=== PATIENT | female | born 1950 | race Caucasian/White ===

== ENCOUNTER → 2020-05-14 14:00 | Outpatient (BNV) | payer MEDICARE, OTHER, SELFPAY | PROVIDERS: PCP Internal Medicine; Visit Provider Internal Medicine | DX: M81.8 Other osteoporosis without current pathological fracture (principal); Z85.3 Personal history of malignant neoplasm of breast | CPT/HCPCS: 99213; 99214; G2211 ==

== ENCOUNTER → 2020-07-22 11:00 | Outpatient (BNVA) | payer MEDICARE, SELFPAY | PROVIDERS: PCP Internal Medicine; Visit Provider Surgery | DX: C50.919 Malignant neoplasm of unspecified site of unspecified female breast (principal) | CPT/HCPCS: 99212 ==

== ENCOUNTER 2020-08-11 08:00 | Outpatient (REF) | payer MEDICARE, SELFPAY ==
--- NOTE | ~2020-08-11 | MM_ITS ---
EXAMINATION: MM SCREENING DIGITAL BREAST TOMOSYNTHESIS, LEFT CLINICAL INFORMATION: Right mastectomy for breast cancer 2018. Due for yearly. COMPARISON: Mammography: 01/09/2019, 11/22/2017, 12/16/2016 TECHNIQUE: Digital breast tomosynthesis is performed in both the craniocaudal and mediolateral oblique views along with computer-aided detection (CAD). Synthesized 2D images are generated from the tomosynthesis. FINDINGS: There are scattered areas of fibroglandular density (ACR BI-RADS breast composition Category b). There are no significant masses, abnormal calcifications, or other abnormalities. Parenchymal pattern is similar to prior studies. No developing density. The axilla and skin contours are unremarkable. MM/MM tomosynthesis screening LT IMPRESSION: No mammographic evidence of malignancy. ASSESSMENT: BI-RADS 1: Negative RECOMMENDATION: Routine annual mammography screening. This patient's information was entered into a reminder system with a target due date for their next mammogram.
== END 2020-08-11 08:01 | disposition home or self-care (01) ==
LOC: HO.MAMMO 08:00
PROVIDERS: Visit Provider Internal Medicine
DX: Z12.31 Encounter for screening mammogram for malignant neoplasm of breast (principal)
CPT/HCPCS: 77063; 77067

== ENCOUNTER 2020-12-24 12:53 | Outpatient (REF) | payer MEDICARE, SELFPAY ==
--- NOTE | ~2020-12-24 | US_ITS ---
EXAMINATION: US DIAGNOSTIC ULTRASOUND BREAST, RIGHT CLINICAL INFORMATION: History of right breast mastectomy with pain in region of implant which comes and goes.. COMPARISON: None postsurgical TECHNIQUE: Ultrasound of the breast is performed with real-time nieto scale imaging and color Doppler. FINDINGS: No abnormal cystic or solid mass was identified. Patient is status post mastectomy. Breast implant appears unremarkable. There appears to be a muscle flap in place. Results are discussed with the patient at time of visit. US/US breast RT limited IMPRESSION: No suspicious ultrasound abnormality appreciated at site of patient's pain. ASSESSMENT: BI-RADS 1: Negative RECOMMENDATION: Clinical follow-up for right breast findings postmastectomy. Routine left breast annual screening. This patient's information was entered into a reminder system with a target due date for their next mammogram.
== END 2020-12-24 12:54 | disposition home or self-care (01) ==
LOC: HO.MAMMO 12:53
PROVIDERS: Visit Provider Internal Medicine
DX: C50.919 Malignant neoplasm of unspecified site of unspecified female breast (principal); N64.4 Mastodynia; Z98.82 Breast implant status
CPT/HCPCS: 76642

== ENCOUNTER → 2021-02-24 12:46 | Outpatient (BNVA) | payer MEDICARE, SELFPAY | PROVIDERS: Visit Provider Surgery | DX: C50.911 Malignant neoplasm of unspecified site of right female breast (principal); E78.00 Pure hypercholesterolemia, unspecified; I10 Essential (primary) hypertension; Z87.891 Personal history of nicotine dependence; Z17.0 Estrogen receptor positive status [ER+]; Z90.11 Acquired absence of right breast and nipple; Z92.21 Personal history of antineoplastic chemotherapy; Z92.3 Personal history of irradiation; Z79.811 Long term (current) use of aromatase inhibitors | CPT/HCPCS: 99212 ==

== ENCOUNTER → 2021-10-13 14:28 | Outpatient (BNVA) | payer MEDICARE, SELFPAY | PROVIDERS: PCP Internal Medicine; Referring Provider Internal Medicine; Visit Provider Surgery | DX: C50.919 Malignant neoplasm of unspecified site of unspecified female breast (principal) | CPT/HCPCS: 99212 ==

== ENCOUNTER 2021-10-27 11:42 | Outpatient (REF) | payer MEDICARE, SELFPAY ==
--- NOTE | ~2021-10-27 | MM_ITS ---
EXAMINATION: MM SCREENING DIGITAL BREAST TOMOSYNTHESIS, LEFT CLINICAL INFORMATION: Screening. Asymptomatic. Status post right mastectomy. COMPARISON: Mammography: August 16, 2020 and studies dating back to May 03, 2012 TECHNIQUE: Digital breast tomosynthesis is performed in both the craniocaudal and mediolateral oblique views along with computer-aided detection (CAD). Synthesized 2D images are generated from the tomosynthesis. FINDINGS: There are scattered areas of fibroglandular density (ACR BI-RADS breast composition Category b). There are no significant masses, abnormal calcifications, or other abnormalities. MM/MM tomosynthesis screening LT IMPRESSION: There are no significant changes from prior study. ASSESSMENT: BI-RADS 1: Negative RECOMMENDATION: Routine annual mammography screening. This patient's information was entered into a reminder system with a target due date for their next mammogram.
== END 2021-10-27 11:43 | disposition home or self-care (01) ==
LOC: HO.MAMMO 11:42
PROVIDERS: Visit Provider Surgery
DX: Z12.31 Encounter for screening mammogram for malignant neoplasm of breast (principal)
CPT/HCPCS: 77063; 77067

== ENCOUNTER 2021-12-22 13:16 | Outpatient (REF) | payer MEDICARE, SELFPAY ==
--- NOTE | ~2021-12-22 | MM_ITS ---
EXAMINATION: BONE DENSITOMETRY CLINICAL INDICATION: On AI therapy. COMPARISON: Previous BD dated 09/23/2017 and baseline BD dated 05/12/2006. TECHNIQUE: Using a [employer] [facility] [employer] DXA System (software version: 13.1) manufactured by [employer], dual-energy x-ray absorptiometry was performed of the lumbar spine and left hip. The images are of good technical quality. Summary results are attached. FINDINGS: AP SPINE L1-L4: There are multilevel degenerative changes in the lumbar spine which may cause over a summation of the lumbar bone mineral density. Current: BMD 1.392 g/cm2, Z-score 2.3, T-score 1.8, normal, 2.3% decrease from previous, 13.4% increase from baseline (<5% change is not significant). Prior: BMD 1.425 g/cm2. Baseline: BMD 1.227 g/cm2. LEFT FEMUR, NECK: Current: BMD 0.673 g/cm2, Z-score -1.7, T-score -2.6, osteoporosis. Prior: BMD 0.923 g/cm2. Baseline: BMD 1.073 g/cm2. LEFT FEMUR, TOTAL: Current: BMD 0.758 g/cm2, Z-score -1.3, T-score -2.0, osteopenia, 25.5% decrease from previous, 31.9% decrease from baseline (<5% change is not significant). Prior: BMD 1.017 g/cm2. Baseline: BMD 1.113 g/cm2. IDENTIFIED RISK FACTORS: Height loss, menopause. HISTORY OF FRACTURE: None listed. MEDICATIONS: Vitamin D. MM/XR DEXA axial skeleton IMPRESSION: 1. DIAGNOSIS: Osteoporosis based on the lowest T-score value of -2.6 in the femoral neck applying World Health Organization criteria. 2. 10-YEAR FRACTURE RISK PREDICTION, FRAX: According to the guidelines, FRAX calculation should only be performed on patients in the osteopenia bone density category. Therefore, FRAX was not performed on this patient. 3. Treatment Recommendations: NOF guidelines recommend consideration for treatment in postmenopausal women and men age 50 and older presenting with the following: -A hip or vertebral (clinical or morphometric) fracture. -T-score less than or equal to -2.5 at the femoral neck or spine after appropriate evaluation to exclude secondary causes. -Low bone mass at the hip or spine and a 10-year fracture probability by FRAX of greater than or equal to 3% for hip fracture or greater than or equal to 20% for major osteoporotic fracture based on the [place] adapted WHO algorithm. 4. Other Recommendations: All treatment decisions require clinical judgment and consideration of individual patient factors, including patient preferences, comorbidities, previous drug use, risk factors not captured in the FRAX model (e.g. frailty, falls, vitamin D deficiency, increased bone turnover, interval significant decline in bone density) and possible under or overestimation of fracture risk by FRAX. Additional medical evaluation for secondary cause of low bone mineral density may be appropriate. FUTURE SCAN RECOMMENDATION: People with diagnosed cases of osteoporosis or at high risk for fracture should have regular bone mineral density tests. For patients eligible for Medicare, routine testing is allowed once every 2 years. The testing frequency can be increased to one year for patients who have rapidly progressing disease, those who are receiving or discontinuing medical therapy to restore bone mass, or have additional risk factors.
--- NOTE | 2021-12-23 08:28 | PM.EVENT ---
Spoke to patient about her bone density. She has developed osteoporosis T-score -2.6. We discussed Prolia as well as alendronate for bone strengthening. She would preferred Prolia 60 mg subQ every 6 months.
== END 2021-12-22 13:17 | disposition home or self-care (01) ==
LOC: HO.MAMMO 13:16
PROVIDERS: PCP Internal Medicine; Visit Provider Internal Medicine
DX: Z13.820 Encounter for screening for osteoporosis (principal); C50.919 Malignant neoplasm of unspecified site of unspecified female breast; Z79.3 Long term (current) use of hormonal contraceptives; Z78.0 Asymptomatic menopausal state
CPT/HCPCS: 77080

== ENCOUNTER 2022-01-14 10:31 | Outpatient (AMB) | payer MEDICARE, SELFPAY ==
--- NOTE | 2022-01-13 14:38 | A.OFFVIS_ITS ---
Intake Intake Visit Reasons: Right renal mass Intake Note: Patient is present for right renal mass Accompanied by: Self / Same As Patient Allergies Sulfa (Sulfonamide Antibiotics) [SULFA(SULFONAMIDE ANTIBIOTICS)] Allergy (Mariaelena avitia, Verified 01/13/22 14:39) ? RXN - HAD CHILD PFSH Medical History Breast cancer Cholecystectomy planned FH: mastectomy High cholesterol HTN (hypertension) Invasive ductal carcinoma of breast Renal mass Surgical History H/O hand surgery (2012) H/O wrist surgery History of breast biopsy (12/24/16) History of colonoscopy (03/06/14) History of right breast implant (01/30/18) History of right mastectomy (02/02/17) Family History Father Stroke Hypertension Mother COPD (chronic obstructive pulmonary disease) Hypertension Brother Stomach cancer Brother Liver transplant recipient Social History Household Members: Family Housing: House Are you a primary wound care technician to a significant other at home: No Do you presently have visiting nurse or other home services: No Alcohol intake: current Alcohol intake frequency: holidays/special occasions only Patient Tobacco Use Status: Former Tobacco user Quit Date: 1975 Use of substances other than those prescribed or required for medical reasons: No Have you been hit, kicked, punched, or otherwise hurt by someone within the past year? If so, by whom?: No Do you feel safe in your current relationship?: No Current Relationship Do you have thoughts of harming others: None Do you have a plan to hurt others: No Plan Do you have the means to hurt others: No Recently lost weight without trying: No service: No Current occupational status: retired Coding
--- NOTE | 2022-01-14 10:31 | A.OFFVIS_ITS ---
Intake Vital Signs 01/14/22 10:35 Height 5 ft 3 in BP 140/70 H Blood Pressure Location Rt brachial Position Sitting Comment pt was notified that BP was slighty high Intake Visit Reasons: Right renal mass Intake Note: New patient is present for right renal mass Refrigeration Service Inspector Required: No Accompanied by: Self / Same As Patient Allergies Sulfa (Sulfonamide Antibiotics) [SULFA(SULFONAMIDE ANTIBIOTICS)] Allergy (Unknown, Verified 07/12/23 13:04) ? RXN - HAD CHILD HPI HPI Comments History of Present Illness Details Amalia is a pleasant female. She is a patient of Dr. Llanos. She seen for the following urologic conditions - atrophic kidney Accompanied by brother in law Discussed recent lab work from PCP Indicates dehydration at time of investigations Recommendation to drink water prior to follow-up lab work High fasting sugar Encourage nutrition modification and activity Atrophic right kidney/nephrolithiasis Stable imaging Twelve month follow-up [facility] Medical History FH: cholecystectomy Renal cancer Invasive ductal carcinoma of breast Renal mass FH: mastectomy Breast cancer HTN (hypertension) High cholesterol Surgical History History of cholecystectomy History of right breast implant (01/30/18) History of right mastectomy (02/02/17) History of breast biopsy (12/24/16) History of colonoscopy (03/06/14) H/O wrist surgery H/O hand surgery (2012) Family History Father Stroke Hypertension Mother COPD (chronic obstructive pulmonary disease) Hypertension Brother Stomach cancer Brother Liver transplant recipient Social History Household Members: Family Housing: House Are you a primary healthcare management consultant to a significant other at home: No Do you presently have visiting nurse or other home services: No Alcohol intake: current Alcohol intake frequency: holidays/special occasions only Patient Tobacco Use Status: Former Tobacco user Quit Date: 1975 service: No Current occupational status: retired Review of Systems Const Denies chills and Denies fever(s) Card Reports no additional complaints and Denies syncope Resp Denies cough GI Denies abdominal pain and Denies heartburn Reports as per HPI and Denies change in libido Neuro Denies syncope Psych Denies change in libido Endo Denies change in libido Physical Exam Vital Signs: Last Vital Signs BP 140/70 H 01/14/22 10:35 Const General: cooperative, healthy appearing, comfortable and no acute distress Orientation/consciousness: patient oriented x3 HEENT Face and sinus: Yes normal facial exam Mouth: moist mucous membranes Neck Neck: Yes normal visual inspection, Yes full ROM and Yes trachea midline Chest Chest palpation & inspection: normal inspection of the chest Resp Effort & Inspection: normal respiratory effort, able to speak in complete sentences and no respiratory distress GI Inspection: Yes normal to inspection Back/Spine/Pelvis Cervical Spine: normal cervical lordosis Thoracic/Lumbar Spine: thoracic and lumbar spine normal to inspection Skin General skin exam: no rashes or lesions noted Neuro General: patient oriented x3, gait normal, tone normal and moves all extremities Extrem General: Yes normal to inspection and Yes capillary refill normal Results AMB Urinalysis, Automated UA Leukoctes 70 Deon/uL Last Edit by ANGELA Cevallos on 01/14/22 10:58 UA Nitrite Negative Last Edit by Carmelina Jackson [facility] on 01/14/22 10:58 UA Urobilinogen 0.2 mg/dL Last Edit by Carmelina Jackson Carl on 01/14/22 10:5 8 UA Protein 15 mg/dL Last Edit by Carmelina Jackson [facility] on 01/14/22 10:58 UA pH 5.5 Last Edit by Carmelina Jackson [facility] on 01/14/22 10:58 UA Blood 0 Juarez/uL Last Edit by Carmelina Jackson [facility] on 01/14/22 10:58 UA Specific [place] 1.025 Last Edit by Carmelina Jackson [facility] on 01/14/22 10: 58 UA Ketone Negative Last Edit by ANGELA Cevallos on 01/14/22 10:58 UA Bilirubin 0 mg/dL Last Edit by Carmelina Jackson [facility] on 01/14/22 10:58 UA Glucose 0 mg/dL Last Edit by Carmelina Jackson [facility] on 01/14/22 10:58 Results Reviewed Results Reviewed: Laboratory Last Values Urine pH (Auto) 5.5 01/14/22 10:35 Specific [place] (Auto) 1.025 01/14/22 10:35 Urine Protein (Auto) 15 mg/dL 01/14/22 10:35 Glucose (UA)(Auto) 0 mg/dL 01/14/22 10:35 Urine Ketones (Auto) Negative 01/14/22 10:35 Urine Blood (Auto) 0 Juarez/uL 01/14/22 10:35 Urine Nitrite (Auto) Negative 01/14/22 10:35 Urine Bilirubin (Auto) 0 mg/dL 01/14/22 10:35 Urine Urobilinogen (Auto) 0.2 mg/dL 01/14/22 10:35 Leukocyte Esterase (Auto) 70 Deon/uL 01/14/22 10:35 Assessment & Plan Assessment & Plan (1) Renal cancer: Code(s): C64.9 - Malignant neoplasm of unspecified kidney, except renal pelvis Plan 12 m f/u Orders: Orders AMB Urinalysis Automated 01/14/22 Z13.9 - Encounter for screening, unspecified US renal BI 1 Year N20.0 - Calculus of kidney, C64.9 - Malignant neoplasm of unspecified kidney, except renal pelvis Patient Instructions: Imaging studies, laboratory and physical exam results were discussed and reviewed in detail. No major barriers to patient understanding were identified. An opportunity to ask questions regarding the treatment plan was provided. All questions were answered. The patient expressed understanding and agreement with the above treatment plan. The patient is aware they should contact our office by phone for worsening of their current condition or the appearance of new urologic symptoms. Compliance is encouraged with any medications and followup testing that is ordered. It is a privilege to participate in the urologic care of your patient. If you have any questions or concerns regarding treatment for the above conditions, or other urologic issues, please do not hesitate to contact me. The office telephone contact is [phone]. This note is constructed using voice recognition software. While every effort has been made to ensure accuracy physician locums urgent care errors may have been included. Yours sincerely, Dr Sy Mckee MD, [facility] - Urology Providers of Expert, Compassionate Care for the Genitourinary System Coding Level of Care Code New Pt Level 3 (44268) Diagnoses Renal cancer C64.9
[2022-01-14 10:35] VITALS: BP 140/70
== END 2022-01-14 11:05 | disposition home or self-care (01) ==
LOC: HO.HUSH 10:31
PROVIDERS: PCP Internal Medicine; Visit Provider Urology
DX: C64.9 Malignant neoplasm of unspecified kidney, except renal pelvis (principal)
CPT/HCPCS: 99499

== ENCOUNTER 2022-04-06 09:12 | Day surgery (SDC) | payer MEDICARE, SELFPAY ==
--- NOTE | 2022-04-05 14:20 | HO.ANESPROP2 ---
Documented by User: Rashmi Latham NP 04/05/22 14:21 HPI - Anesthesia Eval Consult details Narrative: 72yo F for Colonoscopy s/p Right mastectomy PMFSH Active Problems Active Problems: All Active Problems (Updated 01/14/22 @ 11:03 by Sy Mckee MD) Renal cancer (Acute) Invasive ductal carcinoma of breast (Acute) Breast CA (Chronic) Past Medical History Medical History Breast cancer FH: cholecystectomy FH: mastectomy High cholesterol HTN (hypertension) Invasive ductal carcinoma of breast Renal mass Family History Family History Father Stroke Hypertension Mother COPD (chronic obstructive pulmonary disease) Hypertension Brother Stomach cancer Brother Liver transplant recipient Surgical History Surgical History H/O hand surgery (2012) H/O wrist surgery History of breast biopsy (12/24/16) History of cholecystectomy History of colonoscopy (03/06/14) History of right breast implant (01/30/18) History of right mastectomy (02/02/17) Social History Social History Household Members: Family Housing: House Are you a primary care mgr to a significant other at home: No Do you presently have visiting nurse or other home services: No Alcohol intake: current Alcohol intake frequency: holidays/special occasions only Patient Tobacco Use Status: Former Tobacco user Quit Date: 1975 Use of substances other than those prescribed or required for medical reasons: No Are you DNR?: No Advance Directives: No Advance Directives Information Provided: Yes service: No Current occupational status: retired Meds Allergies Allergy/AdvReac Type Severity Reaction Status Date / Time Sulfa (Sulfonamide Allergy Unknown ? RXN - Verified 01/14/22 10:31 Antibiotics) HAD [SULFA(SULFONAMIDE CHILD ANTIBIOTICS)] Home Medications Medication Instructions Recorded Confirmed Last Taken Type anastrozole 1 mg tablet 1 tab PO DAILY 05/14/20 11/16/21 Unknown History atorvastatin 20 mg tablet 1 tab PO DAILY 05/14/20 11/16/21 Unknown History duloxetine 60 mg capsule,delayed 1 cap PO DAILY 05/14/20 11/16/21 Unknown History release naproxen 500 mg tablet 1 tab PO BID 05/14/20 11/16/21 03/30/22 History pantoprazole 40 mg tablet,delayed 1 tab PO DAILY 05/14/20 11/16/21 Unknown History release trazodone 50 mg tablet 1 tab PO BEDTIME 05/14/20 11/16/21 Unknown History valsartan 320 mg tablet 1 tab PO DAILY 05/14/20 11/16/21 Unknown History furosemide 20 mg tablet 20 mg PO DAILY 07/22/20 11/16/21 Unknown History amlodipine 5 mg tablet 5 mg PO DAILY 02/24/21 11/16/21 Unknown History buspirone 10 mg tablet 10 mg PO BID 05/18/21 11/16/21 Unknown History Exam Exam Date and Time: April 05, 2022 1420 Pertinent Lab Results Pertinent Lab Results: Laboratory Tests 11/16/21 12/28/21 13:19 08:03 WBC 7.4 Hgb 13.3 Hct 39.5 Plt Count 227 Sodium 140 Potassium 4.5 Chloride 105 Carbon Dioxide 27 BUN 20 H Creatinine 1.10 Assessment and Plan Assessment Anesthesia Assessment: Chart Reviewed Documented by User: Scotty Padron MD 04/06/22 12:42 [facility] Past Medical History Medical History Breast cancer FH: cholecystectomy FH: mastectomy High cholesterol HTN (hypertension) Invasive ductal carcinoma of breast Renal mass Family History Family History Father Stroke Hypertension Mother COPD (chronic obstructive pulmonary disease) Hypertension Brother Stomach cancer Brother Liver transplant recipient Family history of problems with anesthesia: No Surgical History Surgical History H/O hand surgery (2012) H/O wrist surgery History of breast biopsy (12/24/16) History of cholecystectomy History of colonoscopy (03/06/14) History of right breast implant (01/30/18) History of right mastectomy (02/02/17) History of Problems with Anesthesia: No Social History Social History Household Members: Family Housing: House Are you a primary care mgr to a significant other at home: No Do you presently have visiting nurse or other home services: No Alcohol intake: current Alcohol intake frequency: holidays/special occasions only Patient Tobacco Use Status: Former Tobacco user Quit Date: 1975 Use of substances other than those prescribed or required for medical reasons: No Are you DNR?: No Advance Directives: No Advance Directives Information Provided: Yes service: No Current occupational status: retired Meds Allergies Allergy/AdvReac Type Severity Reaction Status Date / Time Sulfa (Sulfonamide Allergy Unknown ? RXN - Verified 01/14/22 10:31 Antibiotics) HAD [SULFA(SULFONAMIDE CHILD ANTIBIOTICS)] Home Medications Medication Instructions Recorded Confirmed Last Taken Type anastrozole 1 mg tablet 1 tab PO DAILY 05/14/20 11/16/21 Unknown History atorvastatin 20 mg tablet 1 tab PO DAILY 05/14/20 11/16/21 Unknown History duloxetine 60 mg capsule,delayed 1 cap PO DAILY 05/14/20 11/16/21 Unknown History release naproxen 500 mg tablet 1 tab PO BID 05/14/20 11/16/21 03/30/22 History pantoprazole 40 mg tablet,delayed 1 tab PO DAILY 05/14/20 11/16/21 Unknown History release trazodone 50 mg tablet 1 tab PO BEDTIME 05/14/20 11/16/21 Unknown History valsartan 320 mg tablet 1 tab PO DAILY 05/14/20 11/16/21 Unknown History furosemide 20 mg tablet 20 mg PO DAILY 07/22/20 11/16/21 Unknown History amlodipine 5 mg tablet 5 mg PO DAILY 02/24/21 11/16/21 Unknown History buspirone 10 mg tablet 10 mg PO BID 05/18/21 11/16/21 Unknown History Exam Airway Mallampati Class: II TM Dist: >3cm Neck ROM: Full Partial: Upper Loose/Missing/Broken Teeth: Yes Heart: rrr+[id number] Lungs: cta b/l Assessment and Plan Assessment Anesthesia Assessment: Anesthesia Plan Discussed Final Anesthetic Review Family History of Problems with Anesthesia: No History of Problems with Anesthesia: No NPO: Yes ASA Class: III Final Preanesthetic Review: No Changes in Pt Med Stat, Meds/Allgs Chart Reviewed, Consent Obtained/Reviewed and Anes Risks/Benef Reviewed Patient Risk: Intermediate Procedure Risk: Intermediate Assessment/Block/Sedation in SS: Assess/Block/Sedation-SS Anesthetic Plan Anesthetic Plan: MAC: and Agree w/ Assess. and Plan Disposition: Standard PACU
[2022-04-06 09:25] VITALS: BMI 42.0
[2022-04-06 09:30] VITALS: PULSE 69; RESP 18; TEMP 36.2; O2SAT 97
[2022-04-06] MEDS: Lactated Ringers 1,000 ML 100 ML IVCONT (10:45)
[2022-04-06] MEDS: Sodium Phosphate,Mono-Dibasic 133 ML ENEMA PR (10:45)
--- NOTE | 2022-04-06 11:56 | MHC.SHP ---
Pre-Procedural Eval Section A Date of Service: 04/06/22 The patient is an INPATIENT: No Changes since office visit: No Cold of Flu in the past 2 weeks, No New Medical Problems, No Changes in Medication and No Patient answered all questions The History & Physical has been completed within 30 days and I have reviewed it.: Yes Section B Chief Complaint: screening Allergies: Allergies Allergy/AdvReac Type Severity Reaction Status Date / Time Sulfa (Sulfonamide Allergy Unknown ? RXN - Verified 01/14/22 10:31 Antibiotics) HAD [SULFA(SULFONAMIDE CHILD ANTIBIOTICS)] Plan I have reviewed the history and physical and performed a pertinent physical examination on my patient. No changes have occurred unless specified.
[2022-04-06 12:38] VITALS: BP 103/37; PULSE 72; RESP 18; TEMP 36.9; O2SAT 97
--- NOTE | 2022-04-06 12:47 | PM.OP ---
Brief Operative Note Date of Service: 04/06/22 Pre-op diagnosis: change in bowels Post-op diagnosis: same Surgeon: Jose J Simpson Anesthesia: MAC Was an Precipitator Supervisor used for this Procedure?: No Estimated blood loss (mL): 2 Pathology: other Condition: stable Disposition: PACU
[2022-04-06 12:53] VITALS: BP 126/58; PULSE 63; RESP 18; TEMP 36.9; O2SAT 98
--- NOTE | 2022-04-06 13:05 | OP_ITS ---
SURGEON: Jose J Simpson MD INDICATIONS: Change in bowel habits. PREOPERATIVE DIAGNOSIS: POSTOPERATIVE DIAGNOSIS: PROCEDURE PERFORMED: Colonoscopy to the hepatic flexure with biopsy. ESTIMATED BLOOD LOSS: COMPLICATIONS: ANESTHESIA: Monitored anesthesia care. ASSISTANTS: SPECIMENS: DESCRIPTION OF PROCEDURE: History and physical performed. The risks and benefits of the procedure were explained to the patient. Informed consent was obtained. The patient was placed in the left lateral decubitus position. A digital rectal exam was performed and was found to be normal. The Olympus pediatric video colonoscope was introduced into the rectum and advanced to the hepatic flexure, where further advancement was not possible due to looping in the sigmoid. This was despite application of the abdominal wall pressure and repositioning the patient. Examination was performed. The scope was removed. She tolerated the procedure well and was taken to the recovery area stable condition. The procedure was performed on 04/06/2022. FINDINGS: There was a large amount of liquid stool, which limited the sensitivity examination for detection of small polyps. This was washed and suctioned as best possible. The visualized colonic mucosa was normal without evidence of colitis or mass lesions. There was mild sigmoid diverticulosis. Random sigmoid biopsies were obtained because of the patient's change in bowel habits. Retroflexed examination showed small internal hemorrhoids. IMPRESSION: Diverticulosis, limited examination. RECOMMENDATION: 1. Follow up as needed. 2. Consider repeat colonoscopy in 6 to 12 months with a 2 day prep. MD ROGELIO Bella/IVAN / [id number]
== END 2022-04-06 14:13 | disposition home or self-care (01) ==
PROVIDERS: PCP Internal Medicine; Visit Provider Internal Medicine Gastroenterology
PROC: 0DJD8ZZ Inspection of Lower Intestinal Tract, Via Natural or Artificial Opening Endoscopic (ICD-10-PCS; CPT 45378; principal; 2022-04-06 10:30)
DX: R19.4 Change in bowel habit (principal); K56.2 Volvulus; K57.30 Diverticulosis of large intestine without perforation or abscess without bleeding; K64.8 Other hemorrhoids; K59.00 Constipation, unspecified; I10 Essential (primary) hypertension; M81.0 Age-related osteoporosis without current pathological fracture; E78.00 Pure hypercholesterolemia, unspecified; F41.8 Other specified anxiety disorders; C50.911 Malignant neoplasm of unspecified site of right female breast; Z79.811 Long term (current) use of aromatase inhibitors; Z90.11 Acquired absence of right breast and nipple; Z85.528 Personal history of other malignant neoplasm of kidney; Z90.5 Acquired absence of kidney; Z79.899 Other long term (current) drug therapy; Z79.1 Long term (current) use of non-steroidal anti-inflammatories (NSAID); Z87.891 Personal history of nicotine dependence; Z88.2 Allergy status to sulfonamides
CPT/HCPCS: 45380; 88305

== ENCOUNTER → 2022-04-20 13:57 | Outpatient (BNVA) | payer MEDICARE, SELFPAY | PROVIDERS: PCP Internal Medicine; Visit Provider Surgery | DX: C50.919 Malignant neoplasm of unspecified site of unspecified female breast (principal) | CPT/HCPCS: 99212 ==

== ENCOUNTER → 2022-08-04 09:55 | Outpatient (REF) | payer MEDICARE, SELFPAY ==
--- NOTE | ~2022-08-04 | NM_ITS ---
EXAMINATION: NM BONE SCAN OF THE WHOLE BODY CLINICAL INFORMATION: Bone pain. Also malignant neoplasm of unspecified site of unspecified female breast. Patient states right breast surgery 2017, renal mass removed 2018. COMPARISON: The previous bone scan dated 10/20/2018 is available. Radiographs of the right wrist dated 12/28/2019 and of the right ankle dated 02/07/2019 are the only recent radiographs available for comparison. The diagnostic CT scan of chest dated 11/30/2018, is available for comparison. TECHNIQUE: Multiple gamma scintillation camera images of the whole body were performed 3.25 hours following the intravenous administration of 36 mCi Tc-99m MDP. FINDINGS: In the head, no significant abnormalities are present. In the thoracic cage and upper extremities, there is mildly increased activity in the right acromioclavicular joint and minimally increased activity in the left acromioclavicular joint and sternoclavicular joints bilaterally. Some residual radiopharmaceutical at the injection site in the left antecubital fossa is noted. In the spine, a very minimal thoracolumbar scoliosis with lower lumbar convexity to the left is noted. There is mild heterogeneity in the mid and lower thoracic spine in the mid lumbar spine, but small foci of increased activity in these regions are very mild in intensity. The most prominent along the lateral margins of L3 and the right anterior aspect of L5. In the pelvis, no significant abnormalities are present. The urinary bladder is displaced to the right and a right-sided bladder diverticulum is present. In the lower extremities, there is a mild diffuse increase in activity in both knees. There is a small focus of minimally increased activity present medially in the left ankle or proximal left foot. No other definite bony abnormalities are noted. The urinary bladder and faint visualization of both kidneys are noted. NM/NM bone scan whole body IMPRESSION: A few mild nonspecific abnormalities are noted as described above and these are all likely arthritic or traumatic in etiology. None of these abnormalities is strongly suspicious for metastatic disease.
== END ==
LOC: HO.NUCMED 09:55
PROVIDERS: PCP Internal Medicine; Visit Provider Internal Medicine
DX: C50.919 Malignant neoplasm of unspecified site of unspecified female breast (principal); R13.10 Dysphagia, unspecified; K21.9 Gastro-esophageal reflux disease without esophagitis
CPT/HCPCS: 78306; A9503

== ENCOUNTER 2022-12-31 13:00 | Outpatient (REF) | payer MEDICARE, SELFPAY ==
--- NOTE | ~2022-12-31 | US_ITS ---
EXAMINATION: US RETROPERITONEAL LIMITED (RENAL ONLY) CLINICAL INFORMATION: Calculus of kidney. COMPARISON: MRI abdomen without and with contrast dated 11/30/2018. TECHNIQUE: Real-time imaging of the kidneys. Limited visualization due to bowel gas. FINDINGS: RIGHT KIDNEY: 5.0 x 2.1 x 2.5 cm (SAG x AP x TRV). Atrophic right kidney. No hydronephrosis. No renal calculi. Limited visualization. Diffuse right renal cortical thinning. LEFT KIDNEY: 9.4 x 4.7 x 4.5 cm (SAG x AP x TRV). No hydronephrosis. No renal calculi. Renal cortical thickness is normal. Limited visualization. US/US renal BI IMPRESSION: 1. Atrophic right kidney. Diffuse right renal cortical thinning. 2. No hydronephrosis. No renal calculi.
== END 2022-12-31 13:01 | disposition home or self-care (01) ==
LOC: HO.US 13:00
PROVIDERS: PCP Internal Medicine; Visit Provider Urology
DX: N20.0 Calculus of kidney (principal); C64.9 Malignant neoplasm of unspecified kidney, except renal pelvis
CPT/HCPCS: 76775

== ENCOUNTER 2023-01-18 13:18 | Outpatient (AMB) | payer MEDICARE, SELFPAY ==
--- NOTE | 2023-01-18 13:38 | MHC.OFFVIS ---
Intake Intake Visit Reasons: 1Y US(set) Intake Note: Patient is present for Follow Up Ultrasound Urology Med: None Antibiotic Allergy: Sulfa Blood Thinner: none Pharmacy: [facility] Allergies Sulfa (Sulfonamide Antibiotics) [SULFA(SULFONAMIDE ANTIBIOTICS)] Allergy (Unknown, Verified 01/18/23 13:42) ? RXN - HAD CHILD HPI HPI Comments History of Present Illness Details Amalia is a pleasant female. She is a patient of Dr. Llanos. She seen for the following urologic conditions - atrophic kidney Accompanied by brother in law Discussed recent lab work from PCP Indicates dehydration at time of investigations Recommendation to drink water prior to follow-up lab work High fasting sugar Encourage nutrition modification and activity Atrophic right kidney/nephrolithiasis Stable imaging Imaging - 01/12 renal ultrasound atrophic right kidney, question small stone left Twelve month follow-up [facility] Medical History (Updated 01/18/23 @ 14:07 by Sy Mceke MD) Breast cancer FH: cholecystectomy FH: mastectomy High cholesterol HTN (hypertension) Invasive ductal carcinoma of breast Renal cancer Renal mass Surgical History H/O hand surgery (2012) H/O wrist surgery History of breast biopsy (12/24/16) History of cholecystectomy History of colonoscopy (03/06/14) History of right breast implant (01/30/18) History of right mastectomy (02/02/17) Family History Father Stroke Hypertension Mother COPD (chronic obstructive pulmonary disease) Hypertension Brother Stomach cancer Brother Liver transplant recipient Social History Household Members: Family Housing: House Are you a primary youth career specialist to a significant other at home: No Do you presently have visiting nurse or other home services: No Alcohol intake: current Alcohol intake frequency: holidays/special occasions only Patient Tobacco Use Status: Former Tobacco user Quit Date: 1975 service: No Current occupational status: retired Review of Systems Const Denies chills and Denies fever(s) Card Reports no additional complaints and Denies syncope Resp Denies cough GI Denies abdominal pain and Denies heartburn Reports as per HPI and Denies change in libido Neuro Denies syncope Psych Denies change in libido Endo Denies change in libido Physical Exam Const General: cooperative, healthy appearing, comfortable and no acute distress Orientation/consciousness: patient oriented x3 HEENT Face and sinus: Yes normal facial exam Mouth: moist mucous membranes Neck Neck: Yes normal visual inspection, Yes full ROM and Yes trachea midline Chest Chest palpation & inspection: normal inspection of the chest Resp Effort & Inspection: normal respiratory effort, able to speak in complete sentences and no respiratory distress GI Inspection: Yes normal to inspection Back/Spine/Pelvis Cervical Spine: normal cervical lordosis Thoracic/Lumbar Spine: thoracic and lumbar spine normal to inspection Skin General skin exam: no rashes or lesions noted Neuro General: patient oriented x3, gait normal, tone normal and moves all extremities Extrem General: Yes normal to inspection and Yes capillary refill normal Assessment & Plan Assessment & Plan (1) Atrophic kidney: Code(s): N26.1 - Atrophy of kidney (terminal) Plan Twelve month follow-up Patient Instructions: Imaging studies, laboratory and physical exam results were discussed and reviewed in detail. No major barriers to patient understanding were identified. An opportunity to ask questions regarding the treatment plan was provided. All questions were answered. The patient expressed understanding and agreement with the above treatment plan. The patient is aware they should contact our office by phone for worsening of their current condition or the appearance of new urologic symptoms. Compliance is encouraged with any medications and followup testing that is ordered. It is a privilege to participate in the urologic care of your patient. If you have any questions or concerns regarding treatment for the above conditions, or other urologic issues, please do not hesitate to contact me. The office telephone contact is [phone]. This note is constructed using voice recognition software. While every effort has been made to ensure accuracy precision structural metal fitter errors may have been included. Yours sincerely, Dr Sy Mckee MD, [facility] - Urology Providers of Expert, Compassionate Care for the Genitourinary System Coding Level of Care Code Est Pt Level 4 (14294) Diagnoses Atrophic kidney N26.1
== END 2023-01-18 14:20 | disposition home or self-care (01) ==
PROVIDERS: PCP Internal Medicine; Visit Provider Urology
DX: N26.1 Atrophy of kidney (terminal) (principal)
CPT/HCPCS: 99213

== ENCOUNTER → 2023-01-18 13:18 | Outpatient (BNVA) | payer MEDICARE, SELFPAY | PROVIDERS: Visit Provider Urology ==

== ENCOUNTER 2023-02-25 06:33 | Day surgery (SDC) | payer MEDICARE, SELFPAY ==
[2023-02-25 06:42] VITALS: BP 137/69; PULSE 81; RESP 18; TEMP 36.3; O2SAT 98; BMI 37.2
--- NOTE | 2023-02-25 07:21 | HO.ANESPROP2 ---
[facility] Active Problems Active Problems: All Active Problems (Updated 02/01/23 @ 11:55 by [email or web address] [place]) Atrophic kidney (Acute) Breast CA (Chronic) Invasive ductal carcinoma of breast (Acute) Past Medical History Medical History FH: cholecystectomy Renal cancer Invasive ductal carcinoma of breast Renal mass FH: mastectomy Breast cancer HTN (hypertension) High cholesterol Family History Family History Father Stroke Hypertension Mother COPD (chronic obstructive pulmonary disease) Hypertension Brother Stomach cancer Brother Liver transplant recipient Family history of problems with anesthesia: No Surgical History Surgical History History of cholecystectomy History of right breast implant (01/30/18) History of right mastectomy (02/02/17) History of breast biopsy (12/24/16) History of colonoscopy (03/06/14) H/O wrist surgery H/O hand surgery (2012) History of Problems with Anesthesia: No Social History Social History Household Members: Family Housing: House Are you a primary director of healthcare systems to a significant other at home: No Do you presently have visiting nurse or other home services: No Alcohol intake: current Alcohol intake frequency: holidays/special occasions only Patient Tobacco Use Status: Former Tobacco user Quit Date: 1975 Advance Directives: No Advance Directives Information Provided: Yes service: No Current occupational status: retired Meds Allergies Allergy/AdvReac Type Severity Reaction Status Date / Time Sulfa (Sulfonamide Allergy Unknown ? RXN - Verified 01/18/23 13:42 Antibiotics) HAD [SULFA(SULFONAMIDE CHILD ANTIBIOTICS)] Home Medications Medication Instructions Recorded Confirmed Last Taken Type atorvastatin 20 mg tablet 1 tab PO DAILY 05/14/20 02/24/23 Unknown History duloxetine 60 mg capsule,delayed 1 cap PO DAILY 05/14/20 02/24/23 Unknown History release naproxen 500 mg tablet 1 tab PO BID 05/14/20 02/24/23 03/30/22 History pantoprazole 40 mg tablet,delayed 1 tab PO DAILY 05/14/20 02/24/23 Unknown History release trazodone 50 mg tablet 1 tab PO BEDTIME 05/14/20 02/24/23 Unknown History valsartan 320 mg tablet 1 tab PO DAILY 05/14/20 02/24/23 Unknown History furosemide 20 mg tablet 20 mg PO DAILY 07/22/20 02/24/23 Unknown History amlodipine 5 mg tablet 5 mg PO DAILY 02/24/21 02/24/23 Unknown History buspirone 10 mg tablet 10 mg PO BID 05/18/21 02/24/23 Unknown History denosumab 60 mg/mL subcutaneous 60 mg subcut [id number] 01/18/23 Unknown History syringe (Prolia) cholecalciferol (vitamin D3) 125 125 mcg PO DAILY 02/24/23 02/24/23 Unknown History mcg (5,000 unit) tablet (Vitamin D3) clorazepate dipotassium 1 tab PO DAILY 02/24/23 02/24/23 Unknown History Exam Exam Date and Time: February 25, 2023 0721 Height,Weight and Vital Signs: Height 5 ft 3 in Weight 95.254 kg Last Vital Signs Temp 97.3 F 02/25/23 06:42 Pulse 81 02/25/23 06:42 Resp 18 02/25/23 06:42 BP 137/69 02/25/23 06:42 Pulse Ox 98 02/25/23 06:42 O2 Del Method Room Air 02/25/23 06:42 Airway Mallampati Class: II TM Dist: >3cm Neck ROM: Full Loose/Missing/Broken Teeth: No Heart: RRR Lungs: CTA Assessment and Plan Assessment Anesthesia Assessment: Anesthesia Plan Discussed and Chart Reviewed Final Anesthetic Review Family History of Problems with Anesthesia: No History of Problems with Anesthesia: No NPO: Yes ASA Class: II Final Preanesthetic Review: Meds/Allgs Chart Reviewed, Consent Obtained/Reviewed and Anes Risks/Benef Reviewed Patient Risk: Low Procedure Risk: Low Anesthetic Plan Anesthetic Plan: MAC: Disposition: Standard PACU
--- NOTE | 2023-02-25 07:27 | MHC.SHP ---
Pre-Procedural Eval Section A Date of Service: 02/25/23 Section B Chief Complaint: Other specified symptoms and signs involving the d Details of Present Illness: see H&P no changes Relevant Family History (Specify if Yes): No Relevant Social History: None Present Medications: see Short Stay Collaborative assessment Medical History: No relevant PMH Allergies: Allergies Allergy/AdvReac Type Severity Reaction Status Date / Time Sulfa (Sulfonamide Allergy Unknown ? RXN - Verified 01/18/23 13:42 Antibiotics) HAD [SULFA(SULFONAMIDE CHILD ANTIBIOTICS)] Review of Systems Sugical H&P ROS: Negative: Constitution, Cardiovascular, Respiratory, Neurological, Psychiatric, Hem-Onc, Allergic/Immunologic, Gastrointestinal, Genitourinary, Musculoskeletal, Integumentary, Endocrine and Eyes/Ears/Nose/Throat Exam Surgical H&P Exam: Normal: HEENT, Normal: Heart, Normal: Lungs, Normal: Extremities, Normal: Abdomen, Normal: Skin and Normal: Neurological Plan Diagnosis/Plan: Unchanged I have reviewed the history and physical and performed a pertinent physical examination on my patient. No changes have occurred unless specified. Time Spent With Patient Time: Total time managing care of this patient today ____ minutes.
[2023-02-25 08:15] VITALS: BP 117/59; PULSE 64; RESP 18; TEMP 36.1; O2SAT 96
--- NOTE | 2023-02-25 08:25 | PM.OP ---
Brief Operative Note Date of Service: 02/25/23 Pre-op diagnosis: screening Post-op diagnosis: same Surgeon: Jose J Simpson MD Anesthesia: MAC Was an Paperhanger Pipe used for this Procedure?: No Estimated blood loss (mL): 2 Pathology: other Condition: stable Disposition: PACU
[2023-02-25 08:30] VITALS: BP 124/73; PULSE 60; RESP 16; TEMP 36.1; O2SAT 100
--- NOTE | 2023-02-25 08:50 | OP_ITS ---
DATE OF SERVICE: 02/25/2023 SURGEON: Jose J Simpson MD INDICATIONS: Colon cancer screening and incomplete prep on her last colonoscopy within the last 3 years. PREOPERATIVE DIAGNOSIS: POSTOPERATIVE DIAGNOSIS: PROCEDURE PERFORMED: Colonoscopy to the terminal ileum with biopsy. ESTIMATED BLOOD LOSS: COMPLICATIONS: ANESTHESIA: Monitored anesthesia care. ASSISTANTS: SPECIMENS: DESCRIPTION OF PROCEDURE: A history and physical were performed. The risks and benefits of the procedure were explained to the patient. Informed consent was obtained. The patient was placed in the left lateral decubitus position. A digital rectal exam was performed and was found to be normal. The Olympus pediatric video colonoscope was introduced into the rectum and advanced to the cecum. The cecum was identified by transillumination, palpation, identification of ileocecal valve. Examination was performed, and the scope was removed. She tolerated the procedure well and was taken to recovery in stable condition. FINDINGS: The terminal ileum was examined and appeared normal. The visualized colonic mucosa was within normal limits without evidence of masses or ulcers. There was a single polyp in the cecum, measuring less than 5 mm, which was removed with biopsy forceps. No other polyps were identified. The quality of prep was good. There was a redundant sigmoid and abdominal wall pressure was used to assist in advancement of the scope. There was mild sigmoid diverticulosis. Retroflexed examination showed some small internal hemorrhoids. IMPRESSION: Colon polyp. RECOMMENDATION: Follow up the biopsy results. MD ROGELIO Bella/IVAN / [phone]
== END 2023-02-25 09:20 | disposition home or self-care (01) ==
PROVIDERS: PCP Internal Medicine; Visit Provider Internal Medicine Gastroenterology
PROC: 0DJD8ZZ Inspection of Lower Intestinal Tract, Via Natural or Artificial Opening Endoscopic (ICD-10-PCS; CPT 45378; principal; 2023-02-25 07:30)
DX: R19.4 Change in bowel habit (principal); D12.0 Benign neoplasm of cecum; K57.30 Diverticulosis of large intestine without perforation or abscess without bleeding; K64.8 Other hemorrhoids; K21.9 Gastro-esophageal reflux disease without esophagitis; I10 Essential (primary) hypertension; E78.00 Pure hypercholesterolemia, unspecified; M81.0 Age-related osteoporosis without current pathological fracture; Z79.899 Other long term (current) drug therapy; Z88.2 Allergy status to sulfonamides; Z85.3 Personal history of malignant neoplasm of breast; Z92.21 Personal history of antineoplastic chemotherapy; Z92.3 Personal history of irradiation; Z90.11 Acquired absence of right breast and nipple; Z85.528 Personal history of other malignant neoplasm of kidney; Z90.5 Acquired absence of kidney; Z87.891 Personal history of nicotine dependence
CPT/HCPCS: 45380; 88305

== ENCOUNTER 2023-05-03 14:02 | Outpatient (REF) | payer MEDICARE, SELFPAY ==
--- NOTE | ~2023-05-03 | MM_ITS ---
EXAMINATION: MM SCREENING DIGITAL BREAST TOMOSYNTHESIS, LEFT CLINICAL INFORMATION: Screening. Asymptomatic. The patient is status post right mastectomy. COMPARISON: Mammography: This study is compared with prior exams dating back to 2018. TECHNIQUE: Digital breast tomosynthesis is performed in both the craniocaudal and mediolateral oblique views along with computer-aided detection (CAD). Synthesized 2D images are generated from the tomosynthesis. FINDINGS: There are scattered areas of fibroglandular density (ACR BI-RADS breast composition Category b). There are grouped calcifications in the superficial third of the lower inner quadrant of the left breast. This may be in the skin. Additional mammographic imaging magnification is advised. In the right breast, there are no significant masses, abnormal calcifications, or other abnormalities. MM/MM tomosynthesis screening LT IMPRESSION: Calcifications of the left breast warrants additional mammographic imaging magnification. No mammographic signs of malignancy right breast. ASSESSMENT: BI-RADS BI-RADS 0 - Incomplete: Needs additional Imaging. RECOMMENDATION: Additional views of the left breast. Radiology department staff will contact the patient for additional imaging. Additional Imaging required This examination should not preclude the clinical evaluation of a suspicious palpable abnormality. This patient's information was entered into a reminder system with a target due date for their next mammogram.
== END 2023-05-03 14:03 | disposition home or self-care (01) ==
LOC: HO.MAMMO 14:02
PROVIDERS: PCP Internal Medicine; Visit Provider Internal Medicine
DX: Z12.31 Encounter for screening mammogram for malignant neoplasm of breast (principal)
CPT/HCPCS: 77063; 77067

== ENCOUNTER → 2023-05-03 15:30 | Outpatient (BNV) | payer MEDICARE, SELFPAY | PROVIDERS: PCP Internal Medicine; Visit Provider Radiology Diagnostic Radiology | DX: Z12.31 Encounter for screening mammogram for malignant neoplasm of breast (principal) | CPT/HCPCS: 77063; 77067 ==

== ENCOUNTER 2023-05-18 07:15 | Outpatient (REF) | payer MEDICARE, SELFPAY | END 2023-05-18 07:16 | disposition home or self-care (01) | LOC: HO.HOSX 07:15 | PROVIDERS: Visit Provider Orthopaedic Surgery | DX: M25.512 Pain in left shoulder (principal); Z79.899 Other long term (current) drug therapy | CPT/HCPCS: 73030; 99212 ==

== ENCOUNTER 2023-05-18 14:23 | Outpatient (AMB) | payer MEDICARE, SELFPAY ==
--- NOTE | 2023-05-18 14:37 | A.OFFVIS_ITS ---
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 Previous patient of Dr. Armendariz. Patient reports she had a fall/dislocated her shoulder on 05/14/23. She states that she had injections in both shoulders about a week ago. The patient states that she has had chronic bilateral shoulder pain weakness the last year. Her left shoulder pain and weakness was exacerbated by her recent fall when she tripped over her pit bull dog. Since that time she has had difficulty lifting her left hand above shoulder height. She has tried Tylenol and anti-inflammatory medicines which gave her minimal relief. Allergies Sulfa (Sulfonamide Antibiotics) [SULFA(SULFONAMIDE ANTIBIOTICS)] Allergy (Unknown, Verified 05/18/23 14:43) ? RXN - HAD CHILD Medication List - Last Reconciled 05/18/23 by Luis Felipe Armendariz MD acetaminophen-codeine 300-30 mg 1 tab PO Q12H PRN amlodipine 5 mg PO DAILY atorvastatin 1 tab PO DAILY buspirone 10 mg PO BID cholecalciferol (vitamin D3) (Vitamin D3) 125 mcg PO DAILY [clorazepate dipotassium 1 tab PO DAILY] denosumab (Prolia) 60 mg subcut [id number] duloxetine 1 cap PO DAILY furosemide 20 mg PO DAILY naproxen 1 tab PO BID pantoprazole 1 tab PO DAILY trazodone 1 tab PO BEDTIME valsartan 1 tab PO DAILY PFSH Medical History FH: cholecystectomy Renal cancer Invasive ductal carcinoma of breast Renal mass FH: mastectomy Breast cancer HTN (hypertension) High cholesterol Surgical History History of cholecystectomy History of right breast implant (01/30/18) History of right mastectomy (02/02/17) History of breast biopsy (12/24/16) History of colonoscopy (03/06/14) H/O wrist surgery H/O hand surgery (2012) Family History Father Stroke Hypertension Mother COPD (chronic obstructive pulmonary disease) Hypertension Brother Stomach cancer Brother Liver transplant recipient Social History Household Members: Family Housing: House Are you a primary patient care coordinator to a significant other at home: No Do you presently have visiting nurse or other home services: No Alcohol intake: current Alcohol intake frequency: holidays/special occasions only Patient Tobacco Use Status: Former Tobacco user Quit Date: 1975 service: No Current occupational status: retired Physical Exam Vital Signs: BMI result Body Mass Index 37.2 Const Other: Well-nourished well-developed very friendly female awake alert and oriented x3 in no acute distress Extrem Other: Bilateral upper extremity examination shows good capillary refill, no skin lesions noted, normal sensation light touch Left shoulder examination shows decreased range of motion when compared to her right shoulder, 4/5 strength with supraspinatus testing, positive impingement signs, tenderness over her acromioclavicular joint Results Reviewed Results Reviewed: X-rays of the patient's left shoulder show severe acromioclavicular joint narrowing, a type 3 acromion, no acute bony abnormalities Assessment & Plan Assessment & Plan (1) Left shoulder pain: Code(s): M25.512 - Pain in left shoulder Plan Ms. Stark presents with progressively worsening left shoulder pain and weakness most likely due to a full-thickness rotator cuff tear. Thus, I will send the patient for an MRI of her left shoulder to further evaluate the status of her rotator cuff tendons. If she does have a full-thickness tear I will recommend surgical repair to optimize her future functional level. I will see her back once the MRI is completed to discuss the findings and treatment options. She will continue with her range of motion exercises in the meantime to prevent stiffness. Feel free to call me at any time should questions regarding her orthopedic management arise. I spent 22 minutes in reviewing the patient's records and imaging studies, seeing the patient and documenting in the medical record. Orders: Orders XR shoulder LT min 2V Today M25.512 - Pain in left shoulder MR shoulder LT wo con Today M25.312 - Other instability, left shoulder Medications: New acetaminophen-codeine 300-30 mg 1 tab PO Q12H PRN 40 tabs 0RF pain Coding Level of Care Code Est Pt Level 2 (74874) Diagnoses Left shoulder pain M25.512
[2023-05-18 14:43] VITALS: BMI 37.2
== END 2023-05-18 14:56 | disposition home or self-care (01) ==
PROVIDERS: PCP Internal Medicine; Visit Provider Orthopaedic Surgery
DX: M25.512 Pain in left shoulder (principal)
CPT/HCPCS: 99213

== ENCOUNTER 2023-06-06 11:24 | Outpatient (REF) | payer MEDICARE, OTHER, SELFPAY ==
--- NOTE | ~2023-06-06 | MM_ITS ---
EXAMINATION: MM DIAGNOSTIC DIGITAL MAMMOGRAPHY, LEFT CLINICAL INFORMATION: Evaluate calcifications seen lower inner quadrant left breast superficial one third. Patient has history of right mastectomy, and reduction mammoplasty left breast. COMPARISON: Mammography: Screening mammography 05/03/2023, 10/27/2021, 08/11/2020, and dating back to 2017. TECHNIQUE: Digital mammography is performed in the following views: 2-D spot magnification left CC and ML views. FINDINGS: There are scattered areas of fibroglandular density (ACR BI-RADS breast composition Category b). Focal calcification in the inner slightly lower quadrant left breast, anterior one third, has the appearance of a developing dystrophic calcification, as opposed to a group of calcifications. This is probably benign, and may relate to fibroadenomatoid change or fat necrosis. Six-month follow-up recommended to ensure stability and expected evolution. MM/MM added views LT IMPRESSION: No evidence of malignancy in the left breast. Probably benign calcifications, for which six-month follow-up recommended to ensure stability and expected evolution. ASSESSMENT: BI-RADS BI-RADS 3 - Probably benign finding(s) - 6 month follow-up suggested RECOMMENDATION: 6 Month F/U This patient's information was entered into a reminder system with a target due date for their next mammogram.
== END 2023-06-06 11:25 | disposition home or self-care (01) ==
LOC: HO.MAMMO 11:24
PROVIDERS: PCP Internal Medicine; Visit Provider Internal Medicine
DX: R92.8 Other abnormal and inconclusive findings on diagnostic imaging of breast (principal)
CPT/HCPCS: 77065

== ENCOUNTER → 2023-06-06 11:30 | Outpatient (BNV) | payer MEDICARE, OTHER, SELFPAY | PROVIDERS: PCP Internal Medicine; Visit Provider Radiology Diagnostic Radiology | DX: R92.1 Mammographic calcification found on diagnostic imaging of breast (principal) | CPT/HCPCS: 77065 ==

== ENCOUNTER 2023-06-14 13:17 | Outpatient (AMB) | payer MEDICARE, OTHER, SELFPAY ==
--- NOTE | 2023-06-14 13:20 | MHC.OFFVIS ---
Intake Vital Signs 06/14/23 13:27 Height 5 ft 3 in Weight 2004 lb BMI 355.0 BP 124/70 Blood Pressure Location Lt brachial Position Sitting Pulse 110 H Intake Visit Reasons: Yearly breast exam Intake Note: Patient is seen in office for yearly breast examination. Patient c/o: per pt asked if she has a breast implant after mastectomy, How can she be sure there is no cancer growing under? mm:06/06/23 Revenue Coordinator Required: No Golf Player Assistant: Golf Player Assistant Present Accompanied by: Self / Same As Patient Allergies Sulfa (Sulfonamide Antibiotics) [SULFA(SULFONAMIDE ANTIBIOTICS)] Allergy (Unknown, Verified 06/14/23 13:24) ? RXN - HAD CHILD HPI HPI Comments History of Present Illness Details 73-year-old female patient returning for breast examination following right breast cancer surgery. She is a former patient of Dr. 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 An ultrasound-guided lymph node biopsy which was positive for metastatic disease was not recovered in the sentinel node biopsy. She was started on adjuvant chemotherapy with Taxotere and Cytoxan on 04/06/2017. She tolerated this well and completed 4 cycles. She then completed a course of radiation therapy at [facility]. The radiation treatment was complicated by development of a skin burn, but she was able to complete the treatment. She was subsequently started on letrozole which was discontinued due to significant muscle and joint aches. She subsequently took anastrozole with the same symptoms. She was taken off the anastrozole with the anticipation of starting tamoxifen but after further discussion regarding the side effects with Dr. Mcgowan she decided to restart the anastrozole. Her most recent mammogram dated 06/06/2023 revealed a possible evolving dystrophic calcification in the left breast with no other mammographic evidence of malignancy (BI-RADS 3). Six-month follow-up imaging of the left breast was recommended and is been scheduled for 12/05/2023. [facility] Medical History FH: cholecystectomy Renal cancer Invasive ductal carcinoma of breast Renal mass FH: mastectomy Breast cancer HTN (hypertension) High cholesterol Surgical History History of cholecystectomy History of right breast implant (01/30/18) History of right mastectomy (02/02/17) History of breast biopsy (12/24/16) History of colonoscopy (03/06/14) H/O wrist surgery H/O hand surgery (2012) Family History Father Stroke Hypertension Mother COPD (chronic obstructive pulmonary disease) Hypertension Brother Stomach cancer Brother Liver transplant recipient Social History Household Members: Family Housing: House Are you a primary resident care spec to a significant other at home: No Do you presently have visiting nurse or other home services: No Alcohol intake: current Alcohol intake frequency: holidays/special occasions only Patient Tobacco Use Status: Former Tobacco user Quit Date: 1975 service: No Current occupational status: retired Review of Systems Const All systems reviewed & are unremarkable except as noted in HPI and below Musc Details: Left shoulder pain Physical Exam Const General: cooperative, healthy appearing, comfortable and no acute distress Eyes Sclerae: sclerae normal EOM: EOMs intact bilaterally Neck Neck: Yes full ROM and Yes no lymphadenopathy Chest Other: Right breast with with reconstruction, reconstructed nipple. Tissue was soft with no palpable mass, skin change, discharge, or enlarged lymph nodes. Left breast, status post mammoplasty, no new skin changes, no nipple discharge, no palpable mass, no enlarged lymph nodes. Resp Effort & Inspection: normal respiratory effort, no stridor and not tachypneic Auscultation: no wheezes Cardio Jugular venous distension: no JVD Rate: regular rate Rhythm: regular rhythm Skin General skin exam: no rashes or lesions noted Extrem General: Yes no clubbing, cyanosis or edema Assessment & Plan Assessment & Plan (1) Invasive ductal carcinoma of breast: Code(s): C50.919 - Malignant neoplasm of unspecified site of unspecified female breast Qualifiers: Laterality: right Qualified Code(s): C50.911 - Malignant neoplasm of unspecified site of right female breast Plan: 73-year-old female patient with previous history of right breast carcinoma with both ductal and lobular features as well as DCIS status post simple mastectomy, sentinel node biopsy, with immediate reconstruction and left breast mammoplasty. Patient's last mammogram was 06/06/2023 revealed a possible dystrophic calcification with no mammographic evidence of malignancy (BI-RADS 3). Six-month follow-up mammography is been scheduled for the left breast on 12/05/2023. An ultrasound of the right axilla will be performed to evaluate for any new lymphadenopathy. She will continue her oncology follow-up with Dr. Mcgowan and follow up in our office in approximately 1 year. She should call sooner for any concerns. Orders: Orders US breast RT limited Today C50.919 - Malignant neoplasm of unspecified site of unspecified female breast Coding Level of Care Code Est Pt Level 3 (89992) Diagnoses Infiltrating ductal carcinoma of right breast C50.911 Laterality: right
[2023-06-14 13:27] VITALS: BP 124/70; PULSE 110; BMI 355.0
== END 2023-06-14 13:40 | disposition home or self-care (01) ==
PROVIDERS: PCP Internal Medicine; Visit Provider Surgery
DX: C50.911 Malignant neoplasm of unspecified site of right female breast (principal)
CPT/HCPCS: 99213

== ENCOUNTER → 2023-06-14 13:17 | Outpatient (BNVA) | payer MEDICARE, OTHER, SELFPAY | PROVIDERS: PCP Internal Medicine; Visit Provider Surgery | DX: C50.911 Malignant neoplasm of unspecified site of right female breast (principal); Z17.0 Estrogen receptor positive status [ER+]; Z90.11 Acquired absence of right breast and nipple | CPT/HCPCS: 99212 ==

== ENCOUNTER 2023-06-22 13:32 | Outpatient (REF) | payer MEDICARE, OTHER, SELFPAY ==
--- NOTE | ~2023-06-22 | MR_ITS ---
EXAMINATION: MR SHOULDER WITHOUT CONTRAST, LEFT CLINICAL INFORMATION: Left shoulder pain and decreased range of motion following a fall on 05/15/2023. Instability. COMPARISON: Left shoulder radiograph dated 05/18/2023. TECHNIQUE: MRI of the shoulder without contrast was performed on a high-field scanner. FINDINGS: ROTATOR CUFF: Full-thickness partial tearing through the anterior aspect of the supraspinatus tendon with extension into the articular portion of the posterior tendon fibers as well as into the articular surface of the anterior infraspinatus tendon. Overall tearing measures up to 3.3 x 3.8 cm (AP by ML). The full-thickness component to the tear measures approximately 2.0 x 3.5 cm (AP by ML). Moderate subscapularis tendinosis with articular surface partial tearing measuring up to 3.1 cm in ML dimension. Mild supraspinatus and subscapularis muscle atrophy. BICEPS: Attenuation of the proximal long head biceps tendon with medial subluxation as it drapes over the lesser tuberosity, consistent with longitudinal partial tearing. No full-thickness transverse tendon tear or tendon retraction. CORACOACROMIAL ARCH: The undersurface of the acromion is curved with prominent subacromial spurring. Severe acromioclavicular osteoarthritis with a moderate joint effusion. LABRUM/CAPSULE: No displaced labral tear. Intact inferior joint capsule. GLENOHUMERAL JOINT/MARROW: Superior subluxation of the humeral head related to the rotator cuff tendon tear. Diffuse articular cartilage signal heterogeneity with small marginal osteophytes. Small glenohumeral joint effusion. MR/MR shoulder LT wo con IMPRESSION: 1. Full-thickness partial tearing through the anterior aspect of the supraspinatus tendon with extension into the articular portion of the posterior tendon fibers as well as the articular surface of the anterior infraspinatus tendon. Overall tearing measures 3.3 x 3.8 cm (AP x ML). Mild supraspinatus and subscapularis muscle atrophy. 2. Moderate subscapularis tendinosis with articular surface partial tearing measuring 3.1 cm in ML dimension. 3. Longitudinal partial tearing of the proximal long head biceps tendon with medial subluxation as it drapes over the lesser tuberosity. 4. Severe acromioclavicular osteoarthritis with prominent subacromial spurring. 5. Superior subluxation of the humeral head related to the rotator cuff tendon tear. Mild glenohumeral osteoarthritis and small joint effusion.
== END 2023-06-22 13:33 | disposition home or self-care (01) ==
LOC: HO.MRI 13:32
PROVIDERS: PCP Internal Medicine; Visit Provider Orthopaedic Surgery
DX: M25.312 Other instability, left shoulder (principal)
CPT/HCPCS: 73221

== ENCOUNTER 2023-06-27 13:00 | Outpatient (REF) | payer MEDICARE, OTHER, SELFPAY ==
--- NOTE | ~2023-06-27 | US_ITS ---
EXAMINATION: US DIAGNOSTIC ULTRASOUND BREAST, RIGHT CLINICAL INFORMATION: Status post right mastectomy with reconstruction/implant. Patient complaining of right breast pain on and off 6:00 spanning to 9:00. Also evaluate axilla for lymphadenopathy. COMPARISON: 12/24/2020 right breast ultrasound. Recent left mammography 06/06/2023. TECHNIQUE: Ultrasound of the breast is performed with real-time nieto scale imaging and color Doppler. FINDINGS: There is no evidence of mass, abnormal lymphadenopathy, cystic abnormality, or abnormal shadowing within the reconstructed right breast. The right implant demonstrates an unusual reverb artifact which could possibly represent an intracapsular rupture of the saline implant. This is not definitive. US/US breast RT limited mamm only IMPRESSION: No suspicious findings for malignancy reconstructed right breast on ultrasound. Recommend clinical management for patient's complaint of right breast pain. No lymphadenopathy right axilla. Possible intracapsular implant rupture, for which MRI is far more sensitive and specific. ASSESSMENT: BI-RADS 2 - Benign Findings RECOMMENDATION: 1 year F/U This patient's information was entered into a reminder system with a target due date for their next mammogram.
== END 2023-06-27 13:01 | disposition home or self-care (01) ==
LOC: HO.MAMMO 13:00
PROVIDERS: PCP Internal Medicine; Visit Provider Internal Medicine
DX: C50.919 Malignant neoplasm of unspecified site of unspecified female breast (principal); N64.4 Mastodynia; Z90.11 Acquired absence of right breast and nipple
CPT/HCPCS: 76642

== ENCOUNTER → 2023-06-27 13:00 | Outpatient (BNV) | payer MEDICARE, OTHER, SELFPAY | PROVIDERS: PCP Internal Medicine; Visit Provider Radiology Diagnostic Radiology | DX: N64.4 Mastodynia (principal) | CPT/HCPCS: 76642 ==

== ENCOUNTER 2023-07-07 13:32 | Outpatient (AMB) | payer MEDICARE, OTHER, SELFPAY ==
[2023-07-07 13:37] VITALS: BMI 37.2
--- NOTE | 2023-07-07 13:37 | MHC.OFFVIS ---
Intake Vital Signs 07/07/23 13:37 Height 5 ft 3 in Weight 210 lb BMI 37.2 Intake Visit Reasons: OV - Left Shoulder MRI Review Intake Note: Amalia is a 73 year old female presents today with complaints of progressively worsening left shoulder pain and weakness. Previous patient of Dr. Armendariz. Patient reports she had a fall/dislocated her shoulder on 05/14/23. She states that she had injections in both shoulders about a week ago. The patient states that she has had chronic bilateral shoulder pain weakness the last year. Her left shoulder pain and weakness was exacerbated by her recent fall when she tripped over her pit bull dog. Since that time she has had difficulty lifting her left hand above shoulder height. She has tried Tylenol and anti-inflammatory medicines which gave her minimal relief. Allergies Sulfa (Sulfonamide Antibiotics) [SULFA(SULFONAMIDE ANTIBIOTICS)] Allergy (Unknown, Verified 07/07/23 13:38) ? RXN - HAD CHILD Medication List - Last Reconciled 07/07/23 by Luis Felipe Armendariz MD amlodipine 5 mg PO DAILY atorvastatin 1 tab PO DAILY buspirone 10 mg PO BID [clorazepate dipotassium 1 tab PO DAILY] denosumab (Prolia) 60 mg subcut [id number] duloxetine 1 cap PO DAILY furosemide 20 mg PO DAILY pantoprazole 1 tab PO DAILY trazodone 1 tab PO BEDTIME valsartan 1 tab PO DAILY PFSH Medical History FH: cholecystectomy Renal cancer Invasive ductal carcinoma of breast Renal mass FH: mastectomy Breast cancer HTN (hypertension) High cholesterol Surgical History History of cholecystectomy History of right breast implant (01/30/18) History of right mastectomy (02/02/17) History of breast biopsy (12/24/16) History of colonoscopy (03/06/14) H/O wrist surgery H/O hand surgery (2012) Family History Father Stroke Hypertension Mother COPD (chronic obstructive pulmonary disease) Hypertension Brother Stomach cancer Brother Liver transplant recipient Social History Household Members: Family Housing: House Are you a primary customer care agent to a significant other at home: No Do you presently have visiting nurse or other home services: No Alcohol intake: current Alcohol intake frequency: holidays/special occasions only Patient Tobacco Use Status: Former Tobacco user Quit Date: 1975 service: No Current occupational status: retired Physical Exam Vital Signs: BMI result Body Mass Index 37.2 Const Other: Well-nourished well-developed very friendly female awake alert and oriented x3 in no acute distress Lungs - clear to auscultation bilaterally with symmetric expansion Cardiovascular exam - regular rate and rhythm Abdominal exam - soft nontender nondistended Extrem Other: Bilateral upper extremity examination shows good capillary refill, no skin lesions noted, normal sensation light touch Left shoulder examination shows decreased range of motion when right shoulder, 4/5 strength with supraspinatus testing, positive impingement signs, tenderness over her acromioclavicular joint, no instability Results Reviewed Results Reviewed: MRI of the patient's left shoulder show severe acromioclavicular joint narrowing, a type 2 acromion, a full-thickness rotator cuff tear Assessment & Plan Assessment & Plan (1) Impingement syndrome of left shoulder: Code(s): M75.42 - Impingement syndrome of left shoulder Plan Ms. Stark presents with progressively worsening left shoulder pain and weakness due to impingement syndrome, acromioclavicular joint arthritis and a full-thickness rotator cuff tear. I had a lengthy discussion with the patient regarding the treatment options. At this point she has failed continued non operative treatments. The risks and benefits of left shoulder surgery were discussed at length with the patient. The patient wishes to proceed with surgery. Surgery will involve left shoulder diagnostic arthroscopy with distal clavicle excision, acromioplasty and rotator cuff repair. The patient will be scheduled for a next available date. She will be given a prescription for pain medicine at the time of her surgery. She will follow-up as instructed. Feel free to call me at any time should questions regarding her orthopedic management arise. I spent 22 minutes in reviewing the patient's records and imaging studies, seeing the patient and documenting in the medical record. Coding Level of Care Code Est Pt Level 2 (59393) Diagnoses Impingement syndrome of left shoulder M75.42
== END 2023-07-07 13:54 | disposition home or self-care (01) ==
PROVIDERS: PCP Internal Medicine; Visit Provider Orthopaedic Surgery
DX: M75.42 Impingement syndrome of left shoulder (principal)
CPT/HCPCS: 99213

== ENCOUNTER → 2023-07-07 13:32 | Outpatient (BNVA) | payer MEDICARE, OTHER, SELFPAY | PROVIDERS: PCP Internal Medicine; Visit Provider Orthopaedic Surgery | DX: M75.42 Impingement syndrome of left shoulder (principal) | CPT/HCPCS: 99212 ==

== ENCOUNTER 2023-07-12 12:52 | Outpatient (AMB) | payer MEDICARE, OTHER, SELFPAY ==
[2023-07-12 13:02] VITALS: BP 124/55; PULSE 91; BMI 35.6
--- NOTE | 2023-07-12 13:02 | A.OFFVIS_ITS ---
Intake Vital Signs 07/12/23 13:02 Height 5 ft 3 in Weight 201 lb 4 oz BMI 35.6 BP 124/55 L Blood Pressure Location Lt brachial Position Sitting Pulse 91 Pulse Source Pulse Oximeter Intake Visit Reasons: Discuss br US results Intake Note: Pt presents to the office today to discuss br US results. Pt states she is feeling well at this time. Allergies Sulfa (Sulfonamide Antibiotics) [SULFA(SULFONAMIDE ANTIBIOTICS)] Allergy (Unknown, Verified 07/12/23 13:04) ? RXN - HAD CHILD Medication List - Last Reconciled 07/12/23 by Enoc Zheng MD amlodipine 5 mg PO DAILY atorvastatin 1 tab PO DAILY buspirone 10 mg PO BID denosumab (Prolia) 60 mg subcut [id number] duloxetine 1 cap PO DAILY furosemide 20 mg PO DAILY pantoprazole 1 tab PO DAILY trazodone 1 tab PO BEDTIME valsartan 1 tab PO DAILY HPI HPI Comments History of Present Illness Details 73-year-old female patient returning for breast examination following right breast cancer surgery. She is a former patient of Dr. 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 An ultrasound-guided lymph node biopsy which was positive for metastatic disease was not recovered in the sentinel node biopsy. She was started on adjuvant chemotherapy with Taxotere and Cytoxan on 04/06/2017. She tolerated this well and completed 4 cycles. She then completed a course of radiation therapy at [facility]. The radiation treatment was complicated by development of a skin burn, but she was able to complete the treatment. She was subsequently started on letrozole which was discontinued due to significant muscle and joint aches. She subsequently took anastrozole with the same symptoms. She was taken off the anastrozole with the anticipation of starting tamoxifen but after further discussion regarding the side effects with Dr. Mcgowan she decided to restart the anastrozole. Her most recent mammogram dated 06/06/2023 revealed a possible evolving dystrophic calcification in the left breast with no other mammographic evidence of malignancy (BI-RADS 3). Mammogram performed on 05/03/2023 and 06/06/2023 revealed dystrophic calcifications probably benign and six-month follow-up is recommended. An ultrasound of the right breast was performed on 06/27/2023 to evaluate the right breast implant. This revealed no suspicious findings for malignancy in the reconstructed right breast on ultrasound no lymphadenopathy in the right axilla. There was concern about intracapsular implant rupture for which MRI was felt to be a more sensitive and specific examination. [facility] Medical History FH: cholecystectomy Renal cancer Invasive ductal carcinoma of breast Renal mass FH: mastectomy Breast cancer HTN (hypertension) High cholesterol Surgical History History of cholecystectomy History of right breast implant (01/30/18) History of right mastectomy (02/02/17) History of breast biopsy (12/24/16) History of colonoscopy (03/06/14) H/O wrist surgery H/O hand surgery (2012) Family History Father Stroke Hypertension Mother COPD (chronic obstructive pulmonary disease) Hypertension Brother Stomach cancer Brother Liver transplant recipient Social History Household Members: Family Housing: House Are you a primary health care manager to a significant other at home: No Do you presently have visiting nurse or other home services: No Alcohol intake: current Alcohol intake frequency: holidays/special occasions only Patient Tobacco Use Status: Former Tobacco user Quit Date: 1975 service: No Current occupational status: retired Review of Systems Const All systems reviewed & are unremarkable except as noted in HPI and below Musc Details: Left shoulder pain Physical Exam Vital Signs: Last Vital Signs Pulse 91 07/12/23 13:02 BP 124/55 L 07/12/23 13:02 BMI result Body Mass Index 35.6 Const General: comfortable and no acute distress Chest Other: Exam deferred Resp Effort & Inspection: normal respiratory effort Skin Other: warm, dry, no rash Extrem Other: no edema Assessment & Plan Assessment & Plan (1) Invasive ductal carcinoma of breast: Code(s): C50.919 - Malignant neoplasm of unspecified site of unspecified female breast Qualifiers: Laterality: right Qualified Code(s): C50.911 - Malignant neoplasm of unspecified site of right female breast (2) Malposition of implant of right breast: Code(s): T85.42XA - Displacement of breast prosthesis and implant, initial encounter Plan 73-year-old female patient presenting with a previous history of right breast ductal and lobular carcinoma with DCIS (pT2N1a), status post right simple mastectomy with reconstruction and sentinel node biopsy on 02/02/2017. There is concern regarding her right breast implant which may have either moved or ruptured. Ultrasound of the right breast was inconclusive. Radiology recommends MRI of the breast. Patient will return following the study to review the results and discuss treatment options. Orders: Orders MR breast BI wo/w con Today T85.43XA - Leakage of breast prosthesis and implant, initial encounter Coding Level of Care Code Est Pt Level 3 (73183) Diagnoses Infiltrating ductal carcinoma of right breast C50.911 Laterality: right Malposition of implant of right breast T85.42XA
== END 2023-07-12 13:21 | disposition home or self-care (01) ==
PROVIDERS: PCP Internal Medicine; Visit Provider Surgery
DX: C50.911 Malignant neoplasm of unspecified site of right female breast (principal); T85.42XA Displacement of breast prosthesis and implant, initial encounter
CPT/HCPCS: 99213

== ENCOUNTER → 2023-07-12 12:52 | Outpatient (BNVA) | payer MEDICARE, OTHER, SELFPAY | PROVIDERS: PCP Internal Medicine; Visit Provider Surgery | DX: T85.42XA Displacement of breast prosthesis and implant, initial encounter (principal); Z17.0 Estrogen receptor positive status [ER+]; Z90.11 Acquired absence of right breast and nipple; Z85.3 Personal history of malignant neoplasm of breast | CPT/HCPCS: 99212 ==

== ENCOUNTER 2023-08-19 09:14 | Day surgery (SDC) | payer MEDICARE, OTHER, SELFPAY ==
[2023-08-10 15:26] VITALS: BMI 34.8
--- NOTE | 2023-08-17 14:43 | P.CONAN_ITS ---
Documented by User: Rashmi Latham NP 08/18/23 10:32 HPI - Anesthesia Eval Consult details Narrative: 73yo F for Left Shoulder Arthroscopy, distal clavicle excision, acromioplasty, with rotator cuff repair Medically cleared PMFSH Active Problems Active Problems: All Active Problems (Updated 08/08/23 @ 14:15 by Marlin Mcgowan MD) Malposition of implant of right breast (Acute) Impingement syndrome of left shoulder (Acute) Left shoulder pain (Acute) Atrophic kidney (Acute) Breast CA (Chronic) Invasive ductal carcinoma of breast (Acute) Past Medical History Medical History FH: cholecystectomy Renal cancer Invasive ductal carcinoma of breast Renal mass FH: mastectomy Breast cancer HTN (hypertension) High cholesterol Family History Family History Father Stroke Hypertension Mother COPD (chronic obstructive pulmonary disease) Hypertension Brother Stomach cancer Brother Liver transplant recipient Family history of problems with anesthesia: No Surgical History Surgical History Hx of partial nephrectomy History of cholecystectomy History of right breast implant (01/30/18) History of right mastectomy (02/02/17) History of breast biopsy (12/24/16) History of colonoscopy (03/06/14) H/O wrist surgery H/O hand surgery (2012) History of Problems with Anesthesia: No Social History Social History Household Members: Family Housing: House Are you a primary medicare coordinator to a significant other at home: No Do you presently have visiting nurse or other home services: No Alcohol intake: current Alcohol intake frequency: holidays/special occasions only Comment: aware of trip hazard Patient Tobacco Use Status: Former Tobacco user Quit Date: 1975 Tobacco use type: Cigarette Use of substances other than those prescribed or required for medical reasons: No Have you been hit, kicked, punched, or otherwise hurt by someone within the past year? If so, by whom?: No Are you DNR?: No Advance Directives: No (will bring dos) Advance Directives Information Provided: No Advance Directives on File: No Recently lost weight without trying: No Nutrition Risks: No Nutritional Risk Poor oral hygiene: No service: No Current occupational status: retired Meds Allergies Allergy/AdvReac Type Severity Reaction Status Date / Time Sulfa (Sulfonamide Allergy Unknown ? RXN - Verified 08/08/23 13:29 Antibiotics) HAD [SULFA(SULFONAMIDE CHILD ANTIBIOTICS)] Active Medications: Current Medications Cefazolin Sodium/Dextrose (Ancef) 2 gm in 50 mls @ 100 mls/hr IV PREOP ONE Stop: 08/19/23 07:05 Home Medications Medication Instructions Recorded Confirmed Last Taken Type atorvastatin 20 mg tablet 1 tab PO BEDTIME 05/14/20 08/10/23 Unknown History duloxetine 60 mg capsule,delayed 1 cap PO BEDTIME 05/14/20 08/10/23 Unknown History release pantoprazole 40 mg tablet,delayed 1 tab PO BEDTIME 05/14/20 08/10/23 Unknown History release trazodone 50 mg tablet 1 tab PO BEDTIME 05/14/20 08/10/23 Unknown History valsartan 320 mg tablet 1 tab PO BEDTIME 05/14/20 08/10/23 Unknown History furosemide 20 mg tablet 20 mg PO BEDTIME PRN Edema 07/22/20 08/10/23 Unknown History amlodipine 5 mg tablet 5 mg PO BEDTIME 02/24/21 08/10/23 Unknown History buspirone 10 mg tablet 10 mg PO BEDTIME PRN Anxiety 05/18/21 08/10/23 Unknown History denosumab 60 mg/mL subcutaneous 60 mg subcut [id number] 01/18/23 08/10/23 Unknown History syringe (Prolia) Exam Height,Weight and Vital Signs: Height 5 ft 3 in Weight 89.222 kg Pertinent Lab Results Pertinent Lab Results: CBC and BMP 07/2023 from outside facility WNL Narrative Narrative: EKG 07/2023 SB @ 55 Incomp RBBB Assessment and Plan Assessment Anesthesia Assessment: Chart Reviewed Final Anesthetic Review Family History of Problems with Anesthesia: No History of Problems with Anesthesia: No Documented by User: Mariah Ramirez MD 08/19/23 08:41 PMFSH Past Medical History Medical History FH: cholecystectomy Renal cancer Invasive ductal carcinoma of breast Renal mass FH: mastectomy Breast cancer HTN (hypertension) High cholesterol Family History Family History Father Stroke Hypertension Mother COPD (chronic obstructive pulmonary disease) Hypertension Brother Stomach cancer Brother Liver transplant recipient Surgical History Surgical History Hx of partial nephrectomy History of cholecystectomy History of right breast implant (01/30/18) History of right mastectomy (02/02/17) History of breast biopsy (12/24/16) History of colonoscopy (03/06/14) H/O wrist surgery H/O hand surgery (2012) Social History Social History Household Members: Family Housing: House Are you a primary medicare coordinator to a significant other at home: No Do you presently have visiting nurse or other home services: No Alcohol intake: current Alcohol intake frequency: holidays/special occasions only Comment: aware of trip hazard Patient Tobacco Use Status: Former Tobacco user Quit Date: 1975 Tobacco use type: Cigarette Use of substances other than those prescribed or required for medical reasons: No Have you been hit, kicked, punched, or otherwise hurt by someone within the past year? If so, by whom?: No Are you DNR?: No Advance Directives: No (will bring dos) Advance Directives Information Provided: No Advance Directives on File: No Recently lost weight without trying: No Nutrition Risks: No Nutritional Risk Poor oral hygiene: No service: No Current occupational status: retired Meds Allergies Allergy/AdvReac Type Severity Reaction Status Date / Time Sulfa (Sulfonamide Allergy Unknown ? RXN - Verified 08/08/23 13:29 Antibiotics) HAD [SULFA(SULFONAMIDE CHILD ANTIBIOTICS)] Home Medications Medication Instructions Recorded Confirmed Last Taken Type atorvastatin 20 mg tablet 1 tab PO BEDTIME 05/14/20 08/10/23 Unknown History duloxetine 60 mg capsule,delayed 1 cap PO BEDTIME 05/14/20 08/10/23 Unknown History release pantoprazole 40 mg tablet,delayed 1 tab PO BEDTIME 05/14/20 08/10/23 Unknown History release trazodone 50 mg tablet 1 tab PO BEDTIME 05/14/20 08/10/23 Unknown History valsartan 320 mg tablet 1 tab PO BEDTIME 05/14/20 08/10/23 Unknown History furosemide 20 mg tablet 20 mg PO BEDTIME PRN Edema 07/22/20 08/10/23 Unknown History amlodipine 5 mg tablet 5 mg PO BEDTIME 02/24/21 08/10/23 Unknown History buspirone 10 mg tablet 10 mg PO BEDTIME PRN Anxiety 05/18/21 08/10/23 Unknown History denosumab 60 mg/mL subcutaneous 60 mg subcut [id number] 01/18/23 08/10/23 Unknown History syringe (Prolia) Exam Airway Mallampati Class: II TM Dist: >3cm Neck ROM: Limited Heart: rrr Lungs: cta Assessment and Plan Assessment Anesthesia Assessment: Anesthesia Plan Discussed Final Anesthetic Review NPO: Yes ASA Class: III Final Preanesthetic Review: No Changes in Pt Med Stat, Meds/Allgs Chart Reviewed, Consent Obtained/Reviewed and Anes Risks/Benef Reviewed Patient Risk: Intermediate Procedure Risk: Intermediate Anesthetic Plan Anesthetic Plan: GA and Regional Block Disposition: Standard PACU
[2023-08-19 10:17] VITALS: BP 128/70; PULSE 67; RESP 16; TEMP 36.2; O2SAT 97
[2023-08-19] MEDS: Lactated Ringers 1,000 ML 100 ML IVCONT (10:20)
[2023-08-19 12:45] VITALS: BP 142/66; PULSE 72; RESP 12; TEMP 36.1; O2SAT 97
[2023-08-19 12:50] VITALS: BP 152/65; PULSE 73; RESP 16; O2SAT 95
--- NOTE | 2023-08-19 12:51 | P.BOP_ITS ---
Brief Operative Note Date of Service: 08/19/23 Pre-op diagnosis: Left shoulder impingement syndrome, left shoulder acromioclavicular joint arthritis, left shoulder rotator cuff tear Post-op diagnosis: other (Same as preoperative diagnoses as well as left shoulder long head biceps tendon tear) Procedure: Left shoulder diagnostic arthroscopy with left shoulder arthroscopic distal clavicle excision, left shoulder arthroscopic acromioplasty, left shoulder arthroscopic biceps tenotomy, left shoulder mini-open rotator cuff repair Implants: One suture anchor ([employer] Twin anchor with #2 Ultrabraid suture) Surgeon: Luis Felipe Armendariz MD Anesthesia: GETA and regional Was an Casino [employer]er used for this Procedure?: No Estimated blood loss (mL): 10 Pathology: none sent Condition: stable Disposition: PACU
--- NOTE | 2023-08-19 12:53 | W.PM.OPN ---
Operative Note Operative Note Date of Service: 08/19/23 Narrative: After the patient was identified as Amalia Stark and her left shoulder was initialed by myself the patient was brought to the holding area where a left shoulder interscalene regional block was performed by the anesthesiologist in routine fashion. The patient was then brought to the operating room where general anesthesia was induced by the anesthesiologist in routine fashion. The patient was given 2 g of IV Ancef preoperatively for infection prophylaxis. Examination under anesthesia of the patient's left shoulder showed full passive range of motion of the patient's left shoulder when compared to the right. The patient was then gently transferred from the stretcher onto the surgical suite table with my assistance without difficulty. Once the patient was transferred I noticed a skin tear along the mid-aspect of her forearm measuring 1cm by 2 cm. A sterile Tegaderm was placed over the tear. Following the procedure the tegaderm was left in place and her forearm was loosely wrapped with an ABD pad and Kerlix roll. The patient would be notified of the skin tear following the procedure. The patient was gently positioned in the beach chair position with all bony prominences well padded. The patient's left shoulder region and upper extremity were prepped and draped in sterile fashion. A formal time-out was completed. A #11 scalpel blade was used to make a posterior portal 2 cm inferior and 1 cm medial to the posterolateral corner of the acromion. Blunt trocar technique was used to enter the glenohumeral joint in routine fashion. An anterior portal was made just lateral to the coracoid process after proper positioning was confirmed using a spinal needle. Diagnostic arthroscopy showed minimal degenerative changes of the glenoid and humeral head articular surfaces. There was a full-thickness tear of the supraspinatus tendon. There was no evidence of injury to the biceps tendon or its insertion onto the glenoid. There was no inflammation of the anterior joint capsule. The arthroscope was then placed from the posterior portal into the subacromial space. A lateral portal was made 2 fingerbreadths lateral to the anterior lateral corner of the acromion. The ArthroCare Wand was used to ablate soft tissues along the undersurface of the acromion as well as to excise the coracoacromial ligament. There was a sharp spur along the undersurface of the acromion which was removed using the hooded bur. The arthroscope was then placed into the lateral portal and the acromioplasty was completed with the bur in the posterior portal using the posterior aspect of the acromion as a cutting block. The ArthroCare Wand was then brought in through the anterior portal and was used to ablate soft tissues along the acromioclavicular joint and distal clavicle. The posterior and superior ligamentous structures were left intact. A distal clavicle excision of 8 mm was performed using the hooded bur. Any remaining bursal tissue was removed using the arthroscopic shaver. The subacromial space was irrigated and then drained. All arthroscopic instruments were removed. Sterile gloves were changed and the shoulder was once again prepped with Betadine. A #15 scalpel blade was used to extend the lateral portal to the lateral edge of the acromion. The subacromial tissues were dissected using electrocautery down to the superficial deltoid fascia. The trocar split in the anterior raphe of the deltoid was then extended to the lateral edge of the acromion using electrocautery and curved Blanchard scissors. Any remaining bursal tissue was removed using curved Blanchard scissors. Subacromial and subdeltoid adhesions were bluntly dissected. The undersurface of the acromion was palpated and it was smooth. A #2 Ethibond tag suture was placed into the supraspinatus tendon. The tendon was easily mobilized to its insertion point on the glenoid. The wound was irrigated with copious amounts of normal saline solution. One suture anchor was placed into the greater tuberosity in routine fashion. The rotator cuff repair was then performed using horizontal mattress sutures under minimal tension with the patient's elbow at their side. Following the repair the shoulder was taken through a full range of motion. The repair was stable. The wound was irrigated with copious amounts of normal saline solution. The superficial and deep deltoid fascia were closed with #1 Vicryl [id number] interrupted suture. The wound was once again irrigated. The subcutaneous tissues were closed with 2-0 Vicryl interrupted suture. Because the patient's skin was quite thin the incision was closed with 3-0 nylon interrupted sutures instead of subcuticular Prolene. No Steri-Strips were placed in order to prevent blistering. The anterior and posterior portals were closed with 3-0 nylon interrupted suture. Dry sterile dressing was placed over all incisions. The patient's left upper extremity was placed into a sling. The patient was awoken and extubated in the operating room. The patient was transferred to the recovery room in stable condition.
[2023-08-19 12:55] VITALS: BP 152/69; PULSE 72; RESP 16; O2SAT 95
[2023-08-19] MEDS: cefTRIAXone sodium 1 GM in 0.9 % Sodium Chloride 50 ML IV (12:56)
[2023-08-19 13:00] VITALS: BP 158/76; PULSE 71; RESP 16; O2SAT 95
[2023-08-19 13:14] VITALS: BP 159/74; PULSE 70; RESP 16; TEMP 36.1; O2SAT 96
== END 2023-08-19 15:10 | disposition home or self-care (01) ==
PROVIDERS: PCP Internal Medicine; Visit Provider Orthopaedic Surgery
PROC: (CPT 29805; principal; 2023-08-19 11:50)
DX: M75.102 Unspecified rotator cuff tear or rupture of left shoulder, not specified as traumatic (principal); M75.42 Impingement syndrome of left shoulder; M19.012 Primary osteoarthritis, left shoulder; Z91.81 History of falling; I10 Essential (primary) hypertension; E78.00 Pure hypercholesterolemia, unspecified; Z79.82 Long term (current) use of aspirin; Z88.2 Allergy status to sulfonamides; Z98.890 Other specified postprocedural states; Z87.891 Personal history of nicotine dependence
CPT/HCPCS: 23412; 29824; 29826; C1713; J0131; J0171; J0665; J0690; J0696; J1100; J2250; J2405; J2704; J2795; J3010

== ENCOUNTER → 2023-08-19 09:14 | Outpatient (BNV) | payer MEDICARE, OTHER, SELFPAY | PROVIDERS: PCP Internal Medicine; Visit Provider Orthopaedic Surgery | DX: S46.012A Strain of muscle(s) and tendon(s) of the rotator cuff of left shoulder, initial encounter (principal); M75.42 Impingement syndrome of left shoulder; M19.012 Primary osteoarthritis, left shoulder | CPT/HCPCS: 23412; 29824; 29826 ==

== ENCOUNTER 2023-09-01 14:27 | Outpatient (AMB) | payer MEDICARE, OTHER, SELFPAY ==
--- NOTE | 2023-09-01 14:32 | MHC.OFFVIS ---
Intake Intake Visit Reasons: PO-Lt Shld , Possible RTC Repair 08/19/23 Intake Note: Amalia a 73 year old female who presents today for a post operative left shoulder on 08/19/23 Patient reports it was tough the first few days however the last 3 days she has had improvement. She discontinued use of sling. Allergies Sulfa (Sulfonamide Antibiotics) [SULFA(SULFONAMIDE ANTIBIOTICS)] Allergy (Unknown, Verified 08/19/23 09:42) ? RXN - HAD CHILD HPI PO-Lt Shld , Possible RTC Repair 08/19/23 HPI Details 73-year-old female who returns to the office today for post-op left shoulder , 08/19/[address] Armendariz. She states she had pain for a few days however she is doing well for the past 3 days. She has discontinued the use of sling. She is doing well overall and has no concerns today. [facility] Medical History FH: cholecystectomy Renal cancer Invasive ductal carcinoma of breast Renal mass FH: mastectomy Breast cancer HTN (hypertension) High cholesterol Surgical History Hx of partial nephrectomy History of cholecystectomy History of right breast implant (01/30/18) History of right mastectomy (02/02/17) History of breast biopsy (12/24/16) History of colonoscopy (03/06/14) H/O wrist surgery H/O hand surgery (2012) Family History Father Stroke Hypertension Mother COPD (chronic obstructive pulmonary disease) Hypertension Brother Stomach cancer Brother Liver transplant recipient Social History Household Members: Family Housing: House Are you a primary resident care manager rn to a significant other at home: No Do you presently have visiting nurse or other home services: No Alcohol intake: current Alcohol intake frequency: holidays/special occasions only Comment: aware of trip hazard Patient Tobacco Use Status: Former Tobacco user Quit Date: 1975 Tobacco use type: Cigarette service: No Current occupational status: retired Review of Systems Const All systems reviewed & are unremarkable except as noted in HPI and below Physical Exam Extrem Other: Left shoulder: Incision clean, dry and intact. No erythema or drainage. Forward flexion to 90 degrees, external rotation to 45. NVI. Results Reviewed Results Reviewed: Brief Operative Note Date of Service: 08/19/23 Pre-op diagnosis: Left shoulder impingement syndrome, left shoulder acromioclavicular joint arthritis, left shoulder rotator cuff tear Post-op diagnosis: other (Same as preoperative diagnoses as well as left shoulder long head biceps tendon tear) Procedure: Left shoulder diagnostic arthroscopy with left shoulder arthroscopic distal clavicle excision, left shoulder arthroscopic acromioplasty, left shoulder arthroscopic biceps tenotomy, left shoulder mini-open rotator cuff repair Implants: One suture anchor ([employer] Twin anchor with #2 Ultrabraid suture) Surgeon: Luis Felipe Armendariz MD Assessment & Plan Assessment & Plan (1) Impingement syndrome of left shoulder: Code(s): M75.42 - Impingement syndrome of left shoulder (2) Rotator cuff tear, left: Code(s): M75.102 - Unspecified rotator cuff tear or rupture of left shoulder, not specified as traumatic Plan Sutures removed today, steri strips applied. She was given an order for physical therapy to work on gentle ROM and periscapular stabilization, no RTC strengthening. She will see us cleared in her next appointment in [address] Armendariz, sooner if needed. Orders: Orders PT Evaluation and Treatment Today M75.102 - Unspecified rotator cuff tear or rupture of left shoulder, not specified as traumatic, M75.42 - Impingement syndrome of left shoulder Patient Instructions: Scribed for Kelsey Cardenas PA-C, by Shashank Armijo medical coding manager, on 09/01/2023 at 2:30 PM EST. I, Kelsey Cardenas PA-C, have personally reviewed and agree with the information entered by the scribe. Coding Level of Care Code Global (50122) Diagnoses Impingement syndrome of left shoulder M75.42 Rotator cuff tear, left M75.102
== END 2023-09-01 15:07 | disposition home or self-care (01) ==
PROVIDERS: PCP Internal Medicine; Visit Provider Physician Assistant
DX: M75.42 Impingement syndrome of left shoulder (principal); M75.102 Unspecified rotator cuff tear or rupture of left shoulder, not specified as traumatic
CPT/HCPCS: 99024

== ENCOUNTER → 2023-09-01 14:27 | Outpatient (BNVA) | payer MEDICARE, OTHER, SELFPAY | PROVIDERS: PCP Internal Medicine; Visit Provider Physician Assistant | DX: Z47.89 Encounter for other orthopedic aftercare (principal); M75.42 Impingement syndrome of left shoulder; M75.102 Unspecified rotator cuff tear or rupture of left shoulder, not specified as traumatic | CPT/HCPCS: 99212 ==

== ENCOUNTER 2023-09-29 12:57 | Outpatient (AMB) | payer MEDICARE, OTHER, SELFPAY ==
--- NOTE | 2023-09-29 13:08 | MHC.OFFVIS ---
Vital Signs 09/29/23 13:11 Height 5 ft 4 in Weight 194 lb BMI 33.3 Intake Visit Reasons: Left shoulder pain, Bilateral knee pain Intake Note: Amalia is a 73 year old female who presents with complaints of mild intermittent discomfort in her left shoulder after undergoing left shoulder rotator cuff repair surgery on 08/19/2023. She continues to go to physical therapy at [facility] for left shoulder passive range of motion exercises only. Today she is most concerned with progressively worsening bilateral knee pains. The patient states that her knee pains have gotten worse over the last few years in spite of continued non operative treatments. She has had cortisone injections which gave her no relief. She has also tried Tylenol and anti-inflammatory medicines which gave her minimal relief. She would like to hold off on total knee replacement surgery for as long as possible. Allergies Sulfa (Sulfonamide Antibiotics) [SULFA(SULFONAMIDE ANTIBIOTICS)] Allergy (Unknown, Verified 09/29/23 13:14) ? RXN - HAD CHILD Medication List - Last Reconciled 09/30/23 by Luis Felipe Armendariz MD amlodipine 5 mg PO BEDTIME atorvastatin 1 tab PO BEDTIME buspirone 10 mg PO BEDTIME PRN denosumab (Prolia) 60 mg subcut [id number] duloxetine 1 cap PO BEDTIME furosemide 20 mg PO BEDTIME PRN oxycodone 10 mg (2 x 5 mg) PO Q4H PRN 1 week pantoprazole 1 tab PO BEDTIME trazodone 1 tab PO BEDTIME valsartan 1 tab PO BEDTIME PFSH Medical History FH: cholecystectomy Renal cancer Invasive ductal carcinoma of breast Renal mass FH: mastectomy Breast cancer HTN (hypertension) High cholesterol Surgical History Hx of partial nephrectomy History of cholecystectomy History of right breast implant (01/30/18) History of right mastectomy (02/02/17) History of breast biopsy (12/24/16) History of colonoscopy (03/06/14) H/O wrist surgery H/O hand surgery (2012) Family History Father Stroke Hypertension Mother COPD (chronic obstructive pulmonary disease) Hypertension Brother Stomach cancer Brother Liver transplant recipient Social History Household Members: Family Housing: House Are you a primary intensive care nurse to a significant other at home: No Do you presently have visiting nurse or other home services: No Alcohol intake: current Alcohol intake frequency: holidays/special occasions only Comment: aware of trip hazard Patient Tobacco Use Status: Former Tobacco user Quit Date: 1975 Tobacco use type: Cigarette service: No Current occupational status: retired Physical Exam Vital Signs: BMI result Body Mass Index 33.3 Const Other: Well-nourished well-developed very friendly female awake alert and oriented x3 in no acute distress Extrem Other: Left shoulder examination shows that the surgical incisions are well healed, no erythema, minimal discomfort with passive range of motion, minimal discomfort with resisted internal and external rotation Bilateral knee examination shows minimal effusions, palpable crepitus with range of motion, pain with range of motion, no instability Results Reviewed Results Reviewed: X-rays of the patient's bilateral knee show joint space narrowing, subchondral sclerosis, no acute bony abnormalities Assessment & Plan Assessment & Plan (1) Left shoulder pain: Code(s): M25.512 - Pain in left shoulder Category: Medical (2) Pain in both knees: Code(s): M25.561 - Pain in right knee; M25.562 - Pain in left knee (3) Arthritis of left knee: Code(s): M17.12 - Unilateral primary osteoarthritis, left knee Category: Medical (4) Arthritis of right knee: Code(s): M17.11 - Unilateral primary osteoarthritis, right knee Category: Medical Plan Ms. Stark continues to do well after undergoing left shoulder rotator cuff repair surgery on 08/19/2023. She will continue going to formal physical therapy for now. She will continue with passive range of motion exercises only until she is 8 weeks out from her surgery. The patient also has bilateral knee pains due to degenerative joint disease. The patient wishes to hold off on total knee replacement surgery for as long as possible. I this plan. She has had cortisone injections in the past which gave her minimal relief. Thus, I will see whether not her insurance company will cover a viscosupplementation injection for both of her knees. I will see her back once the injections are available. Feel free to call me time should questions regarding her orthopedic management arise. I spent 20 minutes in reviewing the patient's records and imaging studies, seeing the patient and documenting in the medical record. Orders: Orders PT Evaluation and Treatment 09/29/23 M75.102 - Unspecified rotator cuff tear or rupture of left shoulder, not specified as traumatic Coding Level of Care Code Est Pt Level 3 (77632) Diagnoses Left shoulder pain M25.512 Pain in both knees M25.561; M25.562 Arthritis of left knee M17.12 Arthritis of right knee M17.11
[2023-09-29 13:11] VITALS: BMI 33.3
== END 2023-09-29 13:36 | disposition home or self-care (01) ==
PROVIDERS: PCP Internal Medicine; Visit Provider Orthopaedic Surgery
DX: M17.0 Bilateral primary osteoarthritis of knee (principal); M25.512 Pain in left shoulder; M25.561 Pain in right knee; M25.562 Pain in left knee
CPT/HCPCS: 99213

== ENCOUNTER → 2023-09-29 12:57 | Outpatient (BNVA) | payer MEDICARE, OTHER, SELFPAY | PROVIDERS: PCP Internal Medicine; Visit Provider Orthopaedic Surgery | DX: M25.512 Pain in left shoulder (principal); M25.561 Pain in right knee; M25.562 Pain in left knee; M17.0 Bilateral primary osteoarthritis of knee | CPT/HCPCS: 99212 ==

== ENCOUNTER 2023-11-10 13:45 | Outpatient (AMB) | payer MEDICARE, OTHER, SELFPAY ==
[2023-11-10 13:50] VITALS: BMI 34.0
--- NOTE | 2023-11-10 13:50 | MHC.OFFVIS ---
Vital Signs 11/10/23 13:50 Height 5 ft 3 in Weight 192 lb BMI 34.0 Intake Visit Reasons: Left shoulder pain, Degenerative arthritis of knee, bilateral Intake Note: Amalia is a 73 year old female who presents today for a post operative visit s/p Left Shoulder , RTC Repair 08/19/23 The patient reports mild intermittent discomfort in her left shoulder. She continues to go to formal physical therapy. She denies any fevers or chills. The patient does have progressively worsening bilateral knee pains. She has had cortisone injections in the past which gave her minimal relief. She has also done physical therapy exercises which aggravated her pain. She has tried Tylenol and anti-inflammatory medicines which gave her minimal relief. The patient's insurance company did cover a viscosupplementation injection for both of her knees. The patient wishes to look into her co-pay before proceeding with the injections. Allergies Sulfa (Sulfonamide Antibiotics) [SULFA(SULFONAMIDE ANTIBIOTICS)] Allergy (Unknown, Verified 11/10/23 13:50) ? RXN - HAD CHILD Medication List - Last Reconciled 11/11/23 by Luis Felipe Armendariz MD atorvastatin 1 tab PO BEDTIME buspirone 10 mg PO BEDTIME PRN denosumab (Prolia) 60 mg subcut [id number] duloxetine 1 cap PO BEDTIME furosemide 20 mg PO BEDTIME PRN pantoprazole 1 tab PO BEDTIME trazodone 1 tab PO BEDTIME valsartan 1 tab PO BEDTIME PFSH Medical History FH: cholecystectomy Renal cancer Invasive ductal carcinoma of breast Renal mass FH: mastectomy Breast cancer HTN (hypertension) High cholesterol Surgical History Hx of partial nephrectomy History of cholecystectomy History of right breast implant (01/30/18) History of right mastectomy (02/02/17) History of breast biopsy (12/24/16) History of colonoscopy (03/06/14) H/O wrist surgery H/O hand surgery (2012) Family History Father Stroke Hypertension Mother COPD (chronic obstructive pulmonary disease) Hypertension Brother Stomach cancer Brother Liver transplant recipient Social History Household Members: Family Housing: House Are you a primary long term care social worker to a significant other at home: No Do you presently have visiting nurse or other home services: No Alcohol intake: current Alcohol intake frequency: holidays/special occasions only Comment: aware of trip hazard Patient Tobacco Use Status: Former Tobacco user Tobacco use type: Cigarette service: No Current occupational status: retired Physical Exam Vital Signs: BMI result Body Mass Index 34.0 Const Other: Well-nourished well-developed very friendly female awake alert and oriented x3 in no acute distress Extrem Other: Bilateral lower extremity examination shows good capillary refill, no skin lesions noted, normal sensation light touch Bilateral knee examination shows minimal effusions, palpable crepitus with range of motion, pain with range of motion, no instability Left shoulder examination shows full range of motion when compared to her right shoulder, minimal discomfort with resisted forward flexion, no discomfort with resisted internal or external rotation Results Reviewed Results Reviewed: X-rays of the patient's bilateral knee show joint space narrowing, subchondral sclerosis, no acute bony abnormalities Assessment & Plan Assessment & Plan (1) Left shoulder pain: Code(s): M25.512 - Pain in left shoulder Category: Medical (2) Osteoarthritis of both knees: Code(s): M17.0 - Bilateral primary osteoarthritis of knee Plan Ms. Stark continues to do well after undergoing left shoulder rotator cuff repair surgery on 08/19/2023. She will continue going to formal physical therapy for now. She will gradually transition to a home exercise program. The do's and don'ts of lifting were discussed at length with the patient. The patient will contact her insurance company to get further information regarding what she will need to pay [id number] for her bilateral knee viscosupplementation injections. I will see her back once she gets this information. Feel free to call me at any time should questions regarding her orthopedic management arise. I spent 22 minutes in reviewing the patient's records and imaging studies, seeing the patient and documenting in the medical record. Coding Level of Care Code Est Pt Level 3 (26385) Diagnoses Left shoulder pain M25.512 Osteoarthritis of both knees M17.0
== END 2023-11-10 14:23 | disposition home or self-care (01) ==
PROVIDERS: PCP Internal Medicine; Visit Provider Orthopaedic Surgery
DX: M25.512 Pain in left shoulder (principal); M17.0 Bilateral primary osteoarthritis of knee
CPT/HCPCS: 99024

== ENCOUNTER → 2023-11-10 13:45 | Outpatient (BNVA) | payer MEDICARE, OTHER, SELFPAY | PROVIDERS: PCP Internal Medicine; Visit Provider Orthopaedic Surgery | DX: M25.512 Pain in left shoulder (principal); M17.0 Bilateral primary osteoarthritis of knee; Z98.890 Other specified postprocedural states | CPT/HCPCS: 99212 ==

== ENCOUNTER 2023-11-15 12:46 | Outpatient (AMB) | payer MEDICARE, OTHER, SELFPAY ==
--- NOTE | 2023-11-15 12:47 | A.OFFVIS_ITS ---
Vital Signs 11/15/23 12:48 Height 5 ft 3 in Weight 192 lb BMI 34.0 Intake Visit Reasons: Bilateral Durolane Injections Intake Note: Amalia is a 73 year old female who presents with complaints of progressively worsening bilateral knee pains. She describes her pains as sharp in nature. Her pains have gotten worse over the last year in spite of continued non operative treatments. She has done physical therapy exercises which aggravated her pain. She has also tried Tylenol and anti-inflammatory medicines which gave her minimal relief. She has had cortisone injections which gave her no relief. She wishes to hold off on surgery for as long as possible. Allergies Sulfa (Sulfonamide Antibiotics) [SULFA(SULFONAMIDE ANTIBIOTICS)] Allergy (Unknown, Verified 11/15/23 12:49) ? RXN - HAD CHILD Medication List - Last Reconciled 11/15/23 by Luis Felipe Armendariz MD atorvastatin 1 tab PO BEDTIME buspirone 10 mg PO BEDTIME PRN denosumab (Prolia) 60 mg subcut [id number] duloxetine 1 cap PO BEDTIME furosemide 20 mg PO BEDTIME PRN pantoprazole 1 tab PO BEDTIME trazodone 1 tab PO BEDTIME valsartan 1 tab PO BEDTIME PFSH Medical History FH: cholecystectomy Renal cancer Invasive ductal carcinoma of breast Renal mass FH: mastectomy Breast cancer HTN (hypertension) High cholesterol Surgical History Hx of partial nephrectomy History of cholecystectomy History of right breast implant (01/30/18) History of right mastectomy (02/02/17) History of breast biopsy (12/24/16) History of colonoscopy (03/06/14) H/O wrist surgery H/O hand surgery (2012) Family History Father Stroke Hypertension Mother COPD (chronic obstructive pulmonary disease) Hypertension Brother Stomach cancer Brother Liver transplant recipient Social History Household Members: Family Housing: House Are you a primary customer care team coach to a significant other at home: No Do you presently have visiting nurse or other home services: No Alcohol intake: current Alcohol intake frequency: holidays/special occasions only Comment: aware of trip hazard Patient Tobacco Use Status: Former Tobacco user Tobacco use type: Cigarette service: No Current occupational status: retired Physical Exam Vital Signs: BMI result Body Mass Index 34.0 Const Other: Well-nourished well-developed very friendly female awake alert and oriented x3 in no acute distress Extrem Other: Bilateral lower extremity examination shows good capillary refill, no skin lesions noted, normal sensation light touch Bilateral knee examination shows minimal effusions, palpable crepitus with range of motion, pain with range of motion, Results Reviewed Results Reviewed: X-rays of the patient's bilateral knee show joint space narrowing, subchondral sclerosis, no acute bony abnormalities Assessment & Plan Assessment & Plan (1) Arthritis of left knee: Code(s): M17.12 - Unilateral primary osteoarthritis, left knee Category: Medical (2) Arthritis of right knee: Code(s): M17.11 - Unilateral primary osteoarthritis, right knee Category: Medical Plan Ms. Stark presents with bilateral knee pains due to degenerative joint disease. I had a lengthy discussion with the patient regarding the treatment options. She wishes to hold off on surgery for as long as possible. I agree with this plan. She has not gotten good relief from cortisone injections in the past. Thus, the risks and benefits of bilateral knee Durolane viscosupplementation injections were discussed at length with the patient. The patient wished to proceed. She tolerated the injections well. She will continue with her home exercise program. She will follow up with me on an as-needed basis should her symptoms not plateau at an unacceptable level over the next few months. Feel free to call me at any time should questions regarding her orthopedic management arise. I spent 20 minutes in reviewing the patient's records and imaging studies, seeing the patient and documenting in the medical record. Orders: Orders AMB Joint Injection/Aspiration Today M17.12 - Unilateral primary osteoarthritis, left knee AMB Joint Injection/Aspiration Today M17.11 - Unilateral primary osteoarthritis, right knee Coding Level of Care Code Est Pt Level 3 (57195) Diagnoses Arthritis of left knee M17.12 Arthritis of right knee M17.11
[2023-11-15 12:48] VITALS: BMI 34.0
== END 2023-11-15 13:10 | disposition home or self-care (01) ==
PROVIDERS: PCP Internal Medicine; Visit Provider Orthopaedic Surgery
DX: M17.0 Bilateral primary osteoarthritis of knee (principal)
CPT/HCPCS: 20610; 99213

== ENCOUNTER → 2023-11-15 12:46 | Outpatient (BNVA) | payer MEDICARE, OTHER, SELFPAY | PROVIDERS: PCP Internal Medicine; Visit Provider Orthopaedic Surgery | DX: M17.0 Bilateral primary osteoarthritis of knee (principal) | CPT/HCPCS: 20610; 99212; J7318 ==

== ENCOUNTER → 2024-01-04 13:00 | Outpatient (BNV) | payer MEDICARE, OTHER, SELFPAY | PROVIDERS: PCP Internal Medicine; Visit Provider Radiology Diagnostic Radiology | DX: R92.1 Mammographic calcification found on diagnostic imaging of breast (principal) | CPT/HCPCS: 77065; G0279 ==

== ENCOUNTER 2024-01-04 13:11 | Outpatient (REF) | payer MEDICARE, OTHER, SELFPAY ==
--- NOTE | ~2024-01-04 | MM_ITS ---
EXAMINATION: MM DIAGNOSTIC DIGITAL BREAST TOMOSYNTHESIS, LEFT CLINICAL INFORMATION: Six-month follow-up for probably benign calcifications anterior left breast lower inner quadrant. Patient has undergone prior mammoplasty, and right mastectomy for breast CA. COMPARISON: Mammography: Diagnostic left 06/06/2023, Screening 05/03/2023, 10/27/2021, 08/11/2020, and dating back to 2017. TECHNIQUE: Digital left breast tomosynthesis is performed in both the craniocaudal and mediolateral oblique views along with computer-aided detection (CAD). Synthesized 2D images are generated from the tomosynthesis. In addition, 2-D spot magnification left CC and ML views were also obtained. FINDINGS: There are scattered areas of fibroglandular density (ACR BI-RADS breast composition Category b). Small focus of grouped calcifications in the lower inner quadrant of the anterior left breast have become slightly more coarsened in appearance and are conforming to a rounded structure, most likely an underlying small fibroadenoma or oil cyst. These are certainly dystrophic and benign. No aggressive changes. No further follow-up is recommended at this time. There are stable post mammoplasty scarring in the left breast. No suspicious masses, new suspicious calcifications, or new areas of architectural distortion. The parenchymal pattern is stable from prior exams. There is no skin or axillary abnormality. MM/MM tomosynthesis diagnostic LT IMPRESSION: No evidence of malignancy within the left breast. Grouped calcifications in the anterior lower inner quadrant left breast have a benign morphology and no further follow-up is recommended. Recommend the patient return to routine annual screening left breast. ASSESSMENT: BI-RADS BI-RADS 2 - Benign Findings RECOMMENDATION: 1 year F/U Results were provided to the patient at time of visit by the technologist. This patient's information was entered into a reminder system with a target due date for their next mammogram.
== END 2024-01-04 13:12 | disposition home or self-care (01) ==
LOC: HO.MAMMO 13:11
PROVIDERS: PCP Internal Medicine; Visit Provider Internal Medicine
DX: R92.1 Mammographic calcification found on diagnostic imaging of breast (principal)
CPT/HCPCS: 77061; 77065

== ENCOUNTER 2024-01-06 14:34 | Outpatient (REF) | payer MEDICARE, OTHER, SELFPAY ==
--- NOTE | ~2024-01-06 | US_ITS ---
EXAMINATION: US RETROPERITONEAL COMPLETE (RENAL) CLINICAL INFORMATION: Atrophy of kidney. COMPARISON: 12/31/2022 renal ultrasound, 11/30/2018 MRI abdomen. TECHNIQUE: Real-time imaging of the kidneys and bladder. Limited visualization due to bowel gas. FINDINGS: RIGHT KIDNEY: 6.1 x 2.7 x 2.6 cm (SAG x AP x TRV). Atrophic right kidney. No hydronephrosis. No renal calculi. Limited visualization. LEFT KIDNEY: 10.1 x 5.7 x 5.1 cm (SAG x AP x TRV). No hydronephrosis. No renal calculi. Renal cortical thickness is normal. Limited visualization. US/US renal BI IMPRESSION: Atrophic right kidney. No hydronephrosis. No renal calculi. Limited visualization. Electronically signed by: Clara Ferrer MD 01/24/2024 08:29 PM EDT
== END 2024-01-06 14:35 | disposition home or self-care (01) ==
LOC: HO.US 14:34
PROVIDERS: PCP Internal Medicine; Visit Provider Urology
DX: N26.1 Atrophy of kidney (terminal) (principal)
CPT/HCPCS: 76775

== ENCOUNTER 2024-01-10 10:14 | Outpatient (REF) | payer MEDICARE, OTHER, SELFPAY ==
--- NOTE | ~2024-01-10 | MM_ITS ---
EXAMINATION: BONE DENSITOMETRY CLINICAL INDICATION: Osteoporosis. COMPARISON: Previous BD dated 12/22/2021 and baseline BD dated 05/12/2006. TECHNIQUE: Using a [employer] DXA System (software version: 13.1) manufactured by [employer], dual-energy x-ray absorptiometry was performed of the lumbar spine and left hip. The images are of good technical quality. Summary results are attached. FINDINGS: LEFT FEMUR, NECK: Current: BMD 1.002 g/cm2, Z-score 1.1, T-score -0.3, normal. Prior: BMD 0.673 g/cm2. Baseline: BMD 1.073 g/cm2. LEFT FEMUR, TOTAL: Current: BMD 1.039 g/cm2, Z-score 1.4, T-score 0.2, normal, 37.1% increase from previous, 6.6% decrease from baseline (<5% change is not significant). Prior: BMD 0.758 g/cm2. Baseline: BMD 1.113 g/cm2. AP SPINE L1-L4 (excluding L3): The data of L1-L4 has been changed to exclude the L3 vertebral body, because degenerative sclerosis at this level may cause overestimation of lumbar spine density. Current: BMD 1.398 g/cm2, Z-score 2.9, T-score 1.9, normal, 4.6% increase from previous, 16.0% increase from baseline (<5% change is not significant). Prior: BMD 1.336 g/cm2. Baseline: BMD 1.205 g/cm2. IDENTIFIED RISK FACTORS: Menopause, height loss, osteoporosis. HISTORY OF FRACTURE: None listed. MEDICATIONS: None listed. MM/XR DEXA axial skeleton IMPRESSION: 1. DIAGNOSIS: Normal bone density based on the lowest T-score value of -0.3 in the femoral neck applying World Health Organization criteria. 2. 10-YEAR FRACTURE RISK PREDICTION, FRAX: According to the guidelines, FRAX calculation should only be performed on patients in the osteopenia bone density category. Therefore, FRAX was not performed on this patient. 3. Treatment Recommendations: NOF guidelines recommend consideration for treatment in postmenopausal women and men age 50 and older presenting with the following: -A hip or vertebral (clinical or morphometric) fracture. -T-score less than or equal to -2.5 at the femoral neck or spine after appropriate evaluation to exclude secondary causes. -Low bone mass at the hip or spine and a 10-year fracture probability by FRAX of greater than or equal to 3% for hip fracture or greater than or equal to 20% for major osteoporotic fracture based on the [place] adapted WHO algorithm. 4. Other Recommendations: All treatment decisions require clinical judgment and consideration of individual patient factors, including patient preferences, comorbidities, previous drug use, risk factors not captured in the FRAX model (e.g. frailty, falls, vitamin D deficiency, increased bone turnover, interval significant decline in bone density) and possible under or overestimation of fracture risk by FRAX. FUTURE SCAN RECOMMENDATION: People with diagnosed cases of osteoporosis or at high risk for fracture should have regular bone mineral density tests. For patients eligible for Medicare, routine testing is allowed once every 2 years. The testing frequency can be increased to one year for patients who have rapidly progressing disease, those who are receiving or discontinuing medical therapy to restore bone mass, or have additional risk factors. Electronically signed by: Raj Linder MD 01/18/2024 08:52 AM EDT
== END 2024-01-10 10:15 | disposition home or self-care (01) ==
LOC: HO.MAMMO 10:14
PROVIDERS: PCP Internal Medicine; Visit Provider Internal Medicine
DX: M81.0 Age-related osteoporosis without current pathological fracture (principal)
CPT/HCPCS: 77080

== ENCOUNTER 2024-01-11 14:36 | Outpatient (AMB) | payer MEDICARE, OTHER, SELFPAY ==
--- NOTE | 2024-01-11 14:40 | A.OFFVIS_ITS ---
Intake Visit Reasons: 1Y Follow Up-Ultrasound(SET) Intake Note: Patient is present for Ultrasound follow up Patient states that she has some to little discomfort in flank area does state that her urination has been kind of slow has not tried any medications for bladder Grooming Assistant Required: No Accompanied by: Self / Same As Patient Allergies Sulfa (Sulfonamide Antibiotics) [SULFA(SULFONAMIDE ANTIBIOTICS)] Allergy (Unknown, Verified 01/11/24 14:41) ? RXN - HAD CHILD HPI Comments Details: Amalia is a pleasant female. She is a patient of Dr. Llanos. She seen for the following urologic conditions - atrophic kidney - slow urination Renal ultrasound shows right atrophic kidney Has noticed weakness of stream Would like to follow-up in 12 months just to check urination Atrophic right kidney/nephrolithiasis Stable imaging Imaging - 01/12 renal ultrasound atrophic right kidney, question small stone left Twelve month follow-up [facility] Medical History FH: cholecystectomy Renal cancer Invasive ductal carcinoma of breast Renal mass FH: mastectomy Breast cancer HTN (hypertension) High cholesterol Surgical History Hx of partial nephrectomy History of cholecystectomy History of right breast implant (01/30/18) History of right mastectomy (02/02/17) History of breast biopsy (12/24/16) History of colonoscopy (03/06/14) H/O wrist surgery H/O hand surgery (2012) Family History Father Stroke Hypertension Mother COPD (chronic obstructive pulmonary disease) Hypertension Brother Stomach cancer Brother Liver transplant recipient Social History Household Members: Family Housing: House Are you a primary health care facilities inspector to a significant other at home: No Do you presently have visiting nurse or other home services: No Alcohol intake: current Alcohol intake frequency: holidays/special occasions only Comment: aware of trip hazard Patient Tobacco Use Status: Former Tobacco user Tobacco use type: Cigarette service: No Current occupational status: retired Review of Systems Const Denies chills and Denies fever(s) Card Reports no additional complaints and Denies syncope Resp Denies cough GI Denies abdominal pain and Denies heartburn Reports as per HPI and Denies change in libido Neuro Denies syncope Psych Denies change in libido Endo Denies change in libido Physical Exam Const General: cooperative, healthy appearing, comfortable and no acute distress Orientation/consciousness: patient oriented x3 HEENT Face and sinus: Yes normal facial exam Mouth: moist mucous membranes Neck Neck: Yes normal visual inspection, Yes full ROM and Yes trachea midline Chest Chest palpation & inspection: normal inspection of the chest Resp Effort & Inspection: normal respiratory effort, able to speak in complete sentences and no respiratory distress GI Inspection: Yes normal to inspection Back/Spine/Pelvis Cervical Spine: normal cervical lordosis Thoracic/Lumbar Spine: thoracic and lumbar spine normal to inspection Skin General skin exam: no rashes or lesions noted Neuro General: patient oriented x3, gait normal, tone normal and moves all extremities Extrem General: Yes normal to inspection and Yes capillary refill normal Assessment & Plan Assessment & Plan (1) Atrophic kidney: Code(s): N26.1 - Atrophy of kidney (terminal) Category: Medical (2) Weak urinary stream: Code(s): R39.12 - Poor urinary stream Category: Medical Plan Twelve month follow-up nurse-practitioner Orders: Orders US renal BI 01/06/24 N26.1 - Atrophy of kidney (terminal) Patient Instructions: Imaging studies, laboratory and physical exam results were discussed and reviewed in detail. No major barriers to patient understanding were identified. An opportunity to ask questions regarding the treatment plan was provided. All questions were answered. The patient expressed understanding and agreement with the above treatment plan. The patient is aware they should contact our office by phone for worsening of their current condition or the appearance of new urologic symptoms. Compliance is encouraged with any medications and followup testing that is ordered. It is a privilege to participate in the urologic care of your patient. If you have any questions or concerns regarding treatment for the above conditions, or other urologic issues, please do not hesitate to contact me. The office telephone contact is [phone]. This note is constructed using voice recognition software. While every effort has been made to ensure accuracy cod clerk errors may have been included. Yours sincerely, Dr Sy Mckee MD, [facility] - Urology Providers of Expert, Compassionate Care for the Genitourinary System Coding Level of Care Code Est Pt Level 4 (38338) Diagnoses Atrophic kidney N26.1 Weak urinary stream R39.12
== END 2024-01-11 15:54 | disposition home or self-care (01) ==
LOC: HO.HUSH 14:36
PROVIDERS: PCP Internal Medicine; Visit Provider Urology
DX: N26.1 Atrophy of kidney (terminal) (principal); R39.12 Poor urinary stream
CPT/HCPCS: 99214

== ENCOUNTER → 2024-01-11 14:36 | Outpatient (BNVA) | payer MEDICARE, OTHER, SELFPAY | PROVIDERS: PCP Internal Medicine; Visit Provider Urology | DX: N26.1 Atrophy of kidney (terminal) (principal); R39.12 Poor urinary stream; Z87.442 Personal history of urinary calculi | CPT/HCPCS: 99212 ==

== ENCOUNTER 2024-01-31 13:01 | Outpatient (AMB) | payer MEDICARE, OTHER, SELFPAY ==
--- NOTE | 2024-01-31 13:03 | MHC.OFFVIS ---
Vital Signs 01/31/24 13:06 Height 5 ft 3 in Weight 209 lb BMI 37.0 Intake Visit Reasons: Bilateral knee pain Intake Note: Amalia is a 74 year old female who presents with complaints of mild intermittent discomfort in both of her knees. She denies any locking or giving way. She did undergo bilateral knee Durolane viscosupplementation injections earlier this year. She states that she got fairly good relief from those injections. She does take naproxen as needed for discomfort. She denies any locking or giving way. Allergies Sulfa (Sulfonamide Antibiotics) [SULFA(SULFONAMIDE ANTIBIOTICS)] Allergy (Unknown, Verified 01/11/24 14:41) ? RXN - HAD CHILD Medication List - Last Reconciled 01/31/24 by Luis Felipe Armendariz MD atorvastatin 1 tab PO BEDTIME buspirone 10 mg PO BEDTIME PRN denosumab (Prolia) 60 mg subcut [id number] duloxetine 1 cap PO BEDTIME furosemide 20 mg PO BEDTIME PRN pantoprazole 1 tab PO BEDTIME trazodone 1 tab PO BEDTIME valsartan 1 tab PO BEDTIME PFSH Medical History FH: cholecystectomy Renal cancer Invasive ductal carcinoma of breast Renal mass FH: mastectomy Breast cancer HTN (hypertension) High cholesterol Surgical History Hx of partial nephrectomy History of cholecystectomy History of right breast implant (01/30/18) History of right mastectomy (02/02/17) History of breast biopsy (12/24/16) History of colonoscopy (03/06/14) H/O wrist surgery H/O hand surgery (2012) Family History Father Stroke Hypertension Mother COPD (chronic obstructive pulmonary disease) Hypertension Brother Stomach cancer Brother Liver transplant recipient Social History Household Members: Family Housing: House Are you a primary dog daycare provider to a significant other at home: No Do you presently have visiting nurse or other home services: No Alcohol intake: current Alcohol intake frequency: holidays/special occasions only Comment: aware of trip hazard Patient Tobacco Use Status: Former Tobacco user Tobacco use type: Cigarette service: No Current occupational status: retired Physical Exam Vital Signs: BMI result Body Mass Index 37.0 Const Other: Well-nourished well-developed very friendly female awake alert and oriented x3 in no acute distress Extrem Other: Bilateral lower extremity examination shows good capillary refill, no skin lesions noted, normal sensation light touch Bilateral knee examination shows minimal effusions, mild crepitus with range of motion, no instability Assessment & Plan Assessment & Plan (1) Pain in both knees: Code(s): M25.561 - Pain in right knee; M25.562 - Pain in left knee Plan Ms. Stark presents with bilateral knee pains due to degenerative joint disease. I had a lengthy discussion with the patient regarding the treatment options. At this point the patient's symptoms are tolerable to her. We will hold off on another injection. She will continue with her home exercise program. She will contact me prior to her follow-up appointment in 2-3 months should any questions or concerns arise. Feel free to call me at any time should questions regarding her orthopedic management arise. I spent 20 minutes in reviewing the patient's records and imaging studies, seeing the patient and documenting in the medical record. Coding Level of Care Code Est Pt Level 3 (88889) Complex EM visit Add On G2211 Diagnoses Pain in both knees M25.561; M25.562
[2024-01-31 13:06] VITALS: BMI 37.0
== END 2024-01-31 13:24 | disposition home or self-care (01) ==
PROVIDERS: PCP Internal Medicine; Visit Provider Orthopaedic Surgery
DX: M17.0 Bilateral primary osteoarthritis of knee (principal)
CPT/HCPCS: 99213; G2211

== ENCOUNTER → 2024-01-31 13:01 | Outpatient (BNVA) | payer MEDICARE, OTHER, SELFPAY | PROVIDERS: PCP Internal Medicine; Visit Provider Orthopaedic Surgery | DX: M25.561 Pain in right knee (principal); M25.562 Pain in left knee | CPT/HCPCS: 99212 ==

== ENCOUNTER 2024-04-03 15:00 | Outpatient (AMB) | payer MEDICARE, OTHER, SELFPAY ==
--- NOTE | 2024-04-03 15:17 | MHC.OFFVIS ---
Vital Signs 04/03/24 15:38 Height 5 ft 3 in Weight 209 lb BMI 37.0 Intake Visit Reasons: OV-Left shoulder follow up Intake Note: Amalia a 74 year old female who presents today for a follow up of left shoulder s/p rotator cuff repair surgery on 08/19/2023. Patient reports she is doing well. She reports mild intermittent discomfort in her left shoulder. She denies any fevers or chills. She continues with her home stretching program. She does not take any medicines for discomfort. Allergies Sulfa (Sulfonamide Antibiotics) [SULFA(SULFONAMIDE ANTIBIOTICS)] Allergy (Unknown, Verified 04/03/24 15:38) ? RXN - HAD CHILD Medication List - Last Reconciled 04/04/24 by Luis Felipe Armendariz MD atorvastatin 1 tab PO BEDTIME buspirone 10 mg PO BEDTIME PRN denosumab (Prolia) 60 mg subcut [id number] duloxetine 1 cap PO BEDTIME furosemide 20 mg PO BEDTIME PRN pantoprazole 1 tab PO BEDTIME trazodone 1 tab PO BEDTIME valsartan 1 tab PO BEDTIME PFSH Medical History FH: cholecystectomy Renal cancer Invasive ductal carcinoma of breast Renal mass FH: mastectomy Breast cancer HTN (hypertension) High cholesterol Surgical History Hx of partial nephrectomy History of cholecystectomy History of right breast implant (01/30/18) History of right mastectomy (02/02/17) History of breast biopsy (12/24/16) History of colonoscopy (03/06/14) H/O wrist surgery H/O hand surgery (2012) Family History Father Stroke Hypertension Mother COPD (chronic obstructive pulmonary disease) Hypertension Brother Stomach cancer Brother Liver transplant recipient Social History Household Members: Family Housing: House Are you a primary day care center director to a significant other at home: No Do you presently have visiting nurse or other home services: No Alcohol intake: current Alcohol intake frequency: holidays/special occasions only Comment: aware of trip hazard Patient Tobacco Use Status: Former Tobacco user Tobacco use type: Cigarette service: No Current occupational status: retired Physical Exam Vital Signs: BMI result Body Mass Index 37.0 Const Other: Well-nourished well-developed very friendly female awake alert and oriented x3 in no acute distress Extrem Other: Bilateral upper extremity examination shows good capillary refill, no skin lesions noted, normal sensation light touch Left shoulder examination shows that the surgical incisions are well healed, no erythema, full range of motion when compared to her right shoulder, 5/5 strength with supraspinatus testing, no instability Assessment & Plan Assessment & Plan (1) Left shoulder pain: Code(s): M25.512 - Pain in left shoulder Category: Medical Plan Amalia continues to do very well after undergoing left shoulder rotator cuff repair surgery on 08/19/2023. She will continue with her home stretching program to prevent stiffness. The do's and don'ts of lifting were discussed at length with the patient. She will follow up with me on an as-needed basis should any questions or concerns arise. Feel free to call me at any time should questions regarding her orthopedic management arise. I spent 20 minutes in reviewing the patient's records and imaging studies, seeing the patient and documenting in the medical record. Coding Level of Care Code Est Pt Level 3 (93932) Complex EM visit Add On G2211 Diagnoses Left shoulder pain M25.512
[2024-04-03 15:38] VITALS: BMI 37.0
== END 2024-04-03 15:51 | disposition home or self-care (01) ==
PROVIDERS: PCP Internal Medicine; Visit Provider Orthopaedic Surgery
DX: M25.512 Pain in left shoulder (principal)
CPT/HCPCS: 99213; G2211

== ENCOUNTER → 2024-04-03 15:00 | Outpatient (BNVA) | payer MEDICARE, OTHER, SELFPAY | PROVIDERS: PCP Internal Medicine; Visit Provider Orthopaedic Surgery | DX: M25.512 Pain in left shoulder (principal); Z98.890 Other specified postprocedural states | CPT/HCPCS: 99212 ==

== ENCOUNTER 2024-06-05 13:42 | Outpatient (AMB) | payer MEDICARE, OTHER, SELFPAY ==
--- NOTE | 2024-06-05 13:44 | A.OFFVIS_ITS ---
Vital Signs 06/05/24 13:50 Height 5 ft 3 in Weight 194 lb 8 oz BMI 34.5 BP 155/67 H Blood Pressure Location Lt brachial Position Sitting Pulse 84 Intake Visit Reasons: Yearly breast exam Intake Note: Patient is seen in office for yearly breast exam. Pt c/o: no changes or concerns mm:01/04/24 Reception Specialist Required: No Can Cleaner: Can Cleaner Present Accompanied by: Self / Same As Patient Allergies Sulfa (Sulfonamide Antibiotics) [SULFA(SULFONAMIDE ANTIBIOTICS)] Allergy (Unknown, Verified 06/05/24 13:50) ? RXN - HAD CHILD Medication List - Last Reconciled 06/05/24 by Enoc Zheng MD atorvastatin 1 tab PO BEDTIME buspirone 10 mg PO BEDTIME PRN denosumab (Prolia) 60 mg subcut [id number] duloxetine 1 cap PO BEDTIME furosemide 20 mg PO BEDTIME PRN pantoprazole 1 tab PO BEDTIME trazodone 1 tab PO BEDTIME valsartan 1 tab PO BEDTIME HPI Comments Details: 74-year-old female patient returning for breast examination following right breast cancer surgery. She is a former patient of Dr. 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 An ultrasound-guided lymph node biopsy which was positive for metastatic disease was not recovered in the sentinel node biopsy. She was started on adjuvant chemotherapy with Taxotere and Cytoxan on 04/06/2017. She tolerated this well and completed 4 cycles. She then completed a course of radiation therapy at [facility]. The radiation treatment was complicated by development of a skin burn, but she was able to c omplete the treatment. She was subsequently started on letrozole which was discontinued due to significant muscle and joint aches. She subsequently took anastrozole with the same symptoms. She was taken off the anastrozole with the anticipation of starting tamoxifen but after further discussion regarding the side effects with Dr. Mcgowan she decided to restart the anastrozole. Her most recent mammogram dated 01/04/2024 revealed no mammographic evidence of malignancy and stable dystrophic calcifications of the left breast (BI-RADS 2). An ultrasound of the right breast was performed on 06/27/2023 to evaluate the right breast implant revealed no suspicious findings for malignancy in the reconstructed right breast and no lymphadenopathy in the right axilla. She denies any new breast symptoms on either side. [facility] Medical History FH: cholecystectomy Renal cancer Invasive ductal carcinoma of breast Renal mass FH: mastectomy Breast cancer HTN (hypertension) High cholesterol Surgical History Hx of partial nephrectomy History of cholecystectomy History of right breast implant (01/30/18) History of right mastectomy (02/02/17) History of breast biopsy (12/24/16) History of colonoscopy (03/06/14) H/O wrist surgery H/O hand surgery (2012) Family History Father Stroke Hypertension Mother COPD (chronic obstructive pulmonary disease) Hypertension Brother Stomach cancer Brother Liver transplant recipient Social History Household Members: Family Housing: House Are you a primary pet caregiver to a significant other at home: No Do you presently have visiting nurse or other home services: No Alcohol intake: current Alcohol intake frequency: holidays/special occasions only Comment: aware of trip hazard Patient Tobacco Use Status: Former Tobacco user Tobacco use type: Cigarette service: No Current occupational status: retired Review of Systems Const All systems reviewed & are unremarkable except as noted in HPI and below Musc Details: Left shoulder pain Physical Exam Vital Signs: Last Vital Signs Pulse 84 06/05/24 13:50 BP 155/67 H 06/05/24 13:50 BMI result Body Mass Index 34.5 Const General: cooperative, healthy appearing, comfortable and no acute distress Eyes Sclerae: sclerae normal EOM: EOMs intact bilaterally Neck Neck: Yes full ROM and Yes no lymphadenopathy Chest Other: Right breast reconstruction with implant, reconstructed nipple. Tissue was soft with no palpable mass, skin change, discharge, or enlarged lymph nodes. Left breast, status post mammoplasty, no new skin changes, no nipple discharge, no palpable mass, no enlarged lymph nodes. Resp Effort & Inspection: normal respiratory effort, no stridor and not tachypneic Auscultation: no wheezes Cardio Jugular venous distension: no JVD Rate: regular rate Rhythm: regular rhythm Skin General skin exam: no rashes or lesions noted Neuro Other: Mobility Assessment: 1. 3 meter assessment time (seconds) 7 2. Gait observations: slow tentative pace Extrem General: Yes no clubbing, cyanosis or edema Assessment & Plan Assessment & Plan (1) Invasive ductal carcinoma of breast: Code(s): C50.919 - Malignant neoplasm of unspecified site of unspecified female breast Category: Medical Qualifiers: Laterality: right Qualified Code(s): C50.911 - Malignant neoplasm of unspecified site of right female breast Plan 74-year-old female patient with a previous history of right breast ductal and lobular carcinoma with DCIS (pT2 N1a), status post right simple mastectomy with immediate reconstruction and sentinel node biopsy on 08/02/2016. She also underwent left breast mastopexy. Examination today revealed no suspicious findings in either breast with an intact implant on the right side and no suspicious enlarged lymph nodes on either side. Her most recent mammogram dated 01/04/2024 revealed stable dystrophic calcifications with no mammographic evidence of malignancy (BI-RADS 2). She will be due for an annual mammogram in December 2024. I recommended follow-up examination in 1 year, sooner p.r.n.. Coding Level of Care Code Est Pt Level 3 (74069) Diagnoses Infiltrating ductal carcinoma of right breast C50.911 Laterality: right
[2024-06-05 13:50] VITALS: BP 155/67; PULSE 84; BMI 34.5
--- OUTSIDE RECORDS SUMMARY | 2024-06-05 16:00 | XMS_ITS ---
Author Organization [facility] Address [address] [place] [address] Care Team Providers Care Greenskeeper Name Role Phone Enoc Llanos MD Primary Care Provider Unavailab zelalem Simpson Jr, Jose J Gonzalez REASON FOR VISIT golytely request MEDICATIONS Medication SIG (Take, Route, Fr equency, Duration) Notes Start Date End Date Status Golytely 236 GM as directed before c olonoscopy Orally every 15 minutes for 1 day(s) 02/21/2023 Active Encounters Encounter Location Date Provider Diagnosis [facility] [address] [place] [id number] 02/21/2023 Jose J Simpson Jr PLAN OF TREATMENT Medication Medication Name Sig Start Date Stop Date Notes Golytely 236 GM as directed before c olonoscopy Orally every 15 minutes for 1 day(s) 02/21/2023
--- OUTSIDE RECORDS SUMMARY | 2024-06-05 16:00 | XMS_ITS ---
Author Organization [facility] Address [address] [place] [address] Care Team Providers Care Business Insurance Agent Name Role Phone Enoc Llanos MD Primary Care Provider Unavailab Jose J Borges Jr [phone] REASON FOR VISIT pathology Encounters Encounter Location Date Provider Diagnosis [facility] [address] [place] [address] 03/03/2023 Jose J Simpson Jr PLAN OF TREATMENT No Information
--- OUTSIDE RECORDS SUMMARY | 2024-06-05 16:00 | XMS_ITS ---
Author Organization [facility] Address [address] [place] [address] Care Team Providers Care Race Relations Adviser Name Role Phone Enoc Llanos MD Primary Care Provider Unavailab Jose J Borges Jr Unavailable REASON FOR VISIT change in bowels Encounters Encounter Location Date Provider Diagnosis [facility] [place] [facility] [address] [place], [place] [phone] 02/25/2023 Jose J Simpson Jr Change in bowel movement R19.8 and Colon polyps K63.5 ASSESSMENTS Encounter Date Diagnosis Assessment Notes Treatment Notes Treatment Clinical Notes 02/25/2023 Change in bowel movement (ICD-10 - R19.8) 02/25/2023 Colon polyps (ICD-10 - K63.5) PLAN OF TREATMENT No Information
--- OUTSIDE RECORDS SUMMARY | 2024-06-05 16:01 | XMS_ITS | Patient Health Record ---
Author Organization [facility] Address [address] [place] [address] Care Team Providers Care Spacecraft Systems Engineer Name Role Phone Enoc Llanos MD Primary Care Provider Jose J Fitzpatrick Jr Unavailable [phone] ALLERGIES Allergen (clinical drug ingredient) Drug/Non Drug Allergy documented on EMR Reaction Allergy Type Onset Date Status Substance with sulfonamide structure and antibacterial mechanism of action (substance) Sulfa Antibiotics Unknown Drug Allergy Active REASON FOR REFERRAL No Information MEDICATIONS Medication SIG (Take, Route, Frequency, Duration) Notes Start Date End Date Status Clorazepate Dipotassium 7.5 MG 1 tablet Orally Once a day Active Cymbalta 60 MG 1 capsule Orally Onc e a day for 30 day(s) Active Golytely 236 GM as directed before colonoscopy Orally every 15 minutes for 1 day(s) 02/21/2023 Active Dulcolax (colon prep) 5 MG take at 3:00 p.m and 7:00p.m. Orally two tablets twice a day for one day for 1 day 02/21/2023 Active Vitamin D3 125 MCG (5000 UT) 1 tablet Orally Once a day Active Pantoprazole Sodium 40 MG Oral for 90 Active Furosemide 20 MG 1 tablet Orally Once a day for 30 day(s) Active busPIRone HCl 10 MG TAKE 1 TABLET BY RAMON TWICE A DAY Oral for 30 Active amLODIPine Besylate 5 MG Oral for 90 Active traZODone HCl 50 MG Oral for 90 Active Naproxen 500 MG Oral for 30 Ac tive MiraLax (colon prep) 8.3 ounce ((238) grams mixed with Gatorade or Crystal Light orally begin at 5:00 p.m. the day before the procedure for 1 day 02/21/2023 Active DULoxetine HCl 60 MG TAKE 1 CAPSULE BY M OUTH EVERY DAY Oral for 90 Active Atorvastatin Calcium 20 MG Oral for 90 Active Valsartan 320 MG Oral for 90 A ctive IMMUNIZATIONS Vaccine Route Administration Date Status Comme nts Influenza Unknown 03/04/2021 Administered Influenza Unknown 03/09/2022 Administered SOCIAL HISTORY Tobacco Use: Social History Observation Description Date Details (start date - stop date) Never Smoker NA - NA Sex Assigned At : Social History Observation Description Sex Assigned At Unknown Tobacco Use/Smoking Question Answer Notes Patient is a nonsmoker Alcohol Screen Question Answer Notes Did you have a drink contain ing alcohol in the past year? Yes How often did you have a dri nk containing alcohol in the past year? 2 to 4 times a month (2 points) How many drinks did you have on a typical day when you were drinking in the past year? 1 or 2 drinks (0 point) How often did you have 6 or more drinks on one occasion in the past year? Never (0 point) Points 2 Interpretation Negative PROBLEMS Problem Type ICD Code Onset Dates Problem Status W/U Status Risk SNOMED Code Notes Problem Change in bowel function (R19.8) Active confirmed 35118593 Problem Colon cancer screening (Z12.11) Active confirmed 251854985 Problem Gastroesophageal reflux disease without esophagitis (K21.9) Active confirmed 912737175 PLAN OF TREATMENT Future Test Test Name Order Date COLONOSCOPY 03/17/2022 COLONOSCOPY 10/13/2022 Insurance Providers Payer Name Payer Address Payer Phone Subscriber Number Group Number Insured Name Patient Relationship to Insured Coverage Start Date Coverage End Date MEDICARE OF [place] [address] [place] [id number] MONI ODEN Self - patient is the insured [employer] ATTN CLAIMS [address] [place] [phone] [id number] MONI ODEN Self - patient is the insured MEDICAL (GENERAL) HISTORY Medical History History ICD Code Hypertension Right breast cancer status p ost mastectomy, axillary node dissection, and chemoradiation Osteoporosis Stage I kidney cancer Elevated cholesterol Depression/anxiety Edema Surgical History Surgery Date(Month/Year) Right mastectomy 2017 Right partial nephrectomy 2018 Bilateral Dupuytren's contractures rep r 2020
== END 2024-06-05 14:12 | disposition home or self-care (01) ==
PROVIDERS: PCP Internal Medicine; Visit Provider Surgery
DX: C50.911 Malignant neoplasm of unspecified site of right female breast (principal)
CPT/HCPCS: 99213

== ENCOUNTER → 2024-06-05 13:42 | Outpatient (BNVA) | payer MEDICARE, OTHER, SELFPAY | PROVIDERS: PCP Internal Medicine; Visit Provider Surgery | DX: Z85.3 Personal history of malignant neoplasm of breast (principal); Z90.11 Acquired absence of right breast and nipple; Z92.21 Personal history of antineoplastic chemotherapy; Z92.3 Personal history of irradiation | CPT/HCPCS: 99212 ==

== ENCOUNTER 2024-09-20 13:43 | Outpatient (AMB) | payer MEDICARE, OTHER, SELFPAY ==
--- NOTE | 2024-09-20 13:46 | MHC.OFFVIS ---
Vital Signs 09/20/24 13:47 Height 5 ft 3 in Weight 194 lb BMI 34.4 Intake Visit Reasons: Bilateral knee pains, Right shoulder pain and weakness Intake Note: Amalia a 74 year old female who presents with complaints of progressively worsening right shoulder pain and weakness. The patient did undergo left shoulder rotator cuff repair surgery on 08/19/2023. She reports minimal discomfort in her left shoulder. She describes her right shoulder pain as sharp in nature. She did injure her right shoulder approximately 1 year ago while lifting a heavy object. Since that time she has had weakness when lifting her right hand above shoulder height. She has failed the last 6 weeks of conservative treatment which has included a home exercise program, physical therapy exercises, Tylenol and anti-inflammatory medicines. She has had injections in the past which gave her minimal relief. The patient also has bilateral knee pains. She has had cortisone injections given into her knees in the past which gave her minimal relief. She has also had Durolane viscosupplementation injections which gave her good relief. She has failed the last 3 months of conservative treatment which has included a home exercise program, physical therapy exercises, Tylenol and anti-inflammatory medicines. At this point her bilateral knee pains are interfering with her activities of daily living and her ability to sleep well through the night. The patient wishes to hold off on total knee replacement surgery if at all possible. Allergies Sulfa (Sulfonamide Antibiotics) [SULFA(SULFONAMIDE ANTIBIOTICS)] Allergy (Unknown, Verified 09/20/24 13:47) ? RXN - HAD CHILD Medication List - Last Reconciled 09/21/24 by Luis Felipe Armendariz MD atorvastatin 1 tab PO BEDTIME buspirone 10 mg PO BEDTIME PRN denosumab (Prolia) 60 mg subcut [id number] duloxetine 1 cap PO BEDTIME furosemide 20 mg PO BEDTIME PRN pantoprazole 1 tab PO BEDTIME trazodone 1 tab PO BEDTIME valsartan 1 tab PO BEDTIME PFS Medical History FH: cholecystectomy Renal cancer Invasive ductal carcinoma of breast Renal mass FH: mastectomy Breast cancer HTN (hypertension) High cholesterol Surgical History Hx of partial nephrectomy History of cholecystectomy History of right breast implant (01/30/18) History of right mastectomy (02/02/17) History of breast biopsy (12/24/16) History of colonoscopy (03/06/14) H/O wrist surgery H/O hand surgery (2012) Family History Father Stroke Hypertension Mother COPD (chronic obstructive pulmonary disease) Hypertension Brother Stomach cancer Brother Liver transplant recipient Social History Household Members: Family Housing: House Are you a primary senior care assistant to a significant other at home: No Do you presently have visiting nurse or other home services: No Alcohol intake: current Alcohol intake frequency: holidays/special occasions only Comment: aware of trip hazard Patient Tobacco Use Status: Former Tobacco user Tobacco use type: Cigarette service: No Current occupational status: retired Physical Exam Vital Signs: BMI result Body Mass Index 34.4 Const Other: Well-nourished well-developed very friendly female awake alert and oriented x3 in no acute distress Extrem Other: Bilateral lower extremity examination shows good capillary refill, no skin lesions noted, normal sensation light touch Bilateral knee examination shows minimal effusions, palpable crepitus with range of motion, pain with range of motion, no instability Right shoulder examination shows decreased range of motion when compared to her left shoulder, 4/5 strength with supraspinatus testing, positive impingement signs, no instability Results Reviewed Results Reviewed: X-rays of the patient's bilateral knee show joint space narrowing, subchondral sclerosis, no acute bony abnormalities Assessment & Plan Assessment & Plan (1) Rotator cuff insufficiency of right shoulder: Code(s): M25.311 - Other instability, right shoulder Category: Medical (2) Osteoarthritis of left knee: Code(s): M17.12 - Unilateral primary osteoarthritis, left knee Category: Medical (3) Osteoarthritis of right knee: Code(s): M17.11 - Unilateral primary osteoarthritis, right knee Category: Medical Plan Ms. Stark presents with right shoulder pain and weakness due to impingement syndrome and possible rotator cuff tearing. Thus, I will send the patient for an MRI of her right shoulder for further evaluation. The patient also has bilateral knee pains due to osteoarthritis. She has not gotten good relief from cortisone injections in the past. I will see if her insurance company will cover a another viscosupplementation injection, such as Durolane, for both of her knees. I will see her back once the injections are available. Feel free to call me at any time should questions regarding her orthopedic management arise. I spent 22 minutes in reviewing the patient's records and imaging studies, seeing the patient and documenting in the medical record. Orders: Orders MR shoulder RT wo con Today M25.311 - Other instability, right shoulder Coding Level of Care Code Est Pt Level 3 (33699) Complex EM visit Add On G2211 Diagnoses Rotator cuff insufficiency of right shoulder M25.311 Osteoarthritis of left knee M17.12 Osteoarthritis of right knee M17.11
[2024-09-20 13:47] VITALS: BMI 34.4
--- OUTSIDE RECORDS SUMMARY | 2024-09-20 15:58 | XMS_ITS ---
Author Name [facility] Organization Unknown History of Medication Use Medication Directions Dispensed Refills Start Date End Date Stat us lidocaine (PF) 100 mg/5 mL (2 %) injection syringe Take 2 mL by injection route. 04/21/2023 05/05/2023 active Kenalog 40 mg/mL suspension for injection Take 1 mL by injection route. 08/12/2022 05/05/2023 active lidocaine (PF) 10 mg/mL (1 %) injection solution Take 2 mL by injection route. 08/11/2022 08/10/2023 active Naprosyn 08/10/2023 active anastrozole 05/11/2023 active bisacodyl 5 mg tablet,delayed release TAKE 2 TABLETS BY MOUTH TWICE A DAY AT 3PM AND 7PM FOR 1 DAY 05/05/2023 completed naproxen 500 mg tablet TAKE 1 TABLET WITH FOOD OR MILK ORAL TWICE A DAY 30 DAY(S) 05/05/2023 completed nitrofurantoin monohydrate/macrocry stals 100 mg capsule TAKE 1 CAPSULE BY MOUTH EVERY 12 HOURS WITH FOOD 05/05/2023 completed amoxicillin 500 mg capsule TAKE 1 CAPSULE BY MOUTH EVERY 8 HOURS FOR 7 DAYS 04/21/2023 completed Ciprodex 0.3 %-0.1 % ear drops,suspension INSTILL 4 DROPS INTO AFFECTED EAR EVERY 12 HOURS FOR 7 DAYS 04/21/2023 completed lidocaine (PF) 100 mg/5 mL (2 %) injection syringe active anastrozole 1 mg tablet TAKE 1 TABLET BY MOUTH EVERY DAY active atorvastatin 20 mg tablet TAKE 1 TABLET BY MOUTH EVERY DAY active clotrimazole 1 % topical cream APPLY TO AFFECTED AREAS TWICE A DAY FOR 6 WEEKS active duloxetine 60 mg capsule,delayed release TAKE 1 CAPSULE BY MOUTH EVERY DAY active Allergies Allergen Reaction Severity Comment Documented Date Source Statu s SULFA (SULFONAMIDE ANTIBIOTICS) [facility] Problems Problem Status Onset Date Problem Type Date of Resoluti on Source Full thickness rotator cuff tear active 2022-09-08 ProblemAct [facility] Osteoarthritis of right knee joint active 2022-11-10 ProblemAct [facility] Arthritis of knee active 2022-08-10 ProblemAct [facility] Arthritis of acromioclavicular joint active 2022-08-17 ProblemAct [facility] Arthritis of right knee active 2022-08-10 ProblemAct [facility] Osteoarthritis of left knee joint active 2022-11-10 ProblemAct [facility] Calcific tendinitis of left shoulder active 2022-08-17 ProblemAct [facility] Impingement syndrome of left shoulder region active 2022-08-17 ProblemAct [facility] Encounters Encounter Type Encounter Reason Primary Diagnosis Location Date Ambulatory [facility] 07/21/2023 Ambulatory [facility] 07/08/2023 Ambulatory [facility] 01/22/2023 Ambulatory [facility] 01/22/2023 Ambulatory [facility] 01/20/2023 Ambulatory [facility] 09/08/2022
--- OUTSIDE RECORDS SUMMARY | 2024-09-20 15:58 | XMS_ITS | Clinical Summary ---
Author Organization [facility] Address [address] [place] [id number] Care Team Providers Care Business Specialist Name Role Phone Enoc Llanos MD Primary Care Provider Unavail able Allergies Active Allergy Reactions Criticality Noted Date Comments Sulfa Antibiotics 06/30/2018 Medications Medication Sig Dispensed Refills Start Date End Date Status amLODIPine-benazepril (LOTREL) 5-40 MG per capsule Take 1 capsule by mouth daily. 2 05/03/2018 Active anastrozole (ARIMIDEX) 1 MG tablet 0 06/30/2018 Active atorvastatin (LIPITOR) tablet 20 mg Take 20 mg by mouth daily. 2 05/03/2018 Active naproxen (NAPROSYN) 500 MG tablet TAKE 1 TABLET BY MOUTH TWICE A DAY WITH FOOD 1 06/09/2018 Active pantoprazole (PROTONIX) 40 MG tablet Take 40 mg by mouth daily. 2 05/11/2018 Active DULoxetine (CYMBALTA) DR capsule 60 mg Take 60 mg by mouth daily. 3 04/18/2018 Active furosemide (LASIX) 20 MG tablet Take 20 mg by mouth 2 (two) times a day. 0 Active traZODone (DESYREL) 25 MG split tablet Take 50 mg by mouth every night at bedtime. 0 Active cholecalciferol (VITAMIN D3) 1000 units tablet Take 1,000 Units by mouth daily. 0 Active valsartan (DIOVAN) tablet 320 mg Take 320 mg by mouth daily. 0 12/17/2021 Active traMADol (ULTRAM) 50 MG tablet tramadol 50 mg tablet 0 Active oxyCODONE (ROXICODONE) 5 MG immediate release tablet oxycodone 5 mg tablet 0 Active Active Problems Problem Noted Date Diagnosed Date Primary osteoarthritis of both knees 01/26/2022 Primary osteoarthritis of both knees 06/30/2018 Family History Medical History Relation Name Comments Heart disease Father Hypertension Father Heart disease Mother Relation Name Status Comments Father Mother Social History Tobacco Use Types Packs/Day Years Used Date Smoking Tobacco: Never Assessed Sex and Gender Information Value Date Recorded Sex Assigned at Not on file Gender Identity Not on file Sexual Orientation Not on file Job Start Date Occupation Industry Not on file Not on file Not on file Last Filed Vital Signs Vital Sign Reading Time Taken Comments Blood Pressure - - Pulse - - Temperature - - Respiratory Rate - - Oxygen Saturation - - Inhaled Oxygen Concentration - - Weight 107 kg (236 lb) 01/26/2022 1:16 PM EDT Height 160 cm (5' 3 ) 01/26/2022 1:16 PM EDT Body Mass Index 41.81 01/26/2022 1:16 PM EDT Plan of Treatment Health Maintenance Due Date Last Done Comments Hepatitis C Screening 1950 COVID-19 Vaccine (#1) 1950 Depression Screening 1963 BMI Counseling 1969 Preventative Health Evaluation 1969 DTap / Tdap / Td (1 - Tdap) 1970 Colon Cancer Screening (Colonoscopy) 01/17/1996 Breast Cancer Screening (Mammogram) 2001 Shingrix-Zoster Vaccine (1 of 2) 2001 Fall Risk Assessment 01/17/2016 Osteoporosis Screening (DEXA Scan) 01/17/2016 Pneumococcal Vaccine (1 of 1 - PCV) 01/17/2016 Influenza Vaccine (#1) 2024 03/04/2021 RSV Adult > 60+ Yrs or Pregn ant (1 - 1-dose 75+ series) 2026 Hepatitis B Vaccines Aged Out No long er eligible based on patient's age to complete this topic RSV Ped < 20 months Aged Out No longe r eligible based on patient's age to complete this topic Care Teams Business Specialist Relationship Specialty Start Date End Date Enoc Llanos MD PCP - General Internal Medicine 06/13/18
--- OUTSIDE RECORDS SUMMARY | 2024-09-20 15:58 | XMS_ITS | Data Portability ---
Author Organization [place] [facility] [place] Address [address] [place] [address] Care Team Providers Care Hog Operator Name Role Phone LUCIEN RAMIREZ Referring Provider [phone] LUCIEN RAMIREZ Primary Care Provider Assessment Encounter Date Assessment Date Assessment LastModified by Organization Details LastModified Time 11/10/2022 11/10/2022 Pleasant 72-year-old female following up on her knees from an injury that was evaluated 10/27/2022. She states the resulting symptoms her bruising has completely resolved. She is due for her cortisone injections which she was amenable to for today's visit. After verbal consent was obtained. The procedures were carried out independently and bilaterally. She tolerated the procedures well. Aftercare instructions were discussed in detail. Should her symptoms not improve or worsen she should contact my office. I will see her back in 3 months time for repeat clinical exam. Patient agrees with the above-noted plan Indirect care and treatment in conjunction with Dr. Ramsay Additional treatment plan discussed with the patient in detail included the following; - Provider focused nonsteroidal anti-inflammatory regimen (discussed were the pros, cons, benefits and risks as well as any black box warnings) in patients over 60 years old they should be very cautious in taking these medications due to potential decreased kidney function and or elevated blood pressure. - Analgesic pain medication for pain suppression (discussed were the pros, cons, benefits and risks as well as any black box warnings) - The use of topical pain relieving medication were discussed - The use of ice to decrease inflammation and pain - The use of assistive ambulatory devices for ambulation and fall prevention - Formal specific guided physical therapy program I reviewed my findings at length with the patient today. ? ? ?We discussed the nature and etiology of this problem along with current treatment options. We discussed the expected course and outcomes and what to expect. We also discussed risks and benefits. ? ? ? All of their questions were answered today, and there was exhibited understanding and comprehension of all that was discussed. Time Spent: 10 minutes were spent reviewing previous imaging and charting. ? ? ?10 minutes were spent obtaining patient history. ? ? ?5 minutes were spent on physical exam. ? ? ?5? ? ?minutes were spent explaining diagnosis and assessment. Today's documentation was made using voice recognition software. This note may contain grammatical errors secondary to the software. Not available 11/10/2022 15:25:24 04/21/2023 04/21/2023 73-year-old female bilateral knee arthrosis due to osteoarthritis for which she opted for cortisone injection of both knees at today's visit. After verbal consent was obtained. The procedures were then carried out. She tolerated this well aftercare instructions discussed in detail. Follow-up visit 3 months time for repeat clinical exam should her symptoms not improve or worsen she should contact my office immediately. She agrees with this plan. Patient was seen and evaluated by Rk Harper PA-C in indirect conjuction with Documenting Provider: Yosef Ramsay MD . He/She agrees with history, physical examination, tests/diagnostic imaging, and treatment plan. Additional treatment plan discussed with the patient (only initiated if in boldface font) otherwise not applicable. Treatment may include the following; - Provider focused nonsteroidal anti-inflammatory regimen (discussed were the pros, cons, benefits and risks as well as any black box warnings) in patients over 60 years old they should be very cautious in taking these medications due to potential decreased kidney function and or elevated blood pressure. - Analgesic pain medication for pain suppression (discussed were the pros, cons, benefits and risks as well as any black box warnings) - The use of topical pain relieving medication were discussed - The use of ice to decrease inflammation and pain - The use of assistive ambulatory devices for ambulation and fall prevention - Formal specific guided physical therapy program I reviewed my findings at length with the patient today. ? ? ?We discussed the nature and etiology of this problem along with current treatment options. We discussed the expected course and outcomes and what to expect. We also discussed risks and benefits. ? ? ? All of their questions were answered today, and there was exhibited understanding and comprehension of all that was discussed. Time Spent: 10 minutes were spent reviewing previous imaging and charting. ? ? ?10 minutes were spent obtaining patient history. ? ? ?5 minutes were spent on physical exam. ? ? ?5? ? ?minutes were spent explaining diagnosis and assessment. Today's documentation was made using voice recognition software. This note may contain grammatical errors secondary to the software. Not available 04/21/2023 14:52:53 05/05/2023 05/05/2023 Dx: Right shoulder impingement syndrome and arthritis. I had a discussion with the patient guarding management. She opted for cortisone injection at today's visit. After verbal provide the patient. Procedure was carried out in the right shoulder. She tolerated the procedure well. Aftercare instructions discussed in detail. Follow-up visit 3 months time repeat clinical exam. Should her symptoms not improve or worsen she should contact my office immediately. She agrees with this plan peer Patient was seen and evaluated by Rk Harper PA-C in indirect conjuction with Documenting Provider: Artem Titus MD . He/She agrees with history, physical examination, tests/diagnostic imaging, and treatment plan. Additional treatment plan discussed with the patient (only initiated if in boldface font) otherwise not applicable. Treatment may include the following; - Provider focused nonsteroidal anti-inflammatory regimen (discussed were the pros, cons, benefits and risks as well as any black box warnings) in patients over 60 years old they should be very cautious in taking these medications due to potential decreased kidney function and or elevated blood pressure. - Analgesic pain medication for pain suppression (discussed were the pros, cons, benefits and risks as well as any black box warnings) - The use of topical pain relieving medication were discussed - The use of ice to decrease inflammation and pain - The use of assistive ambulatory devices for ambulation and fall prevention - Formal specific guided physical therapy program I reviewed my findings at length with the patient today. ? ? ?We discussed the nature and etiology of this problem along with current treatment options. We discussed the expected course and outcomes and what to expect. We also discussed risks and benefits. ? ? ? All of their questions were answered today, and there was exhibited understanding and comprehension of all that was discussed. Time Spent: 10 minutes were spent reviewing previous imaging and charting. ? ? ?10 minutes were spent obtaining patient history. ? ? ?5 minutes were spent on physical exam. ? ? ?5? ? ?minutes were spent explaining diagnosis and assessment. Today's documentation was made using voice recognition software. This note may contain grammatical errors secondary to the software. Not available 05/06/2023 07:56:18 05/11/2023 05/11/2023 Diagnosis #1 lef t shoulder impingement syndrome, calcific tendinitis chronic rotator cuff tearing. I had a discussion with the patient great management. She opted for cortisone injection of the left shoulder at today's visit. After verbal consent was given by patient. The procedure was carried out. She tolerated this well. Aftercare instructions were discussed in detail. Follow-up visit 3 months time repeat clinical exam. Should her symptoms not improve or worsen she should contact my office immediately she agrees with this plan. Patient was seen and evaluated by Rk Harper PA-C in indirect conjuction with Documenting Provider: Artem Titus MD . He/She agrees with history, physical examination, tests/diagnostic imaging, and treatment plan. Additional treatment plan discussed with the patient (only initiated if in boldface font) otherwise not applicable. Treatment may include the following; - Provider focused nonsteroidal anti-inflammatory regimen (discussed were the pros, cons, benefits and risks as well as any black box warnings) in patients over 60 years old they should be very cautious in taking these medications due to potential decreased kidney function and or elevated blood pressure. - Analgesic pain medication for pain suppression (discussed were the pros, cons, benefits and risks as well as any black box warnings) - The use of topical pain relieving medication were discussed - The use of ice to decrease inflammation and pain - The use of assistive ambulatory devices for ambulation and fall prevention - Formal specific guided physical therapy program I reviewed my findings at length with the patient today. ? ? ?We discussed the nature and etiology of this problem along with current treatment options. We discussed the expected course and outcomes and what to expect. We also discussed risks and benefits. ? ? ? All of their questions were answered today, and there was exhibited understanding and comprehension of all that was discussed. Time Spent: 10 minutes were spent reviewing previous imaging and charting. ? ? ?10 minutes were spent obtaining patient history. ? ? ?5 minutes were spent on physical exam. ? ? ?5? ? ?minutes were spent explaining diagnosis and assessment. Today's documentation was made using voice recognition software. This note may contain grammatical errors secondary to the software. Not available 05/11/2023 14:25:28 08/10/2023 08/10/2023 73-year-old female bilateral knee arthrosis due to osteoarthritis for which she opted for cortisone injection of both knees at today's visit. After verbal consent was obtained. The procedures were then carried out. She tolerated this well aftercare instructions discussed in detail. Follow-up visit 3 months time for repeat clinical exam should her symptoms not improve or worsen she should contact my office immediately. She agrees with this plan. Patient states that she has transferred care to Dr. Marcello knapp regarding her shoulders and she would like to continue with all of her orthopedic care after today's visit regarding her knees. She will fill out a patient release form for which we will forward all notes going forward. Certainly if she changes her mind and wishes to continue care with [facility] she is more than welcome to come back. She agrees with this plan. Patient was seen and evaluated by Rk Harper PA-C in indirect conjuction with Documenting Provider: Yosef Ramsay MD . He/She agrees with history, physical examination, tests/diagnostic imaging, and treatment plan. Additional treatment plan discussed with the patient (only initiated if in boldface font) otherwise not applicable. Treatment may include the following; - Provider focused nonsteroidal anti-inflammatory regimen (discussed were the pros, cons, benefits and risks as well as any black box warnings) in patients over 60 years old they should be very cautious in taking these medications due to potential decreased kidney function and or elevated blood pressure. - Analgesic pain medication for pain suppression (discussed were the pros, cons, benefits and risks as well as any black box warnings) - The use of topical pain relieving medication were discussed - The use of ice to decrease inflammation and pain - The use of assistive ambulatory devices for ambulation and fall prevention - Formal specific guided physical therapy program I reviewed my findings at length with the patient today. ? ? ?We discussed the nature and etiology of this problem along with current treatment options. We discussed the expected course and outcomes and what to expect. We also discussed risks and benefits. ? ? ? All of their questions were answered today, and there was exhibited understanding and comprehension of all that was discussed. Time Spent: 10 minutes were spent reviewing previous imaging and charting. ? ? ?10 minutes were spent obtaining patient history. ? ? ?5 minutes were spent on physical exam. ? ? ?5? ? ?minutes were spent explaining diagnosis and assessment. Today's documentation was made using voice recognition software. This note may contain grammatical errors secondary to the software. Not available 08/10/2023 14:29:38 Plan of Treatment Reminders Order Date Submit Date Provider Last Modified By Organization Details Last Modified Time Details Appointments None recorded. Lab None recorded. Referral None recorded. Procedures None recorded. Surgeries None recorded. Imaging XR, shoulder, 2 or more view 2022 023 [facility], [address], [place] [address], [place], [address], 3 20:02:05 Medication Orders Kenalog 40 mg/mL suspension for injection [address]/Pharmacy #2024, [address] [place] [address], [id number], 4 14:30:01 lidocaine (PF) 100 mg/5 mL (2 %) injection syringe [address]/Pharmacy #2024, [address] [place] [address], [id number], 4 14:30:01 Kenalog 40 mg/mL suspension for injection [address]/Pharmacy #2024, [address] [place] [address], [id number], 4 14:30:01 lidocaine (PF) 100 mg/5 mL (2 %) injection syringe [address]/Pharmacy #2024, [address] [place] [address], [id number], 4 14:30:01 Kenalog 40 mg/mL suspension for injection 2022 023 [facility]/Pharmacy #2024, [address] [place] [address], [id number], 4 14:00:45 lidocaine (PF) 10 mg/mL (1 %) injection solution 2022 023 [facility]/Pharmacy #2024, [address] [place] [address], [address], 4 14:00:47 Kenalog 40 mg/mL suspension for injection 2022 023 [facility]/Pharmacy #2024, [address] [place] [address], [address], 4 14:00:45 lidocaine (PF) 100 mg/5 mL (2 %) injection syringe 2022 023 [facility]/Pharmacy #2024, [address] [place] [address], [address], 3 20:02:05 Kenalog 40 mg/mL suspension for injection 2022 023 [facility]/Pharmacy #2024, [address] [place] [address], [id number], 4 14:00:45 lidocaine (PF) 100 mg/5 mL (2 %) injection syringe [address]/Pharmacy #2024, [address] [place] [address], [address], 3 16:25:14 Kenalog 40 mg/mL suspension for injection 2022 023 [facility]/Pharmacy #2024, [address] [place] [address], [id number], 4 14:00:45 lidocaine (PF) 100 mg/5 mL (2 %) injection syringe [address]/Pharmacy #2024, [address] [place] [address], [address], 3 16:25:14 Kenalog 40 mg/mL suspension for injection [address]/Pharmacy #2024, [address] [place], [address], 4 14:00:45 lidocaine (PF) 10 mg/mL (1 %) injection solution 2022 [address] [place], [address], 4 14:00:47 Kenalog 40 mg/mL suspension for injection 2022 023 [address] [place], [address], 4 14:00:45 lidocaine (PF) 10 mg/mL (1 %) injection solution 2022 023 [address] [place], [address], 4 14:00:47 Patient TargetsNo targets recorded. Patient Instructions Encounter Date Encounter Id Patient Instructions Last Modified By Organization Details Last Modified Time 11/10/2022 [id number] You have been provided with a cortisone injection in order to reduce the pain and inflammation that you are experiencing. The injection consists of two medications. Cortisone (an anti-inflammatory that will take 48-72 hours to take effect) and Lidocaine (a numbing agent that will last 2-3 hours). Please note that not everyone will have a lasting response following the injection. PATIENT INSTRUCTIONS Once the Lidocaine wears off, you may have an increase in your pain. I recommend icing the affected area for 20 minutes 3-4 times per day. It is recommended that you refrain from any high level activities using the joint or limb that was injected for approximately 24-48 hours. Normal day-to-day activities are generally not a problem. POSSIBLE SIDE EFFECTS Individuals with dark complexions may experience some skin discoloration locally at the site of the injection. There is the possibility of an increase in discomfort within 48 hours following the injection. This is called a ? f lare? . To help minimize the chances of this, please see the post-injection instructions above. There is a less than 1% chance of an infection. If you notice any signs of infection (redness, warmth, drainage, fever greater than 100 degrees) please call our office or contact us through the portal [facility]. Not available 11/10/2022 15:25:31 05/05/2023 [id number] You have been provided with a cortisone injection in order to reduce the pain and inflammation that you are experiencing. The injection consists of two medications. Cortisone (an anti-inflammatory that will take 48-72 hours to take effect) and Lidocaine (a numbing agent that will last 2-3 hours). Please note that not everyone will have a lasting response following the injection. PATIENT INSTRUCTIONS Once the Lidocaine wears off, you may have an increase in your pain. I recommend icing the affected area for 20 minutes 3-4 times per day. It is recommended that you refrain from any high level activities using the joint or limb that was injected for approximately 24-48 hours. Normal day-to-day activities are generally not a problem. POSSIBLE SIDE EFFECTS Individuals with dark complexions may experience some skin discoloration locally at the site of the injection. There is the possibility of an increase in discomfort within 48 hours following the injection. This is called a ? f lare? . To help minimize the chances of this, please see the post-injection instructions above. There is a less than 1% chance of an infection. If you notice any signs of infection (redness, warmth, drainage, fever greater than 100 degrees) please call our office or contact us through the portal [facility]. Not available 05/06/2023 07:56:23 Three-view x-ray of the right shoulder reveals overall well-maintained glenohumeral joint space, AC joint space narrowing and spurring, type II acromion without acute bony abnormality observed. Not available 05/06/2023 07:41:21 05/11/2023 [id number] You have been provided with a cortisone injection in order to reduce the pain and inflammation that you are experiencing. The injection consists of two medications. Cortisone (an anti-inflammatory that will take 48-72 hours to take effect) and Lidocaine (a numbing agent that will last 2-3 hours). Please note that not everyone will have a lasting response following the injection. PATIENT INSTRUCTIONS Once the Lidocaine wears off, you may have an increase in your pain. I recommend icing the affected area for 20 minutes 3-4 times per day. It is recommended that you refrain from any high level activities using the joint or limb that was injected for approximately 24-48 hours. Normal day-to-day activities are generally not a problem. POSSIBLE SIDE EFFECTS Individuals with dark complexions may experience some skin discoloration locally at the site of the injection. There is the possibility of an increase in discomfort within 48 hours following the injection. This is called a ? f lare? . To help minimize the chances of this, please see the post-injection instructions above. There is a less than 1% chance of an infection. If you notice any signs of infection (redness, warmth, drainage, fever greater than 100 degrees) please call our office or contact us through the portal [facility]. Not available 05/11/2023 14:23:39 08/10/2023 [id number] You have been provided with a cortisone injection in order to reduce the pain and inflammation that you are experiencing. The injection consists of two medications. Cortisone (an anti-inflammatory that will take 48-72 hours to take effect) and Lidocaine (a numbing agent that will last 2-3 hours). Please note that not everyone will have a lasting response following the injection. PATIENT INSTRUCTIONS Once the Lidocaine wears off, you may have an increase in your pain. I recommend icing the affected area for 20 minutes 3-4 times per day. It is recommended that you refrain from any high level activities using the joint or limb that was injected for approximately 24-48 hours. Normal day-to-day activities are generally not a problem. POSSIBLE SIDE EFFECTS Individuals with dark complexions may experience some skin discoloration locally at the site of the injection. There is the possibility of an increase in discomfort within 48 hours following the injection. This is called a ? f lare? . To help minimize the chances of this, please see the post-injection instructions above. There is a less than 1% chance of an infection. If you notice any signs of infection (redness, warmth, drainage, fever greater than 100 degrees) please call our office or contact us through the portal [facility]. Not available 08/10/2023 14:30:00 Reason for Referral None Reported. Problems Name Problem SNOMED Code Status Onset Date Resolution Date Notes Provider Name and Address Organization Details Recorded Time Osteoarthri tis of right knee joint 6515347277523 00 Active 2022 RK HARPER PA-C [address], [place], [address], [place] [facility], [facility] 3 15:25:38 Osteoarthri tis of left knee joint 6562962887490 09 Active 2022 RK HARPER PA-C [address], [place], [address], [place] [facility], [facility] 3 15:25:46 Impingement syndrome of left shoulder region 2758738062543 04 Active 2022 RK HARPER PA-C [address], [place], [address], [place] [facility], [facility] 3 11:00:20 Calcific tendinitis of left shoulder 7757176430669 08 Active 2022 RK HARPER PA-C [address], [place], [address], [place] [facility], [facility] 3 11:00:26 Arthritis of acromioclav icular joint 917090802 Active 2022 RK HARPER PA-C [address], [place], [address], [place] [facility], [facility] 3 11:00:46 Full thickness rotator cuff tear 410474654 Active 2022 RK HARPER PA-C [address], [place], [address], [place] [facility], P 3 13:14:32 Arthritis of right knee 0359258740352 102 Active 2022 RK HARPER PA-C [address], [place], [address], [place] [facility], P 3 15:19:29 Arthritis of knee 688334059 Active 2022 RK HARPER PA-C [address], [place], [address], [place] [facility], [facility] 3 15:19:33 Problem Notes None recorded. Procedures Surgical History Date Name Laterality Status Provider Name and Address Organization Details Recorded Time 08/10/19 24 Knee Joint/Bursa Asp & Inj completed RK HARPER PA-C [address], [place], [address], [place] [facility], [facility] 08/10/2023 14:27:50 05/11/20 23 Shoulder Joint/Bursa Asp & Inj completed RK HARPER PA-C [address], [place], [address], [place] [facility], P 05/11/2023 14:24:35 05/05/20 23 Shoulder Joint/Bursa Asp & Inj completed RK HARPER PA-C [address] [facility], [place], [address], [place] [facility], P 05/06/2023 07:54:41 04/21/20 23 Knee Joint/Bursa Asp & Inj completed RK HARPER PA-C [address], [place], [address], [place] [facility], P 04/21/2023 14:52:05 11/11/19 23 Knee Joint/Bursa Asp & Inj completed RK HARPER PA-C [address], [place], [address], [place] [facility], [facility] 11/10/2022 15:22:03 08/11/19 23 Knee Joint/Bursa Asp & Inj completed RK HARPER PA-C [address] [address], [place], [address], [place] - [facility] 08/10/2022 15:18:45 simple mastectomy completed Cheyenne Martin C T - [facility] 08/02/2022 10:14:23 cholecystectomy completed [place]yenne Maritn CT - [facility] 08/02/2022 10:14:47 Imaging Results None recorded. Procedure Notes None recorded. Medical Equipment None Reported. Allergies Allergen ID Allergen Name Allergen Category Reaction Reaction Severity Criticality Documentation Date Start Date Code Code System Note Provider Name and Address Organization Details Recorded Time 12 Substance with sulfonami de structure and antibacte rial mechanism of action (substanc e) medicatio n Not available Not available Not available 08/02/2022 [id number] SNOMED Cheyenne Martin null, [place] - [facility] 10:08:40 Medications Name Sig Start Date Stop Date Status Note LastModified by Organization Details LastModified Time amoxicillin 500 mg capsule TAKE 1 CAPSULE BY MOUTH EVERY 8 HOURS FOR 7 DAYS 04/21 completed Not Available Not Available Not Available anastrozole 1 mg tablet TAKE 1 TABLET BY MOUTH EVERY DAY active Not Available Not Available No t Available doxycycline hyclate 100 mg capsule TAKE 1 CAPSULE BY MOUTH TWICE A DAY 04/21 completed Not Available Not Available Not Available atorvastati n 20 mg tablet TAKE 1 TABLET BY MOUTH EVERY DAY active Not Available Not Available No t Available trazodone 50 mg tablet TAKE 1 TABLET BY MOUTH EVERYDAY AT BEDTIME active Not Available Not Available No t Available amlodipine 5 mg tablet TAKE 1 TABLET BY MOUTH EVERY DAY FOR 90 DAYS active Not Available Not Available No t Available Kenalog 40 mg/mL suspension for injection Take 1 mL by injection route. 2023 active Not Available Not Available Not Avai lable pantoprazol e 40 mg tablet,braxton yed release TAKE 1 TABLET BY MOUTH EVERY DAY FOR 90 DAYS active Not Available Not Available No t Available buspirone 10 mg tablet TAKE 1 TABLET ORAL TWICE A DAY 90 DAY(S) active Not Available Not Available No t Available valsartan 320 mg tablet TAKE 1 TABLET BY MOUTH EVERY DAY FOR 90 DAYS active Not Available Not Available No t Available bisacodyl 5 mg tablet,braxton yed release TAKE 2 TABLETS BY MOUTH TWICE A DAY AT 3PM AND 7PM FOR 1 DAY 05/05 completed Not Available Not Available Not Available clotrimazol e 1 % topical cream APPLY TO AFFECTED AREAS TWICE A DAY FOR 6 WEEKS active Not Available Not Available No t Available naproxen 500 mg tablet TAKE 1 TABLET WITH FOOD OR MILK ORAL TWICE A DAY 30 DAY(S) 05/05 completed Not Available Not Available Not Available Ciprodex 0.3 %-0.1 % ear drops,suspe nsion INSTILL 4 DROPS INTO AFFECTED EAR EVERY 12 HOURS FOR 7 DAYS 04/21 completed Not Available Not Available Not Available nitrofurant oin monohydrate /macrocryst als 100 mg capsule TAKE 1 CAPSULE BY MOUTH EVERY 12 HOURS WITH FOOD 05/05 completed Not Available Not Available Not Available duloxetine 60 mg capsule,del ayed release TAKE 1 CAPSULE BY MOUTH EVERY DAY FOR 90 DAYS active Not Available Not Available No t Available atorvastati n 05/11 completed Not Available Not Available Not Available valsartan 05/11 completed Not Available Not Available Not Available anastrozole 05/11 completed Not Available Not Available Not Available Naprosyn 08/09 completed Not Available Not Available Not Available furosemide active Not Available Not Av ailable Not Available amlodipine 05/11 completed Not Available Not Available Not Available trazodone 05/11 completed Not Available Not Available Not Available pantoprazol e 05/11 completed Not Available Not Available Not Available duloxetine 05/11 completed Not Available Not Available Not Available lidocaine (PF) 10 mg/mL (1 %) injection solution Take 2 mL by injection route. 08/09 completed Not Available Not Available Not Available GaviLyte-G 236 gram-22.74 gram-6.74 gram-5.86 gram oral solution DIRECTED 05/05 completed Not Available Not Available Not Available Purelax 17 gram/dose oral powder MIX WITH GATORADE OR CRYSTAL LIGHT BEGIN AT 5PM THE DAY BEFORE PROCEDURE 05/05 completed Not Available Not Available Not Available lidocaine (PF) 100 mg/5 mL (2 %) injection syringe Take 2 mL by injection route. 2023 active Not Available Not Available Not Avai lable Prolensa 0.07 % eye drops PLACE 1 DROP INTO SURGICAL EYE(S) ONCE DAILY START 2 DAYS PRIOR TO SURGERY 04/21 completed Not Available Not Available Not Available cholecalcif kenneth (vit D3) 1,000 unit-vitami n K2 (MK4) 100 mcg tablet Take by oral route. 04/21 completed Not Available Not Available Not Available Paxlovid 300 mg (150 mg x 2)-100 mg tablets in a dose pack TAKE 3 CAPSULES ORALLY TWICE A DAY 5 DAYS DIRECTED active Not Available Not Available No t Available Vitals None Recorded Social History None recorded. Functional Status None recorded. Mental Status None recorded. Family History Relationship Description Onset Age of this Age Resolved Age Notes LastModified by Organization Details LastModified Time Mother Heart disease [email or web address] Not available 2022 10:12:24 Father Heart disease [email or web address] Not available 2022 10:12:38 Father Hypertensive disorder [email or web address] Not available 2022 10:13:01 Medical History Condition Response Cancer Y Reflux/GERD Y Hypertension Y Gynecological HistoryNo gynecological history recorded. Obstetrics History GPAL:G 0 P 0 0 0 0 Past Encounters Encounter ID Performer Location Encounter Start Date Encounter Closed Date Diagnosis/Indication Diagnosis SNOMED-CT Code Diagnosis ICD10 Code Diagnosis Note [id number] MARTHA MAYBERRY [facility] [address] [address] 08/10/2022 14:19:35 08/10/2022 15:19:44 Arthritis of right knee [id number] 906311 M13.861 Arthritis of knee 938943 002 M13.869 [id number] MARTHA MAYBERRY [facility] [address] [address] 08/17/2022 10:28:21 08/17/2022 11:02:31 Pain of left shoulder joint [id number] 6736346 M25.512 Impingemen t syndrome of left shoulder region 1968225164 94079 M75.42 Calcific t endinitis of left shoulder 3403597616 97429 M75.32 Arthritis of acromioclavicular joint 759169074 M13.819 [id number] MARTHA MAYBERRY [facility] [address] [address] 09/08/2022 12:48:06 09/08/2022 13:10:32 Full thickness rotator cuff tear 239684652 M75.122 [id number] MARTHA MAYBERRY [facility] 299 [facility] [address] [place] [address] 10/27/2022 14:46:43 10/27/2022 15:23:21 Pain of bilateral knee joints 5848263448 09315 M25.561 [id number] MARTHA MAYBERRY [facility] 299 [facility] [address] [place] [address] 11/10/2022 14:55:29 11/10/2022 15:19:02 Osteoarthritis of right knee joint 7359051526 17357 M17.11 Osteoarthr itis of left knee joint 8138184923 79045 M17.12 [id number] MARTHA MAYBERRY [facility] [address] [place] [address] 04/21/2023 13:38:35 04/21/2023 14:14:49 Osteoarthritis of right knee joint 5085727745 30876 M17.11 Osteoarthr itis of left knee joint 6081394359 87437 M17.12 [id number] MARTHA MAYBERRY [facility] 299 [facility] [address] [place] [address] 05/05/2023 13:49:50 05/05/2023 14:31:09 Calcific tendinitis of left shoulder 1312334465 28164 M75.32 Impingemen t syndrome of left shoulder region 1515988163 19222 M75.42 Pain of ri ght shoulder joint 3818175845 8103315 M25.511 [id number] MARTHA MAYBERRY [facility] [address] [place] [address] 05/11/2023 13:39:04 05/11/2023 14:16:29 Impingement syndrome of left shoulder region 0472742453 37682 M75.42 [id number] MARTHA MAYBERRY [facility] 299 [facility] [address] [place] [address] 08/10/2023 13:55:56 08/10/2023 14:36:50 Osteoarthritis of right knee joint 3224510905 81931 M17.11 Osteoarthr itis of left knee joint 2870427316 13514 M17.12 Health Concerns Section Related Observation LastModified by Organization Detai ls LastModified Time None Recorded Concern Status LastModified by Organization Details LastModified Time None Recorded Advance Directives Directive None Recorded Payers Encounter Date Sequence Insurance Name Policy Number Policy Crane Covered Member ID Crane Member ID Guarantor Name 11/10/2022 1 [place] [employer] [place] [facility] [id number] October Mcintosh 11/10/2022 2 [place] [id number] [facility] [id number] October Mcintosh 04/21/2023 1 [place] [facility] [id number] October Mcintosh 04/21/2023 2 [place] [id number] [facility] [id number] October Mcintosh 05/05/2023 1 [place] [facility] [id number] October Mcintosh 05/05/2023 2 [place] [id number] [facility] [id number] October Mcintosh 05/11/2023 1 [place] [facility] [id number] October Mcintosh 05/11/2023 2 [place] [id number] [facility] [id number] October Mcintosh 08/10/2023 1 [place] [facility] [id number] October Mcintosh 08/10/2023 2 [employer] (MEDICARE SUPPLEMENT) [facility] [id number] October Mcintosh Notes Date Note Type Note Provider Name and Address Organization Details Recorded Time 11/10/2022 text/html Assessment & Everette n: Date of visit 10/27/2022 This is a pleasant 72-year-old female with bilateral knee osteoarthritis who gets good relief with cortisone injections.Since her last visit she did suffer a fall we will hold off on cortisone injections we will reevaluate her in 2 weeks after she has dissipating of her bruising and mild swelling.In the meantime she can take putl-[id number] pain medication for symptomatic relief as well as R.I.C.E.Patient agrees with the above-noted plan. HPI: Since patient's last visit she states her bruising is gone she has marked improvement. She is here for possible cortisone injections in both knees. Her last cortisone injections were performed on 08/10/2022. RK HARPER PA-C [address], [place], [address], [place] - [facility] 11/10/2022 15:27:16 04/21/2023 text/html Pleasant 73-year -old female history of bilateral knee arthritis. Had a cortisone injection back in October 2022 which is since worn off. She is complaining of bilateral knee pain at this time. She states she fell for which she tripped and landed on a pillow without any lasting injury. RK HARPER PA-C [address], [place], [address], [place] - [facility] 04/21/2023 14:55:21 05/05/2023 text/html Pleasant 73-year -old female history of chronic bilateral shoulder pain for which she is symptomatic on the right at today's visit. She states overhead movements make shoulder pain worse. She was told in the past she has a rotator cuff tear for which she opted not to have surgery. She is not interested in physical therapy only in cortisone injections. She has not had a cortisone injection in her right shoulder in quite some time here for evaluation and treatment. RK HARPER PA-C [address], [place], [address], [place] - [facility] 05/06/2023 07:57:01 05/11/2023 text/html 73-year-old fema le history of calcific tendinitis left shoulder and impingement syndrome with chronic rotator cuff tearing. States she is not interested in surgical intervention she has good with relief with cortisone injection it has been greater than 3 months since an injection was performed on the left shoulder. Patient was seen on the for which she had an injection of the right shoulder which she is completely asymptomatic. RK HARPER PA-C [address] [facility],[address] [address], [place], [address], [place] - [facility] 05/11/2023 14:26:16 08/10/2023 text/html Pleasant 73-year -old female history of bilateral knee arthritis. Her last cortisone injections were on 04/21/2023 which have since worn off. She is complaining of bilateral knee pain at this time. She is requesting for bilateral cortisone injections of the knees. She denies any fevers, chills, flulike symptoms. Denies any warmth overlying the knees denies any RK HARPER PA-C [address] [facility],[address] [address], [place], [address], [place] - [facility] 08/10/2023 14:30:32 OBGyn Episode No OBEpisode recorded.
== END 2024-09-20 14:14 | disposition home or self-care (01) ==
LOC: HO.HOS 13:43
PROVIDERS: PCP Internal Medicine; Visit Provider Orthopaedic Surgery
DX: M25.311 Other instability, right shoulder (principal); M17.0 Bilateral primary osteoarthritis of knee
CPT/HCPCS: 99213; G2211

== ENCOUNTER → 2024-09-20 13:43 | Outpatient (BNVA) | payer MEDICARE, OTHER, SELFPAY | PROVIDERS: PCP Internal Medicine; Visit Provider Orthopaedic Surgery | DX: M25.311 Other instability, right shoulder (principal); M17.0 Bilateral primary osteoarthritis of knee | CPT/HCPCS: 99212 ==

== ENCOUNTER → 2024-09-28 07:49 | Outpatient (BNV) | payer MEDICARE, OTHER, SELFPAY | PROVIDERS: PCP Internal Medicine; Visit Provider Radiology Diagnostic Radiology | DX: M75.111 Incomplete rotator cuff tear or rupture of right shoulder, not specified as traumatic (principal) | CPT/HCPCS: 73221 ==

== ENCOUNTER 2024-09-28 07:51 | Outpatient (REF) | payer MEDICARE, OTHER, SELFPAY ==
--- NOTE | ~2024-09-28 | MR_ITS ---
EXAMINATION: MRI RIGHT SHOULDER WITHOUT CONTRAST HISTORY: M25.311 - Other instability, right shoulder COMPARISON: There are no prior studies for comparison. TECHNIQUE: Coronal T1, T2, and fat suppressed T2, axial fat suppressed proton density, and sagittal T2 weighted MR images of the right shoulder were obtained. FINDINGS: Bone Marrow: Bone marrow signal intensity is normal. Joint effusion: There is a large joint effusion. Glenohumeral joint: The glenohumeral joint is maintained, although the humerus is high riding. AC joint: There is mild to moderate osteoarthritis of the AC joint. Supraspinatus muscle/tendon: There is a large full-thickness tear of the anterior fibers of the supraspinatus tendon. A few posterior fibers are intact. There is a large amount of fluid in the subdeltoid/subacromial bursa. There is tendon retraction to the level of the glenoid. There is moderate muscle atrophy.. Infraspinatus muscle/tendon: The infraspinatus tendon is intact. There is moderate muscle atrophy. Teres minor muscle/tendon: The teres minor tendon is intact. Normal muscle bulk. Subscapularis muscle/tendon: There is irregularity of the musculotendinous junction with foci of fluid signal intensity within the tendon, consistent with a partial tear. Normal muscle bulk. Biceps tendon: The biceps tendon is intact and normally located. Glenoid labrum: The glenoid labrum is unremarkable in appearance. Other findings: None MR/MR shoulder RT wo con IMPRESSION: 1. Large full-thickness tear of the supraspinatus tendon as described, with tendon retraction and moderate muscle atrophy. 2. Findings consistent with a partial tear of the subscapularis tendon. 3. Large joint effusion. Mild to moderate osteoarthritis of the AC joint. Electronically signed by: Francesco Schmidt MD 09/28/2024 09:30 AM EDT
--- OUTSIDE RECORDS SUMMARY | 2024-09-28 07:55 | XMS_ITS | Clinical Summary ---
Author Organization [facility] Address [address] [place] [id number] Care Team Providers Care Tobacco Drier Operator Name Role Phone Enoc Llanos MD Primary [...] age to complete this topic Care Teams Tobacco Drier Operator Relationship Specialty Start Date End Date Enoc Llanos MD PCP - General Internal Medicine 06/13/18
--- OUTSIDE RECORDS SUMMARY | 2024-09-28 07:55 | XMS_ITS | Data Portability ---
Author Organization [place] [facility] [place] Address [address] [facility] [address] [place] [address] Care Team Providers Care Stone Sandblaster Name Role Phone LUCIEN RAMIREZ Referring Provider [phone] LUCIEN RAMIREZ Primary Care Provider Assessment Encounter [...] wishes to continue care with [facility] she is more than welcome to come [...] or more view 2022 023 [facility], [address], [place] [address], [place], [address], 3 20:02:05 Medication Orders Kenalog 40 mg/mL suspension for injection [address]/Pharmacy #2024, [address] [place] [address], [address], 4 14:30:01 lidocaine (PF) 100 mg/5 mL (2 %) injection syringe [address]/Pharmacy #2024, [address] [place] [address], [address], 4 14:30:01 Kenalog 40 mg/mL suspension for injection [address]/Pharmacy #2024, [address] [place] [address], [address], 4 14:30:01 lidocaine (PF) 100 mg/5 mL (2 %) injection syringe [address]/Pharmacy #2024, [address] [place] [address], [address], 4 14:30:01 Kenalog 40 mg/mL suspension for injection 2022 023 [email or web address]/Pharmacy #2024, [address] [place] [address], [address], 4 14:00:45 lidocaine (PF) 10 mg/mL (1 %) injection solution 2022 023 [email or web address]/Pharmacy #2024, [address] [place] [address], [address], 4 14:00:47 Kenalog 40 mg/mL suspension for injection 2022 023 [email or web address]/Pharmacy #2024, [address] [place] [address], [address], 4 14:00:45 lidocaine (PF) 100 mg/5 mL (2 %) injection syringe 2022 023 [facility]/Pharmacy #2024, [address] [place] [address], [address], 3 20:02:05 Kenalog 40 mg/mL suspension for injection 2022 023 [email or web address]/Pharmacy #2024, [address] [place] [address], [address], 4 14:00:45 lidocaine (PF) 100 mg/5 mL (2 %) injection syringe [address]/Pharmacy #2024, [address] [place] [address], [address], 3 16:25:14 Kenalog 40 mg/mL suspension for injection 2022 023 [email or web address]/Pharmacy #2024, [address] [place] [address], [address], 4 14:00:45 lidocaine (PF) 100 mg/5 mL (2 %) injection syringe [address]/Pharmacy #2024, [address] [place] [address], [address], 3 16:25:14 Kenalog 40 mg/mL suspension for injection [address]/Pharmacy #2024, [address] [place], [address], 4 14:00:45 lidocaine (PF) 10 mg/mL (1 %) injection solution 2022 023 [address] [place], [address], 4 14:00:47 Kenalog 40 mg/mL suspension for injection 2022 023 [address] [place], [address], 4 14:00:45 lidocaine (PF) 10 mg/mL (1 %) injection solution 2022 023 [address] [place], [address], 4 14:00:47 Patient TargetsNo targets recorded. Patient Instructions Encounter Date Encounter Id Patient Instructions Last Modified By Organization Details Last Modified Time 11/10/2022 [id number] You have been provided with a cortisone [...] portal [facility]. Not available 11/10/2022 15:25:31 05/05/2023 [id number] You have been provided with a cortisone [...] abnormality observed. Not available 05/06/2023 07:41:21 05/11/2023 [id number] You have been provided with a cortisone [...] office or contact us through the portal [facility]. Not available 05/11/2023 14:23:39 08/10/2023 [id number] You have been provided with a cortisone [...] Time Osteoarthri tis of right knee joint 6838683223070 00 Active 2022 RK HARPER PA-C [address], [place], [address], [place] [facility] 3 15:25:38 Osteoarthri tis of left knee joint 0416382911985 09 Active 2022 RK HARPER PA-C [address], [place], [address], [place] [facility] 3 15:25:46 Impingement syndrome of left shoulder region 4638915307524 04 Active 2022 RK HARPER PA-C [address], [place], [address], [place] [facility] 3 11:00:20 Calcific tendinitis of left shoulder 9320360279414 08 Active 2022 RK HARPER PA-C [address], [place], [address], [place] [facility] 3 11:00:26 Arthritis of acromioclav icular joint 547665089 Active 2022 RK HARPER PA-C [address], [place], [address], [place] [facility] 3 11:00:46 Full thickness rotator cuff tear 233688845 Active 2022 RK HARPER PA-C [address], [place], [address], [place] [facility] 3 13:14:32 Arthritis of right knee 7643104052770 102 Active 2022 RK HARPER PA-C [address], [facility] [place], [address], [place] [facility] 3 15:19:29 Arthritis of knee 061088645 Active 2022 RK HARPER PA-C [address], [place], [address], [place] [facility] 3 15:19:33 Problem Notes None recorded. Procedures Surgical History Date Name Laterality Status Provider Name and Address Organization Details Recorded Time 08/10/19 24 Knee Joint/Bursa Asp & Inj completed RK HARPER PA-C [address], [place], [address], [place] [facility] 08/10/2023 14:27:50 05/11/20 23 Shoulder Joint/Bursa Asp & Inj completed RK HARPER PA-C [address], [place], [address], [place] [facility] 05/11/2023 14:24:35 05/05/20 23 Shoulder Joint/Bursa Asp & Inj completed RK HARPER PA-C [address] [facility], [place], [address], [place] [facility] 05/06/2023 07:54:41 04/21/20 23 Knee Joint/Bursa Asp & Inj completed RK HARPER PA-C [address], [place], [address], [place] [facility] 04/21/2023 14:52:05 11/11/19 23 Knee Joint/Bursa Asp & Inj completed RK HARPER PA-C [address], [place], [address], [place] [facility] 11/10/2022 15:22:03 08/11/19 23 Knee Joint/Bursa Asp & Inj completed RK HARPER PA-C [address], [place], [address], [place] [facility] 08/10/2022 15:18:45 simple mastectomy completed Cheyenne Martin [facility] - [facility] 08/02/2022 10:14:23 cholecystectomy completed Cheyenne Martin [place] [facility] 08/02/2022 10:14:47 Imaging Results None recorded. [...] Not available Not available Not available 08/02/2022 [id number] SNOMED Cheyenne Martin null, [place] [facility] 10:08:40 Medications Name Sig Start Date [...] ICD10 Code Diagnosis Note [id number] MARTHA MAYBERRY [facility] [address] [address] 08/10/2022 14:19:35 08/10/2022 15:19:44 Arthritis of right knee [id number] 703403 M13.861 Arthritis of knee 622346 002 M13.869 2385 MARTHA MAYBERRY [facility] [address] [address] 08/17/2022 10:28:21 08/17/2022 11:02:31 Pain of left shoulder joint 0570117192 1112505 M25.512 Impingemen t syndrome of left shoulder region 9700769127 71287 M75.42 Calcific t endinitis of left shoulder 2938746200 68430 M75.32 Arthritis of acromioclavicular joint 532874385 M13.819 6125 MARTHA MAYBERRY [facility] [address] [address] 09/08/2022 12:48:06 09/08/2022 13:10:32 Full thickness rotator cuff tear 195728249 M75.122 [id number] MARTHA MAYBERRY [facility] 299 [facility] [address] [place] [address] 10/27/2022 14:46:43 10/27/2022 15:23:21 Pain of bilateral knee joints 6999696518 07586 M25.561 [id number] MARTHA MAYBERRY [facility] 299 [facility] [address] [place] [address] 11/10/2022 14:55:29 11/10/2022 15:19:02 Osteoarthritis of right knee joint 4916835768 94519 M17.11 Osteoarthr itis of left knee joint 4774409849 46321 M17.12 [id number] MARTHA MAYBERRY [facility] [address] [place] [address] 04/21/2023 13:38:35 04/21/2023 14:14:49 Osteoarthritis of right knee joint 2774935252 05798 M17.11 Osteoarthr itis of left knee joint 3195741889 99746 M17.12 [id number] MARTHA MAYBERRY [facility] 299 [facility] [address] [place] [address] 05/05/2023 13:49:50 05/05/2023 14:31:09 Calcific tendinitis of left shoulder 0558798532 54588 M75.32 Impingemen t syndrome of left shoulder region 8590199671 12223 M75.42 Pain of ri ght shoulder joint 6857918654 8122775 M25.511 [id number] MARTHA MAYBERRY [facility] [address] [place] [address] 05/11/2023 13:39:04 05/11/2023 14:16:29 Impingement syndrome of left shoulder region 7631080234 00573 M75.42 [id number] MARTHA MAYBERRY [facility] 299 [facility] [address] [place] [address] 08/10/2023 13:55:56 08/10/2023 14:36:50 Osteoarthritis of right knee joint 6274431330 90781 M17.11 Osteoarthr itis of left knee joint 0564616938 86777 M17.12 Health Concerns Section Related Observation LastModified by Organization Detai ls LastModified Time None Recorded Concern Status LastModified by Organization Details LastModified Time None Recorded Advance Directives Directive None Recorded Payers Encounter Date Sequence Insurance Name Policy Number Policy Crane Covered Member ID Crane Member ID Guarantor Name 11/10/2022 1 [place] [employer] October [facility] [id number] October [place] 11/10/2022 2 [place] [id number] October [facility] [id number] October [place] 04/21/2023 1 [place] October [facility]ly [facility] [id number] October [place] 04/21/2023 2 [place] [id number] October [facility]ly [facility] [id number] October [place] 05/05/2023 1 [place] [employer] [place] October [facility] [id number] 6 October [place] 05/05/2023 2 [place] [id number] October [facility]ly [facility] [id number] October [place] 05/11/2023 1 [place] October [facility] [id number] 6 October [place] 05/11/2023 2 [place] [id number] October [facility] [id number] 70 October [place] 08/10/2023 1 [place] October [facility] [id number] 6 October [place] 08/10/2023 2 [employer] (MEDICARE SUPPLEMENT) October [facility]ly [facility] [id number] October [place] Notes Date Note Type Note Provider Name [...] mild swelling.In the meantime she can take [id number] pain medication for symptomatic relief as well as R.I.C.E.Patient agrees with the above-noted plan. HPI: Since patient's last visit she states her bruising is gone she has marked improvement. She is here for possible cortisone injections in both knees. Her last cortisone injections were performed on 08/10/2022. RK HARPER PA-C [address], [place], [address], [place] [facility] 11/10/2022 15:27:16 04/21/2023 text/html Pleasant 73-year -old female history of bilateral knee arthritis. Had a cortisone injection back in October 2022 which is since worn off. She is complaining of bilateral knee pain at this time. She states she fell for which she tripped and landed on a pillow without any lasting injury. RK HARPER PA-C [address], [place], [address], [place] [facility] 04/21/2023 14:55:21 05/05/2023 text/html Pleasant 73-year [...] RK HARPER PA-C [address], [place], [address], [place] [facility] 05/06/2023 07:57:01 05/11/2023 text/html 73-year-old fema [...] is completely asymptomatic. RK HARPER PA-C [address] [facility],[place] [address], [place], [address], [place] [facility] 05/11/2023 14:26:16 08/10/2023 text/html Pleasant 73-year [...] knees denies any RK HARPER PA-C [address] [facility],[place] [address], [place], [address], [place] [facility] 08/10/2023 14:30:32 OBGyn Episode No OBEpisode recorded.
--- OUTSIDE RECORDS SUMMARY | 2024-09-28 07:55 | XMS_ITS | Patient Health Record ---
Author Organization [facility] Address [address] [place] [address] Care Team Providers Care Air Valve Repairer Name Role Phone Enoc Llanos MD Primary Care Provider Jose J Fitzpatrick Jr Unavailable Allergies Allergen (clinical drug ingredient) Drug/Non Drug Allergy documented on EMR Reaction Allergy Type Onset Date Status Substance with sulfonamide structure and antibacterial mechanism of action (substance) Sulfa Antibiotics Unknown Drug Allergy Active Reason For Referral No Information Medications Medication SIG (Take, Route, Frequency, Duration) Notes [...] 320 MG Oral for 90 A ctive Immunizations Vaccine Route Administration Date Status Comme nts Influenza Unknown 03/04/2021 Administered Influenza Unknown 03/09/2022 Administered Social History Tobacco Use: Social History Observation Description Date Details (start date - stop date) Never Smoker NA - NA Tobacco Use/Smoking Question Answer Notes Patient is [...] Never (0 point) Points 2 Interpretation Negative Problems Problem Type SNOMED Code ICD Code Onset Dates Problem Status W/U Status Risk Notes Problem 263359178 Colon cancer screening (Z12.11) Active confirmed Problem 539435016 Gastroesophageal reflux disease without esophagitis (K21.9) Active confirmed Problem 61472354 Change in bowel function (R19.8) Active confirmed Plan Of Treatment Future Test Test Name Order Date COLONOSCOPY 03/17/2022 COLONOSCOPY 10/13/2022 Insurance Providers Payer Name Payer Address Payer Phone Subscriber Number Group Number Insured Name Patient Relationship to Insured Coverage Start Date Coverage End Date MED[place]ARE OF [place] [address] [place] [address] [id number] MONI ODEN Self - patient is the insured MEDEX ATTN CLAIMS [address] [place] [address] [id number] MONI ODEN Self - patient is the insured Medical (General) History Medical History History ICD Code Hypertension Right breast cancer status p ost mastectomy, axillary node dissection, and chemoradiation Osteoporosis Stage I kidney cancer Elevated cholesterol Depression/anxiety Edema Surgical History Surgery Date(Month/Year) Right mastectomy 2017 Right partial nephrectomy 2018 Bilateral Dupuytren's contractures repai r 2020
== END 2024-09-28 07:52 | disposition home or self-care (01) ==
LOC: HO.MRI 07:51
PROVIDERS: PCP Internal Medicine; Visit Provider Orthopaedic Surgery
DX: M25.311 Other instability, right shoulder (principal)
CPT/HCPCS: 73221

== ENCOUNTER 2024-10-18 14:40 | Outpatient (AMB) | payer MEDICARE, OTHER, SELFPAY ==
--- NOTE | 2024-10-18 14:43 | A.OFFVIS_ITS ---
Vital Signs 10/18/24 14:47 Height 5 ft 3 in Weight 194 lb BMI 34.4 Intake Visit Reasons: Inj-Bilateral Knee Durolane, Right shoulder pain Intake Note: Amalia is a 74 year old female who presents today for bilateral knee Durolane injections. She describes her knee pains as sharp in nature. Her pains have gotten worse over the last 6 months in spite of continued non operative treatments. She has failed the last 3 months of conservative treatment which has included home exercises, physical therapy exercises, Tylenol and anti- inflammatory medicines. She has had cortisone injections in the past which gave her minimal relief. She wishes to hold off on surgery if at all possible. The patient also has intermittent right shoulder pain. She states that her shoulder pain is tolerable to her at this time. Allergies Sulfa (Sulfonamide Antibiotics) [SULFA(SULFONAMIDE ANTIBIOTICS)] Allergy (Unknown, Verified 10/18/24 14:48) ? RXN - HAD CHILD Medication List - Last Reconciled 10/20/24 by Luis Felipe Armendariz MD atorvastatin 1 tab PO BEDTIME buspirone 10 mg PO BEDTIME PRN denosumab (Prolia) 60 mg subcut [id number] duloxetine 1 cap PO BEDTIME furosemide 20 mg PO BEDTIME PRN pantoprazole 1 tab PO BEDTIME trazodone 1 tab PO BEDTIME valsartan 1 tab PO BEDTIME PFSH Medical History FH: cholecystectomy Renal cancer Invasive ductal carcinoma of breast Renal mass FH: mastectomy Breast cancer HTN (hypertension) High cholesterol Surgical History Hx of partial nephrectomy History of cholecystectomy History of right breast implant (01/30/18) History of right mastectomy (02/02/17) History of breast biopsy (12/24/16) History of colonoscopy (03/06/14) H/O wrist surgery H/O hand surgery (2012) Family History Father Stroke Hypertension Mother COPD (chronic obstructive pulmonary disease) Hypertension Brother Stomach cancer Brother Liver transplant recipient Social History Household Members: Family Housing: House Are you a primary direct care professional to a significant other at home: No Do you presently have visiting nurse or other home services: No Alcohol intake: current Alcohol intake frequency: holidays/special occasions only Comment: aware of trip hazard Patient Tobacco Use Status: Former Tobacco user Tobacco use type: Cigarette service: No Current occupational status: retired Physical Exam Vital Signs: BMI result Body Mass Index 34.4 Const Other: Well-nourished well-developed very friendly female awake alert and oriented x3 in no acute distress Extrem Other: Bilateral knee examination shows minimal effusions, palpable crepitus with range of motion, pain with range of motion, no instability Right shoulder examination shows almost full range motion when compared to her left shoulder, 3/5 strength with supraspinatus testing, no instability Office Procedures AMB Joint Injection/Aspiration Joint Injection/Aspiration Primary Site: left knee Prep: site was prepped using aseptic technique Injected: 60 mg of (Durolane viscosupplementation) and 1% plain lidocaine Procedure: The patient tolerated the procedure well Coding 40115 - Large joint Procedure code (CPT) selection complete AMB Joint Injection/Aspiration Joint Injection/Aspiration Primary Site: right knee Prep: site was prepped using aseptic technique Injected: 60 mg of (Durolane viscosupplementation) and 1% plain lidocaine Procedure: The patient tolerated the procedure well Coding 96800 - Large joint Procedure code (CPT) selection complete Results Reviewed Results Reviewed: X-rays of the patient's bilateral knee show joint space narrowing, subchondral sclerosis, no acute bony abnormalities MRI of the patient's right shoulder shows a large, chronic rotator cuff tear, no acute bony abnormalities Assessment & Plan Assessment & Plan (1) Osteoarthritis of left knee: Code(s): M17.12 - Unilateral primary osteoarthritis, left knee Category: Medical (2) Osteoarthritis of right knee: Code(s): M17.11 - Unilateral primary osteoarthritis, right knee Category: Medical (3) Right shoulder pain: Code(s): M25.511 - Pain in right shoulder Plan Ms. Stark presents with right shoulder pain due to a large, chronic rotator cuff tear. I had a lengthy discussion with the patient regarding the treatment options. The patient wishes to hold off on reverse total shoulder replacement surgery if at all possible. I agree with this plan. She also has bilateral knee pains due to osteoarthritis. The risks and benefits of bilateral knee Durolane viscosupplementation injections were discussed at length with the patient. The patient wished to proceed. She tolerated the injections well. She will continue with her home exercise program. She will contact me prior to her follow-up appointment in 3 months should any questions or concerns arise. Feel free to call me at any time should questions regarding her orthopedic management arise. I spent 20 minutes in reviewing the patient's records and imaging studies, seeing the patient and documenting in the medical record. Orders: Orders AMB Joint Injection/Aspiration 10/18/24 M17.12 - Unilateral primary osteoarthritis, left knee AMB Joint Injection/Aspiration 10/18/24 M17.11 - Unilateral primary osteoarthritis, right knee Coding Level of Care Code Est Pt Level 3 (66607) Complex EM visit Add On G2211 Diagnoses Osteoarthritis of left knee M17.12 Osteoarthritis of right knee M17.11 Right shoulder pain M25.511 CPT Codes Coding - 12754 Large joint: 76779 - Large joint ([id number]) Coding - 97483 Large joint: 08603 - Large joint ([id number])
--- OUTSIDE RECORDS SUMMARY | 2024-10-18 14:46 | XMS_ITS | Clinical Summary ---
Author Organization [facility] Address [address] [place] [address] Care Team Providers Care Stain Remover Name Role Phone Enoc Llanos MD Primary [...] age to complete this topic Care Teams Stain Remover Relationship Specialty Start Date End Date Enoc Llanos MD PCP - General Internal Medicine 06/13/18
[2024-10-18 14:47] VITALS: BMI 34.4
== END 2024-10-18 15:21 | disposition home or self-care (01) ==
LOC: HO.HOS 14:41
PROVIDERS: PCP Internal Medicine; Visit Provider Orthopaedic Surgery
DX: M17.0 Bilateral primary osteoarthritis of knee (principal); M25.511 Pain in right shoulder
CPT/HCPCS: 20610; 99213

== ENCOUNTER → 2024-10-18 14:40 | Outpatient (BNVA) | payer MEDICARE, OTHER, SELFPAY | PROVIDERS: PCP Internal Medicine; Visit Provider Orthopaedic Surgery | DX: M17.0 Bilateral primary osteoarthritis of knee (principal); M25.511 Pain in right shoulder | CPT/HCPCS: 20610; 99212; J2003; J7318 ==

== ENCOUNTER 2024-11-21 06:31 | Outpatient (REF) | payer MEDICARE, OTHER, SELFPAY ==
--- OUTSIDE RECORDS SUMMARY | 2024-11-22 06:33 | XMS_ITS | Clinical Summary ---
Author Organization [facility] Address [address] [place] [address] Care Team Providers Care Cooler Tender Name Role Phone Enoc Llanos MD Primary [...] of 1 - PCV) 01/17/2016 Influenza Vaccine (Season Ended) 2025 03/04/20 21 RSV Adult > 60+ Yrs or Pregn ant (1 - 1-dose 75+ series) 2026 Hepatitis B Vaccines Aged Out No long er eligible based on patient's age to complete this topic RSV Ped < 20 months Aged Out No longe r eligible based on patient's age to complete this topic Care Teams Cooler Tender Relationship Specialty Start Date End Date Enoc Llanos MD PCP - General Internal Medicine 06/13/18
--- OUTSIDE RECORDS SUMMARY | 2024-11-22 06:33 | XMS_ITS | Data Portability ---
Author Organization [facility] [place] Address [address] [place] [address] Care Team Providers Care Knockout Worker Name Role Phone LUCIEN RAMIREZ Referring Provider [phone] LUCIEN RAMIREZ Primary Care Provider Assessment Encounter [...] findings at length with the patient today. We discussed the nature and etiology of this problem along with current treatment options. We discussed the expected course and outcomes and what to expect. We also discussed risks and benefits. All of their questions were answered today, and there was exhibited understanding and comprehension of all that was discussed. Time Spent: 10 minutes were spent reviewing previous imaging and charting. 10 minutes were spent obtaining patient history. 5 minutes were spent on physical exam. 5minutes were spent explaining diagnosis and assessment. Today's [...] findings at length with the patient today. We discussed the nature and etiology of this problem along with current treatment options. We discussed the expected course and outcomes and what to expect. We also discussed risks and benefits. All of their questions were answered today, and there was exhibited understanding and comprehension of all that was discussed. Time Spent: 10 minutes were spent reviewing previous imaging and charting. 10 minutes were spent obtaining patient history. 5 minutes were spent on physical exam. 5minutes were spent explaining diagnosis and assessment. Today's [...] findings at length with the patient today. We discussed the nature and etiology of this problem along with current treatment options. We discussed the expected course and outcomes and what to expect. We also discussed risks and benefits. All of their questions were answered today, and there was exhibited understanding and comprehension of all that was discussed. Time Spent: 10 minutes were spent reviewing previous imaging and charting. 10 minutes were spent obtaining patient history. 5 minutes were spent on physical exam. 5minutes were spent explaining diagnosis and assessment. Today's [...] findings at length with the patient today. We discussed the nature and etiology of this problem along with current treatment options. We discussed the expected course and outcomes and what to expect. We also discussed risks and benefits. All of their questions were answered today, and there was exhibited understanding and comprehension of all that was discussed. Time Spent: 10 minutes were spent reviewing previous imaging and charting. 10 minutes were spent obtaining patient history. 5 minutes were spent on physical exam. 5minutes were spent explaining diagnosis and assessment. Today's [...] wishes to continue care with [facility] she is more than welcome to come [...] findings at length with the patient today. We discussed the nature and etiology of this problem along with current treatment options. We discussed the expected course and outcomes and what to expect. We also discussed risks and benefits. All of their questions were answered today, and there was exhibited understanding and comprehension of all that was discussed. Time Spent: 10 minutes were spent reviewing previous imaging and charting. 10 minutes were spent obtaining patient history. 5 minutes were spent on physical exam. 5minutes were spent explaining diagnosis and assessment. Today's [...] or more view 2022 023 [facility], [address], [address], [place], [address], 3 20:02:05 Medication Orders Kenalog 40 mg/mL suspension for injection 2023 024 [facility], [address] [place], [address], 4 14:30:01 lidocaine (PF) 100 mg/5 mL (2 %) injection syringe 2023 024 [facility], [address] [place] [address], [address], 4 14:30:01 Kenalog 40 mg/mL suspension for injection 2023 024 [facility], [address] [place] [address], [address], 4 14:30:01 lidocaine (PF) 100 mg/5 mL (2 %) injection syringe 2023 024 [facility], [address] [place] [address], [address], 4 14:30:01 Kenalog 40 mg/mL suspension for injection 2022 023 [facility], [address] [place] [address], [address], 4 14:00:45 lidocaine (PF) 10 mg/mL (1 %) injection solution 2022 023 [facility], [address] [place] [address], [address], 4 14:00:47 Kenalog 40 mg/mL suspension for injection [address] [facility], [address] [place] [address], [address], 4 14:00:45 lidocaine (PF) 100 mg/5 mL (2 %) injection syringe 2022 023 [facility], [address] [place] [address], [address], 3 20:02:05 Kenalog 40 mg/mL suspension for injection [address] [facility], [address] [place] [address], [address], 4 14:00:45 lidocaine (PF) 100 mg/5 mL (2 %) injection syringe [address] [facility], [address] [place] [address], [address], 3 16:25:14 Kenalog 40 mg/mL suspension for injection [address] [facility], [address] [place] [address], [address], 4 14:00:45 lidocaine (PF) 100 mg/5 mL (2 %) injection syringe [address] [facility], [address] [place] [address], [address], 3 16:25:14 Kenalog 40 mg/mL suspension for injection [address] [facility], [address] [place] [address], [address], 4 14:00:45 lidocaine (PF) 10 mg/mL (1 %) injection solution [address], [address] [place], [address], 4 14:00:47 Kenalog 40 mg/mL suspension for injection 2022 023 [address] [place], [address], 4 14:00:45 lidocaine (PF) 10 mg/mL (1 %) injection solution 2022 023 [address] [address] [place], [address], 14:00:47 Patient TargetsNo targets recorded. Patient Instructions Encounter Date Encounter Id Patient Instructions Last Modified By Organization Details Last Modified Time 11/10/2022 [id number] You have been provided with a cortisone [...] following the injection. This is called a flare . To help minimize the chances of this, please see the post-injection instructions above. There is a less than 1% chance of an infection. If you notice any signs of infection (redness, warmth, drainage, fever greater than 100 degrees) please call our office or contact us through the portal [facility]. Not available 11/10/2022 15:25:31 05/05/2023 [id number] You have been provided with a cortisone [...] following the injection. This is called a flare . To help minimize the chances of this, please see the post-injection instructions above. There is a less than 1% chance of an infection. If you notice any signs of infection (redness, warmth, drainage, fever greater than 100 degrees) please call our office or contact us through the portal [facility]. Not available 05/06/2023 07:56:23 Three-view x-ray of the right shoulder reveals overall well-maintained glenohumeral joint space, AC joint space narrowing and spurring, type II acromion without acute bony abnormality observed. Not available 05/06/2023 07:41:21 05/11/2023 [id number] You have been provided with a cortisone [...] following the injection. This is called a flare . To help minimize the chances of this, please see the post-injection instructions above. There is a less than 1% chance of an infection. If you notice any signs of infection (redness, warmth, drainage, fever greater than 100 degrees) please call our office or contact us through the portal [facility]. Not available 05/11/2023 14:23:39 08/10/2023 [id number] You have been provided with a cortisone [...] following the injection. This is called a flare . To help minimize the chances of [...] Time Osteoarthri tis of right knee joint [id number] 00 Active 2022 RK HARPER PA-C [address], [place], [address], [place] [facility], [facility] 3 15:25:38 Osteoarthri tis of left knee joint 4363770613793 09 Active 2022 RK HARPER PA-C [address], [place], [address], [place] [facility], [facility] 3 15:25:46 Impingement syndrome of left shoulder region 8586395286103 04 Active 2022 RK HARPER PA-C [address], [place], [address], [place] [facility], [facility] 3 11:00:20 Calcific tendinitis of left shoulder 5138022689393 08 Active 2022 RK HARPER PA-C [address], [place], [address], [place] [facility], [facility] 3 11:00:26 Arthritis of acromioclav icular joint 703550027 Active 2022 RK HARPER PA-C [address], [place], [address], [place] [facility], [facility] 3 11:00:46 Full thickness rotator cuff tear 703343012 Active 2022 RK HARPER PA-C [address], [place], [address], [place] [facility], [facility] 3 13:14:32 Arthritis of right knee 1266253950137 102 Active 2022 RK HARPER PA-C [address], [place], [address], [place] [facility], [facility] 3 15:19:29 Arthritis of knee 775980920 Active 2022 RK HARPER PA-C [address], [place], [address], [place] [facility], P 15:19:33 Problem Notes None recorded. Procedures Surgical History Date Name Laterality Status Provider Name and Address Organization Details Recorded Time 08/10/19 24 Knee Joint/Bursa Asp & Inj completed RK HARPER PA-C [address], [place], [address], [place] [facility] 08/10/2023 14:27:50 05/11/20 23 Shoulder Joint/Bursa Asp & Inj completed RK HARPER PA-C [address], [place], [address], [place] [facility] 05/11/2023 14:24:35 05/05/20 23 Shoulder Joint/Bursa Asp & Inj completed RK HARPER PA-C [address], [place], [address], [place] [facility] 05/06/2023 07:54:41 04/21/20 23 Knee Joint/Bursa Asp & Inj completed RK HARPER PA-C [address], [place], [address], [place] [facility] 04/21/2023 14:52:05 11/11/19 23 Knee Joint/Bursa Asp & Inj completed RK HARPER PA-C [address], [place], [address], [place] [facility] 11/10/2022 15:22:03 08/11/19 23 Knee Joint/Bursa Asp & Inj completed RK HARPER PA-C [address], [place], [address], [place] [facility] 08/10/2022 15:18:45 simple mastectomy completed Cheyenne Nance [facility] - [facility], [facility] 08/02/2022 10:14:23 cholecystectomy completed Cheyenne Martin [place] [facility], P 08/02/2022 10:14:47 Imaging Results None recorded. [...] Not available Not available Not available 08/02/2022 [id number] SNOMED Cheyenne Martin null, [place] [facility], [facility] 3 10:08:40 Medications Name Sig Start Date Stop [...] ICD10 Code Diagnosis Note [id number] MARTHA MAYBERRY [facility] [address] [address] 08/10/2022 14:19:35 08/10/2022 15:19:44 Arthritis of right knee [id number] 536150 M13.861 Arthritis of knee 760178 002 M13.869 [id number] MARTHA MAYBERRY [facility] [address] [address] 08/17/2022 10:28:21 08/17/2022 11:02:31 Pain of left shoulder joint 6497661181 4183577 M25.512 Impingemen t syndrome of left shoulder region 9789069278 09209 M75.42 Calcific t endinitis of left shoulder 0153615296 98570 M75.32 Arthritis of acromioclavicular joint 636196690 M13.819 [id number] MARTHA MAYBERRY [facility] [address] [address] 09/08/2022 12:48:06 09/08/2022 13:10:32 Full thickness rotator cuff tear 234692094 M75.122 [id number] MARTHA MAYBERRY [facility] [address] [address] 10/27/2022 14:46:43 10/27/2022 15:23:21 Pain of bilateral knee joints 0782074046 70697 M25.561 [id number] MARTHA MAYBERRY [facility] 299 [facility] [address] [place] [address] 11/10/2022 14:55:29 11/10/2022 15:19:02 Osteoarthritis of right knee joint 3138940537 94762 M17.11 Osteoarthr itis of left knee joint 9239665973 75303 M17.12 [id number] MARTHA MAYBERRY [facility] [address] [place] [address] 04/21/2023 13:38:35 04/21/2023 14:14:49 Osteoarthritis of right knee joint 3681442308 93787 M17.11 Osteoarthr itis of left knee joint 5090661199 72882 M17.12 [id number] MARTHA MAYBERRY [facility] [address] [place] [address] 05/05/2023 13:49:50 05/05/2023 14:31:09 Calcific tendinitis of left shoulder 8415385769 87775 M75.32 Impingemen t syndrome of left shoulder region 9490819080 37553 M75.42 Pain of ri ght shoulder joint 1610518150 3017985 M25.511 [id number] MARTHA MAYBERRY [facility] [address] [place] [address] 05/11/2023 13:39:04 05/11/2023 14:16:29 Impingement syndrome of left shoulder region 4487831111 14482 M75.42 [id number] MARTHA MAYBERRY [facility] [address] [place] [address] 08/10/2023 13:55:56 08/10/2023 14:36:50 Osteoarthritis of right knee joint 9250947521 M17.11 Osteoarthr itis of left knee joint 9591591622 94647 M17.12 Health Concerns Section Related Observation LastModified by Organization Detai ls LastModified Time None Recorded Concern Status LastModified by Organization Details LastModified Time None Recorded Advance Directives Directive None Recorded Payers Insurance Date Sequence Insurance Name Policy Number Policy Crane Covered Member ID Crane Member ID Guarantor Name 08/07/2023 1 [place] Amalia Stark [id number] October Stark 08/10/2023 2 [place] [id number] Amalia Santiago Stark [id number] October Stark 08/10/2023 2 [employer] (MEDICARE SUPPLEMENT) Amalia Stark [id number] October Stark Notes Date Note Type Note Provider Name [...] mild swelling.In the meantime she can take urwb-oqr-thwbaom pain medication for symptomatic relief as well as R.I.C.E.Patient agrees with the above-noted plan. HPI: Since patient's last visit she states her bruising is gone she has marked improvement. She is here for possible cortisone injections in both knees. Her last cortisone injections were performed on 08/10/2022. RK HARPER PA-C 299 [facility],[address] [address], [place], [address], [place] [facility] 11/10/2022 15:27:16 04/21/2023 text/html Jaya 73-year -old female history of bilateral knee arthritis. Had a cortisone injection back in October 2022 which is since worn off. She is complaining of bilateral knee pain at this time. She states she fell for which she tripped and landed on a pillow without any lasting injury. RK HARPER PA-C [address] [facility],[address] [address], [place], [address], [place] [facility] 04/21/2023 14:55:21 05/05/2023 text/html Jaya 73-year -old female history of chronic bilateral [...] evaluation and treatment. RK HARPER PA-C 299 [facility],[address], [place], [address], [place] [facility] 05/06/2023 07:57:01 05/11/2023 text/html 73-year-old fema [...] is completely asymptomatic. RK HARPER PA-C [address] [facility],[address], [place], [address], [place] [facility] 05/11/2023 14:26:16 08/10/2023 text/html Pleasant 73-year -old female history of bilateral knee arthritis. Her last cortisone injections were on 04/21/2023 which have since worn off. She is complaining of bilateral knee pain at this time. She is requesting for bilateral cortisone injections of the knees. She denies any fevers, chills, flulike symptoms. Denies any warmth overlying the knees denies any KR HARPER PA-C [address] [facility],[address], [place], [address], [place] [facility] 08/10/2023 14:30:32 OBGyn Episode No OBEpisode recorded.
--- OUTSIDE RECORDS SUMMARY | 2024-11-22 06:33 | XMS_ITS | Patient Health Record ---
Author Organization [facility] Address [address] [place] [address] Care Team Providers Care Recreation Therapy Director Name Role Phone Enoc Llanos MD Primary [...] Problem Status W/U Status Risk Notes Problem [id number] Colon cancer screening (Z12.11) Active confirmed Problem [id number] Gastroesophageal reflux disease without esophagitis (K21.9) Active confirmed Problem 43156431 Change in bowel function (R19.8) Active confirmed Plan Of Treatment Future Test Test Name Order Date COLONOSCOPY 03/17/2022 COLONOSCOPY 10/13/2022 Insurance Providers Payer Name Payer Address Payer Phone Subscriber Number Group Number Insured Name Patient Relationship to Insured Coverage Start Date Coverage End Date MEDICARE OF [place] [address] [place] [id number] MONI ODEN Self - patient is the insured MEDEX ATTN CLAIMS [address] [place] [address] [id number] MONI ODEN Self - patient is the insured Medical (General) History Medical History History ICD Code Hypertension Right breast cancer status p ost mastectomy, axillary node dissection, and chemoradiation Osteoporosis Stage I kidney cancer Elevated cholesterol Depression/anxiety Edema Surgical History Surgery Date(Month/Year) Right mastectomy 2017 Right partial nephrectomy 2018 Bilateral Dupuytren's contractures repai r 2020
--- OUTSIDE RECORDS SUMMARY | 2024-11-22 06:33 | XMS_ITS ---
Author Name [facility] Organization Unknown History of Medication Use Medication [...] Diagnosis Location Date Ambulatory [facility] 07/21/2023 Ambulatory [facility] 07/08/2023 Ambulatory [facility] 01/22/2023 Ambulatory [facility] 01/22/2023 Ambulatory [facility] 01/20/2023 Ambulatory [facility] 09/08/2022
== END 2024-11-21 06:32 | disposition home or self-care (01) ==
LOC: HO.HOSX 06:31
PROVIDERS: Visit Provider Orthopaedic Surgery
DX: Z13.89 Encounter for screening for other disorder (principal)

== ENCOUNTER 2024-11-22 09:38 | Outpatient (AMB) | payer MEDICARE, OTHER, SELFPAY ==
[2024-11-22 09:48] VITALS: BMI 34.4
--- NOTE | 2024-11-22 09:48 | A.OFFVIS_ITS ---
Vital Signs 11/22/24 09:48 Height 5 ft 3 in Weight 194 lb BMI 34.4 Intake Visit Reasons: Right knee pain and giving way Intake Note: Amalia is a 74 year old female who presents with complaints of progressively worsening right knee pain and giving way. The patient states that she injured her knee on 10/24/2024. She was walking when she twisted her knee and had acute onset of pain. She states that since that time she has had difficulty walking. She states that her right knee gives out several times per day. She has had cortisone injections as well as Durolane injections in the past which gave her minimal relief. She has also tried Tylenol and anti-inflammatory medicines which gave her minimal relief. The patient has difficulty walking even short distances because of her pain and mechanical symptoms. She has tried walking with a cane. At this point her right knee pain is interfering with her activities of daily living and her ability to sleep well through the night. Allergies Sulfa (Sulfonamide Antibiotics) (SULFA(SULFONAMIDE ANTIBIOTICS)) Allergy (Unknown, Verified 11/22/24 09:49) ? RXN - HAD CHILD Medication List - Last Reconciled 11/22/24 by Luis Felipe Armendariz MD atorvastatin 1 tab PO BEDTIME buspirone 10 mg PO BEDTIME PRN denosumab (Prolia) 60 mg subcut [id number] duloxetine 1 cap PO BEDTIME furosemide 20 mg PO BEDTIME PRN pantoprazole 1 tab PO BEDTIME trazodone 1 tab PO BEDTIME valsartan 1 tab PO BEDTIME PFSH Medical History FH: cholecystectomy Renal cancer Invasive ductal carcinoma of breast Renal mass FH: mastectomy Breast cancer HTN (hypertension) High cholesterol Surgical History Hx of partial nephrectomy History of cholecystectomy History of right breast implant (01/30/18) History of right mastectomy (02/02/17) History of breast biopsy (12/24/16) History of colonoscopy (03/06/14) H/O wrist surgery H/O hand surgery (2012) Family History Father Stroke Hypertension Mother COPD (chronic obstructive pulmonary disease) Hypertension Brother Stomach cancer Brother Liver transplant recipient Social History Household Members: Family Housing: House Are you a primary care team coordinator scheduler to a significant other at home: No Do you presently have visiting nurse or other home services: No Alcohol intake: current Alcohol intake frequency: holidays/special occasions only Comment: aware of trip hazard Patient Tobacco Use Status: Former Tobacco user Tobacco use type: Cigarette service: No Current occupational status: retired Physical Exam Vital Signs: BMI result Body Mass Index 34.4 Const Other: Well-nourished well-developed very friendly female awake alert and oriented x3 in no acute distress Extrem Other: Right knee examination shows a minimal effusion, palpable crepitus with range of motion, pain with range of motion, range of motion from -3 degrees to 110 degrees, positive Idris's test Results Reviewed Results Reviewed: X-rays of the patient's right knee show end-stage degenerative joint disease with grade 4 bwet-fp-trsi arthritis, subchondral sclerosis, osteophyte formation, no acute bony abnormalities Assessment & Plan Assessment & Plan (1) Osteoarthritis of right knee: Code(s): M17.11 - Unilateral primary osteoarthritis, right knee Category: Medical Plan Ms. Stark presents with progressively worsening right knee pain and mechanical symptoms due to end-stage degenerative joint disease as well as acute medial meniscus tearing. I had a lengthy discussion with the patient regarding the treatment options. At this point the patient has failed continued non operative treatments. The risks and benefits of right total knee replacement surgery were discussed at length with the patient. The patient wishes to proceed with surgery. She will be scheduled for next available date. I will see her back 1 week prior to her surgery to answer any final questions that she might have. The patient states that she is due to go to [place] on vacation later this year. I have instructed her to cancel the trip because of the risks of recurrent falls due to her right knee instability. The patient will follow-up as instructed. Feel free to call me at any time should questions regarding her orthopedic management arise. I spent 22 minutes in reviewing the patient's records and imaging studies, seeing the patient and documenting in the medical record. Orders: Orders XR knee RT 3V Today M25.561 - Pain in right knee Coding Level of Care Code Est Pt Level 3 (57456) Complex EM visit Add On G2211 Diagnoses Osteoarthritis of right knee M17.11
== END 2024-11-22 10:29 | disposition home or self-care (01) ==
LOC: HO.HOS 09:39
PROVIDERS: PCP Internal Medicine; Visit Provider Orthopaedic Surgery
DX: M17.11 Unilateral primary osteoarthritis, right knee (principal)
CPT/HCPCS: 99214; G2211

== ENCOUNTER 2024-11-22 09:38 | Outpatient (REF) | payer MEDICARE, OTHER, SELFPAY ==
--- NOTE | ~2024-11-22 | XR_ITS ---
CLINICAL HISTORY: M25.561 - Pain in right knee 3 view right knee Comparison: None provided Findings: Bones intact. No dislocations. There are severe osteoarthritic changes. No joint effusion. No radiopaque foreign body. IMPRESSION: 1. No acute findings. This document has been electronically signed by: Dwayne Cuevas MD on 11/23/2024 08:08:51
== END 2024-11-22 09:39 | disposition home or self-care (01) ==
LOC: HO.HOSX 09:38
PROVIDERS: PCP Internal Medicine; Visit Provider Orthopaedic Surgery
DX: M17.11 Unilateral primary osteoarthritis, right knee (principal); M25.561 Pain in right knee
CPT/HCPCS: 73562; 99212

== ENCOUNTER → 2024-11-22 09:44 | Outpatient (BNV) | payer MEDICARE, OTHER, SELFPAY | PROVIDERS: PCP Internal Medicine; Visit Provider Specialist | DX: M17.11 Unilateral primary osteoarthritis, right knee (principal) | CPT/HCPCS: 73562 ==

== ENCOUNTER → 2025-01-11 11:02 | Outpatient (BNVA) | payer MEDICARE, OTHER, SELFPAY | PROVIDERS: PCP Internal Medicine | DX: Z01.818 Encounter for other preprocedural examination (principal) ==

== ENCOUNTER 2025-02-07 08:11 | Outpatient (AMB) | payer MEDICARE, OTHER, SELFPAY ==
--- OUTSIDE RECORDS SUMMARY | 2024-10-31 13:19 | XMS_ITS | Encounter Summary ---
Author Organization [facility] Address [address] [place] [address] [place] [address] Phone Care Team Providers Care Facsimile Machine Operator Name Role Phone Enoc Llanos MD Primary Care Provider [phone] [phone] Encounter Details Date Type Department Care Team (Late st Contact Info) Description 10/31/2024 1:19 PM EDT Hospital Encounter [facility] [address] [place] [address] Zabrina Mistry PA-C [address] [facility], 3rd [place] [address] [email or web address] Social History Tobacco Use Types Packs/Day Years Used Date Smoking Tobacco: Former Cigarettes Q uit: 03/22/1976 Smokeless Tobacco: Never Alcohol Use Standard Drinks/Week Comments Yes 1 (1 standard drink = 0.6 oz pur e alcohol) Niraj kirkpatrick black [facility] Education Answer Date Recorded Are you [...] narrowing of the lateral tibiofemoral compartment with rkuv-xr-phms contact. Moderate narrowing of the medial tibiofemoral compartment. Large tricompartmental osteophytes. Quadriceps and patellar enthesopathy. No effusion. Procedure Note Julisa House MD, PhD - 10/31/2024 XR KNEE 4 OR MORE VIEWS (RIGHT) Referring clinician's provided indication for this examination in Epic:Pain; S/P Fall COMPARISON: None. FINDINGS: Right Knee: No fracture. Severe narrowing of the lateral tibiofemoralcompartment with pecv-ju-wdtw contact. Moderate narrowing of the medialtibiofemoral compartment. [...] on filedocumented in this encounter Care Teams Facsimile Machine Operator Relationship Specialty Start Date End Date Enoc Llanos MD [address] [place] [address] PCP - General Internal Medicine 03/22/17 documented as of this encounter Additional Source Comments The information contained in this document represents components of the legal health record. It is not the complete legal health record.[facility]
--- OUTSIDE RECORDS SUMMARY | 2025-01-24 09:30 | XMS_ITS ---
Author Organization [facility] Address [facility] [place], [place] [id number] Care Team Providers Care Mold Designer Name Role Phone LUCIEN RAMIREZ Primary Care Provider [phone] ALLERGIES Allergen (clinical drug ingredient) Drug/Non Drug Allergy documented on EMR Reaction Allergy Type Onset Date Status benazepril Benazepril Unknown Drug Allergy Activ e Substance with sulfonamide structure and antibacterial mechanism of action (substance) Sulfa Antibiotics Unknown Drug Allergy 08/20/2008 Active REASON FOR VISIT 41/ AWV, would like flu vaccine MEDICATIONS Medication SIG (Take, Route, Frequency, Duration) Notes Start Date End Date Status Valsartan 320 MG 1 tablet Orally Once a day Active Atorvastatin Calcium 20 MG 1 tablet Oral ly Once a day Active Pantoprazole Sodium 40 MG 1 tablet 1/2 t o 1 hour before morning meal Orally Once a day Active traMADol HCl 50 MG 1-2 tablets as neede d Orally twice a day for 30 day(s) 01/24/2025 Active Fluticasone Propionate 50 MCG/ACT 2 sprays (1 spray in each nostril) Nasal Twice a day 11/30/2021 Active DULoxetine HCl 60 MG 1 capsule Orally On ce a day Active busPIRone HCl 10 MG 1 tablet Orally Twic e a day Active amLODIPine Besylate 5 MG 1 tablet Oral Once a day 05/03/2022 Active traZODone HCl 50 MG TAKE 1-2 TABLETs BY MOUTH EVERYDAY AT BEDTIME Active Furosemide 20 MG take 1 tablet by ora l route every day Oral Once a day for 30 day(s) 09/28/2021 Active Naproxen 500 MG TAKE 1 TABLET BY RAMON TH TWICE A DAY WITH FOOD OR MILK Active SOCIAL HISTORY Tobacco Use: Social History Observation Description Date Details (start date - stop date) Former Smoker NA - NA Sex Assigned At : Social History Observation Description Sex Assigned At Unknown Smoking Question Answer Notes Are you a: former smoker Section Notes: Patient quit smoking 1975 PROBLEMS Problem Type ICD Code Onset Dates Problem Status W/U Status Risk SNOMED Code Notes Problem Body mass index [BMI] 34.0-34.9, adult (Z68.34) Active confirmed 367982698 Problem Chronic GERD (K21.9) Active confirmed 114935755 Problem Primary insomnia (F51.01) Active confirmed 9967225 Problem Chronic venous insufficiency (I87.2) Active confirmed 83223723 VITAL SIGNS Height 62.125 in 01/24/2025 Weight 188 lbs 01/24/2025 Blood pressure systolic 126 mm Hg 01/25/20 25 Blood pressure diastolic 72 mm Hg 025 BMI 34.24 kg/m2 01/24/2025 Encounters Encounter Location Date Provider Diagnosis [facility] [address] [place] [address] 01/24/2025 LUCIEN RAMIREZ Essential (primary) hypertension I10 ; Personal history of breast cancer Z85.3 ; Mixed hyperlipidemia E78.2 ; Primary osteoarthritis of right knee M17.11 ; Body mass index [BMI] 34.0-34.9, adult Z68.34 ; Chronic GERD K21.9 ; Primary insomnia F51.01 ; Anxiety F41.9 ; Mild depression F32.A ; Chronic venous insufficiency I87.2 ; Encounter for administration of vaccine Z23 and Encounter for general adult medical examination with abnormal findings Z00.01 ASSESSMENTS Encounter Date Diagnosis Assessment Notes Treatment Notes Treatment Clinical Notes Section Notes 01/24/2025 Essential (primary) hypertension (ICD-10 - I10) 1. Hypertension: Stable on present regimen. No changes made today 2. Personal history of breast cancer: No sign of recurrence. Follows with Dr. Mcgowan at [facility] 3. Hyperlipidemia : Will update profile on atorvastatin 4. Right knee osteoarthritis : Awaiting surgery with Dr. Armendariz. Using naproxen and tramadol cautiously 5. Obesity/BMI of 34: Will check A1c with laboratory studies. She is working at diet 6. GERD: Stable on pantoprazole. Will continue same 7. Insomnia: Stable on trazodone. Will continue same 8. Anxiety/depres johnny: She feels current medication regimen with duloxetine and BuSpar are working generally well for her. She is mildly more discouraged because she is in pain waiting for her knee surgery but feels this will rectify once she has cleared this frank 9.: Chronic venous insufficiency: Stable with occasional Lasix 10. Routine healthcare maintenance: Colonoscopy was done in 2022 and she does not need further. Mammogram is up-to-date. She will update fasting blood work. Flu shot given today 01/24/2025 Personal history of breast cancer (ICD-10 - Z85.3) 1. Hypertension: Stable on present regimen. No changes made today 2. Personal history of breast cancer: No sign of recurrence. Follows with Dr. Roslyn najera [facility] 3. Hyperlipidemia : Will update profile on atorvastatin 4. Right knee osteoarthritis : Awaiting surgery with Dr. Armendariz. Using naproxen and tramadol cautiously 5. Obesity/BMI of 34: Will check A1c with laboratory studies. She is working at diet 6. GERD: Stable on pantoprazole. Will continue same 7. Insomnia: Stable on trazodone. Will continue same 8. Anxiety/depres johnny: She feels current medication regimen with duloxetine and BuSpar are working generally well for her. She is mildly more discouraged because she is in pain waiting for her knee surgery but feels this will rectify once she has cleared this frank 9.: Chronic venous insufficiency: Stable with occasional Lasix 10. Routine healthcare maintenance: Colonoscopy was done in 2022 and she does not need further. Mammogram is up-to-date. She will update fasting blood work. Flu shot given today 01/24/2025 Mixed hyperlipidemia (ICD-10 - E78.2) 1. Hypertension: Stable on present regimen. No changes made today 2. Personal history of breast cancer: No sign of recurrence. Follows with Dr. Roslyn najera [facility] 3. Hyperlipidemia : Will update profile on atorvastatin 4. Right knee osteoarthritis : Awaiting surgery with Dr. Armendariz. Using naproxen and tramadol cautiously 5. Obesity/BMI of 34: Will check A1c with laboratory studies. She is working at diet 6. GERD: Stable on pantoprazole. Will continue same 7. Insomnia: Stable on trazodone. Will continue same 8. Anxiety/depres johnny: She feels current medication regimen with duloxetine and BuSpar are working generally well for her. She is mildly more discouraged because she is in pain waiting for her knee surgery but feels this will rectify once she has cleared this frank 9.: Chronic venous insufficiency: Stable with occasional Lasix 10. Routine healthcare maintenance: Colonoscopy was done in 2022 and she does not need further. Mammogram is up-to-date. She will update fasting blood work. Flu shot given today 01/24/2025 Primary osteoarthritis of right knee (ICD-10 - M17.11) 1. Hypertension: Stable on present regimen. No changes made today 2. Personal history of breast cancer: No sign of recurrence. Follows with Dr. Mcgowan at [facility] 3. Hyperlipidemia : Will update profile on atorvastatin 4. Right knee osteoarthritis : Awaiting surgery with Dr. Armendariz. Using naproxen and tramadol cautiously 5. Obesity/BMI of 34: Will check A1c with laboratory studies. She is working at diet 6. GERD: Stable on pantoprazole. Will continue same 7. Insomnia: Stable on trazodone. Will continue same 8. Anxiety/depres johnny: She feels current medication regimen with duloxetine and BuSpar are working generally well for her. She is mildly more discouraged because she is in pain waiting for her knee surgery but feels this will rectify once she has cleared this frank 9.: Chronic venous insufficiency: Stable with occasional Lasix 10. Routine healthcare maintenance: Colonoscopy was done in 2022 and she does not need further. Mammogram is up-to-date. She will update fasting blood work. Flu shot given today 01/24/2025 Body mass index [BMI] 34.0-34.9, adult (ICD-10 - Z68.34) 1. Hypertension: Stable on present regimen. No changes made today 2. Personal history of breast cancer: No sign of recurrence. Follows with Dr. Mcgowan at [facility] 3. Hyperlipidemia : Will update profile on atorvastatin 4. Right knee osteoarthritis : Awaiting surgery with Dr. Armendariz. Using naproxen and tramadol cautiously 5. Obesity/BMI of 34: Will check A1c with laboratory studies. She is working at diet 6. GERD: Stable on pantoprazole. Will continue same 7. Insomnia: Stable on trazodone. Will continue same 8. Anxiety/depres johnny: She feels current medication regimen with duloxetine and BuSpar are working generally well for her. She is mildly more discouraged because she is in pain waiting for her knee surgery but feels this will rectify once she has cleared this frank 9.: Chronic venous insufficiency: Stable with occasional Lasix 10. Routine healthcare maintenance: Colonoscopy was done in 2022 and she does not need further. Mammogram is up-to-date. She will update fasting blood work. Flu shot given today 01/24/2025 Chronic GERD (ICD-10 - K21.9) 1. Hypertension: Stable on present regimen. No changes made today 2. Personal history of breast cancer: No sign of recurrence. Follows with Dr. Mcgowan at [facility] 3. Hyperlipidemia : Will update profile on atorvastatin 4. Right knee osteoarthritis : Awaiting surgery with Dr. Armendariz. Using naproxen and tramadol cautiously 5. Obesity/BMI of 34: Will check A1c with laboratory studies. She is working at diet 6. GERD: Stable on pantoprazole. Will continue same 7. Insomnia: Stable on trazodone. Will continue same 8. Anxiety/depres johnny: She feels current medication regimen with duloxetine and BuSpar are working generally well for her. She is mildly more discouraged because she is in pain waiting for her knee surgery but feels this will rectify once she has cleared this frank 9.: Chronic venous insufficiency: Stable with occasional Lasix 10. Routine healthcare maintenance: Colonoscopy was done in 2022 and she does not need further. Mammogram is up-to-date. She will update fasting blood work. Flu shot given today 01/24/2025 Primary insomnia (ICD-10 - F51.01) 1. Hypertension: Stable on present regimen. No changes made today 2. Personal history of breast cancer: No sign of recurrence. Follows with Dr. Roslyn najera [facility] 3. Hyperlipidemia : Will update profile on atorvastatin 4. Right knee osteoarthritis : Awaiting surgery with Dr. Armendariz. Using naproxen and tramadol cautiously 5. Obesity/BMI of 34: Will check A1c with laboratory studies. She is working at diet 6. GERD: Stable on pantoprazole. Will continue same 7. Insomnia: Stable on trazodone. Will continue same 8. Anxiety/depres johnny: She feels current medication regimen with duloxetine and BuSpar are working generally well for her. She is mildly more discouraged because she is in pain waiting for her knee surgery but feels this will rectify once she has cleared this frank 9.: Chronic venous insufficiency: Stable with occasional Lasix 10. Routine healthcare maintenance: Colonoscopy was done in 2022 and she does not need further. Mammogram is up-to-date. She will update fasting blood work. Flu shot given today 01/24/2025 Anxiety (ICD-10 - F41.9) 1. Hypertension: Stable on present regimen. No changes made today 2. Personal history of breast cancer: No sign of recurrence. Follows with Dr. Mcgowan at [facility] 3. Hyperlipidemia : Will update profile on atorvastatin 4. Right knee osteoarthritis : Awaiting surgery with Dr. Armendariz. Using naproxen and tramadol cautiously 5. Obesity/BMI of 34: Will check A1c with laboratory studies. She is working at diet 6. GERD: Stable on pantoprazole. Will continue same 7. Insomnia: Stable on trazodone. Will continue same 8. Anxiety/depres johnny: She feels current medication regimen with duloxetine and BuSpar are working generally well for her. She is mildly more discouraged because she is in pain waiting for her knee surgery but feels this will rectify once she has cleared this frank 9.: Chronic venous insufficiency: Stable with occasional Lasix 10. Routine healthcare maintenance: Colonoscopy was done in 2022 and she does not need further. Mammogram is up-to-date. She will update fasting blood work. Flu shot given today 01/24/2025 Mild depression (ICD-10 - F32.A) 1. Hypertension: Stable on present regimen. No changes made today 2. Personal history of breast cancer: No sign of recurrence. Follows with Dr. Mcgowan at [facility] 3. Hyperlipidemia : Will update profile on atorvastatin 4. Right knee osteoarthritis : Awaiting surgery with Dr. Armendariz. Using naproxen and tramadol cautiously 5. Obesity/BMI of 34: Will check A1c with laboratory studies. She is working at diet 6. GERD: Stable on pantoprazole. Will continue same 7. Insomnia: Stable on trazodone. Will continue same 8. Anxiety/depres johnny: She feels current medication regimen with duloxetine and BuSpar are working generally well for her. She is mildly more discouraged because she is in pain waiting for her knee surgery but feels this will rectify once she has cleared this frank 9.: Chronic venous insufficiency: Stable with occasional Lasix 10. Routine healthcare maintenance: Colonoscopy was done in 2022 and she does not need further. Mammogram is up-to-date. She will update fasting blood work. Flu shot given today 01/24/2025 Chronic venous insufficiency (ICD-10 - I87.2) 1. Hypertension: Stable on present regimen. No changes made today 2. Personal history of breast cancer: No sign of recurrence. Follows with Dr. Mcgowan at [facility] 3. Hyperlipidemia : Will update profile on atorvastatin 4. Right knee osteoarthritis : Awaiting surgery with Dr. Armendariz. Using naproxen and tramadol cautiously 5. Obesity/BMI of 34: Will check A1c with laboratory studies. She is working at diet 6. GERD: Stable on pantoprazole. Will continue same 7. Insomnia: Stable on trazodone. Will continue same 8. Anxiety/depres johnny: She feels current medication regimen with duloxetine and BuSpar are working generally well for her. She is mildly more discouraged because she is in pain waiting for her knee surgery but feels this will rectify once she has cleared this frank 9.: Chronic venous insufficiency: Stable with occasional Lasix 10. Routine healthcare maintenance: Colonoscopy was done in 2022 and she does not need further. Mammogram is up-to-date. She will update fasting blood work. Flu shot given today 01/24/2025 Encounter for administration of vaccine (ICD-10 - Z23) HD influenza administered patient counseled and VIS provided 1. Hypertension: Stable on present regimen. No changes made today 2. Personal history of breast cancer: No sign of recurrence. Follows with Dr. Mcgowan at [facility] 3. Hyperlipidemia : Will update profile on atorvastatin 4. Right knee osteoarthritis : Awaiting surgery with Dr. Armendariz. Using naproxen and tramadol cautiously 5. Obesity/BMI of 34: Will check A1c with laboratory studies. She is working at diet 6. GERD: Stable on pantoprazole. Will continue same 7. Insomnia: Stable on trazodone. Will continue same 8. Anxiety/depres johnny: She feels current medication regimen with duloxetine and BuSpar are working generally well for her. She is mildly more discouraged because she is in pain waiting for her knee surgery but feels this will rectify once she has cleared this frank 9.: Chronic venous insufficiency: Stable with occasional Lasix 10. Routine healthcare maintenance: Colonoscopy was done in 2022 and she does not need further. Mammogram is up-to-date. She will update fasting blood work. Flu shot given today 01/24/2025 Encounter for general adult medical examination with abnormal findings (ICD-10 - Z00.01) 1. Hypertension: Stable on present regimen. No changes made today 2. Personal history of breast cancer: No sign of recurrence. Follows with Dr. Mcgowan at [facility] 3. Hyperlipidemia : Will update profile on atorvastatin 4. Right knee osteoarthritis : Awaiting surgery with Dr. Armendariz. Using naproxen and tramadol cautiously 5. Obesity/BMI of 34: Will check A1c with laboratory studies. She is working at diet 6. GERD: Stable on pantoprazole. Will continue same 7. Insomnia: Stable on trazodone. Will continue same 8. Anxiety/depres johnny: She feels current medication regimen with duloxetine and BuSpar are working generally well for her. She is mildly more discouraged because she is in pain waiting for her knee surgery but feels this will rectify once she has cleared this frank 9.: Chronic venous insufficiency: Stable with occasional Lasix 10. Routine healthcare maintenance: Colonoscopy was done in 2022 and she does not need further. Mammogram is up-to-date. She will update fasting blood work. Flu shot given today PLAN OF TREATMENT Medication Medication Name Sig Start Date Stop Date Notes Valsartan 320 MG 1 tablet Orally Once a day Atorvastatin Calcium 20 MG 1 tablet Orally Once a day Pantoprazole Sodium 40 MG 1 tablet 1/2 t o 1 hour before morning meal Orally Once a day traMADol HCl 50 MG 1-2 tablets as neede d Orally twice a day for 30 day(s) 01/24/2025 DULoxetine HCl 60 MG 1 capsule Orally Once a day busPIRone HCl 10 MG 1 tablet Orally Twice a day amLODIPine Besylate 5 MG 1 tablet Oral Once a day 05/03/20 traZODone HCl 50 MG TAKE 1-2 TABLETs BY MOUTH EVERYDAY AT BEDTIME Furosemide 20 MG take 1 tablet by ora l route every day Oral Once a day for 30 day(s) 09/28/2021 Treatment Notes Assessment Notes Encounter for administration of vaccine HD influenza administered patient counseled and VIS provided Next Appt Details Follow Up: 3 Months. prn, Re ason: Provider Name:LUCIEN RAMIREZ , 07/24/2025 01:00:00 PM, [address] [place], [address], Progress Notes * Examination Category Sub-Category Detail Notes Category Not es General Examination HEENT: PERRLA, EOMI bilatera lly, nose clear Neck: supple, no lymphaden opathy, no thyromegaly Heart: RSR, normal S1S2 Lungs: clear to auscultatio n Abdomen: soft, non tender/non distended, no rebound tenderness, no guarding or rigidity Extremities: no edema General Appearance no apparent distress , pleasant, obese Skin: normal, no rash Neuro alert and oriented x 3, gait normal Oral cavity: no lesions Peripheral pulses: Bilateral radial pre sent, Bilateral posterior tibial present, BilateralCarotids present No Bruits, Bilateral radial present Back: no CVA tenderness, s traight leg raise normal, , no spinal tenderness Lymphatics No nodes in neck Psych: oriented X 3, affect normal
--- OUTSIDE RECORDS SUMMARY | 2025-01-24 10:00 | XMS_ITS ---
Author Organization [facility] Address [facility] [place], [place] [id number] Care Team Providers Care Case Technician Name Role Phone LUCIEN RAMIREZ Primary Care Provider [phone] ANT BUSH Unavailable [phone] REASON FOR VISIT 1 yr follow up (AWV w/nursing 1st) Encounters Encounter Location Date Provider Diagnosis [address] [address] 01/24/2025 [facility] [place] PLAN OF TREATMENT Next Appt Details Provider Name:LUCIEN RAMIREZ , 07/24/2025 01:00:00 PM, [address] [place] [address], [phone],
--- OUTSIDE RECORDS SUMMARY | 2025-01-24 10:00 | XMS_ITS ---
Author Organization [facility] Address [address] [place] [id number] Care Team Providers Care Coal Deliverer Name Role Phone LUCIEN RAMIREZ Primary Care Provider ALLERGIES Allergen (clinical drug ingredient) Drug/Non Drug Allergy documented on EMR Reaction Allergy Type Onset Date Status benazepril Benazepril Unknown Drug Allergy Activ e Substance with sulfonamide structure and antibacterial mechanism of action (substance) Sulfa Antibiotics Unknown Drug Allergy 08/20/2008 Active REASON FOR VISIT AWV Encounters Encounter Location Date Provider Diagnosis [address] [address] 01/24/2025 LUCIEN RAMIREZ Medicare annual wellness visit, subsequent Z00.00 ASSESSMENTS Encounter Date Diagnosis Assessment Notes Treatment Notes Treatment Clinical Notes Section Notes 01/24/2025 Medicare annual wellness visit, subsequent (ICD-10 - Z00.00) 01/24/2025 Other Complete exam recommended PLAN OF TREATMENT Treatment Notes Assessment Notes Other Complete exam recomm ended Next Appt Details Provider Name:LUCIEN RAMIREZ , 07/24/2025 01:00:00 PM, [address] [place], [phone], History and Physical Notes * HPI (History of Present Illness) Category Sub-Category Detail Notes Category Not es General annual wellness exam Patient her e today for Annual Wellness HRA reviewed and documented with patient Advanced directives Healthcare Proxy discussed with yulissa velazquez advanced directive Health care Proxy Se an Lincoln Son Depression Screening PHQ-9 Little inte rest or pleasure in doing things: Not at all Feeling down,depressed or hopeless: Rolanda ral days Trouble falling or staying asleep, or sl eeping too much: Several days Feeling tired or having little energy: M ore than half the days Poor appetite or overeating: Not at all Feeling bad about yourself o r that you are a failure or have let yourself or your family down: Not at all Trouble concentrating on thi ngs, such as reading the newspaper or watching television: Not at all Moving or speaking so slowly that other people could have notice. Or the opposite of being so fidgety or restless that you have been moving around a lost more that usual: Not at all Thoughts that you would be b kellee off , or of hurting yourself in some way: Not at all Total Score: 4 Interpretation: Minimal Depression Intervention Follow-Up for Verónicakyler johnny: Patient follow-up to return when and if necessary continue present meds
--- OUTSIDE RECORDS SUMMARY | 2025-01-31 10:25 | XMS_ITS ---
Author Organization [facility] Address [address] [place] [phone] Care Team Providers Care Home [employer]ot Rep Name Role Phone LUCIEN RAMIREZ Primary Care Provider REASON FOR VISIT Blood work. Encounters Encounter Location Date Provider Diagnosis [facility] [address] [place] [phone] 01/31/2025 LUCIEN RAMIREZ PLAN OF TREATMENT Next Appt Details Provider Name:LUCIEN RAMIREZ , 07/24/2025 01:00:00 PM, [address] [place], [phone],
--- OUTSIDE RECORDS SUMMARY | 2025-02-05 02:17 | XMS_ITS ---
Author Organization [facility] Address [address] [place] [phone] Care Team Providers Care Tank Cleaning Supervisor Name Role Phone LUCIEN RAMIREZ Primary Care Provider REASON FOR VISIT labs Encounters Encounter Location Date Provider Diagnosis [facility] [address] [place] [phone] 02/05/2025 LUCIEN RAMIREZ PLAN OF TREATMENT Next Appt Details Provider Name:LUCIEN RAMIREZ , 07/24/2025 01:00:00 PM, [address] [place], [phone],
[2025-02-07 08:15] VITALS: BMI 33.3
--- NOTE | 2025-02-07 08:15 | A.OFFVIS_ITS ---
Vital Signs 02/07/25 08:15 Height 5 ft 3 in Weight 188 lb BMI 33.3 Intake Visit Reasons: Pre-Op: R TKA w/ 02/11/25 Intake Note: Amalia is a 75 year old female who presents with complaints of progressively worsening right knee pain and giving way. The patient states that she injured her knee on 10/24/2024. She was walking when she twisted her knee and had acute onset of pain. She states that since that time she has had difficulty walking. She states that her right knee gives out several times per day. She has had cortisone injections as well as Durolane injections in the past which gave her minimal relief. She has also tried Tylenol and anti-inflammatory medicines which gave her minimal relief. The patient has difficulty walking even short distances because of her pain and mechanical symptoms. She has tried walking with a cane. At this point her right knee pain is interfering with her activities of daily living and her ability to sleep well through the night. Allergies Sulfa (Sulfonamide Antibiotics) (SULFA(SULFONAMIDE ANTIBIOTICS)) Allergy (Unknown, Verified 02/07/25 08:16) ? RXN - HAD CHILD lisinopril Allergy (Verified 02/07/25 08:16) Swelling Medication List - Last Reviewed 02/07/25 by DIANA Giraldo amlodipine 5 mg PO DAILY atorvastatin 1 tab PO BEDTIME buspirone 10 mg PO BEDTIME PRN duloxetine 1 cap PO BEDTIME furosemide 20 mg PO BEDTIME PRN pantoprazole 1 tab PO BEDTIME trazodone 1 tab PO BEDTIME valsartan 1 tab PO BEDTIME walker Folding front wheeled walker [facility] Medical History Osteoarthritis GERD (gastroesophageal reflux disease) Hx of renal cell cancer Depression Anxiety Edema of both lower extremities FH: cholecystectomy Renal cancer Invasive ductal carcinoma of breast Renal mass FH: mastectomy Breast cancer HTN (hypertension) High cholesterol Surgical History History of arthroscopy of left shoulder (2023) Hx of partial nephrectomy History of cholecystectomy History of right breast implant (01/30/18) History of right mastectomy (02/02/17) History of breast biopsy (12/24/16) History of colonoscopy (03/06/14) H/O wrist surgery H/O hand surgery (2013) Family History Father Stroke Hypertension Mother COPD (chronic obstructive pulmonary disease) Hypertension Brother Stomach cancer Brother Liver transplant recipient Social History Household Members: Family Housing: House Are you a primary acute care nursing assistant to a significant other at home: No Do you presently have visiting nurse or other home services: No 75 years or older and lives alone: No Alcohol intake: current Alcohol intake frequency: holidays/special occasions only Comment: aware of trip hazard Patient Tobacco Use Status: Former Tobacco user Tobacco use type: Cigarette service: No Current occupational status: retired Physical Exam Vital Signs: BMI result Body Mass Index 33.3 Const Other: Well-nourished well-developed very friendly female awake alert and oriented x3 in no acute distress Extrem Other: Right knee examination shows a minimal effusion, palpable crepitus with range of motion, pain with range of motion, range of motion from -3 degrees to 110 degrees, no instability Results Reviewed Results Reviewed: X-rays of the patient's right knee show end-stage degenerative joint disease with grade 4 [id number]-[id number] arthritis, subchondral sclerosis, osteophyte formation, no acute bony abnormalities Assessment & Plan Assessment & Plan (1) Osteoarthritis of right knee: Code(s): M17.11 - Unilateral primary osteoarthritis, right knee Category: Medical Plan Ms. Stark presents with progressively worsening right knee pain due to end- stage degenerative joint disease. I had a lengthy discussion with the patient regarding the treatment options. At this point she has failed continued non operative treatments. The risks and benefits of right total knee replacement surgery were discussed at length with the patient. The patient wishes to proceed with surgery. career services director will be consulted following her surgery for home physical therapy and nursing versus possible inpatient rehabilitation. The patient follow-up as instructed. Feel free to call me at any time should questions regarding her orthopedic management arise. I spent 22 minutes in reviewing the patient's records and imaging studies, seeing the patient and documenting in the medical record. Orders: Orders Hemoglobin A1c Today Z01.818 - Encounter for other preprocedural examination Coding Level of Care Code Est Pt Level 3 (36739) Complex EM visit Add On G2211 Diagnoses Osteoarthritis of right knee M17.11
--- OUTSIDE RECORDS SUMMARY | 2025-02-07 08:54 | XMS_ITS | Encounter Summary ---
Author Organization [facility] Address [address] [place] [phone] Phone Care Team Providers Care Credit Card Analyst Name Role Phone Enoc Llanos MD Primary Care Provider [phone] Encounter Details Date Type Department Care Team (Latest Contact Info) Description 04/25/2019 Transcribe Orders [facility] [address] [place] [address] Enoc Llanos MD [address] [address] Encounter for general adult medical examination with [...] URINE MICROALBUMIN 1.4 0 - 2.3 mg/dL [facility] URINE CREATININE 115 mg/dL [facility] MICROALB/CRE RATIO 12.2 0 - 20 mg/g Cre [facility] Urine (Urine) 04/25/2019 10: 51 AM EST 04/25/2019 11:48 AM EST us Enoc Llanos MD URINE ORDERABLES Final Re sult Performing Organization Address City/[facility]/ZIP Co de Phone Number [address] [address] * (ABNORMAL) TSH with reflex (04/25/2019 8:03 AM EST) TSH 16.90(H) 0.27 - 4.20 uIU/mL [facility] Blood 04/25/2019 8:03 AM EST 04/25/2019 9:58 AM EST us Enoc Llanos MD LAB BLOOD ORDERABLES Le l Result Performing Organization Address [facility] Co de Phone Number [address] [address] * (ABNORMAL) Lipid panel (04/25/2019 8:03 AM EST) HDL 47 mg/dL [facility] Comment: Interpretation <40 mg/dL: Low HDL cholesterol (major risk factor for CHD) Greater than or equal to 60 mg/dL: High HDL cholesterol ( negative risk factor for CHD) HDL - cholesterol is affected by a number of factors, e.g. smoking, excerise, hormones, sex and age. CHOLESTEROL 211 0 - 240 mg/dL [facility] TRIGLYCERIDES 192(H) 30 - 160 mg/dL [facility] LDL 126 50 - 129 mg/dL [facility] Comment: LDL levels in terms of risk for coronary heart disease: <100 mg/dL: Optimal 100-129 mg/dL: Near or above optimal 130-159 mg/dL: Borderline high 160-189 mg/dL: High >190 mg/dL: Very High CARDIAC RISK RATIO 4.5(H) 3.3 - 4.4 C [facility] Blood 04/25/2019 8:03 AM EST 04/25/2019 9:58 AM EST us Enoc Llanos MD LAB BLOOD ORDERABLES Le l Result [address] [address] * (ABNORMAL) Comprehensive metabolic panel (04/25/2019 8:03 AM EST) SODIUM 141 133 - 146 mmol/L [facility] POTASSIUM 4.4 3.3 - 5.1 mmol/L [facility] CHLORIDE 101 96 - 108 mmol/L [facility] CO2 27 21 - 35 mmol/L [facility] BUN 24(H) 6 - 19 mg/dL [facility] CREATININE 1.20 0.5 - 1.5 mg/dL [facility] GLUCOSE 115(H) 70 - 99 mg/dL [facility] ALBUMIN 4.0 3.9 - 4.8 g/dL [facility] TOTAL PROTEIN 6.8 6.5 - 8.0 g/dL [facility] CALCIUM 9.3 8.4 - 10.3 mg/dL [facility] ALKALINE PHOSPHATASE 110 39 - 117 U/L [facility] TOTAL BILIRUBIN 0.3 0.0 - 1.2 mg/dL [facility] AST 16 0 - 37 U/L [facility] ALT 13 0 - 40 U/L [facility] GLOBULIN 2.8 1 - 4.8 g/dL [facility] EGFR 46(L) >59 mL/min/1.7 3m2 [facility] Comment:If patient is black, multiply result by 1.159. Estimated glomerular filtration rate calculated using the CKD-EPI equation. ANION GAP 17 10 - 20 mmol/L [facility] Blood 04/25/2019 8:03 AM EST 04/25/2019 9:58 AM EST us Enoc Llanos MD LAB BLOOD ORDERABLES Le l Result [address] [address] documented in this encounter Visit Diagnoses Diagnosis Encounter for general adult medical examination with abnormal findings- Primary Essential hypertension, malignant Fatigue, unspecified type documented in this encounter Care Teams Credit Card Analyst Relationship Specialty Start Date End Date Enoc Llanos MD [address] [place] [address] PCP - General Internal Medicine 03/22/17 documented as of this encounter Additional Source Comments The information contained in this document represents components of the legal health record. It is not the complete legal health record.[facility]
--- OUTSIDE RECORDS SUMMARY | 2025-02-07 08:54 | XMS_ITS | Encounter Summary ---
Author Organization [facility] Address [facility] [address] [place] [address] Phone Care Team Providers Care Airport Sales Agent Name Role Phone Enoc Llanos MD Primary Care Provider [phone] Encounter Details Date Type Department Care Team (Late st Contact Info) Description 04/06/2017 Procedure Pass [facility],Outside Imaging [address] [place] [address] Social History Tobacco Use Types Packs/Day Years Used Date Smoking Tobacco: Never Assessed Comments Unknown Sex and Gender Information Value Date Recorded Sex Assigned at Not on file Legal Sex Female 10:01 PM EDT Gender Identity Not on file Sexual Orientation Not on file documented as of this encounter Plan of Treatment Not on file documented as of this encounter Visit Diagnoses Not on filedocumented in this encounter Care Teams Airport Sales Agent Relationship Specialty Start Date End Date Enoc Llanos MD [address] [place] [address] PCP - General Internal Medicine 03/22/17 documented as of this encounter Additional Source Comments The information contained in this document represents components of the legal health record. It is not the complete legal health record.[facility]
--- OUTSIDE RECORDS SUMMARY | 2025-02-07 08:54 | XMS_ITS | Encounter Summary ---
Author Organization [facility] Address [address] [address] Phone Care Team Providers Care Virtual Classroom Manager Name Role Phone Enoc Llanos MD Primary Care Provider [phone] Encounter Details Date Type Department Care Team (Latest Contact Info) Description 03/22/2018 Transcribe Orders [facility] [address] [place] [address] Enoc Llanos MD [address] [address] Edema, unspecified type (Primary Dx) Social History Tobacco Use Types Packs/Day Years [...] documented as of this encounter Results * Basic metabolic panel (03/22/2018 11:12 AM EDT) SODIUM 144 133 - 146 mmol/L [facility] CHLORIDE 100 96 - 108 mmol/L [facility] POTASSIUM 4.2 3.3 - 5.1 mmol/L [facility] CO2 29 21 - 35 mmol/L [facility] BUN 18 6 - 19 mg/dL [facility] CREATININE 0.80 0.5 - 1.5 mg/dL [facility] GLUCOSE 77 70 - 99 mg/dL [facility] CALCIUM 9.3 8.4 - 10.3 mg/dL [facility] EGFR 76 >59 mL/min/1.7 3m2 [facility] Comment:If patient is black, multiply result by 1.159. Estimated glomerular filtration rate calculated using the CKD-EPI equation. ANION GAP 19 10 - 20 mmol/L [facility] Blood 03/22/2018 11:1 2 AM EDT 03/22/2018 11:15 AM EDT us Enoc Llanos MD LAB BLOOD ORDERABLES Le humphries Result [facility] [address] [place] [address] documented in this encounter Visit Diagnoses Diagnosis Edema, unspecified type- Primary documented in this encounter Care Teams Virtual Classroom Manager Relationship Specialty Start Date End Date Enoc Llanos MD [address] [place] [address] PCP - General Internal Medicine 03/22/17 documented as of this encounter Additional Source Comments The information contained in this document represents components of the legal health record. It is not the complete legal health record.[facility]
--- OUTSIDE RECORDS SUMMARY | 2025-02-07 08:54 | XMS_ITS | Encounter Summary ---
Author Organization [facility] Address [address] [place] [address] Phone Care Team Providers Care Mold Maker Apprentice Name Role Phone Enoc Llanos MD Primary Care Provider [phone] Reason for Referral * MRI/CAT Scan - Closed Specialty Diagnoses / Procedures Referred By Contac t Referred To Contact Procedures NM PET Whole Body Outside (No Interpretation) System, Provider Not In, [facility] [place] [id number] Referral ID Status Reason Start Date Expiration Date Visits Re quested Visits Authorized [id number] Closed 03/24/2017 03/24/2018 1 1 Encounter Details Date Type Department Care Team (Late st Contact Info) Description 03/24/2017 Ancillary Orders [facility],Outside Imaging [address] [place] [address] System, Provider Not In, [facility] [address] [address] Social History Tobacco Use Types Packs/Day Years Used Date Smoking Tobacco: Former Cigarettes Q uit: 03/22/1976 Alcohol Use Standard Drinks/Week Comments Yes 1 [...] documented as of this encounter Results * NM PET Whole Body Outside (No Interpretation) (01/31/2017 12:00 AM EDT) Narrative SYSTEMGENERATED, DOCUMENTATION - 03/24/2017 11:32 AM EDT This study is for PACS storage only and not for interpretation. us Provider Not In System [facility] OUTSIDE IMAGING W /OUT INTERPRETATION Final Result documented in this encounter Visit Diagnoses Not on filedocumented in this encounter Care Teams Mold Maker Apprentice Relationship Specialty Start Date End Date Enoc Llanos MD [address] [place] [address] PCP - General Internal Medicine 03/22/17 documented as of this encounter Additional Source Comments The information contained in this document represents components of the legal health record. It is not the complete legal health record.[facility]
--- OUTSIDE RECORDS SUMMARY | 2025-02-07 08:54 | XMS_ITS | Clinical Summary ---
Author Organization [facility] Address [address] [place] [address] Care Team Providers Care Therapy Tech Name Role Phone Enoc Llanos MD Primary [...] age to complete this topic Care Teams Therapy Tech Relationship Specialty Start Date End Date Enoc Llanos MD PCP - General Internal Medicine 06/13/18
--- OUTSIDE RECORDS SUMMARY | 2025-02-07 08:55 | XMS_ITS | Clinical Summary ---
Author Organization [facility] Address [address] [place] [id number] Phone Care Team Providers Care Environmental Services Tech Name Role Phone Enoc Llanos MD Primary Care Provider [phone] Allergies Active Allergy Reactions Criticality Noted Date Comments Sulfa (Sulfonamide Antibiotics) Unknown 01/22 Medications DULoxetine (CYMBALTA) 60 MG capsule Take 60 mg by mouth daily. Active amLODIPine-rambo zepril (LOTREL) 5-40 mg per capsule Take 1 capsule by mouth daily. Active atorvastatin (LIPITOR) 20 MG tablet Take 20 mg by mouth daily. Active pantoprazole (PROTONIX) 40 MG tablet EVERY EVENING Active cholecalciferol (VITAMIN D3) 4,000 unit tablet Take 2,000 Units by mouth daily. Active traZODone (DESYREL) 50 MG tablet Take 50 mg by mouth nightly. Active letrozole (FEMARA) 2.5 mg tablet Take 2.5 mg by mouth daily. Active amLODIPine (NORVASC) 5 MG tablet Take 1 tablet by mouth every morning. 4 Active anastrozole (ARIMIDEX) 1 mg tablet 9 Active busPIRone (BUSPAR) 10 MG tablet TAKE 1 TABLET ORAL TWICE A DAY 90 DAY(S) 4 Active celecoxib (CELEBREX) 200 MG capsule Active furosemide (LASIX) 20 MG tablet 9 Active naproxen (NAPROSYN) 500 MG tablet Take 1 tablet by mouth daily. 9 Active oxyCODONE 5 MG immediate release tablet oxycodone 5 mg tablet 9 Active traMADoL (ULTRAM) 50 mg tablet 9 Active valsartan (DIOVAN) 320 MG tablet Take 1 tablet by mouth every morning. 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 We discussed that she must have lymph nodes remaining in her axilla, as the specimens only show she has had one removed. I can not account for the biopsied node that showed mammary carcinoma. I agree that she should be treated as a node positive patient. She is due to start chemo on Tue. I offered that we could do a complete axillary dissection after the chemo and prior to the radiation treatment. I would not do this sooner, as I feel she needs time for her axilla to heal. Another axillary surgery would increase her risk of lymphedema. She would like to think about it, but does not think she wants further surgery. All questions were answered. She feels comfortable with proceeding with chemo and XRT. Malignant neoplasm of centra l portion of right breast in female, estrogen receptor positive 03/22/2017 Cancer Staging:Clinical stage from 02/02/2017:Stage IIB(T2(2), N1, M0) - Signed by Elena Floyd MD, MS on 03/22/2017 Fatigue Immunizations Immunization Administration Dates Next Due COVID-19 (Pre-03/14) Pfizer Vaccine, mRNA, PF ,08/06/2020 Influenza High-Dose Trivalent Preservative Free IM 01/18/2024,04/22/2023 Pneumococcal conjugate PCV20 08/22/2024 Pneumococcal polysaccharide PPSV23 02/02/2017 RSV Vaccine (monovalent, adjuvanted) 04/23/2023 Zoster recombinant 03/08/2022 Family History Medical History Relation Comments Lymphoma Brother Relation Status Comments Brother Social History Tobacco Use Types Packs/Day Years Used Date Smoking Tobacco: Former Cigarettes Q uit: 03/22/1976 Smokeless Tobacco: Never Tobacco Cessation:Counseling Given: Not Answered Alcohol Use Standard Drinks/Week Comments Yes 1 (1 standard drink = 0.6 oz pur e alcohol) Niraj kirkpatrick black occ Education Answer Date Recorded Are you interested [...] on file Sexual Orientation Not on file Last Filed Vital Signs Vital Sign Reading Time Taken Comments Blood Pressure 111/72 10/31/2024 1:13 PM EDT Pulse 71 10/31/2024 1:13 PM EDT Temperature 36.9 C (98.4 F) 10/31/2024 1:13 PM EDT Respiratory Rate 18 10/31/2024 1:13 PM EDT Oxygen Saturation 97% 10/31/2024 1:13 PM EDT Inhaled Oxygen Concentration - - Weight 103.9 kg (229 lb 1.6 oz) 10/11/2017 9:16 AM EDT Height 160 cm (5' 3 ) 06/27/2017 2:55 PM EST Body Mass Index 40.58 06/27/2017 2:55 PM EST Plan of Treatment Health Maintenance Due Date Last Done Comments Adult Td,Tdap Booster 1951 DEPRESSION SCREENING 1963 HEPATITIS C SCREENING 1969 MAMMOGRAM 1991 COLOGUARD 01/17/1996 COLONOSCOPY 01/17/1996 COLORECTAL CANCER SCREENING 01/17/1996 FIT TEST 01/17/1996 FOBT 01/17/1996 SIGMOIDOSCOPY 01/17/1996 VIRTUAL COLONOSCOPY 01/17/1996 OSTEOPOROSIS SCREENING INITIAL (ONE-TIME) 01/17/2016 ZOSTER VACCINES (2 of 2) 05/03/2022 03/08/2022 INFLUENZA VACCINE (#1) 2024 01/18/2024, 2022 COVID-19 VACCINE ( season) 2025 01/18/2024, 04/23/2023, 09/09/2022, Additional history exists BLOOD PRESSURE 05/02/2025 10/31/2024 CREATININE LEVEL 09/12/2025 09/12/2024, , 06/29/2022, Additional history exists POTASSIUM LEVEL 09/12/2025 09/12/2024, 11/21, 06/29/2022, Additional history exists SMOKING Hx and SMOKELESS TOBACCO SCREENING 10/31/2025 10/31/2024 LIPID PANEL 09/12/2029 09/12/2024, 11/21, 03/30/2021, Additional history exists RSV VACCINE Completed 04/23/2023 PNEUMOCOCCAL VACCINES (50+ years) Completed 08/22/2024, 02/02/2017 HEPATITIS A VACCINES Aged Out No long er eligible based on patient's age to complete this topic HIB VACCINES Aged Out No longer eligi ble based on patient's age to complete this topic MENINGOCOCCAL VACCINES (ACWY) Aged Out No longer eligible based on patient's age to complete this topic MENINGOCOCCAL VACCINES (B) Aged Out N o longer eligible based on patient's age to complete this topic Medical Devices Not on file Procedures Procedure Name Priority Date/Time Associated Diagnosis Comments LIPID PANEL Routine 09/12/2024 11:25 AM EDT Routine general medical examination at a health care facility Essential hypertension COMPREHENSIVE METABOLIC PANEL Routine 09/12/2024 11:25 AM EDT Routine general medical examination at a health care facility Essential hypertension from Last 3 Months or Most Recently Relevant to Health Maintenance Results * (ABNORMAL) Comprehensive metabolic panel (09/12/2024 11:25 AM EDT) SODIUM 140 133 - 146 mmol/L [facility] POTASSIUM 4.2 3.3 - 5.1 mmol/L [facility] CHLORIDE 100 96 - 108 mmol/L [facility] CO2 29 21 - 35 mmol/L [facility] BUN 19 6 - 19 mg/dL [facility] CREATININE 1.10 0.5 - 1.5 mg/dL [facility] GLUCOSE 100(H) 70 - 99 mg/dL [facility] ALBUMIN 4.1 3.9 - 4.8 g/dL [facility] TOTAL PROTEIN 7.1 6.5 - 8.0 g/dL [facility] CALCIUM 9.8 8.4 - 10.3 mg/dL [facility] ALKALINE PHOSPHATASE 115 39 - 117 U/L [facility] TOTAL BILIRUBIN 0.3 0.0 - 1.2 mg/dL [facility] AST 19 0 - 37 U/L [facility] ALT 11 0 - 40 U/L [facility] GLOBULIN 3.0 1 - 4.8 g/dL [facility] EGFR 53(L) >59 mL/min/1.7 3m2 [facility] Comment:Estimated glomerular filtration rate calculated using the CKD-EPI refit equation. ANION GAP 15 10 - 20 mmol/L [facility] Blood 09/12/2024 11:2 5 AM EDT 09/12/2024 11:28 AM EDT us Enoc Llanos MD LAB BLOOD ORDERABLES [facility]ries Result [facility] [address] [place] [address] * Lipid panel (09/12/2024 11:25 AM EDT) HDL 56 mg/dL [facility] Comment: Interpretation <40 mg/dL: Low HDL cholesterol (major risk factor for CHD) Greater than or equal to 60 mg/dL: High HDL cholesterol ( negative risk factor for CHD) HDL - cholesterol is affected by a number of factors, e.g. smoking, excerise, hormones, sex and age. CHOLESTEROL 203 0 - 240 mg/dL [facility] TRIGLYCERIDES 140 30 - 160 mg/dL [facility] LDL 119 50 - 129 mg/dL [facility] Comment: LDL levels in terms of risk for coronary heart disease: <100 mg/dL: Optimal 100-129 mg/dL: Near or above optimal 130-159 mg/dL: Borderline high 160-189 mg/dL: High >190 mg/dL: Very High CARDIAC RISK RATIO 3.6 3.3 - 4.4 [facility] Blood 09/12/2024 11:2 5 AM EDT 09/12/2024 11:28 AM EDT us Enoc Llanos MD LAB BLOOD ORDERABLES Le [facility] Result [facility] [address] [place] [address] from Last 3 Months or Most Recently Relevant to Health Maintenance Insurance MEDICARE PART A [place] [id number] [facility] MEDICARE SUPPLEMENT [facility] Address: [place] [address] MEDICARE PART A & B [employer] MEDICARE SUPPLEMENT MEDICARE PART A & B MEDICARE PART A & B MEDICARE PART A & B [employer] MEDICARE SUPPLEMENT [facility] Address: [place] [address] MEDICARE PART A & B MEDICARE PART A & B [facility] MEDICARE SUPPLEMENT MEDICARE PART A & B [facility] MEDICARE SUPPLEMENT MEDICARE PART A & B [employer] MEDICARE SUPPLEMENT Advance Directives For more information, please contact: [phone] (9AM - 5PM [facility], Tuesday-Tuesday) Documents on File Type Date Recorded Patient Cyber Engineer Expl anation Living Will 03/24/2017 4:25 PM Care Teams Environmental Services Tech Relationship Specialty Start Date End Date Enoc Llanos MD [address] [place] [address] PCP - General Internal Medicine 03/22/17 Additional Source Comments The information contained in this document represents components of the legal health record. It is not the complete legal health record.[facility]
--- OUTSIDE RECORDS SUMMARY | 2025-02-07 08:55 | XMS_ITS | Patient Health Record ---
Author Organization [facility] Address [address] [place] [address] Care Team Providers Care Armament Aircraft Mechanic Name Role Phone Enoc Llanos MD Primary Care Provider Jose J Fitzpatrick Jr Unavailable [phone] Allergies Allergen (clinical drug ingredient) Drug/Non Drug [...] Problem Status W/U Status Risk Notes Problem 141640576 Colon cancer screening (Z12.11) Active confirmed Problem 082842168 Gastroesophageal reflux disease without esophagitis (K21.9) Active confirmed Problem 94432525 Change in bowel function (R19.8) Active confirmed Plan Of Treatment Future Test Test Name Order Date COLONOSCOPY 03/17/2022 COLONOSCOPY 10/13/2022 Insurance Providers Payer Name Payer Address Payer Phone Subscriber Number Group Number Insured Name Patient Relationship to Insured Coverage Start Date Coverage End Date MEDICARE OF [place] [address] [place] [id number] [phone] [id number] MONI ODEN Self - patient is the insured [employer] CLAIMS [address] [place] [address] [id number] MONI ODEN Self - patient is the insured Medical (General) History Medical History History ICD Code Hypertension Right breast cancer status p ost mastectomy, axillary node dissection, and chemoradiation Osteoporosis Stage I kidney cancer Elevated cholesterol Depression/anxiety Edema Surgical History Surgery Date(Month/Year) Right mastectomy 2017 Right partial nephrectomy 2018 Bilateral Dupuytren's contractures repai r 2020
--- OUTSIDE RECORDS SUMMARY | 2025-02-07 08:55 | XMS_ITS | Patient Health Record ---
Author Organization [facility] Address [address] [place] [id number] Care Team Providers Care Scenario Writer Name Role Phone LUCIEN RAMIREZ Primary Care Provider [place], NURSING Unavailable [phone] ALLERGIES Allergen (clinical drug ingredient) Drug/Non Drug Allergy documented on EMR Reaction Allergy Type Onset Date Status benazepril Benazepril Unknown Drug Allergy Activ e Substance with sulfonamide structure and antibacterial mechanism of action (substance) Sulfa Antibiotics Unknown Drug Allergy 08/20/2008 Active REASON FOR REFERRAL No Information MEDICATIONS Medication SIG (Take, Route, Frequency, Duration) Notes Start Date End Date Status Naproxen 500 MG TAKE 1 TABLET BY RAMON TH TWICE A DAY WITH FOOD OR MILK Active DULoxetine HCl 60 MG 1 capsule Orally On ce a day Active busPIRone HCl 10 MG 1 tablet Orally Twic e a day Active amLODIPine Besylate 5 MG 1 tablet Oral Once a day 05/03/2022 Active traZODone HCl 50 MG TAKE 1-2 TABLETs BY MOUTH EVERYDAY AT BEDTIME Active Valsartan 320 MG 1 tablet Orally Once a day Active Atorvastatin Calcium 20 MG 1 tablet Oral ly Once a day Active Pantoprazole Sodium 40 MG 1 tablet 1/2 t o 1 hour before morning meal Orally Once a day Active traMADol HCl 50 MG 1-2 tablets as neede d Orally twice a day for 30 day(s) 01/24/2025 Active Furosemide 20 MG take 1 tablet by ora l route every day Oral Once a day for 30 day(s) 09/28/2021 Active Fluticasone Propionate 50 MCG/ACT 2 sprays (1 spray in each nostril) Nasal Twice a day 11/30/2021 Active IMMUNIZATIONS Vaccine Route Administration Date Status Comme nts Zoster recombinant Unknown 12/03/2021 Administered Zoster recombinant Unknown 03/10/2022 Administered Td (Tetanus Diphtheria) Unknown 11/05/2008 Administered SARSCOV2 VAC BVL 3MCG/0.2ML Pfizer Unknown 04/12/2021 Administered AgetptXSV19 IM Intramuscular 08/22/2024 Administered Pneumococcal, PPV 23 IM Intramuscular 01/25/2018 Administe red Pneumococcal Prevnar 13 Unknown 01/21/2017 Administered Pfizer COVID-19,mRNA, LNP-S, PF, 30mcg/0.3mL dose Unknown 08/06/2020 Administered Pfizer COVID-19,mRNA, LNP-S, PF, 30mcg/0.3mL dose Unknown 08/27/2020 Administered Influenza, Fluzone HD 65+ IM Intramuscular 04/22/2023 Admi nistered Covid Unknown 03/16/2022 Administered SOCIAL HISTORY Tobacco Use: Social History Observation Description Date Details (start date - stop date) Former Smoker NA - NA Sex Assigned At : Social History Observation Description Sex Assigned At Unknown Smoking Question Answer Notes Are you a: former smoker Section Notes: Patient quit smoking 1975 Patient quit smoking 1975 Patient quit smoking 1975 PROBLEMS Problem Type ICD Code Onset Dates Problem Status W/U Status Risk SNOMED Code Notes Problem Essential (primary) hypertension (I10) Active confirmed 48368162 Problem Generalized osteoarthritis (M15.9) Active confirmed 324038557 Problem Primary insomnia (F51.01) Active confirmed 6109485 Problem Other obesity due to excess calories (E66.09) Active confirmed 338249356 Problem Mixed hyperlipidemia (E78.2) Active confirmed 588413187 Problem Anxiety (F41.9) Active confirmed 786603 02 Problem Primary osteoarthritis of right knee (M17.11) Active confirmed 803332180940678 Problem Insomnia, unspecified type (G47.00) Active confirmed 519769878 Problem Chronic GERD (K21.9) Active confirmed 638907149 Problem Chronic venous insufficiency (I87.2) Active confirmed 42684317 Problem Personal history of breast cancer (Z85.3) Active confirmed 077938349 Problem Body mass index [BMI] 34.0-34.9, adult (Z68.34) Active confirmed 578064907 Problem Incomplete tear of left rotator cuff, unspecified whether traumatic (M75.112) Active confirmed 205709615 VITAL SIGNS Blood pressure diastolic 72 mm Hg 01/24/2025 Height 62.125 in 01/24/2025 Blood pressure systolic 126 mm Hg 01/24/2025 Weight 188 lbs 01/24/2025 BMI 34.24 kg/m2 01/24/2025 Encounters Encounter Location Date Provider Diagnosis [address] [address] 03/15/2024 [facility] Essential (primary) hypertension I10 ; Mixed hyperlipidemia E78.2 and Other fatigue R53.[address] [address] 07/16/2024 [place] [id number] 07/16/[address] [address] 08/02/2024 [place] [id number] 08/02/2024 [place] [id number] 08/22/2024 [facility] Essential (primary) hypertension I10 ; Personal history of breast cancer Z85.3 ; Anxiety F41.9 ; Encntr for general adult medical exam w/o abnormal findings Z00.00 and Encounter for immunization Z23 [address] [address] 09/13/[address] [address] 09/27/[address] [address] 09/27/2024 [facility] Pain, joint, shoulde r, right M25.[address] [address] 12/03/[address] [address] 12/17/2024 [facility] Preprocedural examination Z01.818 ; Primary osteoarthritis of right knee M17.11 ; Insomnia, unspecified type G47.00 ; Mixed hyperlipidemia E78.2 and Essential (primary) hypertension I10 [address] [address] 12/18/2024 [facility] Primary osteoarthrit is of right knee M17.[address] [address] 01/24/2025 [facility] Essential (primary) hypertension I10 ; Personal history [...] adult medical examination with abnormal findings Z00.[address] [address] 01/24/2025 [place] [id number] 01/24/2025 [facility] Medicare annual wellness visit, subsequent Z00.[address] [address] 01/31/[address] [address] 02/05/2025 [facility] ASSESSMENTS Encounter Date Diagnosis Assessment Notes Treatment Notes Treatment Clinical Notes Section Notes 01/24/2025 Medicare annual wellness visit, subsequent (ICD-10 - Z00.00) 12/18/2024 Primary osteoarthritis of right knee (ICD-10 - M17.11) 12/17/2024 Preprocedural examination (ICD-10 - Z01.818) 1. Right knee osteoarthritis: Patient is low cardiovascular risk for proposed surgery. No additional preoperative testing is required. She will try taking 2 tramadol at a time to see if this provides better relief and update me on her progress. She only uses the medication when symptoms are severe 2. Insomnia: We discussed increasing her trazodone to 2 pills at bedtime if needed 3. Hyperlipidemia: Borderline and current atorvastatin. Will consider adjusting if not trending lower 4. Hypertension: Stable on present therapy. No changes made today 12/17/2024 Primary osteoarthritis of right knee (ICD-10 - M17.11) 1. Right knee osteoarthritis: Patient is low cardiovascular risk for proposed surgery. No additional preoperative testing is required. She will try taking 2 tramadol at a time to see if this provides better relief and update me on her progress. She only uses the medication when symptoms are severe 2. Insomnia: We discussed increasing her trazodone to 2 pills at bedtime if needed 3. Hyperlipidemia: Borderline and current atorvastatin. Will consider adjusting if not trending lower 4. Hypertension: Stable on present therapy. No changes made today 09/27/2024 Pain, joint, shoulder, right (ICD-10 - M25.511) 1. Right shoulder pain: Suspected rotator cuff tear. Will await MRI scheduled for tomorrow. Will provide tramadol as backup for her naproxen on the evenings that she has significantly increased pain. Explained that can only give a week to start and that she needs to fill this only at 1 pharmacy and to use as directed. She will schedule follow-up in the office 01/24/2025 Personal history of breast cancer (ICD-10 - Z85.3) 1. Hypertension: Stable on present regimen. No changes made today 2. Personal history of breast cancer: No sign of recurrence. Follows with Dr. Mcgowan at [facility] [place] 3. Hyperlipidemia: Will update profile on atorvastatin 4. Right knee osteoarthritis: Awaiting surgery with Dr. Armendariz. Using naproxen and tramadol cautiously 5. Obesity/BMI of 34: Will check A1c with laboratory studies. She is working at diet 6. GERD: Stable on pantoprazole. Will continue same 7. Insomnia: Stable on trazodone. Will continue same 8. Anxiety/depressi on: She feels current medication regimen with duloxetine [...] blood work. Flu shot given today 01/24/2025 Essential (primary) hypertension (ICD-10 - I10) 1. Hypertension: Stable on present regimen. No changes made today 2. Personal history of breast cancer: No sign of recurrence. Follows with Dr. Mcgowan at [facility] 3. Hyperlipidemia: Will update profile on atorvastatin 4. Right knee osteoarthritis: Awaiting surgery with Dr. Armendariz. Using naproxen and tramadol cautiously 5. Obesity/BMI of 34: Will check A1c with laboratory studies. She is working at [employer] 6. GERD: Stable on pantoprazole. Will continue same 7. Insomnia: Stable on trazodone. Will continue same 8. Anxiety/depressi on: She feels current medication regimen with duloxetine [...] fasting blood work. Flu shot given today 08/22/2024 Essential (primary) hypertension (ICD-10 - I10) 1. Hypertension: Gradually better over the course of the visit. Will maintain current amlodipine and valsartan and recheck at her physical at the end of summer 2. History of breast cancer: Long-term stability. Continues to follow with oncology 3. Anxiety: We will restart buspirone which she has not been taking and if this does not adequately control her symptoms we will reconsider options. She continues on duloxetine 4. Routine healthcare maintenance: Update labs including lipids. Prevnar 20 given today 03/15/2024 Mixed hyperlipidemia (ICD-10 - E78.2) 1. Hypertension: Better today back on amlodipine. Will continue to follow the trend at home and she will let me know if she gets any low readings 2. Hyperlipidemia: We will update profile on atorvastatin 3. Fatigue: Will check thyroid function as well as ruling out anemia or other metabolic abnormalities 03/15/2024 Essential (primary) hypertension (ICD-10 - I10) 1. Hypertension: Better today back on amlodipine. Will continue to follow the trend at home and she will let me know if she gets any low readings 2. Hyperlipidemia: We will update profile on atorvastatin 3. Fatigue: Will check thyroid function as well as ruling out anemia or other metabolic abnormalities 12/17/2024 Insomnia, unspecified type (ICD-10 - G47.00) 1. Right knee osteoarthritis: Patient is low cardiovascular risk for proposed surgery. No additional preoperative testing is required. She will try taking 2 tramadol at a time to see if this provides better relief and update me on her progress. She only uses the medication when symptoms are severe 2. Insomnia: We discussed increasing her trazodone to 2 pills at bedtime if needed 3. Hyperlipidemia: Borderline and current atorvastatin. Will consider adjusting if not trending lower 4. Hypertension: Stable on present therapy. No changes made today 01/24/2025 Mixed hyperlipidemia (ICD-10 - E78.2) 1. Hypertension: Stable on present regimen. No changes made today 2. Personal history of breast cancer: No sign of recurrence. Follows with Dr. Mcgowan at [place] 3. Hyperlipidemia: Will update profile on atorvastatin 4. Right knee osteoarthritis: Awaiting surgery with Dr. Armendariz. Using naproxen and tramadol cautiously 5. Obesity/BMI of 34: Will check A1c with laboratory studies. She is working at [employer] 6. GERD: Stable on pantoprazole. Will continue same 7. Insomnia: Stable on trazodone. Will continue same 8. Anxiety/depressi on: She feels current medication regimen with duloxetine [...] fasting blood work. Flu shot given today 08/22/2024 Personal history of breast cancer (ICD-10 - Z85.3) 1. Hypertension: Gradually better over the course of the visit. Will maintain current amlodipine and valsartan and recheck at her physical at the end of summer 2. History of breast cancer: Long-term stability. Continues to follow with oncology 3. Anxiety: We will restart buspirone which she has not been taking and if this does not adequately control her symptoms we will reconsider options. She continues on duloxetine 4. Routine healthcare maintenance: Update labs including lipids. Prevnar 20 given today 03/15/2024 Other fatigue (ICD-10 - R53.83) 1. Hypertension: Better today back on amlodipine. Will continue to follow the trend at home and she will let me know if she gets any low readings 2. Hyperlipidemia: We will update profile on atorvastatin 3. Fatigue: Will check thyroid function as well as ruling out anemia or other metabolic abnormalities 08/22/2024 Anxiety (ICD-10 - F41.9) 1. Hypertension: Gradually better over the course of the visit. Will maintain current amlodipine and valsartan and recheck at her physical at the end of summer 2. History of breast cancer: Long-term stability. Continues to follow with oncology 3. Anxiety: We will restart buspirone which she has not been taking and if this does not adequately control her symptoms we will reconsider options. She continues on duloxetine 4. Routine healthcare maintenance: Update labs including lipids. Prevnar 20 given today 01/24/2025 Primary osteoarthritis of right knee (ICD-10 - M17.11) 1. Hypertension: Stable on present regimen. No changes made today 2. Personal history of breast cancer: No sign of recurrence. Follows with Dr. Mcgowan at [place] 3. Hyperlipidemia: Will update profile on atorvastatin 4. Right knee osteoarthritis: Awaiting surgery with Dr. Armendariz. Using naproxen and tramadol cautiously 5. Obesity/BMI of 34: Will check A1c with laboratory studies. She is working at [employer] 6. GERD: Stable on pantoprazole. Will continue same 7. Insomnia: Stable on trazodone. Will continue same 8. Anxiety/depressi on: She feels current medication regimen with duloxetine [...] fasting blood work. Flu shot given today 12/17/2024 Mixed hyperlipidemia (ICD-10 - E78.2) 1. Right knee osteoarthritis: Patient is low cardiovascular risk for proposed surgery. No additional preoperative testing is required. She will try taking 2 tramadol at a time to see if this provides better relief and update me on her progress. She only uses the medication when symptoms are severe 2. Insomnia: We discussed increasing her trazodone to 2 pills at bedtime if needed 3. Hyperlipidemia: Borderline and current atorvastatin. Will consider adjusting if not trending lower 4. Hypertension: Stable on present therapy. No changes made today 08/22/2024 Encntr for general adult medical exam w/o abnormal findings (ICD-10 - Z00.00) 1. Hypertension: Gradually better over the course of the visit. Will maintain current amlodipine and valsartan and recheck at her physical at the end of summer 2. History of breast cancer: Long-term stability. Continues to follow with oncology 3. Anxiety: We will restart buspirone which she has not been taking and if this does not adequately control her symptoms we will reconsider options. She continues on duloxetine 4. Routine healthcare maintenance: Update labs including lipids. Prevnar 20 given today 01/24/2025 Body mass index [BMI] 34.0-34.9, adult (ICD-10 - Z68.34) 1. Hypertension: Stable on present regimen. No changes made today 2. Personal history of breast cancer: No sign of recurrence. Follows with Dr. Mcgowan at [place] 3. Hyperlipidemia: Will update profile on atorvastatin 4. Right knee osteoarthritis: Awaiting surgery with Dr. Armendariz. Using naproxen and tramadol cautiously 5. Obesity/BMI of 34: Will check A1c with laboratory studies. She is working at [employer] 6. GERD: Stable on pantoprazole. Will continue same 7. Insomnia: Stable on trazodone. Will continue same 8. Anxiety/depressi on: She feels current medication regimen with duloxetine [...] fasting blood work. Flu shot given today 12/17/2024 Essential (primary) hypertension (ICD-10 - I10) 1. Right knee osteoarthritis: Patient is low cardiovascular risk for proposed surgery. No additional preoperative testing is required. She will try taking 2 tramadol at a time to see if this provides better relief and update me on her progress. She only uses the medication when symptoms are severe 2. Insomnia: We discussed increasing her trazodone to 2 pills at bedtime if needed 3. Hyperlipidemia: Borderline and current atorvastatin. Will consider adjusting if not trending lower 4. Hypertension: Stable on present therapy. No changes made today 08/22/2024 Encounter for immunization (ICD-10 - Z23) Pneumococcal Conjugate 20 given today. Patient counseled and given VIS sheet for review. 1. Hypertension: Gradually better over the course of the visit. Will maintain current amlodipine and valsartan and recheck at her physical at the end of summer 2. History of breast cancer: Long-term stability. Continues to follow with oncology 3. Anxiety: We will restart buspirone which she has not been taking and if this does not adequately control her symptoms we will reconsider options. She continues on duloxetine 4. Routine healthcare maintenance: Update labs including lipids. Prevnar 20 given today 01/24/2025 Chronic GERD (ICD-10 - K21.9) 1. Hypertension: Stable on present regimen. No changes made today 2. Personal history of breast cancer: No sign of recurrence. Follows with Dr. Mcgowan at [place] 3. Hyperlipidemia: Will update profile on atorvastatin 4. Right knee osteoarthritis: Awaiting surgery with Dr. Armendariz. Using naproxen and tramadol cautiously 5. Obesity/BMI of 34: Will check A1c with laboratory studies. She is working at diet 6. GERD: Stable on pantoprazole. Will continue same 7. Insomnia: Stable on trazodone. Will continue same 8. Anxiety/depressi on: She feels current medication regimen with duloxetine [...] of recurrence. Follows with Dr. Roslyn najera [place] 3. Hyperlipidemia: Will update profile on atorvastatin 4. Right knee osteoarthritis: Awaiting surgery with Dr. Armendariz. Using naproxen and tramadol cautiously 5. Obesity/BMI of 34: Will check A1c with laboratory studies. She is working at diet 6. GERD: Stable on pantoprazole. Will continue same 7. Insomnia: Stable on trazodone. Will continue same 8. Anxiety/depressi on: She feels current medication regimen with duloxetine [...] of recurrence. Follows with Dr. Roslyn najera [place] 3. Hyperlipidemia: Will update profile on atorvastatin 4. Right knee osteoarthritis: Awaiting surgery with Dr. Armendariz. Using naproxen and tramadol cautiously 5. Obesity/BMI of 34: Will check A1c with laboratory studies. She is working at diet 6. GERD: Stable on pantoprazole. Will continue same 7. Insomnia: Stable on trazodone. Will continue same 8. Anxiety/depressi on: She feels current medication regimen with duloxetine [...] of recurrence. Follows with Dr. Roslyn najera [place] [facility] 3. Hyperlipidemia: Will update profile on atorvastatin 4. Right knee osteoarthritis: Awaiting surgery with Dr. Armendariz. Using naproxen and tramadol cautiously 5. Obesity/BMI of 34: Will check A1c with laboratory studies. She is working at diet 6. GERD: Stable on pantoprazole. Will continue same 7. Insomnia: Stable on trazodone. Will continue same 8. Anxiety/depressi on: She feels current medication regimen with duloxetine [...] of recurrence. Follows with Dr. Mcgowan at [place] 3. Hyperlipidemia: Will update profile on atorvastatin 4. Right knee osteoarthritis: Awaiting surgery with Dr. Armendariz. Using naproxen and tramadol cautiously 5. Obesity/BMI of 34: Will check A1c with laboratory studies. She is working at diet 6. GERD: Stable on pantoprazole. Will continue same 7. Insomnia: Stable on trazodone. Will continue same 8. Anxiety/depressi on: She feels current medication regimen with duloxetine [...] of recurrence. Follows with Dr. Roslyn najera [place] 3. Hyperlipidemia: Will update profile on atorvastatin 4. Right knee osteoarthritis: Awaiting surgery with Dr. Armendariz. Using naproxen and tramadol cautiously 5. Obesity/BMI of 34: Will check A1c with laboratory studies. She is working at diet 6. GERD: Stable on pantoprazole. Will continue same 7. Insomnia: Stable on trazodone. Will continue same 8. Anxiety/depressi on: She feels current medication regimen with duloxetine [...] of recurrence. Follows with Dr. Mcgowan at [place] 3. Hyperlipidemia: Will update profile on atorvastatin 4. Right knee osteoarthritis: Awaiting surgery with Dr. Armendariz. Using naproxen and tramadol cautiously 5. Obesity/BMI of 34: Will check A1c with laboratory studies. She is working at diet 6. GERD: Stable on pantoprazole. Will continue same 7. Insomnia: Stable on trazodone. Will continue same 8. Anxiety/depressi on: She feels current medication regimen with duloxetine [...] blood work. Flu shot given today 01/24/2025 Other Complete exam recommended PLAN OF TREATMENT Future Test Test Name Order Date HEMOGLOBIN A1C 01/14/2023 CBC, Platelet, w/o Differential-[id number] Lipid Panel-[id number] 03/15/2024 TSH Rfx on Abnormal to Free [id number] Comp. Metabolic Panel [id number] 2023 Next Appt Details Provider Name:LUCIEN RAMIREZ , 07/24/2025 01:00:00 PM, [address] [place], [address], Insurance Providers Payer Name Payer Address Payer Phone Subscriber Number Group Number Insured Name Patient Relationship to Insured Coverage Start Date Coverage End Date MEDICARE [employer] [address] [place] [phone] [id number] ODEN OCTOBER Self - patient is the insured 7 [employer] [address] [address] [place] [address] [phone] [id number] Self - patient is the insured [employer] [address] [place] [address] [phone] [id number] October Self - patient is the insured 0 MEDICAL (GENERAL) HISTORY Medical History History ICD Code Disease : renal mass - Oncocytoma, Elevated lipids, hypertension, neoplastic, Disease : Cancer , Right breast, Dec 2016 mastectomy, reconstruction, chemo, XRT Problems: Insomnia, Problems: Peripheral venous insufficienc 09/25/2010:Active Surgical History Surgery Date(Month/Year) Left shoulder arthroscopic surgery 2023 : R distal fibular Fracture, Sx_Procedur e : casting 2008 : L 5th Metatarsal Fraccture, Sx_Procedu re : casting Disease : Cholecystitis, Sx_Procedure : Cholecystectomy
--- OUTSIDE RECORDS SUMMARY | 2025-02-07 08:55 | XMS_ITS | Encounter Summary ---
Author Organization [facility] Address [address] [place] [id number] Phone Care Team Providers Care Budget Coordinator Name Role Phone Enoc Llanos MD Primary Care Provider [phone] Reason for Referral * MRI/CAT Scan - Closed Specialty Diagnoses / Procedures Referred By Contac t Referred To Contact Procedures CT Chest Outside (No Interpretation) System, Provider Not In, [facility] [address] [address] Referral ID Status Reason Start Date Expiration Date Visits Re quested Visits Authorized [id number] Closed 04/06/2017 04/06/2018 1 1 Encounter Details Date Type Department Care Team (Late st Contact Info) Description 04/06/2017 Ancillary Orders [facility],Outside Imaging [address] [place] [address] System, Provider Not In, [facility] [address] [address] Social History Tobacco Use Types Packs/Day Years [...] documented as of this encounter Results * CT Chest Outside (No Interpretation) (03/09/2017 12:00 AM EDT) Narrative SYSTEMGENERATED, DOCUMENTATION - 04/06/2017 12:57 PM EST This study is for PACS storage only and not for interpretation. us Provider Not In System [facility] OUTSIDE IMAGING W /OUT INTERPRETATION Final Result documented in this encounter Visit Diagnoses Not on filedocumented in this encounter Care Teams Budget Coordinator Relationship Specialty Start Date End Date Enoc Llanos MD [address] [place] [address] PCP - General Internal Medicine 03/22/17 documented as of this encounter Additional Source Comments The information contained in this document represents components of the legal health record. It is not the complete legal health record.[facility]
== END 2025-02-07 08:37 | disposition home or self-care (01) ==
LOC: HO.HOS 08:11
PROVIDERS: PCP Internal Medicine; Visit Provider Orthopaedic Surgery
DX: M17.11 Unilateral primary osteoarthritis, right knee (principal)
CPT/HCPCS: 99024

== ENCOUNTER 2025-02-07 08:11 | Outpatient (REF) | payer MEDICARE, OTHER, SELFPAY ==
[2025-02-07 09:29] LABS: Hematocrit 38.4 % (37.0-47.0); Hemoglobin 13.0 g/dl (12.0-16.0); Mean Corpuscular HGB Conc 33.9 g/dl (31.0-35.0); Mean Corpuscular Hemoglobin 29.7 pg (27.0-33.0); Mean Corpuscular Volume 87.9 fL (80.0-98.0); NRBC Abs Auto 0.000 X10*3/uL (0.0-0.012); NRBC Pct Auto 0.0 /100WBC (0.0-0.2); Platelet Count 251 X10*3/uL (160-400); Red Blood Count 4.37 X10*6/uL (4.20-5.50); White Blood Count 7.9 X10*3/uL (4.8-10.8)
[2025-02-07 09:43] LABS: Total Hemoglobin (HGBA1C) 3465.3272 umol/L
[2025-02-07 10:05] LABS: Anion Gap 9 (12-20); Blood Urea Nitrogen 17 mg/dL (9-16); Calcium 9.5 mg/dL (8.4-10.2); Carbon Dioxide 29 mmol/L (22-29); Chloride 107 mmol/L (96-108); Estimated Glomerular Filt Rate 51; Potassium 4.2 mmol/L (3.3-5.1); Sodium 141 mmol/L (135-145)
== END 2025-02-07 08:12 | disposition home or self-care (01) ==
LOC: HO.LAB 08:11
PROVIDERS: Physician Assistant; PCP Internal Medicine; Visit Provider Orthopaedic Surgery
DX: Z01.818 Encounter for other preprocedural examination (principal); M17.11 Unilateral primary osteoarthritis, right knee; Z13.1 Encounter for screening for diabetes mellitus
CPT/HCPCS: 36415; 80048; 83036; 85027; 99212

== ENCOUNTER 2025-02-11 05:55 | Day surgery (SDC) | payer MEDICARE, OTHER, SELFPAY ==
--- OUTSIDE RECORDS SUMMARY | 2024-12-18 14:06 | XMS_ITS | Clinical Summary ---
Author Organization [facility] Address [address] [place] [address] Care Team Providers Care Plant Operator/Shift Supervisor Name Role Phone Enoc Llanos MD Primary [...] 1 - PCV) 01/17/2016 Influenza Vaccine (#1) 2025 03/04/2021 RSV Adult > 60+ Yrs or Pregn ant (1 - 1-dose 75+ series) 2026 Hepatitis B Vaccines Aged Out No long er eligible based on patient's age to complete this topic RSV Ped < 20 months Aged Out No longe r eligible based on patient's age to complete this topic Care Teams Plant Operator/Shift Supervisor Relationship Specialty Start Date End Date Enoc Llanos MD PCP - General Internal Medicine 06/13/18
--- OUTSIDE RECORDS SUMMARY | 2024-12-18 14:06 | XMS_ITS | Data Portability ---
Author Organization [place] [facility] [place] Address [address] [place] [address] Care Team Providers Care Scrap Iron Loader Name Role Phone LUCIEN RAMIREZ Referring Provider [phone] LUCIEN RAMIREZ Primary Care Provider [phone] Assessment Encounter Date Assessment Date Assessment LastModified [...] wishes to continue care with [facility] she is more than welcome to come [...] or more view 2022 023 [facility], [address], [address], [place], [address], 3 20:02:05 Medication Orders Kenalog 40 mg/mL suspension for injection 2023 024 [facility], [address] [place], [address], 4 14:30:01 lidocaine (PF) 100 mg/5 mL (2 %) injection syringe 2023 024 at[facility], [address] [place] [address], [address], 4 14:30:01 Kenalog 40 mg/mL suspension for injection 2023 024 atz [facility], [address] [place] [address], [address], 4 14:30:01 lidocaine (PF) 100 mg/5 mL (2 %) injection syringe 2023 024 [employer] [facility], [address] [place] [address], [address], 4 14:30:01 Kenalog 40 mg/mL suspension for injection 2022 023 [facility], [address] [place] [address], [address], 4 14:00:45 lidocaine (PF) 10 mg/mL (1 %) injection solution 2022 023 [employer] [facility], [address] [place] [address], [address], 4 14:00:47 Kenalog 40 mg/mL suspension for injection 2022 023 [facility], [address] [place] [address], [address], 4 14:00:45 lidocaine (PF) 100 mg/5 mL (2 %) injection syringe 2022 023 [facility], [address] [place] [address], [address], 3 20:02:05 Kenalog 40 mg/mL suspension for injection 2022 023 [facility], [address] [place] [address], [address], 4 14:00:45 lidocaine (PF) 100 mg/5 mL (2 %) injection syringe 2022 023 [facility], [address] [place] [address], [address], 3 16:25:14 Kenalog 40 mg/mL suspension for injection 2022 023 [facility], [address] [place] [address], [address], 4 14:00:45 lidocaine (PF) 100 mg/5 mL (2 %) injection syringe 2022 023 [facility], [address] [place] [address], [address], 3 16:25:14 Kenalog 40 mg/mL suspension for injection 2022 023 [facility], [address] [place] [address], [address], 4 14:00:45 lidocaine (PF) 10 mg/mL (1 %) injection solution [address], [address] [place], [address], 4 14:00:47 Kenalog 40 mg/mL suspension for injection 2022 023 [address] [place], [address], 4 14:00:45 lidocaine (PF) 10 mg/mL (1 %) injection solution 2022 023 [address] [place], [address], 14:00:47 Patient TargetsNo targets recorded. Patient Instructions Encounter Date Encounter Id Patient Instructions Last Modified By Organization Details Last Modified Time 11/10/2022 [id number] You have been provided with a cortisone [...] office or contact us through the portal [facility]. Not available 11/10/2022 15:25:31 05/05/2023 [id number] You have been provided with a cortisone [...] office or contact us through the portal [facility]. Not available 05/06/2023 07:56:23 Three-view x-ray of the right shoulder reveals overall well-maintained glenohumeral joint space, AC joint space narrowing and spurring, type II acromion without acute bony abnormality observed. Not available 05/06/2023 07:41:21 05/11/2023 [id number] You have been provided with a cortisone [...] portal [facility]. Not available 05/11/2023 14:23:39 08/10/2023 [id number] You have been provided with a cortisone [...] Name and Address Organization Details Recorded Time Arthritis of right knee [id number] 102 Active 2022 RK HARPER PA-C [address], [place], [address], [place] [facility] 3 15:19:29 Arthritis of knee 050139827 Active 2022 RK HARPER PA-C [address], [place], [address], [place] [facility] 3 15:19:33 Impingement syndrome of left shoulder region 7399637207332 04 Active 2022 RK HARPER PA-C [address], [place], [address], [place] [facility] 3 11:00:20 Calcific tendinitis of left shoulder 7159019740270 08 Active 2022 RK HARPER PA-C [address], [place], [address], [place] [facility] 3 11:00:26 Arthritis of acromioclav icular joint 130658158 Active 2022 RK HARPER PA-C [address], [place], [address], [place] [facility], [facility] 3 11:00:46 Full thickness rotator cuff tear 206684569 Active 2022 RK HARPER PA-C [address], [place], [address], [place] [facility] 3 13:14:32 Osteoarthri tis of right knee joint 1984621136246 00 Active 2022 RK HARPER PA-C [address], [place], [address], [place] [facility] 3 15:25:38 Osteoarthri tis of left knee joint 1757086736572 09 Active 2022 RK HARPER PA-C [address], [place], [address], [place] [facility], [facility] 15:25:46 Problem Notes None recorded. Procedures Surgical History Date Name Laterality Status Provider Name and Address Organization Details Recorded Time 08/10/19 24 Knee Joint/Bursa Asp & Inj completed RK HARPER PA-C [address], [place], [address], [place] [facility] 08/10/2023 14:27:50 05/11/20 23 Shoulder Joint/Bursa Asp & Inj completed RK HARPER PA-C [address], [place], [address], [place] [facility] 05/11/2023 14:24:35 05/05/20 23 Shoulder Joint/Bursa Asp & Inj completed RK HARPER PA-C [address], [place], [address], [place] [facility] 05/06/2023 07:54:41 04/21/20 23 Knee Joint/Bursa Asp & Inj completed RK HARPER PA-C [address], [place], [address], [place] [facility] 04/21/2023 14:52:05 11/11/19 23 Knee Joint/Bursa Asp & Inj completed RK HARPER PA-C [address], [place], [address], [place] [facility] 11/10/2022 15:22:03 08/11/19 23 Knee Joint/Bursa Asp & Inj completed RK HARPER PA-C [address], [place], [address], [place] [facility] 08/10/2022 15:18:45 simple mastectomy completed Cheyenne Nance [facility] - [facility], P 08/02/2022 10:14:23 cholecystectomy completed Cheyenne Martin [place] - [facility], P 08/02/2022 10:14:47 Imaging Results None recorded. [...] Not available Not available Not available 08/02/2022 [id number] SNOMED Cheyenne Martin null, [place] [facility] 3 10:08:40 Medications Name Sig Start [...] ICD10 Code Diagnosis Note [id number] MARTHA MAYBERRY [facility] [address] [address] 08/10/2022 14:19:35 08/10/2022 15:19:44 Arthritis of right knee 5163808355 558397 M13.861 Arthritis of knee 879870 002 M13.869 2385 MARTHA MAYBERRY [facility] [address] [address] 08/17/2022 10:28:21 08/17/2022 11:02:31 Pain of left shoulder joint 5108136053 8185156 M25.512 Impingemen t syndrome of left shoulder region 0467735768 42045 M75.42 Calcific t endinitis of left shoulder 6436333528 24454 M75.32 Arthritis of acromioclavicular joint 756515830 M13.819 6125 MARTHA MAYBERRY [facility] [address] [address] 09/08/2022 12:48:06 09/08/2022 13:10:32 Full thickness rotator cuff tear 685216632 M75.122 [id number] MARTHA MAYBERRY [facility] [address] [address] 10/27/2022 14:46:43 10/27/2022 15:23:21 Pain of bilateral knee joints 0638586555 11528 M25.561 [id number] MARTHA MAYBERRY [facility] 299 [facility] [address] [place] [address] 11/10/2022 14:55:29 11/10/2022 15:19:02 Osteoarthritis of right knee joint 7895659136 06850 M17.11 Osteoarthr itis of left knee joint 5106161687 03348 M17.12 [id number] MARTHA MAYBERRY [facility] [address] [place] [address] 04/21/2023 13:38:35 04/21/2023 14:14:49 Osteoarthritis of right knee joint 8977285395 87612 M17.11 Osteoarthr itis of left knee joint 8665831074 94053 M17.12 [id number] MARTHA MAYBERRY [facility] [address] [place] [address] 05/05/2023 13:49:50 05/05/2023 14:31:09 Calcific tendinitis of left shoulder 3240305258 75953 M75.32 Impingemen t syndrome of left shoulder region 2427712789 10803 M75.42 Pain of ri ght shoulder joint 1179967915 7801090 M25.511 [id number] MARTHA MAYBERRY [facility] [address] [place] [address] 05/11/2023 13:39:04 05/11/2023 14:16:29 Impingement syndrome of left shoulder region 3863119435 08985 M75.42 [id number] MARTHA MAYBERRY [facility] [address] [place] [address] 08/10/2023 13:55:56 08/10/2023 14:36:50 Osteoarthritis of right knee joint 0143007521 M17.11 Osteoarthr itis of left knee joint 4750555917 82367 M17.12 Health Concerns Section Related Observation LastModified by Organization Detai ls LastModified Time None Recorded Concern Status LastModified by Organization Details LastModified Time None Recorded Advance Directives Directive None Recorded Payers Insurance Date Sequence Insurance Name Policy Number Policy Crane Covered Member ID Crane Member ID Guarantor Name 08/07/2023 1 [place] [employer] October Santiago Stark [id number] October [place] 08/10/2023 2 [place] [id number] October Santiago Stark [id number] October [place] 08/10/2023 2 [employer] (MEDICARE SUPPLEMENT) October Santiago Stark [id number] October [place] OBGyn Episode No OBEpisode recorded.
--- OUTSIDE RECORDS SUMMARY | 2024-12-18 14:06 | XMS_ITS | Encounter Summary ---
Author Organization [facility] Address [address] [place] [address] Phone Care Team Providers Care Valver Name Role Phone Enoc Llanos MD Primary Care Provider [phone] Encounter Details Date Type Department Care Team (Latest Contact Info) Description 04/25/2019 Transcribe Orders [facility] [address] [place] [address] Enoc Llanos MD [address] [place] [address] Encounter for general adult medical examination with abnormal findings (Primary Dx); Essential hypertension, malignant; Fatigue, unspecified type Social History Tobacco Use Types Packs/Day Years Used Date Smoking Tobacco: Former Cigarettes Q uit: 03/22/1976 Smokeless Tobacco: Never Alcohol Use Standard Drinks/Week Comments Yes 1 (1 standard drink = 0.6 oz pur e alcohol) Niraj kirkpatrick black occ Comments Unknown Sex and Gender Information Value Date Recorded Sex Assigned at Not on file Legal Sex Female 10:01 PM EDT Gender Identity Not on file Sexual Orientation Not on file documented as of this encounter Plan of Treatment Not on file documented as of this encounter Results * Microalbumin/creatinine ratio, random urine (04/25/2019 10:51 AM EST) URINE MICROALBUMIN 1.4 0 - 2.3 mg/dL [facility] URINE CREATININE 115 mg/dL [facility] MICROALB/CRE RATIO 12.2 0 - 20 mg/g Cre [facility] Urine (Urine) 04/25/2019 10: 51 AM EST 04/25/2019 11:48 AM EST us Enoc Llanos MD URINE ORDERABLES Final Re sult Performing Organization Address City/[facility]/ZIP Co de Phone Number [address] [address] * (ABNORMAL) TSH with reflex (04/25/2019 8:03 AM EST) TSH 16.90(H) 0.27 - 4.20 uIU/mL [facility] Blood 04/25/2019 8:03 AM EST 04/25/2019 9:58 AM EST us Enoc Llanos MD LAB BLOOD ORDERABLES Le l Result Performing Organization Address [facility] Co de Phone Number [address] [address] * (ABNORMAL) Lipid panel (04/25/2019 8:03 AM EST) HDL 47 mg/dL [facility] Comment: Interpretation <40 mg/dL: Low HDL cholesterol (major risk factor for CHD) Greater than or equal to 60 mg/dL: High HDL cholesterol ( negative risk factor for CHD) HDL - cholesterol is affected by a number of factors, e.g. smoking, excerise, hormones, sex and age. CHOLESTEROL 211 0 - 240 mg/dL [facility] TRIGLYCERIDES 192(H) 30 - 160 mg/dL [facility] LDL 126 50 - 129 mg/dL [facility] Comment: LDL levels in terms of risk for coronary heart disease: <100 mg/dL: Optimal 100-129 mg/dL: Near or above optimal 130-159 mg/dL: Borderline high 160-189 mg/dL: High >190 mg/dL: Very High CARDIAC RISK RATIO 4.5(H) 3.3 - 4.4 [facility] Blood 04/25/2019 8:03 AM EST 04/25/2019 9:58 AM EST us Enoc Llanos MD LAB BLOOD ORDERABLES Le l Result [address] [address] * (ABNORMAL) Comprehensive metabolic panel (04/25/2019 8:03 AM EST) SODIUM 141 133 - 146 mmol/L [facility] POTASSIUM 4.4 3.3 - 5.1 mmol/L [facility] CHLORIDE 101 96 - 108 mmol/L [facility] CO2 27 21 - 35 mmol/L [facility] BUN 24(H) 6 - 19 mg/dL [facility] CREATININE 1.20 0.5 - 1.5 mg/dL [facility] GLUCOSE 115(H) 70 - 99 mg/dL [facility] ALBUMIN 4.0 3.9 - 4.8 g/dL [facility] TOTAL PROTEIN 6.8 6.5 - 8.0 g/dL [facility] CALCIUM 9.3 8.4 - 10.3 mg/dL [facility] ALKALINE PHOSPHATASE 110 39 - 117 U/L [facility] TOTAL BILIRUBIN 0.3 0.0 - 1.2 mg/dL [facility] AST 16 0 - 37 U/L [facility] ALT 13 0 - 40 U/L [facility] GLOBULIN 2.8 1 - 4.8 g/dL [facility] EGFR 46(L) >59 mL/min/1.7 3m2 [facility] Comment:If patient is black, multiply result by 1.159. Estimated glomerular filtration rate calculated using the CKD-EPI equation. ANION GAP 17 10 - 20 mmol/L [facility] Blood 04/25/2019 8:03 AM EST 04/25/2019 9:58 AM EST us Enoc Llanos MD LAB BLOOD ORDERABLES Le l Result [address] [address] documented in this encounter Visit Diagnoses Diagnosis Encounter for general adult medical examination with abnormal findings- Primary Essential hypertension, malignant Fatigue, unspecified type documented in this encounter Care Teams Valver Relationship Specialty Start Date End Date Enoc Llanos MD PCP - General Internal Medicine 03/22/17 documented as of this encounter Additional Source Comments The information contained in this document represents components of the legal health record. It is not the complete legal health record.[facility]
--- OUTSIDE RECORDS SUMMARY | 2024-12-18 14:06 | XMS_ITS | Patient Health Record ---
Author Organization [facility] Address [address] [place] [address] Care Team Providers Care Raker Buffing Wheel Name Role Phone Enoc Llanos MD Primary [...] Problem Status W/U Status Risk Notes Problem [id number] Colon cancer screening (Z12.11) Active confirmed Problem 270347104 Gastroesophageal reflux disease without esophagitis (K21.9) Active confirmed Problem 52822075 Change in bowel function (R19.8) Active confirmed Plan Of Treatment Future Test Test Name Order Date COLONOSCOPY 03/17/2022 COLONOSCOPY 10/13/2022 Insurance Providers Payer Name Payer Address Payer Phone Subscriber Number Group Number Insured Name Patient Relationship to Insured Coverage Start Date Coverage End Date MEDICARE OF [place] [address] [place] [address] [id number] MONI ODEN Self - patient is the insured MEDEX ATTN CLAIMS [address] [place] [address] [id number] MONI ODEN Self - patient is the insured Medical (General) History Medical History History ICD Code Hypertension Right breast cancer status p ost mastectomy, axillary node dissection, and chemoradiation Osteoporosis Stage I kidney cancer Elevated cholesterol Depression/anxiety Edema Surgical History Surgery Date(Month/Year) Right mastectomy 2017 Right partial nephrectomy 2018 Bilateral Dupuytren's contractures repai r 2020
[2025-01-11 12:19] VITALS: BMI 32.9
[2025-01-11 12:26] VITALS: BP 129/60; PULSE 67; RESP 16; O2SAT 99
--- NOTE | 2025-01-11 12:54 | HO.ANESPROP2 ---
Documented by User: Sendy Rodriguez NP 01/29/25 11:35 HPI - Anesthesia Eval Consult details Narrative: 74 yr old female for right total knee replacement scheduled for 02/11/25 seen in [facility] Medically optimized by PCP 12/17/24 No CP/SOB with limited physical activity due to knee pain No recent illness s/p left shoulder arthroscopy in 2023 with [place], ETT 7.5 PMFSH Active Problems Active Problems: All Active Problems Right knee pain (Acute) Osteoarthritis of right knee (Acute) Osteoarthritis of left knee (Acute) Rotator cuff insufficiency of right shoulder (Acute) Weak urinary stream (Acute) Arthritis of right knee (Acute) Arthritis of left knee (Acute) Rotator cuff tear, left (Acute) Malposition of implant of right breast (Acute) Impingement syndrome of left shoulder (Acute) Left shoulder pain (Acute) Atrophic kidney (Acute) Breast CA (Chronic) Invasive ductal carcinoma of breast (Acute) Past Medical History Medical History Osteoarthritis GERD (gastroesophageal reflux disease) Hx of renal cell cancer Depression Anxiety Edema of both lower extremities FH: cholecystectomy Renal cancer Invasive ductal carcinoma of breast Renal mass FH: mastectomy Breast cancer HTN (hypertension) High cholesterol Family History Family History Father Stroke Hypertension Mother COPD (chronic obstructive pulmonary disease) Hypertension Brother Stomach cancer Brother Liver transplant recipient Family history of problems with anesthesia: No Surgical History Surgical History History of arthroscopy of left shoulder (2023) Hx of partial nephrectomy History of cholecystectomy History of right breast implant (01/30/18) History of right mastectomy (02/02/17) History of breast biopsy (12/24/16) History of colonoscopy (03/06/14) H/O wrist surgery H/O hand surgery (2012) History of Problems with Anesthesia: No Social History Social History Household Members: Family Housing: House Are you a primary respiratory care faculty to a significant other at home: No Do you presently have visiting nurse or other home services: No Alcohol intake: current Alcohol intake frequency: holidays/special occasions only Comment: aware of trip hazard Patient Tobacco Use Status: Former Tobacco user Tobacco use type: Cigarette Smoked in Last 30 Days: No Use of substances other than those prescribed or required for medical reasons: No Have you been hit, kicked, punched, or otherwise hurt by someone within the past year? If so, by whom?: No Are you DNR?: No Advance Directives: No Advance Directives Information Provided: Yes Advance Directives on File: No service: No Current occupational status: retired [employer] Allergies Allergy/AdvReac Type Severity Reaction Status Date / Time Sulfa (Sulfonamide Allergy Unknown ? RXN - Verified 02/11/25 06:20 Antibiotics) HAD (SULFA(SULFONAMIDE CHILD ANTIBIOTICS)) lisinopril Allergy Swelling Verified 02/11/25 06:20 Home Medications ?Medication ?Instructions ?Recorded ?Confirmed ?Last Taken ?Type atorvastatin 20 mg tablet 1 tab PO BEDTIME 05/14/20 02/11/25 02/10/25 History duloxetine 60 mg capsule,delayed 1 cap PO BEDTIME 05/14/20 02/11/25 02/10/25 History release pantoprazole 40 mg tablet,delayed 1 tab PO BEDTIME 05/14/20 02/11/25 02/10/25 History release trazodone 50 mg tablet 1 tab PO BEDTIME 05/14/20 02/11/25 02/10/25 History valsartan 320 mg tablet 1 tab PO BEDTIME 05/14/20 02/11/25 02/10/25 History furosemide 20 mg tablet 20 mg PO BEDTIME PRN Edema 07/22/20 02/11/25 02/10/25 History buspirone 10 mg tablet 10 mg PO BEDTIME PRN Anxiety 05/18/21 02/11/25 02/10/25 History amlodipine 5 mg tablet 5 mg PO DAILY 01/11/25 02/11/25 02/10/25 History Exam Height,Weight and Vital Signs: Height 5 ft 3 in Weight 84.368 kg Last Vital Signs Pulse 67 01/11/25 12:26 Resp 16 01/11/25 12:26 BP 129/60 01/11/25 12:26 Pulse Ox 99 01/11/25 12:26 O2 Del Method Room Air 01/11/25 12:26 Pertinent Lab Results Pertinent Lab Results: CBC: WBC 5.9 RBC 4.58 Hgb 13.7 Hct 41.7 Plat 270 BMP glucose 103 BUN 20 creat 1.04 sodium 141 potassium 4.6 Narrative Narrative: EKG 12/28/24 Sinus bertrand rate 58, no acute ST-T wave changes Airway Mallampati Class: II TM Dist: >3cm Neck ROM: Full Partial: Upper Loose/Missing/Broken Teeth: Yes and Lower (M left) Heart: RRR Lungs: CTAB Assessment and Plan Final Anesthetic Review Family History of Problems with Anesthesia: No History of Problems with Anesthesia: No Documented by User: Mariah Ramirez MD 02/11/25 08:55 PMFSH Past Medical History Medical History Osteoarthritis GERD (gastroesophageal reflux disease) Hx of renal cell cancer Depression Anxiety Edema of both lower extremities FH: cholecystectomy Renal cancer Invasive ductal carcinoma of breast Renal mass FH: mastectomy Breast cancer HTN (hypertension) High cholesterol Family History Family History Father Stroke Hypertension Mother COPD (chronic obstructive pulmonary disease) Hypertension Brother Stomach cancer Brother Liver transplant recipient Surgical History Surgical History History of arthroscopy of left shoulder (2023) Hx of partial nephrectomy History of cholecystectomy History of right breast implant (01/30/18) History of right mastectomy (02/02/17) History of breast biopsy (12/24/16) History of colonoscopy (03/06/14) H/O wrist surgery H/O hand surgery (2012) Social History Social History Household Members: Family Housing: House Are you a primary respiratory care faculty to a significant other at home: No Do you presently have visiting nurse or other home services: No Alcohol intake: current Alcohol intake frequency: holidays/special occasions only Comment: aware of trip hazard Patient Tobacco Use Status: Former Tobacco user Tobacco use type: Cigarette Smoked in Last 30 Days: No Use of substances other than those prescribed or required for medical reasons: No Have you been hit, kicked, punched, or otherwise hurt by someone within the past year? If so, by whom?: No Are you DNR?: No Advance Directives: No Advance Directives Information Provided: Yes Advance Directives on File: No service: No Current occupational status: retired [employer] Allergies Allergy/AdvReac Type Severity Reaction Status Date / Time Sulfa (Sulfonamide Allergy Unknown ? RXN - Verified 02/11/25 06:20 Antibiotics) HAD (SULFA(SULFONAMIDE CHILD ANTIBIOTICS)) lisinopril Allergy Swelling Verified 02/11/25 06:20 Home Medications ?Medication ?Instructions ?Recorded ?Confirmed ?Last Taken ?Type atorvastatin 20 mg tablet 1 tab PO BEDTIME 05/14/20 02/11/25 02/10/25 History duloxetine 60 mg capsule,delayed 1 cap PO BEDTIME 05/14/20 02/11/25 02/10/25 History release pantoprazole 40 mg tablet,delayed 1 tab PO BEDTIME 05/14/20 02/11/25 02/10/25 History release trazodone 50 mg tablet 1 tab PO BEDTIME 05/14/20 02/11/25 02/10/25 History valsartan 320 mg tablet 1 tab PO BEDTIME 05/14/20 02/11/25 02/10/25 History furosemide 20 mg tablet 20 mg PO BEDTIME PRN Edema 07/22/20 02/11/25 02/10/25 History buspirone 10 mg tablet 10 mg PO BEDTIME PRN Anxiety 05/18/21 02/11/25 02/10/25 History amlodipine 5 mg tablet 5 mg PO DAILY 01/11/25 02/11/25 02/10/25 History Assessment and Plan Assessment Anesthesia Assessment: Anesthesia Plan Discussed and Chart Reviewed Final Anesthetic Review NPO: Yes ASA Class: III Final Preanesthetic Review: No Changes in Pt Med Stat, Meds/Allgs Chart Reviewed, Consent Obtained/Reviewed and Anes Risks/Benef Reviewed Patient Risk: Intermediate Procedure Risk: Low Anesthetic Plan Anesthetic Plan: MAC: and Agree w/ Assess. and Plan Disposition: Standard PACU
[2025-01-11 14:15] LABS: MRSA Nasal PCR NEGATIVE (Negative); SA Nasal PCR NEGATIVE (Negative)
[2025-02-11] VITALS (24 sets, daily range): BP systolic 102–150; BP diastolic 41–85; PULSE 41–72; RESP 12–18; TEMP 36.1–36.7; O2SAT 94–99
[2025-02-11] MEDS: Lactated Ringers 1,000 ML 100 ML IVCONT ×2 (07:06→17:48)
--- NOTE | 2025-02-11 10:33 | P.BOP_ITS ---
Brief Operative Note Date of Service: 02/11/25 Pre-op diagnosis: Right knee degenerative joint disease Post-op diagnosis: same Procedure: Right total knee arthroplasty Implants: [place] [employer] cemented posterior stabilized total knee arthroplasty with a femoral component size 3 right, universal tibial component size 4, polyethylene liner size 4 with 11 mm of thickness, tibial stem size 12 mm in diameter by 50 mm in length, an asymmetric patellar component size 29 with 9 mm of thickness Surgeon: Luis Felipe Armendariz MD Anesthesia: regional and spinal Was an Structural Metal Worker used for this Procedure?: No Structural Metal Worker: Bouchra Dee Estimated blood loss (mL): 200 Pathology: other (Bony fragments from the right femur, tibia and patella) Condition: stable Disposition: PACU
--- NOTE | 2025-02-11 10:35 | W.PM.OPN ---
Operative Note Operative Note Date of Service: 02/11/25 Narrative: After the patient was identified as Amalia Stark and her right knee was initialed by myself the patient was brought to the holding area where a right leg nerve block was performed by the anesthesiologist in routine fashion. The patient was then brought to the operating room where conscious sedation and spinal anesthesia were performed by the anesthesiologist in routine fashion. The patient was given 2 g of IV Ancef preoperatively for infection prophylaxis. The patient's right lower extremity was prepped and draped in sterile fashion. A formal time-out was completed. The patient's right knee was placed onto a small bump to produce 30? of knee flexion during exposure. A #10 scalpel blade was used to make a midline incision extending 1 handbreadth proximal and distal to the patella. A second #10 scalpel blade was used to dissect the subcutaneous tissues down to the extensor mechanism. The subcutaneous flaps were maintained as thick as possible. A medial parapatellar arthrotomy was then performed using a #10 scalpel blade. The arthrotomy was begun just medial to the patellar tendon. The arthrotomy was continued 1 cm medial to the patella and then 5 mm into the medial aspect of the quadriceps tendon. The infrapatellar fat pad was partially excised to help with exposure. The soft tissue retinaculum was raised one-half of the way around the medial aspect of the proximal tibia. The patella was everted and the knee was flexed to 90?. There was no injury to the patellar tendon or its insertion onto the tibial tubercle. A drill bit was introduced into the distal aspect of the femur with a starting point 1 cm anterior to the origin of the posterior cruciate ligament. The intramedullary alignment zachary was put into place. The distal alignment guide was set for a 5 degree valgus cut. The distal cutting block was put into place and we held it with 4 pins. The intramedullary alignment zachary was removed. Soft tissues were retracted in the distal femoral cut was made using a sagittal saw. The distal aspect of the femur measured to be a size 3 right component. Two drill holes were placed into the distal aspect of the femur marking 3? of external rotation. The distal cutting block was impacted into place and we held it with 2 pins. Soft tissues were retracted and the 4 distal femoral cuts were made using a sagittal saw. Final notching and drilling of the distal aspect of the femur were performed in routine fashion. The trial femoral component was impacted into place. The knee was taken through a full range of motion. The patella tracked well. The patella was everted and the knee was flexed to 90?. The trial component was removed and our attention was directed to the proximal tibia. The medial and lateral menisci were removed using a #10 scalpel blade. A small rim of the medial meniscus was left intact to help prevent injury to the medial collateral ligament. A drill bit was then introduced into the proximal tibia with a starting point midway from medial to lateral and one-third of the way posteriorly. The intramedullary alignment zachary was put into place. The proximal tibial cutting guide was placed over the alignment zachary in line with the 2nd toe. The guide was held in place using 3 pins. The intramedullary alignment zachary was removed. Soft tissues were retracted and the proximal tibial cut was made using a sagittal saw. The proximal tibia measured to be a size 4 component. Inspection of the proximal tibia showed a small cyst along the lateral tibial plateau measuring 5 mm x 5 mm x 10 mm. Because of the presence of the cyst the decision was made to use a tibial stem to help prevent loosening of the tibial component in the future. The tibial tray was put into place with an 11 mm liner. The femoral component was impacted into place. The knee was taken through a full range of motion. There was full flexion and full extension. There was no instability with varus or valgus stress testing with the knee in flexion or extension. The patella tracked well with no medially directed force. The rotation of the tibial tray was marked using electrocautery with the knee in extension. The patella was everted and the knee was flexed to 90?. All trial components were removed. The tibial tray was placed onto the proximal tibia in line with the electrocautery daniel. The tray was held in place using 3 pins. Final broaching and drilling of the proximal tibia were performed in routine fashion. The trial liner and trial femoral component were put into place. The knee was brought into extension and our attention was directed to the patella. The patella measured 25 mm in thickness. The patellar resection guide was set for a 10 mm resection. Soft tissues were retracted and the patella cut was made using a sagittal saw. The remaining patella measured 15 mm in thickness. The undersurface of the patella was measured to be a size 29 asymmetric component. Three drill holes were placed into the undersurface of the patella in routine fashion. The trial component was put into place. The knee was taken through a full range of motion. The patella tracked well. The patella was everted and the knee was flexed to 90?. All trial components were removed. The knee was once again brought into extension and placed onto a small bump. The knee joint was irrigated with copious amounts of normal saline solution via pulse lavage while the cement was mixed. The patella was everted and the knee was flexed to 90?. A small amount of cement was placed along the posterior aspects of the tibial and femoral components. Cement was then pressurized into the proximal tibia. The tibial component was impacted into place. Any excess cement was removed. The polyethylene liner was then impacted into place. Cement was then pressurized into the distal aspect of the femur. A small amount of cement was placed into the intramedullary canal to help reduce bleeding. The femoral component was impacted into place. Any excess cement was removed. The knee was then brought into extension. Cement was pressurized into the undersurface of the patella. The patellar component was put into place and was held with a patella clamp. Any excess cement was removed. Once the cement had hardened the patellar clamp was removed. The knee was taken through a full range of motion. There was full flexion and extension. There was no instability with varus or valgus stress testing with the knee in flexion or extension. The patella tracked well with no medially directed force. The knee joint was irrigated with copious amounts of normal saline solution via pulse lavage. Any significant bleeding vessels were coagulated. The patient's right knee was placed onto a small bump. The arthrotomy was closed with #2 Ethibond [id number] interrupted suture as well as #1 Vicryl [id number] interrupted suture. The wound was once again irrigated. The subcutaneous tissues were closed with 0 Vicryl and 2-0 Vicryl interrupted sutures. The skin was closed with skin lev. Dry sterile dressing and Bryson bandages were placed over the patient's right knee. The patient was awake and alert. The patient was transferred to the recovery room in stable condition. Justification for PA Smoking Tobacco Cutter Operator: The complexity of this total knee arthroplasty, involving significant bony deformity and soft tissue releases, necessitates the assistance of a qualified surgical nurse practitioner for optimal surgical exposure, hemostasis and efficient execution of the procedure.
--- NOTE | 2025-02-11 11:23 | PHA.MEDREC ---
Addendum entered by Briseyda Hernandez RPh 02/11/25 11:43: Reviewed by [facility] Original Note: Pharmacy Consult ? Medication Reconciliation Pharmacy has reviewed the medication reconciliation done by nursing. Claims match med list.
[2025-02-11] MEDS: oxyCODONE HCl ER 10 MG TAB.ER.12H PO ×2 (14:21→21:43)
--- NOTE | 2025-02-11 15:50 | HO.PM.IMCN ---
History of Present Illness Data of Consult Service Date: 02/11/25 Requesting physician: Bouchra Dee Primary Care Provider: MD MANUEL Moffett Reason for consult: routine medical management This is a 75-year-old female with history of hypertension, hyperlipidemia, breast cancer status post mastectomy, chemoradiation, right renal cancer status post partial right nephrectomy who presents for elective total right knee arthroplasty. The hospitalists were asked to see her in consultation for routine medical management. She is awake, alert and has no specific complaints at this time, just received pain medication and her pain is under adequate control. Patient denies any chest pain, shortness of breath. Review of Systems Review of Systems: Yes all other systems are reviewed and are negative Constitutional: Constitutional: Denies chills and Denies fever(s) Cardiovascular: Cardiovascular: Denies chest pain, Denies palpitations and Denies dyspnea Respiratory: Respiratory: Denies cough and Denies dyspnea Gastrointestinal: Gastrointestinal: Denies abdominal pain, Denies diarrhea, Denies nausea and Denies vomiting Endocrine: Endocrine: Denies palpitations [facility] Medical History Osteoarthritis GERD (gastroesophageal reflux disease) Hx of renal cell cancer Depression Anxiety Edema of both lower extremities FH: cholecystectomy Renal cancer Invasive ductal carcinoma of breast Renal mass FH: mastectomy Breast cancer HTN (hypertension) High cholesterol Family History Father Stroke Hypertension Mother COPD (chronic obstructive pulmonary disease) Hypertension Brother Stomach cancer Brother Liver transplant recipient Surgical History History of arthroscopy of left shoulder (2023) Hx of partial nephrectomy History of cholecystectomy History of right breast implant (01/30/18) History of right mastectomy (02/02/17) History of breast biopsy (12/24/16) History of colonoscopy (03/06/14) H/O wrist surgery H/O hand surgery (2012) Social History Household Members: Family Housing: House Are you a primary skin care therapist to a significant other at home: No Do you presently have visiting nurse or other home services: No Alcohol intake: current Alcohol intake frequency: holidays/special occasions only Patient Tobacco Use Status: Former Tobacco user Tobacco use type: Cigarette Smoked in Last 30 Days: No Use of substances other than those prescribed or required for medical reasons: No Have you been hit, kicked, punched, or otherwise hurt by someone within the past year? If so, by whom?: No Are you DNR?: No Advance Directives: No Advance Directives Information Provided: Yes Advance Directives on File: No service: No Current occupational status: retired Meds Allergies Allergy/AdvReac Type Severity Reaction Status Date / Time Sulfa (Sulfonamide Allergy Unknown ? RXN - Verified 02/11/25 06:20 Antibiotics) HAD (SULFA(SULFONAMIDE CHILD ANTIBIOTICS)) lisinopril Allergy Swelling Verified 02/11/25 06:20 Active Medications: Current Medications Acetaminophen (Acetaminophen 325 Mg Tablet) 650 mg PO Q6H PRN PRN Reason: Pain, Mild 1-3,fever,headache Amlodipine Besylate (Amlodipine Besylate 5 Mg Tablet) 5 mg PO DAILY DIAMOND; Protocol Last Admin: 02/11/25 14:22 Dose: 5 mg Aspirin (Aspirin 325 Mg Tablet) 325 mg PO BID [facility] Atorvastatin Calcium (Atorvastatin Calcium 20 Mg Tablet) 20 mg PO BEDTIME DIAMOND Buspirone HCl (Buspirone Hcl 10 Mg Tablet) 10 mg PO BEDTIME PRN PRN Reason: Anxiety Docusate Sodium (Docusate Sodium 100 Mg Capsule) 100 mg PO BID [facility] Last Admin: 02/11/25 14:22 Dose: 100 mg Duloxetine HCl (Duloxetine Hcl 60 Mg Capsule.Dr) 60 mg PO BEDTIME DIAM[facility] Furosemide (Furosemide 20 Mg Tablet) 20 mg PO BEDTIME PRN; Protocol PRN Reason: Edema Gabapentin (Gabapentin 100 Mg Capsule) 100 mg PO BEDTIME [facility] Hydromorphone HCl (Hydromorphone Hcl 0.5 Mg/0.5 Ml Syringe) 0.25 mg IVPUSH Q5M PRN PRN Reason: Pain, Moderate to Severe (Pain Scale 4-10) Stop: 02/11/25 18:33 Last Admin: 02/11/25 12:45 Dose: 0.25 mg Hydromorphone HCl (Hydromorphone Hcl 0.5 Mg/0.5 Ml Syringe) 0.25 mg IVPUSH Q4H PRN; Protocol PRN Reason: Pain, Severe (Pain Scale 7-10) Last Admin: 02/11/25 15:30 Dose: 0.25 mg Lactated Ringer's (Lr) 1,000 mls @ 100 mls/hr IVCONT .Q10H [facility] Last Admin: 02/11/25 07:06 Dose: 100 mls/hr Cefazolin Sodium/Dextrose (Ancef) 2 gm in 50 mls @ 100 mls/hr IV Q8H [facility] Stop: 02/12/25 13:59 Last Infusion: 02/11/25 14:56 Dose: Infused Magnesium Hydroxide (Milk Of Magnesia 30 Ml Oral.Susp) 30 ml PO DAILY PRN PRN Reason: Constipation Methocarbamol (Methocarbamol 500 Mg Tablet) 500 mg PO TID [facility] Last Admin: 02/11/25 14:25 Dose: 500 mg Naloxone HCl (Naloxone Hcl 0.4 Mg/Ml Vial) 0.04 mg IVPUSH Q5M PRN PRN Reason: Excessive sedation or RR < 8 Omeprazole (Omeprazole 20 Mg Capsule.Dr) 20 mg PO DAILY@0630 [facility] Ondansetron HCl (Ondansetron Hcl 4 Mg/2 Ml Vial) 4 mg IVPUSH Q8H PRN PRN Reason: Nausea and Vomiting Last Admin: 02/11/25 15:30 Dose: 4 mg Oxycodone HCl (Oxycodone Hcl Immed Release 5 Mg Tablet) 5 mg PO Q4H PRN PRN Reason: Pain, Moderate(Pain Scale 4-6) Oxycodone HCl (Oxycodone Hcl Er 10 Mg Tab.Er.12h) 10 mg PO BID [facility] Last Admin: 02/11/25 14:21 Dose: 10 mg Sodium Chloride (0.9 % Sodium Chloride Flush 3 Ml Syringe) 3 ml IVFLUSH QSHIFT [facility] Last Admin: 02/11/25 14:23 Dose: Not Given Trazodone HCl (Trazodone Hcl 50 Mg Tablet) 50 mg PO BEDTIME [facility] Valsartan (Valsartan 320 Mg Tablet) 320 mg PO BEDTIME [facility]; Protocol Home Medications ?Medication ?Instructions ?Recorded ?Confirmed ?Last Taken ?Type atorvastatin 20 mg tablet 1 tab PO BEDTIME 05/14/20 02/11/25 02/10/25 History duloxetine 60 mg capsule,delayed 1 cap PO BEDTIME 05/14/20 02/11/25 02/10/25 History release pantoprazole 40 mg tablet,delayed 1 tab PO BEDTIME 05/14/20 02/11/25 02/10/25 History release trazodone 50 mg tablet 1 tab PO BEDTIME 05/14/20 02/11/25 02/10/25 History valsartan 320 mg tablet 1 tab PO BEDTIME 05/14/20 02/11/25 02/10/25 History furosemide 20 mg tablet 20 mg PO BEDTIME PRN Edema 07/22/20 02/11/25 02/10/25 History buspirone 10 mg tablet 10 mg PO BEDTIME PRN Anxiety 05/18/21 02/11/25 02/10/25 History amlodipine 5 mg tablet 5 mg PO DAILY 01/11/25 02/11/25 02/10/25 History Physical Exam Vital Signs and Narrative: Vital Signs: Last Vital Signs Temp 97.0 F 02/11/25 15:12 Pulse 56 02/11/25 15:12 Resp 18 02/11/25 15:12 BP 134/58 L 02/11/25 15:12 Pulse Ox 96 02/11/25 15:12 O2 Del Method Room Air 02/11/25 15:12 O2 Flow Rate 2 02/11/25 14:25 BMI result Body Mass Index 32.9 Const: General: cooperative, comfortable, no acute distress, alert and awake Nutritional Appearance: obese Orientation/consciousness: patient oriented x3 Resp: Effort & Inspection: normal respiratory effort, able to speak in complete sentences, no respiratory distress and no use of accessory muscles Cardio: Rate: regular rate GI: Inspection: No distended Palpation (GI): Soft to palpation and nontender Neuro: General: patient oriented x3 Extrem: Other: right knee wrapped in c/d/i robert bandage Assessment and Plan (1) Osteoarthritis of right knee: Status: Acute Plan This is a 75-year-old female with history of hypertension, hyperlipidemia, breast cancer status post mastectomy, chemoradiation, right renal cancer status post partial right nephrectomy who presents for elective total right knee arthroplasty. Right TKA management as per orthopedic team DVT ppx per orthopedic team HTN BP stable norvasc, valsartan HLD lipitor gerd continue prilosec Thank you for allowing us to participate in the care of this patient. There are no active medical issues at this time. will sign off at this time, please feel free to call us if any acute medical issues arise.
--- NOTE | 2025-02-11 17:02 | PM.DS ---
DS: Providers Provider Date of Service: 02/13/25 Date of discharge: 02/13/25 Primary care physician: Enoc Llanos MD Consults: 02/11/25 13:53 Consult to Case Management Routine Comment: Home with VNA Consult to Hospitalist Routine Comment: Consulting Provider: [facility] [place] [facility] Reason For Exam: Routine medical management DS: Diagnosis Discharge Diagnosis (1) Osteoarthritis of right knee: Status: Acute DS: Summary Hospital Course Hospital Course: The patient underwent a successful right total knee arthroplasty, they were transferred to PACU and then to the floor to recover. During their stay, their vitals were stable, afebrile at 98.6. Labs were unremarkable, H/H 10.1/30.5. POD 1 they were started on Aspirin 325mg po bid for DVT ppx, they also received Physical Therapy services. Prior to discharge, their dressing was clean dry and intact and the plan was to be discharged home with VNA services. Time spent discussing smoking cessation with patient: more than 10 minutes Time Attestation Discharge Coordination Time (in mins): 30 Quality: Safe Use of Opioids Does Pt have an Active Cancer Diagnosis on the Problem List?: No Quality: Stroke Does the patient have a stroke diagnosis?: No Physical Exam Vital Signs: Vital Signs: Last Vital Signs Temp 97.0 F 02/11/25 15:12 Pulse 56 02/11/25 15:12 Resp 18 02/11/25 15:12 BP 134/58 L 02/11/25 15:12 Pulse Ox 96 02/11/25 15:12 O2 Del Method Room Air 02/11/25 15:12 O2 Flow Rate 2 02/11/25 14:25 BMI result Body Mass Index 32.9 Extrem: Other: right knee dressing is c/d/i. Able to dorsi/plantar flex. Calf is supple and nontender. Sensation intact. Pedal pulse intact. DS: Data Data Completed and Pending Pending studies at discharge: Pending at discharge 02/11/25 09:17 Surgical [PTH] Routine Discharge Plan Discharge Patient Disposition: Home, Self-Care Referrals: Bouchra Dee PA-C [Physician Precipitation Equipment Tender, Orthopedics] - 02/28/25 10:00 am Discharge Medications: New methocarbamol 500 mg Tablet 500 mg PO TID 7 Days Qty: 21 0RF acetaminophen 325 mg Tablet 650 mg PO Q6H PRN (Reason: Pain, Mild 1-3,Fever,Headache) 30 Days Qty: 240 0RF aspirin 325 mg Tablet 325 mg PO BID 42 Days Qty: 84 0RF docusate sodium 100 mg Capsule 100 mg PO BID 7 Days Qty: 14 0RF gabapentin 100 mg Capsule 100 mg PO BEDTIME 7 Days Qty: 7 0RF oxycodone 5 mg tablet 5 mg PO Q4H PRN (Reason: pain) 7 Days Qty: 42 0RF Rx Instructions: Partial Fill upon patient request. Continued (DME) walker Misc See Rx Instructions .ROUTE .MEDSUPPLY Qty: 1 0RF Rx Instructions: Folding front wheeled walker atorvastatin 20 mg tablet 1 tab PO BEDTIME trazodone 50 mg tablet 1 tab PO BEDTIME pantoprazole 40 mg tablet,delayed release (DR/EC) 1 tab PO BEDTIME valsartan 320 mg tablet 1 tab PO BEDTIME duloxetine 60 mg capsule,delayed release(DR/EC) 1 cap PO BEDTIME buspirone 10 mg Tablet 10 mg PO BEDTIME PRN (Reason: Anxiety) amlodipine 5 mg tablet 5 mg PO DAILY furosemide 20 mg tablet 20 mg PO BEDTIME PRN (Reason: Edema) Diet: Advance to usual diet Activity on Discharge: Use cane or walker Activity Restrictions/Additional Instructions: Physical Therapy for ROM 0-120, quad strength, gait training. Use walker for ambulation Limit stair climbing No shower or tub bath No driving for 6 weeks Continue anticoagulant Keep Aquacel dressing clean, dry and intact. Follow up with orthopedics in 2 weeks -Bandage/Incision Site Care: -Ice 20mins at a time -Make sure you use a towel or cloth on your skin as a barrier -DO NOT remove the bandage -Keep Bandage clean, dry and intact -Do not get the bandage wet: -No tub bath, pools or hot tubs -If there are any concerns regarding the bandage please call orthopedics: [phone] -Knee Precautions: -Refrain from putting pillows under the knee -Keep leg straight while resting the knee -Avoid low chairs and deep couches -Use supportive shoes with nonslip soles -Physical Therapy: -Patient is WBAT with the use of a walker -Range of Motion: 0-120 degrees. -Strengthening: Quadriceps and hip muscles -Walking: Gait training and gradually increasing distance with walker -Ankle pumps and incentive spirometry to limit the risk of blood clot -Diet: -Resume regular diet as tolerated. -Drink plenty of fluids and eat a high-fiber foods to avoid constipation -This is a common side effect of pain medication) -Take stool softeners as prescribed -Blood Clot Prevention: -Take the prescribed blood thinner as directed for 6 weeks -Perform ankle pumps and walk frequently with the walker and assistance if needed -Report calf pain, swelling, or shortness of breath immediately Print Language: Greek
--- NOTE | 2025-02-11 17:03 | W.MHC.F2F ---
Service Date Service Date: 02/12/25 Encounter Date of encounter: 02/12/25 Reasons for Services Signs and symptoms assessed: s/p RTKA Pt. is considered homebound due to recent surgery. Unable to drive, poor balance, poor gait mechanics. Reason for physical therapy: home safety and mobility, therapeutic exercises, restore joint function, gait/transfer training and ADL training Homebound: Leaving the home is medically contraindicated at this time without the asist of a device and/or another person due th the listed conditions above and below. Reason homebound: unsteady gait / fall risk, leg weakness, pain with ambulation, pain with transfers, poor balance / fall risk and unable to drive Certification: Based on the above findings, I certify that this patient is confined to the home and needs intermittent longterm care, physical therapy and/or speech therapy, or continues to need occupational therapy. The patient is under my care, and I have initiated the establishment of the plan of care. The patient will be followed by a physician who will periodically review the plan of care. Time Spent With Patient Time: Total time managing care of this patient today ____ minutes.
[2025-02-11] MEDS: oxyCODONE HCl Immed Release 5 MG TABLET PO (17:51)
[2025-02-12] VITALS (8 sets, daily range): BP systolic 112–146; BP diastolic 54–66; PULSE 72–84; RESP 16–18; TEMP 36.3–37.3; O2SAT 92–97
[2025-02-12] MEDS: Lactated Ringers 1,000 ML 100 ML IVCONT ×3 (01:36→22:54)
[2025-02-12] MEDS: oxyCODONE HCl Immed Release 5 MG TABLET PO ×3 (05:59→22:42)
[2025-02-12 06:23] LABS: Hematocrit 32.9 % (37.0-47.0); Hemoglobin 10.7 g/dl (12.0-16.0); Mean Corpuscular Volume 88.7 fL (80.0-98.0); Platelet Count 244 X10*3/uL (160-400); Red Blood Count 3.71 X10*6/uL (4.20-5.50)
[2025-02-12 06:32] LABS: Calcium 8.6 mg/dL (8.4-10.2); Chloride 102 mmol/L (96-108); Potassium 4.4 mmol/L (3.3-5.1); Sodium 138 mmol/L (135-145)
--- NOTE | 2025-02-12 07:52 | P.PNOP_ITS ---
Subjective Subjective Date of Service: 02/12/25 Interval history: POD 1 s/p RT TKA No overnight events resting in bed, has not been out of bed yet denies sob, cp, palpitations Physical Exam Vital Signs: Vital Signs: Last Vital Signs Temp 99.2 F 02/12/25 07:30 Pulse 73 02/12/25 07:30 Resp 16 02/12/25 07:30 BP 146/66 H 02/12/25 07:30 Pulse Ox 96 02/12/25 07:30 O2 Del Method Room Air 02/12/25 07:30 O2 Flow Rate 2 02/11/25 14:25 BMI result Body Mass Index 32.9 Const: General: cooperative, healthy appearing and no acute distress Resp: Effort & Inspection: normal respiratory effort and able to speak in complete sentences Cardio: Rate: regular rate Peripheral pulses: Peripheral pulses 2+ throughout GI: Palpation (GI): Soft to palpation Skin: General skin exam: no rashes or lesions noted Extrem: Other: Rt knee dressing c/d/i Procedures Date of Service Date of Service: 02/12/25 Progress Note: A&P Assessment and plan (1) Status post total right knee replacement: Status: Acute Assessment and Plan: * Continue pain mgmnt * Begin Aspirin for dvt ppx * begin PT for RT TKA * Dispo planning-Pending PT eval, pain mgmnt Time Spent With Patient Time: Total time managing care of this patient today ____ minutes. Quality Stroke Does the patient have a stroke diagnosis?: No VTE Prior VTE?: No VTE Risk Level:: Surgical - very high VTE Device Contraindication: N/A - Device Ordered VTE Drug Contraindication: N/A - Med Ordered
[2025-02-12] MEDS: oxyCODONE HCl ER 10 MG TAB.ER.12H PO ×2 (08:20→22:40)
--- NOTE | 2025-02-12 08:50 | HO.POSTANES ---
Post Anesthesia Evaluation Post Anesthesia Evaluation Date of Service: 02/12/25 Vital Signs: Vital Signs Temp Pulse Resp BP Pulse Ox O2 Del Method 02/12/25 07:30 99.2 F 73 16 146/66 H 96 Room Air 02/12/25 03:45 97.4 F 76 18 137/63 92 Room Air 02/12/25 00:00 18 02/11/25 21:35 98.1 F 72 18 138/64 96 Room Air Anesthesia: Spinal Mental Status: Awake Pain Control: Satisfactory Nausea/Vomiting: None Hydration: Adequate Anesthesia-Related Issues: No Anes. Related Issues
--- NOTE | 2025-02-12 09:56 | MHC.CM.PN ---
CM MET WITH PT AT BEDSIDE. PT LIVES WITH FAMILY AND USES A CANE FOR MOBILITY. PT HAS NO SERVICES. + HCP COPY AT HOME. PCP DR. RAMIREZ DP: [facility] PADGETT PENDING. PT WOULD LIKE TO GO TO [facility] SHE IS CONCERNED ABOUT NAVIGATING HER STAIRS AT HOME. PT IS AWARE IF NO [facility] BED OFFER THAT WILL HAVE TO RETURN HOME WITH NEW [facility]NA. PT'S FAMILY WILL TRANSPORT VS BLS. CM WILL CONTINUE TO FOLLOW FOR A PLAN.
[2025-02-13] VITALS (7 sets, daily range): BP systolic 92–125; BP diastolic 50–60; PULSE 75–86; RESP 16–18; TEMP 36.6–37.2; O2SAT 93–98
[2025-02-13] MEDS: oxyCODONE HCl Immed Release 5 MG TABLET PO ×2 (06:21→13:27)
[2025-02-13 06:22] LABS: MANUAL DIFF FLAG NO
[2025-02-13 06:30] LABS: Hematocrit 30.5 % (37.0-47.0); Hemoglobin 10.1 g/dl (12.0-16.0); Imm Gran Abs Auto 0.05 X10*3/uL (0.00-0.03); Imm Gran Pct Auto 0.5 % (0.0-0.4); Lymphocytes Absolute Auto 1.1 X10*3/uL (1.2-4.9); Mean Corpuscular HGB Conc 33.1 g/dl (31.0-35.0); Mean Corpuscular Hemoglobin 29.4 pg (27.0-33.0); Mean Corpuscular Volume 88.9 fL (80.0-98.0); NRBC Abs Auto 0.000 X10*3/uL (0.0-0.012); NRBC Pct Auto 0.0 /100WBC (0.0-0.2); Platelet Count 214 X10*3/uL (160-400); Red Blood Count 3.43 X10*6/uL (4.20-5.50); White Blood Count 9.5 X10*3/uL (4.8-10.8)
[2025-02-13 06:52] LABS: Anion Gap 10 (12-20); Blood Urea Nitrogen 13 mg/dL (9-16); Calcium 8.4 mg/dL (8.4-10.2); Carbon Dioxide 30 mmol/L (22-29); Chloride 102 mmol/L (96-108); Creatinine Clr Calc Pharmacy 56.4; Estimated Glomerular Filt Rate > 60; Potassium 4.3 mmol/L (3.3-5.1); Sodium 138 mmol/L (135-145)
[2025-02-13] MEDS: oxyCODONE HCl ER 10 MG TAB.ER.12H PO (07:20)
--- NOTE | 2025-02-13 07:25 | PM.PNORT ---
Subjective Subjective Date of Service: 02/13/25 Interval history: POD2 s/p RTKA Patient is resting in bed comfortably No overnight events Pain is managed No additional complaints Physical Exam Vital Signs: Vital Signs: Last Vital Signs Temp 97.9 F 02/13/25 04:00 Pulse 80 02/13/25 04:00 Resp 18 02/13/25 04:00 BP 101/59 L 02/13/25 04:00 Pulse Ox 97 02/13/25 04:00 O2 Del Method Room Air 02/13/25 04:00 O2 Flow Rate 2 02/11/25 14:25 BMI result Body Mass Index 32.9 Const: General: cooperative, healthy appearing and no acute distress Resp: Effort & Inspection: normal respiratory effort and able to speak in complete sentences Extrem: Other: right knee dressing is c/d/i. Able to dorsi/plantar flex. Calf is supple and nontender. Sensation intact. Pedal pulse intact. Psych: Appearance: grossly normal Mental Status: mental status grossly normal Attitude: cooperative Procedures Date of Service Date of Service: 02/13/25 Progress Note: A&P Assessment and plan (1) Status post total right knee replacement: Status: Acute Plan Continue pain mgmnt Continue ASA for dvt ppx Continue PT for RTKA - WBAT Dispo planning-Pending rehab placement, pain mgmnt, physical therapy Time Spent With Patient Time: Total time managing care of this patient today ____ minutes. Quality Stroke Does the patient have a stroke diagnosis?: No VTE Prior VTE?: No VTE Risk Level:: Surgical - very high VTE Device Contraindication: N/A - Device Ordered VTE Drug Contraindication: N/A - Med Ordered
--- NOTE | 2025-02-13 12:28 | MHC.CM.PN ---
DP: PT HAS BEEN MEDICALLY CLEARED FOR DC TO ACUTE REHAB AT [facility]. BLS TRANSPORT BOOKED FOR 3 PM [facility]IA [facility]. RN/PROVIDER UPDATED.
== END 2025-02-13 16:17 | disposition short-term general hospital (02) ==
LOC: HO.SSS 05:55 → HO.S3 13:52
PROVIDERS: Physician Assistant; PCP Internal Medicine; Visit Provider Orthopaedic Surgery
PROC: (CPT 27447; principal; 2025-02-11 07:30)
DX: M17.11 Unilateral primary osteoarthritis, right knee (principal); M85.461 Solitary bone cyst, right tibia and fibula; I10 Essential (primary) hypertension; E78.00 Pure hypercholesterolemia, unspecified; K21.9 Gastro-esophageal reflux disease without esophagitis; Z85.3 Personal history of malignant neoplasm of breast; Z90.11 Acquired absence of right breast and nipple; Z98.82 Breast implant status; Z85.528 Personal history of other malignant neoplasm of kidney; Z90.5 Acquired absence of kidney; Z92.21 Personal history of antineoplastic chemotherapy; F32.A Depression, unspecified; F41.9 Anxiety disorder, unspecified; Z79.82 Long term (current) use of aspirin; Z79.899 Other long term (current) drug therapy; Z88.2 Allergy status to sulfonamides; Z88.8 Allergy status to other drugs, medicaments and biological substances; Z87.891 Personal history of nicotine dependence
CPT/HCPCS: 27447; 36415; 80048; 85025; 86850; 86900; 86901; 87640; 87641; 88305; 88311; 97110; 97116; 97161; 97530; A6260; C1776; J0131; J0665; J0690; J1100; J1171; J1920; J2003; J2250; J2405; J2704; J3374; J7120

== ENCOUNTER → 2025-02-11 05:55 | Outpatient (BNV) | payer MEDICARE, OTHER, SELFPAY | PROVIDERS: PCP Internal Medicine; Visit Provider Physician Assistant Medical | DX: M17.11 Unilateral primary osteoarthritis, right knee (principal) | CPT/HCPCS: 99223 ==

== ENCOUNTER → 2025-02-11 05:55 | Outpatient (BNV) | payer MEDICARE, OTHER, SELFPAY | PROVIDERS: PCP Internal Medicine; Visit Provider Orthopaedic Surgery | DX: Z96.651 Presence of right artificial knee joint (principal) | CPT/HCPCS: 27447; 99024; G0180 ==

== ENCOUNTER 2025-02-21 08:38 | Outpatient (REF) | payer MEDICARE, OTHER, SELFPAY ==
--- OUTSIDE RECORDS SUMMARY | 2024-10-31 13:19 | XMS_ITS | Encounter Summary ---
Author Organization [facility] Address [address] [place] [address] [place] [address] Phone Care Team Providers Care Human Services Manager Name Role Phone Enoc Llanos MD Primary Care Provider [phone] [phone] Encounter Details Date Type Department Care Team (Late st Contact Info) Description 10/31/2024 1:19 PM EDT Hospital Encounter [facility] [address] [place] [address] Zabrina Mistry PA-C [address] [facility], 3rd [place] [address] Social History Tobacco Use Types Packs/Day Years Used Date Smoking Tobacco: Former Cigarettes Q uit: 03/22/1976 Smokeless Tobacco: Never Alcohol Use Standard Drinks/Week Comments Yes 1 (1 standard drink = 0.6 oz pur e alcohol) Niraj kirkpatrick black [facility] Education Answer Date Recorded Are you [...] narrowing of the lateral tibiofemoral compartment with rrhy-vt-anvb contact. Moderate narrowing of the medial tibiofemoral compartment. Large tricompartmental osteophytes. Quadriceps and patellar enthesopathy. No effusion. Procedure Note Julisa House MD, PhD - 10/31/2024 XR KNEE 4 OR MORE VIEWS (RIGHT) Referring clinician's provided indication for this examination in Epic:Pain; S/P Fall COMPARISON: None. FINDINGS: Right Knee: No fracture. Severe narrowing of the lateral tibiofemoralcompartment with pffx-ry-mgop contact. Moderate narrowing of the medialtibiofemoral compartment. [...] on filedocumented in this encounter Care Teams Human Services Manager Relationship Specialty Start Date End Date Enoc Llanos MD [address] [place] [address] PCP - General Internal Medicine 03/22/17 documented as of this encounter Additional Source Comments The information contained in this document represents components of the legal health record. It is not the complete legal health record.[facility]
--- OUTSIDE RECORDS SUMMARY | 2025-01-24 10:00 | XMS_ITS ---
Author Organization [facility] Address [address] [place], [place] [id number] Care Team Providers Care Basket Grader Name Role Phone LUCIEN RAMIREZ Primary Care Provider ALLERGIES Allergen (clinical drug ingredient) Drug/Non Drug Allergy documented on EMR Reaction Allergy Type Onset Date Status benazepril Benazepril Unknown Drug Allergy Activ e Substance with sulfonamide structure and antibacterial mechanism of action (substance) Sulfa Antibiotics Unknown Drug Allergy 08/20/2008 Active REASON FOR VISIT AWV Encounters Encounter Location Date Provider Diagnosis [address] [address] 01/24/2025 LUCIEN HOWARDFORD Medicare annual wellness visit, subsequent Z00.00 ASSESSMENTS Encounter Date Diagnosis Assessment Notes Treatment Notes Treatment Clinical Notes Section Notes 01/24/2025 Medicare annual wellness visit, subsequent (ICD-10 - Z00.00) 01/24/2025 Other Complete exam recommended PLAN OF TREATMENT Treatment Notes Assessment Notes Other Complete exam recomm ended Next Appt Details Provider Name:LUCIEN HOWARDFORD , 03/04/2025 08:30:00 AM, [address] [place] [address], [phone], Provider Name:LUCIEN HOWARDFORD , 07/24/2025 01:00:00 PM, [address] [place] [address], [phone], History and Physical Notes * HPI (History of Present Illness) Category Sub-Category Detail Notes Category Not es General annual wellness exam Patient her e today for Annual Wellness HRA reviewed and documented with patient Advanced directives Healthcare Proxy discussed with yulissa velazquez advanced directive Health care Proxy Se abrahan Stark Son Depression Screening PHQ-9 Little inte rest [...] 4 Interpretation: Minimal Depression Intervention Follow-Up for Clint turner: Patient follow-up to return when and if necessary continue present meds
--- OUTSIDE RECORDS SUMMARY | 2025-01-31 10:25 | XMS_ITS ---
Author Organization [facility] Address [address] [place], [place] [id number] Care Team Providers Care Vice Investigator Name Role Phone LUCIEN RAMIREZ Primary Care Provider REASON FOR VISIT Blood work. Encounters Encounter Location Date Provider Diagnosis [address] [address] 01/31/2025 LUCIEN RAMIREZ PLAN OF TREATMENT Next Appt Details Provider Name:LUCIEN RAMIREZ , 03/04/2025 08:30:00 AM, [address] [place] [address], [phone], Provider Name:LUCIEN RAMIREZ , 07/24/2025 01:00:00 PM, [address] [place] [address], [phone],
--- OUTSIDE RECORDS SUMMARY | 2025-02-05 02:17 | XMS_ITS ---
Author Organization [facility] Address [address] [place], [place] [id number] Care Team Providers Care Forester Silviculture Name Role Phone LUCIEN RAMIREZ Primary Care Provider [phone] REASON FOR VISIT labs Encounters Encounter Location Date Provider Diagnosis [address] [phone] 02/05/2025 LUCIEN RAMIREZ PLAN OF TREATMENT Next Appt Details Provider Name:LUCIEN RAMIREZ , 03/04/2025 08:30:00 AM, [address] [place] [address], [phone], Provider Name:LUCIEN RAMIREZ , 07/24/2025 01:00:00 PM, [address] [place] [address], [phone],
--- OUTSIDE RECORDS SUMMARY | 2025-02-14 03:53 | XMS_ITS ---
Author Organization [facility] Address [address] [place], [place] [id number] Care Team Providers Care Seaman Name Role Phone LUCIEN RAMIREZ Primary Care Provider [phone] REASON FOR VISIT CM/SNF Admit Encounters Encounter Location Date Provider Diagnosis [address] [address] 02/14/2025 LUCIEN RAMIREZ PLAN OF TREATMENT Next Appt Details Provider Name:LUCIEN RAMIREZ , 03/04/2025 08:30:00 AM, [address] [place] [address], [phone], Provider Name:LUCIEN RAMIREZ , 07/24/2025 01:00:00 PM, [address] [place] [address], [phone],
--- OUTSIDE RECORDS SUMMARY | 2025-02-20 07:02 | XMS_ITS ---
Author Organization [facility] Address [address] [place], [place] [id number] Care Team Providers Care Motion Graphics Artist Name Role Phone LUCIEN RAMIREZ Primary Care Provider REASON FOR VISIT HFU Encounters Encounter Location Date Provider Diagnosis [address] [address] 02/20/2025 LUCIEN RAMIREZ PLAN OF TREATMENT Next Appt Details Provider Name:LUCIEN RAMIREZ , 03/04/2025 08:30:00 AM, [address] [place] [address], [phone], Provider Name:LUCIEN RAMIREZ , 07/24/2025 01:00:00 PM, [address] [place] [address], [phone],
--- OUTSIDE RECORDS SUMMARY | 2025-02-22 08:57 | XMS_ITS | Encounter Summary ---
Author Organization [facility] Address [address] [place] [address] Phone Care Team Providers Care Journeyman Tool And Die Maker Name Role Phone Enoc Llanos MD Primary Care Provider [phone] Encounter Details Date Type Department Care Team (Latest Contact Info) Description 04/25/2019 Transcribe Orders [facility] [address] [place] [address] Enoc Llanos MD [address] [address] Encounter for general adult medical examination with [...] URINE MICROALBUMIN 1.4 0 - 2.3 mg/dL [facility] URINE CREATININE 115 mg/dL GRIND OPERATOR [facility] MICROALB/CRE RATIO 12.2 0 - 20 mg/g Cre [facility] Urine (Urine) 04/25/2019 10: 51 AM EST 04/25/2019 11:48 AM EST us nEoc Llanos MD URINE ORDERABLES Final Re sult Performing Organization Address City/[facility]/ZIP Co de Phone Number [address] [address] * (ABNORMAL) TSH with reflex (04/25/2019 8:03 AM EST) TSH 16.90(H) 0.27 - 4.20 uIU/mL [facility] Blood 04/25/2019 8:03 AM EST 04/25/2019 9:58 AM EST us Enoc Llanos MD LAB BLOOD ORDERABLES Le l Result Performing Organization Address [facility] Co de Phone Number [address] [address] * (ABNORMAL) Lipid panel (04/25/2019 8:03 AM EST) HDL 47 mg/dL [facility] Comment: Interpretation <40 mg/dL: Low HDL cholesterol (major risk factor for CHD) Greater than or equal to 60 mg/dL: High HDL cholesterol ( negative risk factor for CHD) HDL - cholesterol is affected by a number of factors, e.g. smoking, excerise, hormones, sex and age. CHOLESTEROL 211 0 - 240 mg/dL [facility] TRIGLYCERIDES 192(H) 30 - 160 mg/dL [facility] LDL 126 50 - 129 mg/dL [facility] Comment: LDL levels in terms of risk for coronary heart disease: <100 mg/dL: Optimal 100-129 mg/dL: Near or above optimal 130-159 mg/dL: Borderline high 160-189 mg/dL: High >190 mg/dL: Very High CARDIAC RISK RATIO 4.5(H) 3.3 - 4.4 C [facility] Blood 04/25/2019 8:03 AM EST 04/25/2019 9:58 AM EST us Enoc Llanos MD LAB BLOOD ORDERABLES Le l Result [address] [address] * (ABNORMAL) Comprehensive metabolic panel (04/25/2019 8:03 AM EST) SODIUM 141 133 - 146 mmol/L [facility] POTASSIUM 4.4 3.3 - 5.1 mmol/L [facility] CHLORIDE 101 96 - 108 mmol/L [facility] CO2 27 21 - 35 mmol/L [facility] BUN 24(H) 6 - 19 mg/dL [facility] CREATININE 1.20 0.5 - 1.5 mg/dL [facility] GLUCOSE 115(H) 70 - 99 mg/dL [facility] ALBUMIN 4.0 3.9 - 4.8 g/dL [facility] TOTAL PROTEIN 6.8 6.5 - 8.0 g/dL [facility] CALCIUM 9.3 8.4 - 10.3 mg/dL [facility] ALKALINE PHOSPHATASE 110 39 - 117 U/L [facility] TOTAL BILIRUBIN 0.3 0.0 - 1.2 mg/dL [facility] AST 16 0 - 37 U/L [facility] ALT 13 0 - 40 U/L [facility] GLOBULIN 2.8 1 - 4.8 g/dL [facility] EGFR 46(L) >59 mL/min/1.7 3m2 [facility] Comment:If patient is black, multiply result by 1.159. Estimated glomerular filtration rate calculated using the CKD-EPI equation. ANION GAP 17 10 - 20 mmol/L [facility] Blood 04/25/2019 8:03 AM EST 04/25/2019 9:58 AM EST us Enoc Llanos MD LAB BLOOD ORDERABLES Le l Result [address] [address] documented in this encounter Visit Diagnoses Diagnosis Encounter for general adult medical examination with abnormal findings- Primary Essential hypertension, malignant Fatigue, unspecified type documented in this encounter Care Teams Journeyman Tool And Die Maker Relationship Specialty Start Date End Date Enoc Llanos MD [address] [place] [address] PCP - General Internal Medicine 03/22/17 documented as of this encounter Additional Source Comments The information contained in this document represents components of the legal health record. It is not the complete legal health record.[facility]
--- OUTSIDE RECORDS SUMMARY | 2025-02-22 08:58 | XMS_ITS | Encounter Summary ---
Author Organization [facility] Address [address] [place] [address] Care Team Providers Care Clinical Nutritionist Name Role Phone Xiomara Oleary Primary Care Provider [phone] Encounter Details Date Type Department Care Team (Late st Contact Info) Description 02/14/2025 Lab Requisition [facility] - Main Lab [address] [facility] [place] [address] Kurtis Webster PA [address] [address] Social History Tobacco Use Types Packs/Day Years Used Date Smoking Tobacco: Never Assessed Comments Unknown Sex and Gender Information Value Date Recorded Sex Assigned at Not on file Legal Sex Female 1:14 PM EDT Gender Identity Not on file Sexual Orientation Not on file documented as of this encounter Plan of Treatment Scheduled Orders Name Type Priority Associated Diagnoses Orde r Schedule CBC and differential Lab Routine Orde red: 02/14/2025 Comprehensive metabolic panel Lab Routine Ordered: 02/14/2025 Magnesium Lab Routine Ordered: 02/14 documented as of this encounter Visit Diagnoses Not on filedocumented in this encounter Care Teams Clinical Nutritionist Relationship Specialty Start Date End Date Xiomara Oleary PA [address] [place] [address] PCP - General Physician Wafer Fabrication Operator 02/20/25 documented as of this encounter
--- OUTSIDE RECORDS SUMMARY | 2025-02-22 08:58 | XMS_ITS | Encounter Summary ---
Author Organization [facility] Address [facility] [employer] [facility] [address] [place] [phone] Phone Care Team Providers Care Senior Clinician Name Role Phone Enoc Llanos MD Primary Care Provider [phone] Encounter Details Date Type Department Care Team (Late st Contact Info) Description 04/06/2017 Procedure Pass [facility],Outside Imaging [address] [place] [address] Social History Tobacco Use Types Packs/Day Years [...] on filedocumented in this encounter Care Teams Senior Clinician Relationship Specialty Start Date End Date Enoc Llanos MD [address] [place] [address] PCP - General Internal Medicine 03/22/17 documented as of this encounter Additional Source Comments The information contained in this document represents components of the legal health record. It is not the complete legal health record.[facility]
--- OUTSIDE RECORDS SUMMARY | 2025-02-22 08:58 | XMS_ITS | Encounter Summary ---
Author Organization [facility] Address [address] [place] [address] Care Team Providers Care Social Organization Professor Name Role Phone Xiomara Oleary Primary Care Provider [phone] Encounter Details Date Type Department Care Team (Late st Contact Info) Description 02/14/2025 Lab Requisition [facility] - Main Lab [address] [facility] [place] [address] Kurtis Webster PA [address] [address] Encounter for other general examination Social History Tobacco Use Types Packs/Day Years [...] Procedure Name Priority Date/Time Associated Diagnosis Comments CBC WITH AUTO DIFFERENTIAL Routine 02/14/2025 5:04 AM EDT Encounter for other general examination CBC AND DIFFERENTIAL Routine 02/14/2025 5:04 AM EDT Encounter for other general examination MAGNESIUM Routine 02/14/2025 5:04 AM EDT Encounter for other general examination COMPREHENSIVE METABOLIC PANEL Routine 02/14/2025 5:04 AM EDT Encounter for other general examination documented in this encounter Results * (ABNORMAL) CBC auto differential (02/14/2025 5:04 AM EDT) WBC 8.4 4.8 - 10.8 K/mcL LAB HEMETOLOGY METHOD 02/14/2025 11:02 AM [facility] RBC 3.10(L) 3.80 - 4.80 M/mcL LAB HEMETOLOGY METHOD 02/14/2025 11:02 AM [facility] Hemoglobin 9.0(L) 11.5 - 16.0 g/dL LAB HEMETOLOGY METHOD 02/14/2025 11:02 AM [facility] Hematocrit 28.0(L) 35.0 - 47.0 % LAB HEMETOLOGY METHOD 02/14/2025 11:02 AM [facility] MCV 91.5 79.0 - 98.0 FL LAB HEMETOLOGY METHOD 02/14/2025 11:02 AM [facility] MCH 29.4 27.0 - 32.0 pcg LAB HEMETOLOGY METHOD 02/14/2025 11:02 AM [facility] MCHC 32.1 32.0 - 37.0 g/dL LAB HEMETOLOGY METHOD 02/14/2025 11:02 AM [facility] RDW 13.4 11.0 - 15.0 % LAB HEMETOLOGY METHOD 02/14/2025 11:02 AM [facility] Platelets 192 130 - 400 K/[facility] LAB HEMETOLOGY METHOD 02/14/2025 11:02 AM [facility] MPV 9.7 7.0 - 11.0 FL LAB HEMETOLOGY METHOD 02/14/2025 11:02 AM [facility] NRBC 0.0 <1.0 % LAB HEMETOLOGY METHOD 02/14/2025 11:02 AM [facility] NRBC Absolute 0.00 <0.10 K/mcL LAB HEMETOLOGY METHOD 02/14/2025 11:02 AM [facility] Neutrophils Relative 76.3 % LAB HEMETOLOGY METHOD 02/14/2025 11:02 AM [facility] Lymphocytes Relative 12.2 % LAB HEMETOLOGY METHOD 02/14/2025 11:02 AM [facility] Monocytes Relative 8.8 % LAB HEMETOLOGY METHOD 02/14/2025 11:02 AM [facility] Eosinophils Relative 1.5 % LAB HEMETOLOGY METHOD 02/14/2025 11:02 AM [facility] Basophils Relative 0.4 % LAB HEMETOLOGY METHOD 02/14/2025 11:02 AM [facility] Immature Granulocytes Relative 0.8 % LAB HEMETOLOGY METHOD 02/14/2025 11:02 AM [facility] Neutrophils Absolute 6.43 1.50 - 7.00 K/mcL LAB HEMETOLOGY METHOD 02/14/2025 11:02 AM [facility] Lymphocytes Absolute 1.03 1.00 - 5.00 K/mcL LAB HEMETOLOGY METHOD 02/14/2025 11:02 AM [facility] Monocytes Absolute 0.74 0.20 - 1.00 K/mcL LAB HEMETOLOGY METHOD 02/14/2025 11:02 AM [facility] Eosinophils Absolute 0.13 0.00 - 0.50 K/mcL LAB HEMETOLOGY METHOD 02/14/2025 11:02 AM [facility] Basophils Absolute 0.03 0.00 - 0.20 K/mcL LAB HEMETOLOGY METHOD 02/14/2025 11:02 AM [facility] Immature Granulocytes Absolute 0.07(H) 0.00 - 0.03 K/mcL LAB HEMETOLOGY METHOD 02/14/2025 11:02 AM [facility] Blood Venous blood specimen / Unknown Venipuncture / Unknown 02/14/2025 5:04 AM EDT 02/14/2025 10:14 AM EDT Kurtis MCCORMACK LAB BLOOD ORDERABLES Final R esult [facility] [address] [place] [address], [place] [phone] * (ABNORMAL) Magnesium (02/14/2025 5:04 AM EDT) Magnesium 1.8(L) 1.9 - 2.6 mg/dL LAB CHEMISTRY METHOD 02/14/2025 11:57 AM EDT [facility] Blood Venous blood specimen / Unknown Venipuncture / Unknown 02/14/2025 5:04 AM EDT 02/14/2025 10:14 AM EDT Kurtis MCCORMACK LAB BLOOD ORDERABLES Final R esult Performing Organization Address City/[facility]/ZIP Co de Phone Number [facility] [address] [place] [address], [place] [phone] * (ABNORMAL) Comprehensive metabolic panel (02/14/2025 5:04 AM EDT) Pathologist [facility] Sodium 137 133 - 145 mmol/L LAB CHEMISTRY METHOD 02/14/2025 11:57 AM EDT [facility] Potassium 4.0 3.5 - 5.5 mmol/L LAB CHEMISTRY METHOD 02/14/2025 11:57 AM EDT [facility] Chloride 100 96 - 110 mmol/L LAB CHEMISTRY METHOD 02/14/2025 11:57 AM EDT [facility] CO2 32 21 - 32 mmol/L LAB CHEMISTRY METHOD 02/14/2025 11:57 AM EDT [facility] Anion Gap 5 3 - 11 LAB CHEMISTRY METHOD 02/14/2025 11:57 AM EDT [facility] Glucose 77 70 - 100 mg/dL LAB CHEMISTRY METHOD 02/14/2025 11:57 AM [facility] BUN 15 5 - 25 mg/dL LAB CHEMISTRY METHOD 02/14/2025 11:57 AM [facility] Creatinine 0.87 0.50 - 1.10 mg/dL LAB CHEMISTRY METHOD 02/14/2025 11:57 AM [facility] eGFR 70 >=60 mL/min/1. 73m2 LAB CHEMISTRY METHOD 02/14/2025 11:57 AM [facility] Comment:Calculation based on the Chronic Kidney Disease Epidemiology Collaboration (CKD-EPI) equation refit without adjustment for race. BUN/Creatinine Ratio 17.2 LAB CHEMISTRY METHOD 02/14/2025 11:57 AM [facility] Calcium 8.4(L) 8.5 - 10.5 mg/dL LAB CHEMISTRY METHOD 02/14/2025 11:57 AM [facility] AST (SGOT) 55(H) 10 - 42 unit/L LAB CHEMISTRY METHOD 02/14/2025 11:57 AM [facility] ALT (SGPT) 63(H) 10 - 60 unit/L LAB CHEMISTRY METHOD 02/14/2025 11:57 AM [facility] Alkaline Phosphatase 170(H) 42 - 121 unit/L LAB CHEMISTRY METHOD 02/14/2025 11:57 AM [facility] Total Protein 4.7(L) 6.0 - 8.0 g/dL LAB CHEMISTRY METHOD 02/14/2025 11:57 AM [facility] Albumin 2.4(L) 3.2 - 5.0 g/dL LAB CHEMISTRY METHOD 02/14/2025 11:57 AM [facility] Total Bilirubin 0.6 0.0 - 1.4 mg/dL LAB CHEMISTRY METHOD 02/14/2025 11:57 AM [facility] Blood Venous blood specimen / Unknown Venipuncture / Unknown 02/14/2025 5:04 AM EDT 02/14/2025 10:14 AM EDT Kurtis MCCORMACK LAB BLOOD ORDERABLES Final R esult [facility] [address] [place] [address], documented in this encounter Visit Diagnoses Diagnosis Encounter for other general examination documented in this encounter Care Teams Social Organization Professor Relationship Specialty Start Date End Date Xiomara Oleary PA [address] [place] [id number] PCP - General Physician Body Press Operator 02/20/25 documented as of this encounter
--- OUTSIDE RECORDS SUMMARY | 2025-02-22 08:58 | XMS_ITS | Clinical Summary ---
Author Organization [facility] Address [address] [place] [address] Care Team Providers Care Pulping Machine Operator Name Role Phone Xiomara Oleary Primary Care Provider [phone] Encounters Date Type Department Care Team Description 02/20/2025 Lab Requisition [facility] Lab [address] [place] [address] Xiomara Oleary PA Encounter for other general examination 02/16/2025 Lab Requisition [facility] Lab [address] [place] [address] Xiomara Oleary PA Encounter for other general examination 02/16/2025 Lab Requisition [facility] Lab [address] [place] [address] Xiomara Oleary PA Encounter for other general examination 02/14/2025 Lab Requisition [facility] Lab [address] [place] [address] Kurtis Webster PA Encounter for other general examination 02/14/2025 Lab Requisition [facility] Lab [address] [place] [address] Kurtis Webster PA 02/14/2025 Lab Requisition [facility] Main Lab [address] [place] [address] Kurtis Webster PA 02/14/2025 Lab Requisition [facility] Main Lab [address] [place] [address] Kurtis Webster PA 02/14/2025 Lab Requisition [facility] Main Lab [address] [facility] [place] [address] Kurtis Webster PA from Last 3 Months Surgical History Surgery Date Site/Laterality Comments MASTECTOMY PROCEDURE:MASTECTOMY CHOLECYSTECTOMY PROCEDURE:CHOLECYSTECTOMY HAND SURGERY PROCEDURE:HAND SURGERY Medical History Medical History Date Comments Cancer (CMS/HCC V24, CMS/HCC V28) DX:Cancer (HCC) Hypertension DX:Hypertension GERD (gastroesophageal reflux disease) DX:GERD (gastroesophageal reflux disease) Osteoporosis DX:Osteoporosis Family History Medical History Relation Name Comments [...] on file Sexual Orientation Not on file Obstetrics History Last Filed Vital Signs Vital Sign Reading [...] Health Maintenance Due Date Last Done Comments Breast Cancer Screening 1950 Colorectal Cancer Screening: Colonoscopy 1950 DTaP,Tdap,and Td Vaccines (1 - Tdap) 1970 COVID-19 Vaccine (3 - Pfizer risk series) 09/24/2020 08/27/2020, 08/06/2020 Falls Risk Assessment 09/29/2021 Hepatitis C Screening 09/29/2021 Medicare Annual Wellness Visit 09/29/2021 Osteoporosis Screening (Bone Density Screening) 09/29/2021 Social Influencers of Health Screening 09/29/2021 Zoster Vaccines (2 of 2) 05/03/2022 03/08/2022 Depression Screening 05/23/2024 Influenza Vaccine (#1) 2025 01/18/2024, 2022 Hypertension/CHF/CAD Annual BMP Blood Test 02/20/2026 02/20/2025, 02/16/2025, 02/14/2025, Additional history exists Cholesterol Screening (Lipid Panel) 09/12/2029 09/12/2024 RSV Immunization Adult Patients Completed 04/23/2023 Pneumococcal Vaccine: 50+ Years Completed 08/22/2024, 02/02/2017 HIB Vaccines Aged Out No longer eligi ble based on patient's age to complete this topic HPV Vaccines Aged Out No longer eligi ble based on patient's age to complete this topic Hepatitis A Vaccines Aged Out No long er eligible based on patient's age to complete this topic Hepatitis B Vaccines Aged Out No long er eligible based on patient's age to complete this topic IPV Vaccines Aged Out No longer eligi ble based on patient's age to complete this topic MMR Vaccines Aged Out No longer eligi ble based on patient's age to complete this topic Meningococcal ACWY Vaccine Aged Out N o longer eligible based on patient's age to complete this topic Meningococcal B Vaccine Aged Out No l onger eligible based on patient's age to complete this topic RSV Immunization Patients Under 20 months Aged Out No longer eligible based on patient's age to complete this topic Varicella Vaccines Aged Out No longer eligible based on patient's age to complete this topic Procedures Procedure Name Priority Date/Time Associated Diagnosis Comments COMPREHENSIVE METABOLIC PANEL Routine 02/20/2025 5:00 AM EDT Encounter for other general examination COMPLETE BLOOD COUNT Routine 02/20/2025 5:00 AM EDT Encounter for other general examination COMPREHENSIVE METABOLIC PANEL Routine 02/16/2025 5:38 AM EDT Encounter for other general examination COMPLETE BLOOD COUNT Routine 02/16/2025 5:38 AM EDT Encounter for other general examination URINALYSIS WITH REFLEX MICROSCOPIC AND CULTURE Routine 02/16/2025 12:09 AM EDT Encounter for other general examination HEIN URINE CULTURE TUBE Routine 02/16/2025 12:09 AM EDT Encounter for other general examination URINALYSIS WITH REFLEX MICROSCOPIC AND CULTURE Routine 02/16/2025 12:09 AM EDT Encounter for other general examination CBC WITH AUTO DIFFERENTIAL Routine 02/14/2025 5:04 AM EDT Encounter for other general examination MAGNESIUM Routine 02/14/2025 5:04 AM EDT Encounter for other general examination COMPREHENSIVE METABOLIC PANEL Routine 02/14/2025 5:04 AM EDT Encounter for other general examination CBC AND DIFFERENTIAL Routine 02/14/2025 5:04 AM EDT Encounter for other general examination from Last 3 Months Results * (ABNORMAL) Complete blood count (02/20/2025 5:00 AM EDT) Only the most recent of2 resultswithin the time period is included. WBC 7.3 4.8 - 10.8 K/mcL LAB HEMETOLOGY METHOD 02/20/2025 10:38 AM [facility] LAB RBC 3.00(L) 3.80 - 4.80 M/mcL LAB HEMETOLOGY METHOD 02/20/2025 10:38 AM [facility] LAB Hemoglobin 8.7(L) 11.5 - 16.0 g/dL LAB HEMETOLOGY METHOD 02/20/2025 10:38 AM [facility] LAB Hematocrit 27.4(L) 35.0 - 47.0 % LAB HEMETOLOGY METHOD 02/20/2025 10:38 AM [facility] LAB MCV 91.6 79.0 - 98.0 FL LAB HEMETOLOGY METHOD 02/20/2025 10:38 AM [facility] LAB MCH 29.1 27.0 - 32.0 pcg LAB HEMETOLOGY METHOD 02/20/2025 10:38 AM [facility] LAB MCHC 31.8(L) 32.0 - 37.0 g/dL LAB HEMETOLOGY METHOD 02/20/2025 10:38 AM EDT [facility] LAB RDW 13.4 11.0 - 15.0 % LAB HEMETOLOGY METHOD 02/20/2025 10:38 AM EDT [facility] Platelets 376 130 - 400 K/mcL LAB HEMETOLOGY METHOD 02/20/2025 10:38 AM EDT [facility] MPV 8.7 7.0 - 11.0 FL LAB HEMETOLOGY METHOD 02/20/2025 10:38 AM EDT [facility] NRBC 0.0 <1.0 % LAB HEMETOLOGY METHOD 02/20/2025 10:38 AM EDT [facility] LAB NRBC Absolute 0.00 <0.10 K/mcL LAB HEMETOLOGY METHOD 02/20/2025 10:38 AM [facility] Blood Venous blood specimen / Unknown Venipuncture / Unknown 02/20/2025 5:00 AM EDT 02/20/2025 9:45 AM EDT us Xiomara MCCORMACK LAB BLOOD ORDERABLES Final Re sult [facility] LAB [address] [place] [address], [place] [phone] * (ABNORMAL) Comprehensive metabolic panel (02/20/2025 5:00 AM EDT) Only the most recent of3 resultswithin the time period is included. Sodium 139 133 - 145 mmol/L LAB CHEMISTRY METHOD 02/20/2025 11:33 AM [facility] Potassium 5.1 3.5 - 5.5 mmol/L LAB CHEMISTRY METHOD 02/20/2025 11:33 AM [facility] Chloride 101 96 - 110 mmol/L LAB CHEMISTRY METHOD 02/20/2025 11:33 AM [facility] CO2 31 21 - 32 mmol/L LAB CHEMISTRY METHOD 02/20/2025 11:33 AM [facility] Anion Gap 7 3 - 11 LAB CHEMISTRY METHOD 02/20/2025 11:33 AM [facility] Glucose 80 70 - 100 mg/dL LAB CHEMISTRY METHOD 02/20/2025 11:33 AM [facility] BUN 25 5 - 25 mg/dL LAB CHEMISTRY METHOD 02/20/2025 11:33 AM [facility] Creatinine 1.00 0.50 - 1.10 mg/dL LAB CHEMISTRY METHOD 02/20/2025 11:33 AM [facility] LAB eGFR 59(L) >=60 mL/min/1. 73m2 LAB CHEMISTRY METHOD 02/20/2025 11:33 AM [facility] LAB Comment:Calculation based on the Chronic Kidney Disease Epidemiology Collaboration (CKD-EPI) equation refit without adjustment for race. BUN/Creatinine Ratio 25.0 LAB CHEMISTRY METHOD 02/20/2025 11:33 AM [facility] Calcium 8.7 8.5 - 10.5 mg/dL LAB CHEMISTRY METHOD 02/20/2025 11:33 AM [facility] AST (SGOT) 18 10 - 42 unit/L LAB CHEMISTRY METHOD 02/20/2025 11:33 AM [facility] ALT (SGPT) 32 10 - 60 unit/L LAB CHEMISTRY METHOD 02/20/2025 11:33 AM [facility] Alkaline Phosphatase 116 42 - 121 unit/L LAB CHEMISTRY METHOD 02/20/2025 11:33 AM [facility] Total Protein 5.2(L) 6.0 - 8.0 g/dL LAB CHEMISTRY METHOD 02/20/2025 11:33 AM [facility] Albumin 2.7(L) 3.2 - 5.0 g/dL LAB CHEMISTRY METHOD 02/20/2025 11:33 AM [facility] Total Bilirubin 0.4 0.0 - 1.4 mg/dL LAB CHEMISTRY METHOD 02/20/2025 11:33 AM [facility] Blood Venous blood specimen / Unknown Venipuncture / Unknown 02/20/2025 5:00 AM EDT 02/20/2025 9:45 AM EDT us Xiomara MCCORMACK LAB BLOOD ORDERABLES Final Re sult [facility] LAB [address] [place] [address], [place] [phone] * Urinalysis with reflex microscopic and culture (02/16/2025 12:09 AM EDT) Specific Pray Urine 1.017 1.003 - 1.030 LAB URINALYSIS - AUTOMATED METHOD 02/16/2025 10:03 AM [facility] pH, Urine 7.0 5.0 - 8.0 pH LAB URINALYSIS - AUTOMATED METHOD 02/16/2025 10:03 AM [facility] Leukocytes, Urine Negative Negative LAB URINALYSIS - AUTOMATED METHOD 02/16/2025 10:03 AM [facility] Nitrite, Urine Negative Negative LAB URINALYSIS - AUTOMATED METHOD 02/16/2025 10:03 AM [facility] Protein, Urine Negative <=Trace mg/dL LAB URINALYSIS - AUTOMATED METHOD 02/16/2025 10:03 AM [facility] Glucose, Urine Negative Negative mg/dL LAB URINALYSIS - AUTOMATED METHOD 02/16/2025 10:03 AM [facility] Ketones, Urine Negative Negative mg/dL LAB URINALYSIS - AUTOMATED METHOD 02/16/2025 10:03 AM [facility] Urobilinogen, Urine 1.0 0.2 - 1.0 mg/dL LAB URINALYSIS - AUTOMATED METHOD 02/16/2025 10:03 AM EDT [facility] Bilirubin, Urine Negative Negative LAB URINALYSIS - AUTOMATED METHOD 02/16/2025 10:03 AM EDT [facility] Blood, Urine Negative Negative LAB URINALYSIS - AUTOMATED METHOD 02/16/2025 10:03 AM EDT [facility] Urine Urine specimen obtained by clean catch procedure / Unknown 02/16/2025 12:09 AM EDT 02/16/2025 9:42 AM EDT Xiomara MCCORMACK LAB URINE ORDERABLES Final Re sult Performing Organization Address City/[facility]/ZIP Co de Phone Number [facility] [address] [place] [address], [place] [phone] * Hein urine culture tube (02/16/2025 12:09 AM EDT) Extra Tube Hold for add-ons. 02/16/2025 11:01 AM EDT [facility] Comment:Auto resulted. Urine Urine specimen obtained by clean catch procedure / Unknown 02/16/2025 12:09 AM EDT 02/16/2025 9:42 AM EDT Xiomara MCCORMACK LAB URINE ORDERABLES Final Re sult Performing Organization Address City/[facility]/ZIP Co de Phone Number [facility] [address] [place] [address], [place] [phone] * (ABNORMAL) CBC auto differential (02/14/2025 5:04 AM EDT) WBC 8.4 4.8 - 10.8 K/[facility] LAB HEMETOLOGY METHOD 02/14/2025 11:02 AM EDT [facility] RBC 3.10(L) 3.80 - 4.80 M/[facility] LAB HEMETOLOGY METHOD 02/14/2025 11:02 AM EDT [facility] Hemoglobin 9.0(L) 11.5 - 16.0 g/dL LAB HEMETOLOGY METHOD 02/14/2025 11:02 AM [facility] Hematocrit 28.0(L) 35.0 - 47.0 % LAB HEMETOLOGY METHOD 02/14/2025 11:02 AM [facility] MCV 91.5 79.0 - 98.0 FL LAB HEMETOLOGY METHOD 02/14/2025 11:02 AM [facility] MCH 29.4 27.0 - 32.0 pcg LAB HEMETOLOGY METHOD 02/14/2025 11:02 AM [facility] MCHC 32.1 32.0 - 37.0 g/dL LAB HEMETOLOGY METHOD 02/14/2025 11:02 AM [facility] RDW 13.4 11.0 - 15.0 % LAB HEMETOLOGY METHOD 02/14/2025 11:02 AM [facility] Platelets 192 130 - 400 K/mcL LAB HEMETOLOGY METHOD 02/14/2025 11:02 AM [facility] MPV 9.7 7.0 - 11.0 FL LAB HEMETOLOGY METHOD 02/14/2025 11:02 AM [facility] NRBC 0.0 <1.0 % LAB HEMETOLOGY METHOD 02/14/2025 11:02 AM [facility] NRBC Absolute 0.00 <0.10 K/mcL LAB HEMETOLOGY METHOD 02/14/2025 11:02 AM [facility] Neutrophils Relative 76.3 % LAB HEMETOLOGY METHOD 02/14/2025 11:02 AM [facility] Lymphocytes Relative 12.2 % LAB HEMETOLOGY METHOD 02/14/2025 11:02 AM [facility] Monocytes Relative 8.8 % LAB HEMETOLOGY METHOD 02/14/2025 11:02 AM [facility] Eosinophils Relative 1.5 % LAB HEMETOLOGY METHOD 02/14/2025 11:02 AM [facility] Basophils Relative 0.4 % LAB HEMETOLOGY METHOD 02/14/2025 11:02 AM [facility] Immature Granulocytes Relative 0.8 % LAB HEMETOLOGY METHOD 02/14/2025 11:02 AM [facility] Neutrophils Absolute 6.43 1.50 - 7.00 K/mcL LAB HEMETOLOGY METHOD 02/14/2025 11:02 AM [facility] Lymphocytes Absolute 1.03 1.00 - 5.00 K/mcL LAB HEMETOLOGY METHOD 02/14/2025 11:02 AM [facility] Monocytes Absolute 0.74 0.20 - 1.00 K/mcL LAB HEMETOLOGY METHOD 02/14/2025 11:02 AM [facility] Eosinophils Absolute 0.13 0.00 - 0.50 K/mcL LAB HEMETOLOGY METHOD 02/14/2025 11:02 AM [facility] Basophils Absolute 0.03 0.00 - 0.20 K/mcL LAB HEMETOLOGY METHOD 02/14/2025 11:02 AM [facility] Immature Granulocytes Absolute 0.07(H) 0.00 - 0.03 K/mcL LAB HEMETOLOGY METHOD 02/14/2025 11:02 AM [facility] Blood Venous blood specimen / Unknown Venipuncture / Unknown 02/14/2025 5:04 AM EDT 02/14/2025 10:14 AM EDT us Kurtis MCCORMACK LAB BLOOD ORDERABLES Final R esult [facility] [address] [place] [address], [place] [phone] * (ABNORMAL) Magnesium (02/14/2025 5:04 AM EDT) Magnesium 1.8(L) 1.9 - 2.6 mg/dL LAB CHEMISTRY METHOD 02/14/2025 11:57 AM EDT [facility] Blood Venous blood specimen / Unknown Venipuncture / Unknown 02/14/2025 5:04 AM EDT 02/14/2025 10:14 AM EDT Kurtis MCCORMACK LAB BLOOD ORDERABLES Final R esult [facility] [address] [place] [address], [place] [phone] from Last 3 Months Insurance [facility] MEDIC[facility] Care Teams Pulping Machine Operator Relationship Specialty Start Date End Date Xiomara Oleary PA [address] [place] [address] PCP - General Physician Belt Worker 02/20/25
--- OUTSIDE RECORDS SUMMARY | 2025-02-22 08:58 | XMS_ITS | Encounter Summary ---
Author Organization [facility] Address [address] [place] [address] Care Team Providers Care Lead Miner Blasting Name Role Phone Xiomara Oleary Primary Care Provider [phone] Encounter Details Date Type Department Care Team (Late st Contact Info) Description 02/16/2025 Lab Requisition [facility] - Main Lab [address] [place] [address] Xiomara Oleary PA [address] [place] [address] Encounter for other general examination Social History [...] Procedure Name Priority Date/Time Associated Diagnosis Comments COMPLETE BLOOD COUNT Routine 02/16/2025 5:38 AM EDT Encounter for other general examination COMPREHENSIVE METABOLIC PANEL Routine 02/16/2025 5:38 AM EDT Encounter for other general examination documented in this encounter Results * (ABNORMAL) Comprehensive metabolic panel (02/16/2025 5:38 AM EDT) Sodium 137 133 - 145 mmol/L LAB CHEMISTRY METHOD 02/16/2025 11:10 AM EDT [facility] Potassium 5.1 3.5 - 5.5 mmol/L LAB CHEMISTRY METHOD 02/16/2025 11:10 AM EDT [facility] Chloride 100 96 - 110 mmol/L LAB CHEMISTRY METHOD 02/16/2025 11:10 AM [facility] CO2 34(H) 21 - 32 mmol/L LAB CHEMISTRY METHOD 02/16/2025 11:10 AM [facility] Anion Gap 3 3 - 11 LAB CHEMISTRY METHOD 02/16/2025 11:10 AM [facility] LAB Glucose 83 70 - 100 mg/dL LAB CHEMISTRY METHOD 02/16/2025 11:10 AM [facility] BUN 20 5 - 25 mg/dL LAB CHEMISTRY METHOD 02/16/2025 11:10 AM [facility] Creatinine 0.91 0.50 - 1.10 mg/dL LAB CHEMISTRY METHOD 02/16/2025 11:10 AM [facility] LAB eGFR 66 >=60 mL/min/1. 73m2 LAB CHEMISTRY METHOD 02/16/2025 11:10 AM [facility] LAB Comment:Calculation based on the Chronic Kidney Disease Epidemiology Collaboration (CKD-EPI) equation refit without adjustment for race. BUN/Creatinine Ratio 22.0 LAB CHEMISTRY METHOD 02/16/2025 11:10 AM [facility] Calcium 8.6 8.5 - 10.5 mg/dL LAB CHEMISTRY METHOD 02/16/2025 11:10 AM [facility] LAB AST (SGOT) 24 10 - 42 unit/L LAB CHEMISTRY METHOD 02/16/2025 11:10 AM [facility] ALT (SGPT) 37 10 - 60 unit/L LAB CHEMISTRY METHOD 02/16/2025 11:10 AM [facility] Alkaline Phosphatase 129(H) 42 - 121 unit/L LAB CHEMISTRY METHOD 02/16/2025 11:10 AM [facility] Total Protein 5.1(L) 6.0 - 8.0 g/dL LAB CHEMISTRY METHOD 02/16/2025 11:10 AM [facility] Albumin 2.3(L) 3.2 - 5.0 g/dL LAB CHEMISTRY METHOD 02/16/2025 11:10 AM EDT [facility] Total Bilirubin 0.5 0.0 - 1.4 mg/dL LAB CHEMISTRY METHOD 02/16/2025 11:10 AM [facility] Blood Venous blood specimen / Unknown Venipuncture / Unknown 02/16/2025 5:38 AM EDT 02/16/2025 9:00 AM EDT us Xiomara MCCORMACK LAB BLOOD ORDERABLES Final Re sult [facility] [address] [place] [address], [place] [phone] * (ABNORMAL) Complete blood count (02/16/2025 5:38 AM EDT) WBC 7.9 4.8 - 10.8 K/mcL LAB HEMETOLOGY METHOD 02/16/2025 10:10 AM [facility] RBC 3.00(L) 3.80 - 4.80 M/mcL LAB HEMETOLOGY METHOD 02/16/2025 10:10 AM [facility] Hemoglobin 8.8(L) 11.5 - 16.0 g/dL LAB HEMETOLOGY METHOD 02/16/2025 10:10 AM [facility] Hematocrit 27.8(L) 35.0 - 47.0 % LAB HEMETOLOGY METHOD 02/16/2025 10:10 AM EDT [facility] LAB MCV 92.1 79.0 - 98.0 FL LAB HEMETOLOGY METHOD 02/16/2025 10:10 AM [facility] MCH 29.1 27.0 - 32.0 pcg LAB HEMETOLOGY METHOD 02/16/2025 10:10 AM [facility] MCHC 31.7(L) 32.0 - 37.0 g/dL LAB HEMETOLOGY METHOD 02/16/2025 10:10 AM EDT [facility] RDW 13.5 11.0 - 15.0 % LAB HEMETOLOGY METHOD 02/16/2025 10:10 AM EDT [facility] Platelets 318 130 - 400 K/mcL LAB HEMETOLOGY METHOD 02/16/2025 10:10 AM EDT [facility] MPV 9.2 7.0 - 11.0 FL LAB HEMETOLOGY METHOD 02/16/2025 10:10 AM EDT [facility] NRBC 0.0 <1.0 % LAB HEMETOLOGY METHOD 02/16/2025 10:10 AM EDT [facility] NRBC Absolute 0.00 <0.10 K/mcL LAB HEMETOLOGY METHOD 02/16/2025 10:10 AM EDT [facility] Blood Venous blood specimen / Unknown Venipuncture / Unknown 02/16/2025 5:38 AM EDT 02/16/2025 9:00 AM EDT us Xiomara MCCORMACK LAB BLOOD ORDERABLES Final Re sult [facility] [address] [place] [address], documented in this encounter Visit Diagnoses Diagnosis Encounter for other general examination documented in this encounter Care Teams Lead Miner Blasting Relationship Specialty Start Date End Date Xiomara Oleary PA [address] [place] [phone] PCP - General Physician Ecclesiastical Worker 02/20/25 documented as of this encounter
--- OUTSIDE RECORDS SUMMARY | 2025-02-22 08:58 | XMS_ITS | Clinical Summary ---
Author Organization [facility] Address [address] [place] [address] Care Team Providers Care Asset Availability Leader Name Role Phone Enoc Llanos MD Primary [...] age to complete this topic Care Teams Asset Availability Leader Relationship Specialty Start Date End Date Enoc Llanos MD PCP - General Internal Medicine 06/13/18
--- OUTSIDE RECORDS SUMMARY | 2025-02-22 08:58 | XMS_ITS | Encounter Summary ---
Author Organization [facility] Address [address] [place] [address] Phone Care Team Providers Care Ophthalmic Asst Name Role Phone Enoc Llanos MD Primary Care Provider [phone] Reason for Referral * MRI/CAT Scan - Closed Specialty Diagnoses / Procedures Referred By Contac t Referred To Contact Procedures NM PET Whole Body Outside (No Interpretation) System, Provider Not In, [facility] [place] [id number] Referral ID Status Reason Start Date Expiration Date Visits Re quested Visits Authorized [id number] Closed 03/24/2017 03/24/2018 1 1 Encounter Details Date Type Department Care Team (Late st Contact Info) Description 03/24/2017 Ancillary Orders [facility],Outside Imaging [address] [place] [address] System, Provider Not In, [facility] [address] [address] Social History Tobacco Use Types Packs/Day Years [...] on filedocumented in this encounter Care Teams Ophthalmic Asst Relationship Specialty Start Date End Date Enoc Llanos MD [address] [place] [address] PCP - General Internal Medicine 03/22/17 documented as of this encounter Additional Source Comments The information contained in this document represents components of the legal health record. It is not the complete legal health record.[facility]
--- OUTSIDE RECORDS SUMMARY | 2025-02-22 08:58 | XMS_ITS | Encounter Summary ---
Author Organization [facility] Address [address] [place] [address] Care Team Providers Care Card Lacer Jacquard Name Role Phone Xiomara Oleary Primary Care Provider [phone] Encounter Details Date Type Department Care Team (Late st Contact Info) Description 02/14/2025 Lab Requisition [facility] - Main Lab [address] [facility] [place] [address] Kurtis Webster PA [address] [address] Social History Tobacco Use Types [...] on filedocumented in this encounter Care Teams Card Lacer Jacquard Relationship Specialty Start Date End Date Xiomara Oleary PA [address] [place] [address] PCP - General Physician Restaurant Server 02/20/25 documented as of this encounter
--- OUTSIDE RECORDS SUMMARY | 2025-02-22 08:58 | XMS_ITS | Encounter Summary ---
Author Organization [facility] Address [address] [place] [address] Care Team Providers Care Budget Director Name Role Phone Xiomara Oleary Primary Care Provider [phone] Encounter Details Date Type Department Care Team (Late st Contact Info) Description 02/14/2025 Lab Requisition [facility] - Main Lab [address] [facility] [place] [address] Kurtis Webster PA [address] [address] Social History Tobacco Use Types [...] filedocumented in this encounter Care Teams Budget Director Relationship Specialty Start Date End Date Xiomara Oleary PA [address] [place] [address] PCP - General Physician Accountancy Professor 02/20/25 documented as of this encounter
--- OUTSIDE RECORDS SUMMARY | 2025-02-22 08:58 | XMS_ITS | Encounter Summary ---
Author Organization [facility] Address [address] [place] [address] Care Team Providers Care Cable Technician Name Role Phone Xiomara Oleary Primary Care Provider [phone] Encounter Details Date Type Department Care Team (Late st Contact Info) Description 02/20/2025 Lab Requisition [facility] - Main Lab [address] [place] [address] Xiomara Oleary PA [address] [place] [address] Encounter for other general examination [...] Associated Diagnosis Comments COMPLETE BLOOD COUNT Routine 02/20/2025 5:00 AM EDT Encounter for other general examination COMPREHENSIVE METABOLIC PANEL Routine 02/20/2025 5:00 AM EDT Encounter for other general examination documented in this encounter Results * (ABNORMAL) Comprehensive metabolic panel (02/20/2025 5:00 AM EDT) Sodium 139 133 - 145 mmol/L LAB CHEMISTRY METHOD 02/20/2025 11:33 AM EDT [facility] Potassium 5.1 3.5 - 5.5 mmol/L LAB CHEMISTRY METHOD 02/20/2025 11:33 AM EDT [facility] Chloride 101 96 - 110 mmol/L LAB CHEMISTRY METHOD 02/20/2025 11:33 AM [facility] CO2 31 21 - 32 mmol/L LAB CHEMISTRY METHOD 02/20/2025 11:33 AM [facility] Anion Gap 7 3 - 11 LAB CHEMISTRY METHOD 02/20/2025 11:33 AM [facility] Glucose 80 70 - 100 mg/dL LAB CHEMISTRY METHOD 02/20/2025 11:33 AM [facility] BUN 25 5 - 25 mg/dL LAB CHEMISTRY METHOD 02/20/2025 11:33 AM [facility] Creatinine 1.00 0.50 - 1.10 mg/dL LAB CHEMISTRY METHOD 02/20/2025 11:33 AM [facility] eGFR 59(L) >=60 mL/min/1. 73m2 LAB CHEMISTRY METHOD 02/20/2025 11:33 AM [facility] Comment:Calculation based on the Chronic Kidney Disease Epidemiology Collaboration (CKD-EPI) equation refit without adjustment for race. BUN/Creatinine Ratio 25.0 LAB CHEMISTRY METHOD 02/20/2025 11:33 AM [facility] Calcium 8.7 8.5 - 10.5 mg/dL LAB CHEMISTRY METHOD 02/20/2025 11:33 AM [facility] AST (SGOT) 18 10 - 42 unit/L LAB CHEMISTRY METHOD 02/20/2025 11:33 AM [facility] ALT (SGPT) 32 10 - 60 unit/L LAB CHEMISTRY METHOD 02/20/2025 11:33 AM [facility] Alkaline Phosphatase 116 42 - 121 unit/L LAB CHEMISTRY METHOD 02/20/2025 11:33 AM [facility] Total Protein 5.2(L) 6.0 - 8.0 g/dL LAB CHEMISTRY METHOD 02/20/2025 11:33 AM [facility] Albumin 2.7(L) 3.2 - 5.0 g/dL LAB CHEMISTRY METHOD 02/20/2025 11:33 AM EDT [facility] Total Bilirubin 0.4 0.0 - 1.4 mg/dL LAB CHEMISTRY METHOD 02/20[facility] Blood Venous blood specimen / Unknown Venipuncture / Unknown 02/20/2025 5:00 AM EDT 02/20/2025 9:45 AM EDT us Xiomara MCCORMACK LAB BLOOD ORDERABLES Final Re sult [facility] [address] [place] [address], * (ABNORMAL) Complete blood count (02/20/2025 5:00 AM EDT) WBC 7.3 4.8 - 10.8 K/mcL LAB HEMETOLOGY METHOD 02/20/2025 10:38 AM [facility] RBC 3.00(L) 3.80 - 4.80 M/mcL LAB HEMETOLOGY METHOD 02/20/2025 10:38 AM [facility] Hemoglobin 8.7(L) 11.5 - 16.0 g/dL LAB HEMETOLOGY METHOD 02/20/2025 10:38 AM [facility] Hematocrit 27.4(L) 35.0 - 47.0 % LAB HEMETOLOGY METHOD 02/20/2025 10:38 AM [facility] MCV 91.6 79.0 - 98.0 FL LAB HEMETOLOGY METHOD 02/20/2025 10:38 AM [facility] MCH 29.1 27.0 - 32.0 pcg LAB HEMETOLOGY METHOD 02/20/2025 10:38 AM [facility] MCHC 31.8(L) 32.0 - 37.0 g/dL LAB HEMETOLOGY METHOD 02/20/2025 10:38 AM EDT [facility] RDW 13.4 11.0 - 15.0 % LAB HEMETOLOGY METHOD 02/20/2025 10:38 AM EDT [facility] Platelets 376 130 - 400 K/mcL LAB HEMETOLOGY METHOD 02/20/2025 10:38 AM EDT [facility] MPV 8.7 7.0 - 11.0 FL LAB HEMETOLOGY METHOD 02/20/2025 10:38 AM EDT [facility] NRBC 0.0 <1.0 % LAB HEMETOLOGY METHOD 02/20/2025 10:38 AM EDT [facility] NRBC Absolute 0.00 <0.10 K/mcL LAB HEMETOLOGY METHOD 02/20/2025 10:38 AM EDT [facility] Blood Venous blood specimen / Unknown Venipuncture / Unknown 02/20/2025 5:00 AM EDT 02/20/2025 9:45 AM EDT us Xiomara MCCORMACK LAB BLOOD ORDERABLES Final Re sult [facility] [address] [place] [address], documented in this encounter Visit Diagnoses Diagnosis Encounter for other general examination documented in this encounter Care Teams Cable Technician Relationship Specialty Start Date End Date Xiomara Oleary PA [address] [place] [address] PCP - General Physician Enterer 02/20/25 documented as of this encounter
--- OUTSIDE RECORDS SUMMARY | 2025-02-22 08:58 | XMS_ITS | Patient Health Record ---
Author Organization [facility] Address [address] [place], [place] [id number] Care Team Providers Care Airline Captain Name Role Phone LUCIEN RAMIREZ Primary Care Provider [phone] [place], NURSING Unavailable [phone] ALLERGIES Allergen (clinical drug ingredient) Drug/Non Drug [...] morning meal Orally Once a day Active Furosemide 20 MG TAKE 1 TABLET BY RAMON TH EVERY DAY for 90 Active traMADol HCl 50 MG 1-2 tablets as neede d Orally twice a day for 30 day(s) 01/24/2025 Active Fluticasone Propionate 50 MCG/ACT 2 sprays (1 spray in each nostril) Nasal Twice a day 11/30/2021 Active IMMUNIZATIONS Vaccine Route Administration Date Status Comme nts Covid Unknown 03/16/2022 Administered Influenza, Fluzone HD 65+ IM Intramuscular 04/22/2023 Admi nistered Pfizer COVID-19,mRNA, LNP-S, PF, 30mcg/0.3mL dose Unknown 08/06/2020 Administered Pfizer COVID-19,mRNA, LNP-S, PF, 30mcg/0.3mL dose Unknown 08/27/2020 Administered Pneumococcal Prevnar 13 Unknown 01/21/2017 Administered Pneumococcal, PPV 23 IM Intramuscular 01/25/2018 Administe red [id number] IM Intramuscular 08/22/2024 Administered SARSCOV2 VAC BVL 3MCG/0.2ML Pfizer Unknown 04/12/2021 Administered Td (Tetanus Diphtheria) Unknown 11/05/2008 Administered Zoster recombinant Unknown 12/03/2021 Administered Zoster recombinant Unknown 03/10/2022 Administered SOCIAL HISTORY Tobacco Use: Social History [...] Problem Essential (primary) hypertension (I10) Active confirmed 90029759 Problem Generalized osteoarthritis (M15.9) Active confirmed 621435584 Problem Primary insomnia (F51.01) Active confirmed 2634170 Problem Other obesity due to excess calories (E66.09) Active confirmed 583313634 Problem Mixed hyperlipidemia (E78.2) Active confirmed 692492763 Problem Anxiety (F41.9) Active confirmed 402441 02 Problem Primary osteoarthritis of right knee (M17.11) Active confirmed 668622230771828 Problem Insomnia, unspecified type (G47.00) Active confirmed 712903285 Problem Chronic GERD (K21.9) Active confirmed 449363563 Problem Chronic venous insufficiency (I87.2) Active confirmed 95675568 Problem Personal history of breast cancer (Z85.3) Active confirmed 525094406 Problem Body mass index [BMI] 34.0-34.9, adult (Z68.34) Active confirmed 331417023 Problem Incomplete tear of left rotator cuff, unspecified whether traumatic (M75.112) Active confirmed 438870706 VITAL SIGNS Blood pressure diastolic 72 mm Hg 01/24/2025 Height 62.125 in 01/24/2025 Blood pressure systolic 126 mm Hg 01/24/2025 Weight 188 lbs 01/24/2025 BMI 34.24 kg/m2 01/24/2025 Encounters Encounter Location Date Provider Diagnosis [address] [address] 03/15/2024 [facility] Essential (primary) hypertension I10 ; Mixed hyperlipidemia E78.2 and Other fatigue R53.83 [place] [id number] 07/16/2024 [place] [id number] 07/16/2024 [place] [id number] 08/02/2024 [address] 08/02/2024 [place] [id number] 08/22/2024 [facility] Essential (primary) hypertension I10 ; Personal history of breast cancer Z85.3 ; Anxiety F41.9 ; Encntr for general adult medical exam w/o abnormal findings Z00.00 and Encounter for immunization Z23 [place] [id number] 09/13/2024 [place] [id number] 09/27/2024 [place] [id number] 09/27/2024 [facility] Pain, joint, shoulde r, right M25.[address] [address] 12/03/2024 [place] [id number] 12/17/2024 [facility] Preprocedural examination Z01.818 ; Primary osteoarthritis of right knee M17.11 ; Insomnia, unspecified type G47.00 ; Mixed hyperlipidemia E78.2 and Essential (primary) hypertension I10 [address] [address] 12/18/2024 [facility] Primary osteoarthrit is of right knee M17.[address] [address] 01/24/2025 [facility] Essential (primary) hypertension I10 ; [...] adult medical examination with abnormal findings Z00.[address] [address] 01/24/[address] [address] 01/24/2025 [facility] Medicare annual wellness visit, subsequent Z00.[address] [address] 01/31/[address] [address] 02/05/[address] [address] 02/14/[address] [address] 02/20/2025 [facility] ASSESSMENTS Encounter Date Diagnosis Assessment [...] of recurrence. Follows with Dr. Mcgowan at [place] 3. Hyperlipidemia: Will update profile on atorvastatin [...] of recurrence. Follows with Dr. Mcgowan at [place] 3. Hyperlipidemia: Will update profile on atorvastatin 4. Right knee osteoarthritis: Awaiting surgery with Dr. Armendariz. Using naproxen and tramadol cautiously 5. Obesity/BMI of 34: Will check A1c with laboratory studies. She is working at [employer] 6. GERD: Stable on pantoprazole. Will continue [...] of recurrence. Follows with Dr. Mcgowan at [place] 3. Hyperlipidemia: Will update profile on atorvastatin 4. Right knee osteoarthritis: Awaiting surgery with Dr. Armendariz. Using naproxen and tramadol cautiously 5. Obesity/BMI of 34: Will check A1c with laboratory studies. She is working at [employer] 6. GERD: Stable on pantoprazole. Will continue [...] of recurrence. Follows with Dr. Mcgowan at [place] 3. Hyperlipidemia: Will update profile on atorvastatin [...] of recurrence. Follows with Dr. Mcgowan at [place] 3. Hyperlipidemia: Will update profile on atorvastatin [...] of recurrence. Follows with Dr. Mcgowan at [place] 3. Hyperlipidemia: Will update profile on atorvastatin [...] of recurrence. Follows with Dr. Mcgowan at [place] 3. Hyperlipidemia: Will update profile on atorvastatin [...] of recurrence. Follows with Dr. Roslyn najera [place] 3. Hyperlipidemia: Will update profile on atorvastatin [...] of recurrence. Follows with Dr. Mcgowan at [place] 3. Hyperlipidemia: Will update profile on atorvastatin [...] of recurrence. Follows with Dr. Mcgowan at [place] 3. Hyperlipidemia: Will update profile on atorvastatin [...] of recurrence. Follows with Dr. Mcgowan at [place] 3. Hyperlipidemia: Will update profile on atorvastatin [...] of recurrence. Follows with Dr. Mcgowan at [place] 3. Hyperlipidemia: Will update profile on atorvastatin [...] Date HEMOGLOBIN A1C 01/14/2023 CBC, Platelet, w/o Differential-[id number] Lipid Panel-[id number] 03/15/2024 TSH Rfx on Abnormal to Free [id number] Comp. Metabolic Panel [id number] 2023 Next Appt Details Provider Name:LUCIEN RAMIREZ , 03/04/2025 08:30:00 AM, [address] [place] [address], [phone], Provider Name:LUCIEN RAMIREZ , 07/24/2025 01:00:00 PM, [address] [place] [address], [phone], Insurance Providers Payer Name Payer Address Payer Phone Subscriber Number Group Number Insured Name Patient Relationship to Insured Coverage Start Date Coverage End Date MEDICARE [employer] [address] [place] [address] [id number] ODENMONI RIZO Self - patient is the insured 7 [employer] [address] [address] [place] [address] [id number] ODEN MONI Self - patient is the insured [employer] [address] [place] [address] [phone] [id number] ODEN MONI Self - patient is the insured 0 MEDICAL (GENERAL) HISTORY Medical History History ICD Code Disease : renal mass - Oncocytoma, Elevated lipids, hypertension, neoplastic, Disease : Cancer , Right breast, Dec 2016 mastectomy, reconstruction, chemo, XRT Problems: Insomnia, Problems: Peripheral venous insufficienc y09/25/2010:Active Surgical History Surgery Date(Month/Year) Left shoulder arthroscopic surgery 2023 : R distal fibular Fracture, Sx_Procedur e : casting 2008 : L 5th Metatarsal Fraccture, Sx_Procedu re : casting Disease : Cholecystitis, Sx_Procedure : Cholecystectomy
--- OUTSIDE RECORDS SUMMARY | 2025-02-22 08:58 | XMS_ITS | Encounter Summary ---
Author Organization [facility] Address [address] [place] [address] Phone Care Team Providers Care Education Professional Name Role Phone Enoc Llanos MD Primary Care Provider [phone] Reason for Referral * MRI/CAT Scan - Closed Specialty Diagnoses / Procedures Referred By Contac t Referred To Contact Procedures CT Chest Outside (No Interpretation) System, Provider Not In, [facility] [address] [address] Referral ID Status Reason Start Date Expiration Date Visits Re quested Visits Authorized [id number] Closed 04/06/2017 04/06/2018 1 1 Encounter Details Date Type Department Care Team (Late st Contact Info) Description 04/06/2017 Ancillary Orders [facility],Outside Imaging [address] [place] [address] System, Provider Not In, [facility] [address] [address] Social History Tobacco Use Types Packs/Day Years [...] on filedocumented in this encounter Care Teams Education Professional Relationship Specialty Start Date End Date Enoc Llanos MD [address] [place] [address] PCP - General Internal Medicine 03/22/17 documented as of this encounter Additional Source Comments The information contained in this document represents components of the legal health record. It is not the complete legal health record.[facility]
--- OUTSIDE RECORDS SUMMARY | 2025-02-22 08:58 | XMS_ITS | Encounter Summary ---
Author Organization [facility] Address [address] [place] [address] Care Team Providers Care Engagement Lead Name Role Phone Xiomara Oleary Primary Care Provider [phone] Encounter Details Date Type Department Care Team (Late st Contact Info) Description 02/16/2025 Lab Requisition [facility] - Main Lab [address] [place] [address] Xiomara Oleary PA [address] [place] [address] Encounter for other general examination [...] Procedure Name Priority Date/Time Associated Diagnosis Comments URINALYSIS WITH REFLEX MICROSCOPIC AND CULTURE Routine 02/16/2025 12:09 AM EDT Encounter for other general examination EHIN URINE CULTURE TUBE Routine 02/16/2025 12:09 AM EDT Encounter for other general examination URINALYSIS WITH REFLEX MICROSCOPIC AND CULTURE Routine 02/16/2025 12:09 AM EDT Encounter for other general examination documented in this encounter Results * Urinalysis with reflex microscopic and culture (02/16/2025 12:09 AM EDT) Specific [place] Urine 1.017 1.003 - 1.030 LAB URINALYSIS - AUTOMATED METHOD 02/16/2025 10:03 AM [facility] pH, Urine 7.0 5.0 - 8.0 pH LAB URINALYSIS - AUTOMATED METHOD 02/16/2025 10:03 AM [facility] Leukocytes, Urine Negative Negative LAB URINALYSIS - AUTOMATED METHOD 02/16/2025 10:03 AM [facility] Nitrite, Urine Negative Negative LAB URINALYSIS - AUTOMATED METHOD 02/16/2025 10:03 AM [facility] Protein, Urine Negative <=Trace mg/dL LAB URINALYSIS - AUTOMATED METHOD 02/16/2025 10:03 AM [facility] Glucose, Urine Negative Negative mg/dL LAB URINALYSIS - AUTOMATED METHOD 02/16/2025 10:03 AM [facility] Ketones, Urine Negative Negative mg/dL LAB URINALYSIS - AUTOMATED METHOD 02/16/2025 10:03 AM [facility] Urobilinogen, Urine 1.0 0.2 - 1.0 mg/dL LAB URINALYSIS - AUTOMATED METHOD 02/16/2025 10:03 AM [facility] Bilirubin, Urine Negative Negative LAB URINALYSIS - AUTOMATED METHOD 02/16/2025 10:03 AM [facility] Blood, Urine Negative Negative LAB URINALYSIS - AUTOMATED METHOD 02/16/2025 10:03 AM [facility] Urine Urine specimen obtained by clean catch procedure / Unknown 02/16/2025 12:09 AM EDT 02/16/2025 9:42 AM EDT us Xiomara MCCORMACK LAB URINE ORDERABLES Final Re sult [facility] [address] [place] [address], * Hein urine culture tube (02/16/2025 12:09 AM EDT) Extra Tube Hold for add-ons. 02/16/2025 11:01 AM EDT [facility] Comment:Auto resulted. Urine Urine specimen obtained by clean catch procedure / Unknown 02/16/2025 12:09 AM EDT 02/16/2025 9:42 AM EDT us Xiomara MCCORMACK LAB URINE ORDERABLES Final Re sult [facility] [address] [place] [address], documented in this encounter Visit Diagnoses Diagnosis Encounter for other general examination documented in this encounter Care Teams Engagement Lead Relationship Specialty Start Date End Date Xiomara Oleary PA [address] [place] [address] PCP - General Physician Airfield Manager 02/20/25 documented as of this encounter
--- OUTSIDE RECORDS SUMMARY | 2025-02-22 08:58 | XMS_ITS | Encounter Summary ---
Author Organization [facility] Address [address] [place] [address] Care Team Providers Care General Science Teacher Name Role Phone Xiomara Oleary Primary Care Provider [phone] Encounter Details Date Type Department Care Team (Late st Contact Info) Description 02/14/2025 Lab Requisition [facility] - Main Lab [address] [facility] [place] [address] Kurtis Webster PA [address] [address] Social History Tobacco Use Types [...] on filedocumented in this encounter Care Teams General Science Teacher Relationship Specialty Start Date End Date Xiomara Oleary PA [address] [place] [address] PCP - General Physician Turbine Room Attendant 02/20/25 documented as of this encounter
--- OUTSIDE RECORDS SUMMARY | 2025-02-22 08:58 | XMS_ITS | Encounter Summary ---
Author Organization [facility] Address [address] [place] [address] Phone Care Team Providers Care Convenience Store Manager Name Role Phone Enoc Llanos MD Primary Care Provider [phone] Encounter Details Date Type Department Care Team (Latest Contact Info) Description 03/22/2018 Transcribe Orders [facility] [address] [place] [address] Enoc Llanos MD [address] [address] Edema, unspecified type (Primary Dx) Social History [...] EDT) SODIUM 144 133 - 146 mmol/L [facility] CHLORIDE 100 96 - 108 mmol/L [facility] POTASSIUM 4.2 3.3 - 5.1 mmol/L [facility] CO2 29 21 - 35 mmol/L [facility] BUN 18 6 - 19 mg/dL [facility] CREATININE 0.80 0.5 - 1.5 mg/dL [facility] GLUCOSE 77 70 - 99 mg/dL [facility] CALCIUM 9.3 8.4 - 10.3 mg/dL [facility] EGFR 76 >59 mL/min/1.7 3m2 [facility] Comment:If patient is black, multiply result by 1.159. Estimated glomerular filtration rate calculated using the CKD-EPI equation. ANION GAP 19 10 - 20 mmol/L [facility] Blood 03/22/2018 11:1 2 AM EDT 03/22/2018 11:15 AM EDT us Enoc Llanos MD LAB BLOOD ORDERABLES Le humph[facility] Result [facility] [address] [place] [address] documented in this encounter Visit Diagnoses Diagnosis Edema, unspecified type- Primary documented in this encounter Care Teams Convenience Store Manager Relationship Specialty Start Date End Date Enoc Llanos MD [address] [place] [address] PCP - General Internal Medicine 03/22/17 documented as of this encounter Additional Source Comments The information contained in this document represents components of the legal health record. It is not the complete legal health record.[facility]
--- OUTSIDE RECORDS SUMMARY | 2025-02-22 08:59 | XMS_ITS | Clinical Summary ---
Author Organization [facility] Address [address] [place] [address] Phone Care Team Providers Care Scallop Cutter Name Role Phone Enoc Llanos MD Primary Care Provider [phone] Allergies Active Allergy Reactions Criticality Noted Date [...] EDT) SODIUM 140 133 - 146 mmol/L [facility] POTASSIUM 4.2 3.3 - 5.1 mmol/L [facility] CHLORIDE 100 96 - 108 mmol/L [facility] CO2 29 21 - 35 mmol/L [facility] BUN 19 6 - 19 mg/dL [facility] CREATININE 1.10 0.5 - 1.5 mg/dL [facility] GLUCOSE 100(H) 70 - 99 mg/dL [facility] ALBUMIN 4.1 3.9 - 4.8 g/dL [facility] TOTAL PROTEIN 7.1 6.5 - 8.0 g/dL [facility] CALCIUM 9.8 8.4 - 10.3 mg/dL [facility] ALKALINE PHOSPHATASE 115 39 - 117 U/L [facility] TOTAL BILIRUBIN 0.3 0.0 - 1.2 mg/dL [facility] AST 19 0 - 37 U/L [facility] ALT 11 0 - 40 U/L [facility] GLOBULIN 3.0 1 - 4.8 g/dL [facility] EGFR 53(L) >59 mL/min/1.7 3m2 [facility] Comment:Estimated glomerular filtration rate calculated using the CKD-EPI refit equation. ANION GAP 15 10 - 20 mmol/L [facility] Blood 09/12/2024 11:2 5 AM EDT 09/12/2024 11:28 AM EDT us Enoc Llanos MD LAB BLOOD ORDERABLES [place] humph[facility] Result [facility] [address] [place] [address] * Lipid panel (09/12/2024 11:25 AM EDT) HDL 56 mg/dL [facility] Comment: Interpretation <40 mg/dL: Low HDL cholesterol (major risk factor for CHD) Greater than or equal to 60 mg/dL: High HDL cholesterol ( negative risk factor for CHD) HDL - cholesterol is affected by a number of factors, e.g. smoking, excerise, hormones, sex and age. CHOLESTEROL 203 0 - 240 mg/dL [facility] TRIGLYCERIDES 140 30 - 160 mg/dL [facility] LDL 119 50 - 129 mg/dL [facility] Comment: LDL levels in terms of risk for coronary heart disease: <100 mg/dL: Optimal 100-129 mg/dL: Near or above optimal 130-159 mg/dL: Borderline high 160-189 mg/dL: High >190 mg/dL: Very High CARDIAC RISK RATIO 3.6 3.3 - 4.4 C [facility] Blood 09/12/2024 11:2 5 AM EDT 09/12/2024 11:28 AM EDT us Enoc Llanos MD LAB BLOOD ORDERABLES [place] [facility] Result [facility] [address] [place] [address] from Last 3 Months or Most Recently Relevant to Health Maintenance Insurance [place] A [place] [id number] [facility] MEDICARE SUPPLEMENT MEDICARE PART A & B [employer] MEDICARE SUPPLEMENT MEDICARE PART A & B MEDICARE PART A & B MEDICARE PART A & B [employer] MED[employer]ARE SUPPLEMENT MEDICARE PART A & B MEDICARE PART A & B [facility] MEDICARE SUPPLEMENT MEDICARE PART A & B [facility] MEDICARE SUPPLEMENT MEDICARE PART A & B [employer] MEDICARE SUPPLEMENT Advance Directives For more information, please contact: [phone] (9AM - 5PM [facility], Tuesday-Tuesday) Documents on File Type Date Recorded Patient Financial Reporting Analyst Expl anation Living Will 03/24/2017 4:25 PM Care Teams Scallop Cutter Relationship Specialty Start Date End Date Enoc Llanos MD [address] [place] [address] PCP - General Internal Medicine 03/22/17 Additional Source Comments The information contained in this document represents components of the legal health record. It is not the complete legal health record.[facility]
--- OUTSIDE RECORDS SUMMARY | 2025-02-22 08:59 | XMS_ITS | Patient Health Record ---
Author Organization [facility] Address [address] [place] [address] Care Team Providers Care Storeroom Keeper Name Role Phone Enoc Llanos MD Primary [...] Problem Status W/U Status Risk Notes Problem [id number] Colon cancer screening (Z12.11) Active confirmed Problem [id number] Gastroesophageal reflux disease without esophagitis (K21.9) Active confirmed Problem [id number] Change in bowel function (R19.8) Active confirmed Plan Of Treatment Future Test Test Name Order Date COLONOSCOPY 03/17/2022 COLONOSCOPY 10/13/2022 Insurance Providers Payer Name Payer Address Payer Phone Subscriber Number Group Number Insured Name Patient Relationship to Insured Coverage Start Date Coverage End Date MEDICARE OF [place] [address] [place] [id number] [phone] [id number] MONI ODEN Self - patient is the insured [employer] CLAIMS [address] [place] [address] [id number] MONI ODEN Self - patient is the insured Medical (General) History Medical History History ICD Code Hypertension Right breast cancer status p ost mastectomy, axillary node dissection, and chemoradiation Osteoporosis Stage I kidney cancer Elevated cholesterol Depression/anxiety Edema Surgical History Surgery Date(Month/Year) Right mastectomy 2017 Right partial nephrectomy 2018 Bilateral Dupuytren's contractures repai r 2020
--- OUTSIDE RECORDS SUMMARY | 2025-02-22 08:59 | XMS_ITS | Encounter Summary ---
Author Organization [facility] Address [address] [place] [phone] Phone Care Team Providers Care Circular Tank Cooper Name Role Phone Enoc Llanos MD Primary Care Provider [phone] Encounter Details Date Type Department Care Team (Latest Contact Info) Description 02/16/2018 Transcribe Orders [facility] [address] [place] [id number] Enoc Llanos MD [address] [address] Mixed hyperlipidemia (Primary Dx) Social History Tobacco Use Types [...] documented as of this encounter Results * (ABNORMAL) Lipid panel (02/16/2018 8:48 AM EDT) HDL 53 mg/dL [facility] Comment: Interpretation: Risk Level Females Decreased >55mg/dL Average 50-55 mg/dL Increased <50 mg/dL CHOLESTEROL 213 0 - 240 mg/dL [facility] TRIGLYCERIDES 209(H) 30 - 160 mg/dL [facility] LDL 118 50 - 129 mg/dL [facility] Comment: LDL levels in terms of risk for coronary heart disease: <100 mg/dL: Optimal 100-129 mg/dL: Near or above optimal 130-159 mg/dL: Borderline high 160-189 mg/dL: High >190 mg/dL: Very High CARDIAC RISK RATIO 4.0 3.3 - 4.4 C [facility] Blood 02/16/2018 8:48 AM EDT 02/16/2018 8:52 AM EDT us Enoc Llanos MD LAB BLOOD ORDERABLES Le l Result [facility] [address] [place] [address] * (ABNORMAL) Comprehensive metabolic panel (02/16/2018 8:48 AM EDT) SODIUM 143 133 - 146 mmol/L [facility] POTASSIUM 4.6 3.3 - 5.1 mmol/L [facility] CHLORIDE 100 96 - 108 mmol/L [facility] CO2 28 21 - 35 mmol/L [facility] BUN 24(H) 6 - 19 mg/dL [facility] CREATININE 0.90 0.5 - 1.5 mg/dL [facility] GLUCOSE 111(H) 70 - 99 mg/dL [facility] ALBUMIN 4.3 3.9 - 4.8 g/dL [facility] TOTAL PROTEIN 6.8 6.5 - 8.0 g/dL [facility] CALCIUM 9.6 8.4 - 10.3 mg/dL [facility] ALKALINE PHOSPHATASE 139(H) 39 - 117 U/L [facility] TOTAL BILIRUBIN 0.3 0.0 - 1.2 mg/dL [facility] AST 17 0 - 37 U/L [facility] ALT 19 0 - 40 U/L [facility] GLOBULIN 2.5 1 - 4.8 g/dL [facility] EGFR 66 >59 mL/min/1.7 3m2 [facility] Comment:If patient is black, multiply result by 1.159. Estimated glomerular filtration rate calculated using the CKD-EPI equation. ANION GAP 20 10 - 20 mmol/L [facility] Blood 02/16/2018 8:48 AM EDT 02/16/2018 8:52 AM EDT Enoc Llanos MD LAB BLOOD ORDERABLES Le humphries Result [facility] [address] [place] [address] documented in this encounter Visit Diagnoses Diagnosis Mixed hyperlipidemia- Primary documented in this encounter Care Teams Circular Tank Cooper Relationship Specialty Start Date End Date Enoc Llanos MD [address] [address] PCP - General Internal Medicine 03/22/17 documented as of this encounter Additional Source Comments The information contained in this document represents components of the legal health record. It is not the complete legal health record.[facility]
== END 2025-02-21 08:39 | disposition home or self-care (01) ==
LOC: HO.HOSX 08:38
PROVIDERS: Visit Provider Physician Assistant
DX: Z13.89 Encounter for screening for other disorder (principal)

== ENCOUNTER 2025-02-28 10:06 | Outpatient (REF) | payer MEDICARE, OTHER, SELFPAY ==
--- NOTE | ~2025-02-28 | XR_ITS ---
EXAMINATION: XR KNEE 3 VIEWS RIGHT HISTORY: M25.569 - Pain in unspecified knee COMPARISON: Comparison is made with the prior examination dated 11/22/2024. FINDINGS: Standing AP views of both knees and additional lateral and sunrise patellar views of the right knee are submitted. In the interval since the prior study, the patient is status post right total knee arthroplasty. The orthopedic elements are in anatomic alignment. There is no fracture or dislocation. There is a joint effusion. Incidental note is made of severe osteoarthritis of the left knee. XR/XR knee RT 3V IMPRESSION: Status post right total knee arthroplasty. Electronically signed by: Francesco Schmidt MD 02/28/2025 10:42 AM EDT
== END 2025-02-28 10:07 | disposition home or self-care (01) ==
LOC: HO.HOSX 10:06
PROVIDERS: PCP Internal Medicine; Visit Provider Physician Assistant
DX: Z47.1 Aftercare following joint replacement surgery (principal); Z96.651 Presence of right artificial knee joint; Z79.01 Long term (current) use of anticoagulants
CPT/HCPCS: 73562; 99212

== ENCOUNTER 2025-02-28 10:06 | Outpatient (AMB) | payer MEDICARE, OTHER, SELFPAY ==
--- NOTE | 2025-02-28 10:33 | MHC.OFFVIS ---
Intake Visit Reasons: 2WKPO: R TKA w/ 02/11/25 Intake Note: Amalia is a 75 year old female who presents today for a post operative appointment status post right total knee arthroplasty done on 02/11/[address] Armendariz. Patient reports she is doing well mild discomfort. Allergies Sulfa (Sulfonamide Antibiotics) (SULFA(SULFONAMIDE ANTIBIOTICS)) Allergy (Unknown, Verified 02/28/25 10:33) ? RXN - HAD CHILD lisinopril Allergy (Verified 02/28/25 10:33) Swelling HPI HPI 2WKPO: R TKA w/DR 02/11/25: Details: Ms. Stark this is a 75-year-old female status post right total knee arthroplasty performed on 02/11/[address] Armendariz. Patient has been working with physical therapy. She is currently using a walker to assist with ambulation. She reports pain is managed. No additional complaints. [facility] Medical History Osteoarthritis GERD (gastroesophageal reflux disease) Hx of renal cell cancer Depression Anxiety Edema of both lower extremities FH: cholecystectomy Renal cancer Invasive ductal carcinoma of breast Renal mass FH: mastectomy Breast cancer HTN (hypertension) High cholesterol Surgical History History of arthroscopy of left shoulder (2023) Hx of partial nephrectomy History of cholecystectomy History of right breast implant (01/30/18) History of right mastectomy (02/02/17) History of breast biopsy (12/24/16) History of colonoscopy (03/06/14) H/O wrist surgery H/O hand surgery (2012) Family History Father Stroke Hypertension Mother COPD (chronic obstructive pulmonary disease) Hypertension Brother Stomach cancer Brother Liver transplant recipient Social History Household Members: Family Housing: House Are you a primary medicare specialist to a significant other at home: No Do you presently have visiting nurse or other home services: No 75 years or older and lives alone: No Alcohol intake: current Alcohol intake frequency: holidays/special occasions only Patient Tobacco Use Status: Former Tobacco user Tobacco use type: Cigarette service: No Current occupational status: retired Review of Systems Const All systems reviewed & are unremarkable except as noted in HPI and below Physical Exam Const General: cooperative, healthy appearing and no acute distress Resp Effort & Inspection: normal respiratory effort and able to speak in complete sentences Extrem Other: Right knee incision site clean dry and intact. Range of motion 10-100 degrees. No erythema or drainage. No signs of infection. Calf is supple and nontender. NVI. Psych Appearance: grossly normal Mental Status: mental status grossly normal Attitude: cooperative Assessment & Plan Assessment & Plan (1) Status post total right knee replacement: Code(s): Z96.651 - Presence of right artificial knee joint Category: Surgical Plan Ms. Stark this is a 75-year-old female status post right total knee arthroplasty performed on 02/11/[address] Armendariz. Patient has been working with physical therapy. She is currently using a walker to assist with ambulation. She reports pain is managed. No additional complaints. While in the office today, lev were removed and Steri-Strips were applied. She will continue taking her anticoagulation for 6 weeks total postoperatively. An outpatient physical therapy prescription has been provided to the patient as she would like to attend a facility closer to home. She will follow up in [address] Armendariz, sooner if needed. X-rays of the right knee which were obtained while in the office today and were reviewed by me, Bouchra Dee PA-C, revealed intact right total knee arthroplasty with satisfactory alignment. Orders: Orders XR knee RT 3V Today M25.569 - Pain in unspecified knee PT Evaluation and Treatment Today Z96.651 - Presence of right artificial knee joint Coding Level of Care Code Global (97137) Diagnoses Status post total right knee replacement Z96.651
== END 2025-02-28 11:05 | disposition home or self-care (01) ==
LOC: HO.HOS 10:07
PROVIDERS: PCP Internal Medicine; Visit Provider Physician Assistant
DX: Z96.651 Presence of right artificial knee joint (principal)
CPT/HCPCS: 99024

== ENCOUNTER → 2025-02-28 10:12 | Outpatient (BNV) | payer MEDICARE, OTHER, SELFPAY | PROVIDERS: PCP Internal Medicine; Visit Provider Radiology Diagnostic Radiology | DX: M25.561 Pain in right knee (principal); Z96.651 Presence of right artificial knee joint | CPT/HCPCS: 73562 ==

== ENCOUNTER 2025-03-21 09:05 | Outpatient (AMB) | payer MEDICARE, OTHER, SELFPAY ==
--- OUTSIDE RECORDS SUMMARY | 2024-10-31 13:19 | XMS_ITS | Encounter Summary ---
Author Organization [facility] Address [address] [place] [address] [place] [address] Phone Care Team Providers Care Travel Specialist Name Role Phone Enoc Llanos MD Primary Care Provider [phone] Encounter Details Date Type Department Care Team (Late st Contact Info) Description 10/31/2024 1:19 PM EDT Hospital Encounter [facility] [address] [place] [address] Zabrina Mistry PA-C [address] [facility], 3rd [place] [address] Social History Tobacco Use Types Packs/Day Years Used Date Smoking Tobacco: Former Cigarettes Q uit: 03/22/1976 Smokeless Tobacco: Never Alcohol Use Standard Drinks/Week Comments Yes 1 (1 standard drink = 0.6 oz pur e alcohol) Niraj crum [facility] Education Answer Date Recorded Are you interested [...] as of this encounter Plan of Treatment Not on file documented as of this encounter Procedures Procedure [...] joint effusion. No acute osseous abnormality. ATTESTATION: Julisa Haley as teaching physician, have reviewed the images for this case and if necessary edited the report originally created by Bhavin Paz MD. Narrative 10/31/2024 1:57 PM EDT XR KNEE 4 OR MORE VIEWS (RIGHT) Referring clinician's provided indication for this examination in Epic: Pain; S/P Fall COMPARISON: None. FINDINGS: Right Knee: No fracture. Severe narrowing of the lateral tibiofemoral compartment with yige-er-rifo contact. Moderate narrowing of the medial tibiofemoral compartment. Large tricompartmental osteophytes. Quadriceps and patellar enthesopathy. No effusion. Procedure Note Julisa House MD, PhD - 10/31/2024 XR KNEE 4 OR MORE VIEWS (RIGHT) Referring clinician's provided indication for this examination in Epic:Pain; S/P Fall COMPARISON: None. FINDINGS: Right Knee: No fracture. Severe narrowing of the lateral tibiofemoralcompartment with dyor-az-gufd contact. Moderate narrowing of the medialtibiofemoral compartment. Large tricompartmental osteophytes. Quadricepsand patellar enthesopathy. No effusion. IMPRESSION: Severe tricompartmental osteoarthritis. Small joint effusion. No acuteosseous abnormality. ATTESTATION: Julisa Haley as teaching physician, have reviewedthe images for this case and if necessary edited the report originallycreated by Bhavin Paz MD. us Zabrina Mistry PA-C IMG XR LOWER EXTREMI TY Final Result documented in this encounter Visit Diagnoses Not on filedocumented in this encounter Care Teams Travel Specialist Relationship Specialty Start Date End Date Enoc Llanos MD [address] [place] [address] PCP - General Internal Medicine 03/22/17 documented as of this encounter Additional Source Comments The information contained in this document represents components of the legal health record. It is not the complete legal health record.[facility]
--- OUTSIDE RECORDS SUMMARY | 2025-01-24 10:00 | XMS_ITS ---
Author Organization [facility] Address [address] [place], [place] [id number] Care Team Providers Care Financial Analyst Accountant Name Role Phone LUCEIN RAMIREZ Primary Care Provider ANT BUSH Unavailable [phone] REASON FOR VISIT 1 yr follow up (AWV w/nursing 1st) Encounters Encounter Location Date Provider Diagnosis [address] [address] 01/24/2025 NURSING [place] PLAN OF TREATMENT Next Appt Details Provider Name:LUCIEN RAMIREZ , 07/24/2025 01:00:00 PM, [address] [place] [address], [phone],
--- OUTSIDE RECORDS SUMMARY | 2025-01-24 10:00 | XMS_ITS ---
Author Organization [facility] Address [address] [place], [place] [id number] Care Team Providers Care Counter Attendant Name Role Phone LUCIEN RAMIREZ Primary Care Provider [phone] ALLERGIES Allergen (clinical drug ingredient) Drug/Non Drug Allergy documented on EMR Reaction Allergy Type Onset Date Status benazepril Benazepril Unknown Drug Allergy Activ e Substance with sulfonamide structure and antibacterial mechanism of action (substance) Sulfa Antibiotics Unknown Drug Allergy 08/20/2008 Active REASON FOR VISIT AWV Encounters Encounter Location Date Provider Diagnosis [address] [address] 01/24/2025 LUCIEN RAMIREZ Medicare annual wellness visit, subsequent Z00.00 ASSESSMENTS Encounter Date Diagnosis Assessment Notes Treatment Notes Treatment Clinical Notes Section Notes 01/24/2025 Medicare annual wellness visit, subsequent (ICD-10 - Z00.00) 01/24/2025 Other Complete exam recommended PLAN OF TREATMENT Treatment Notes Assessment Notes Other Complete exam recomm ended Next Appt Details Provider Name:LUCIEN RAMIREZ , 07/24/2025 01:00:00 PM, [address] [place], [phone], History and Physical Notes * HPI (History [...]
--- OUTSIDE RECORDS SUMMARY | 2025-01-31 10:25 | XMS_ITS ---
Author Organization [facility] Address [address] [place], [place] [id number] Care Team Providers Care Livestock Yard Supervisor Name Role Phone LUCIEN RAMIREZ Primary Care Provider REASON FOR VISIT Blood work. Encounters Encounter Location Date Provider Diagnosis [facility] [address] [place] [phone] 01/31/2025 LUCIEN RAMIREZ PLAN OF TREATMENT Next Appt Details Provider Name:LUCIEN RAMIREZ , 07/24/2025 01:00:00 PM, [address] [place], [phone],
--- OUTSIDE RECORDS SUMMARY | 2025-02-05 02:17 | XMS_ITS ---
Author Organization [facility] Address [address] [place], [place] [phone] Care Team Providers Care Cvt Tech Name Role Phone LUCIEN RAMIREZ Primary Care Provider [phone] REASON FOR VISIT labs Encounters Encounter Location Date Provider Diagnosis [facility] [address] [place] [phone] 02/05/2025 LUCIEN RAMIREZ PLAN OF TREATMENT Next Appt Details Provider Name:LUCIEN RAMIREZ , 07/24/2025 01:00:00 PM, [address] [place], [phone],
--- OUTSIDE RECORDS SUMMARY | 2025-02-14 03:53 | XMS_ITS ---
Author Organization [facility] Address [address] [place], [place] [id number] Care Team Providers Care Bessemer Converter Blower Name Role Phone LUCIEN RAMIREZ Primary Care Provider [phone] REASON FOR VISIT CM/SNF Admit Encounters Encounter Location Date Provider Diagnosis [facility] [address] [place] [address] 02/14/2025 LUCIEN RAMIREZ PLAN OF TREATMENT Next Appt Details Provider Name:LUCIEN RAMIREZ , 07/24/2025 01:00:00 PM, [address] [place], [address],
--- OUTSIDE RECORDS SUMMARY | 2025-02-20 07:02 | XMS_ITS ---
Author Organization [facility] Address [address] [place], [place] [id number] Care Team Providers Care Scale Shooter Name Role Phone LUCIEN RAMIREZ Primary Care Provider [phone] REASON FOR VISIT HFU Encounters Encounter Location Date Provider Diagnosis [facility] [address] [place] [address] 02/20/2025 LUCIEN RAMIREZ PLAN OF TREATMENT Next Appt Details Provider Name:LUCIEN RAMIREZ , 07/24/2025 01:00:00 PM, [address] [place], [address],
--- OUTSIDE RECORDS SUMMARY | 2025-02-22 07:08 | XMS_ITS ---
Author Organization [facility] Address [address] [place], [place] [id number] Care Team Providers Care Cane Flume Feeding Machine Operator Name Role Phone LUICEN RAMIREZ Primary Care Provider REASON FOR VISIT (w) CM/ HFU ANA Encounters Encounter Location Date Provider Diagnosis [facility] [address] [place] [address] 02/22/2025 LUCIEN RAMIREZ PLAN OF TREATMENT Next Appt Details Provider Name:LUCIEN RAMIREZ , 07/24/2025 01:00:00 PM, [address] [place], [address],
--- OUTSIDE RECORDS SUMMARY | 2025-03-04 04:30 | XMS_ITS ---
Author Organization [facility] Address [address] [place], [place] [address] Care Team Providers Care Talent Assistant Name Role Phone LUCIEN RAMIREZ Primary Care Provider REASON FOR VISIT 41/ HFU Encounters Encounter Location Date Provider Diagnosis [facility] [address] [place] [id number] 03/04/2025 LUCIEN RAMIREZ PLAN OF TREATMENT Next Appt Details Provider Name:LUCIEN RAMIREZ , 07/24/2025 01:00:00 PM, [address] [place], [address],
--- OUTSIDE RECORDS SUMMARY | 2025-03-06 07:45 | XMS_ITS ---
Author Organization [facility] Address [address] [place], [place] [id number] Care Team Providers Care Credit Card Analyst Name Role Phone LUCIEN RAMIREZ Primary Care Provider ALLERGIES Allergen (clinical drug ingredient) Drug/Non Drug Allergy documented on EMR Reaction Allergy Type Onset Date Status benazepril Benazepril Unknown Drug Allergy Activ e Substance with sulfonamide structure and antibacterial mechanism of action (substance) Sulfa Antibiotics Unknown Drug Allergy 08/20/2008 Active REASON FOR VISIT HFU MEDICATIONS Medication SIG (Take, Route, Frequency, Duration) Notes Start Date End Date Status oxyCODONE HCl 5 MG 1 tablet Orally at bedtime Active Methocarbamol 500 MG 1 tablet Orally shaun ry 8 hrs Active Naproxen 500 MG 1 tablet with food o r milk as needed Orally every 12 hrs Active Atorvastatin Calcium 20 MG 1 tablet Oral ly Once a day Active Fluticasone Propionate 50 MCG/ACT 2 sprays (1 spray in each nostril) Nasal Twice a day 11/30/2021 Active Pantoprazole Sodium 40 MG 1 tablet 1/2 t o 1 hour before morning meal Orally Once a day Active Valsartan 320 MG 1 tablet Orally Once a day Active Gabapentin 100 MG 1 capsule at bedtime Orally Once a day Active Furosemide 20 MG 1 tablet Orally Once a day Active Aspirin 325 MG 1 tablet Orally Twic e a day Active traZODone HCl 50 MG TAKE 1-2 TABLETs BY MOUTH EVERYDAY AT BEDTIME Active busPIRone HCl 10 MG 1 tablet Orally Twic e a day Active DULoxetine HCl 60 MG 1 capsule Orally On ce a day Active amLODIPine Besylate 5 MG 1 tablet Oral Once a day 05/03/2022 Active SOCIAL HISTORY Tobacco Use: Social History Observation Description Date Details (start date - stop date) Former Smoker NA - NA Sex Assigned At : Social History Observation Description Sex Assigned At Unknown Smoking Question Answer Notes Are you a: former smoker How long has it been since you last smoked? > 10 years Section Notes: Patient quit smoking 1975 VITAL SIGNS Height 62.125 in 03/06/2025 Weight 188.8 lbs 03/06/2025 Blood pressure systolic 110 mm Hg 03/06/20 25 Blood pressure diastolic 60 mm Hg 025 BMI 34.39 kg/m2 03/06/2025 Encounters Encounter Location Date Provider Diagnosis [facility] [address] [place] [address] 03/06/2025 LUCIEN HOWARDFORD Primary osteoarthrit is of right knee M17.11 ; Essential (primary) hypertension I10 ; Chronic GERD K21.9 and Chronic venous insufficiency I87.2 ASSESSMENTS Encounter Date Diagnosis Assessment Notes Treatment Notes Treatment Clinical Notes Section Notes 03/06/2025 Primary osteoarthritis of right knee (ICD-10 - M17.11) Hospital and rehab records [facility] reviewed at length 1. Osteoarthritis of the right knee: Healing well post total knee replacement. Will continue oxycodone at bedtime for short while. We will taper as she is improving with regards to pain 2. Hypertension: Well-controlled on present valsartan, amlodipine and furosemide. Will maintain 3. Chronic GERD: Stable on pantoprazole with no breakthrough symptoms. Continue same 4. Chronic venous insufficiency: Stable with furosemide. Will continue to monitor 03/06/2025 Essential (primary) hypertension (ICD-10 - I10) Hospital and rehab records from [facility] reviewed at length 1. Osteoarthritis of the right knee: Healing well post total knee replacement. Will continue oxycodone at bedtime for short while. We will taper as she is improving with regards to pain 2. Hypertension: Well-controlled on present valsartan, amlodipine and furosemide. Will maintain 3. Chronic GERD: Stable on pantoprazole with no breakthrough symptoms. Continue same 4. Chronic venous insufficiency: Stable with furosemide. Will continue to monitor 03/06/2025 Chronic GERD (ICD-10 - K21.9) Hospital and rehab records from [facility] reviewed at length 1. Osteoarthritis of the right knee: Healing well post total knee replacement. Will continue oxycodone at bedtime for short while. We will taper as she is improving with regards to pain 2. Hypertension: Well-controlled on present valsartan, amlodipine and furosemide. Will maintain 3. Chronic GERD: Stable on pantoprazole with no breakthrough symptoms. Continue same 4. Chronic venous insufficiency: Stable with furosemide. Will continue to monitor 03/06/2025 Chronic venous insufficiency (ICD-10 - I87.2) Hospital and rehab records from [facility] reviewed at length 1. Osteoarthritis of the right knee: Healing well post total knee replacement. Will continue oxycodone at bedtime for short while. We will taper as she is improving with regards to pain 2. Hypertension: Well-controlled on present valsartan, amlodipine and furosemide. Will maintain 3. Chronic GERD: Stable on pantoprazole with no breakthrough symptoms. Continue same 4. Chronic venous insufficiency: Stable with furosemide. Will continue to monitor PLAN OF TREATMENT Medication Medication Name Sig Start Date Stop Date Notes oxyCODONE HCl 5 MG 1 tablet Orally at bedtime Methocarbamol 500 MG 1 tablet Orally every 8 hrs Pantoprazole Sodium 40 MG 1 tablet 1/2 t o 1 hour before morning meal Orally Once a day Valsartan 320 MG 1 tablet Orally Once a day Gabapentin 100 MG 1 capsule at bedtime Orally Once a day Furosemide 20 MG 1 tablet Orally Once a day amLODIPine Besylate 5 MG 1 tablet Oral Once a day 05/03/20 22 Next Appt Details Provider Name:LUCIEN RAMIREZ , 07/24/2025 01:00:00 PM, [address] [place], [address], Progress Notes * Examination Category Sub-Category Detail Notes Category Not es General Examination Heart: RSR, normal S1S2 Lungs: clear to auscultatio n Abdomen: soft, non tender/non distended Extremities: no edema General Appearance no apparent distress , pleasant Skin: Incision site from r ight total knee replacement healing well. Steri-Strips in place with no surrounding erythema Psych: alert, oriented X 3 Other normal affect History and Physical Notes * HPI (History of Present Illness) Category Sub-Category Detail Notes Category Not es General Patient is recovering from Right TKR - healing well Went to [facility] until 02/21 after surgery 02/14. Having PT at home present. Using oxycodone at hs She is not having any heartburn. She is not experiencing any chest pain, palpitations or shortness of breath. She is not having any constipation issues on the pain medication.
--- OUTSIDE RECORDS SUMMARY | 2025-03-08 10:34 | XMS_ITS ---
Author Organization [facility] Address [address] [place], [place] [id number] Care Team Providers Care Stave And Bolt Equalizer Name Role Phone LUCIEN RAMIREZ Primary Care Provider REASON FOR VISIT New Refill Request MEDICATIONS Medication SIG (Take, Route, Fr equency, Duration) Notes Start Date End Date Status oxyCODONE HCl 5 MG 1 tablet Orally at b edtime for 14 days 03/08/2025 Active Encounters Encounter Location Date Provider Diagnosis [facility] [address] [place] [address] 03/08/2025 LUCIEN RAMIREZ Primary osteoarthrit is of right knee M17.11 ASSESSMENTS Encounter Date Diagnosis Assessment Notes Treatment Notes Treatment Clinical Notes Section Notes 03/08/2025 Primary osteoarthritis of right knee (ICD-10 - M17.11) PLAN OF TREATMENT Medication Medication Name Sig Start Date Stop Date Notes oxyCODONE HCl 5 MG 1 tablet Orally at bedtime for 14 days 03/08/2025 Next Appt Details Provider Name:LUCIEN RAMIREZ , 07/24/2025 01:00:00 PM, [address] [place], [address],
--- OUTSIDE RECORDS SUMMARY | 2025-03-18 20:00 | XMS_ITS | Clinical Summary ---
Author Organization Unknown Care Team Providers Care Cancer Program Consultant Name Role Phone JAMES VELEZ, LUCIEN Unavailable Unavailable PARVEZ PT, JADIEL Unavailable Unavail able LIZBETHIAK OT, SWAPNA Unavailable Unavailabl e KIMBER INSTRUCTOR ADJUNCT PHARMACY TECHNICIAN, ANUSHA Unavailable Unavailable Payers Payer Name Policy Type Policy Number Effective Date Expira tion Date MEDICARE.NGS.PDGM [id number] Problems Condition Name Condition Details Condition Category Status Onset Date Resolution Date Last Treatment Date Treating Clinician Comments AFTERCARE FOLLOWING JOINT REPLACEMENT SURGERY Active 2024-05 0- 00:00: 00 PRESENCE OF RIGHT ARTIFICIAL KNEE JOINT Active 2024-05 0- 00:00: 00 ESSENTIAL (PRIMARY) HYPERTENSION Active 2024-05 0- 00:00: 00 ACUTE POSTHEMORRHA GIC ANEMIA Active 2024-05 0- 00:00: 00 UNSPECIFIED OSTEOARTHRIT IS, UNSPECIFIED SITE Active - 00:00: 00 ANXIETY DISORDER, UNSPECIFIED Active 2024-05 0- 00:00: 00 DEPRESSION, UNSPECIFIED Active 2024-05 0- 00:00: 00 INSOMNIA, UNSPECIFIED Active 2024-05 0- 00:00: 00 ELEVATED WHITE BLOOD CELL COUNT, UNSPECIFIED Active 2024-05 0- 00:00: 00 HYPERLIPIDEM IA, UNSPECIFIED Active 2024-05 0- 00:00: 00 GASTRO-ESOPH AGEAL REFLUX DISEASE WITHOUT ESOPHAGITIS Active 2024-05 0- 00:00: 00 FREQUENCY OF MICTURITION Active 2024-05 0- 00:00: 00 PERSONAL HISTORY OF OTHER MALIGNANT NEOPLASM OF KIDNEY Active 2024-05 0- 00:00: 00 PERSONAL HISTORY OF MALIGNANT NEOPLASM OF BREAST Active 1- 00:00: 00 Allergies, Adverse Reactions, Alerts Allergy Name Allergy Type Status Severity Reaction(s) Onset Date Inactive Date Treating Clinician Comments SULFA DRUGS-- Propensity to adverse reactions Active 2024-05 03:56: 06 LISINOPRIL Propensity to adverse reactions Active 2024-05 03:58: 07 Medications Ordered Medication Name Filled Medication Name Start Date Stop Date Current Medication? Ordering Clinician Indication Dosage Frequency Signature (SIG) Comments Components gabapentin 100 mg capsule 2024-05 00:00: 00 02-25 00:00 :00 No [id number] Per instruc tions Per instructio ns (route: oral) Med Classific ation: Central Nervous System Agents oxycodone 5 mg tablet 2024-05 00:00: 00 Yes [id number] PAIN 1 tablet EVERY 4 HOURS 1 tablet EVERY 4 HOURS (route: oral) Med Classific ation: Analgesic , Anti-infl ammatory or Antipyret ic furosemide 20 mg tablet 01-24 00:00: 00 Yes [id number] DIURETIC 1 tablet EVERY DAY 1 tablet EVERY DAY (route: oral) Med Classific ation: Cardiovas cular Therapy Agents tramadol 50 mg tablet 01-24 00:00: 00 Yes [id number] PAIN 1 tablet NEEDED TWICE A DAY 1 tablet NEEDED TWICE A DAY (route: oral) Med Classific ation: Analgesic , Anti-infl ammatory or Antipyret ic amlodipine 5 mg tablet 2024-05 00:00: 00 Yes [id number] HIGH BLOOD PRESSURE 1 tablet DAILY 1 tablet DAILY (route: oral) Med Classific ation: Cardiovas cular Therapy Agents aspirin 325 mg tablet 2024-05 00:00: 00 Yes [id number] BLOOD THINNER 1 tablet 2 TIMES DAILY 1 tablet 2 TIMES DAILY (route: oral) Med Classific ation: Analgesic , Anti-infl ammatory or Antipyret ic atorvastati n 20 mg tablet 2024-05 00:00: 00 Yes [id number] HIGH CHOLESTEROL 1 tablet DAILY 1 tablet DAILY (route: oral) Med Classific ation: Cardiovas cular Therapy Agents buspirone 10 mg tablet 2024-05 00:00: 00 Yes [id number] ANXIETY 1 tablet NEEDED 1 tablet NEEDED (route: oral) Med Classific ation: Central Nervous System Agents docusate sodium 100 mg capsule 2024-05 00:00: 00 Yes [id number] STOOL SOFTENER 1 capsule 2 TIMES DAILY 1 capsule 2 TIMES DAILY (route: oral) Med Classific ation: Gastroint estinal Therapy Agents duloxetine 60 mg capsule,del ayed release 2024-05 00:00: 00 Yes [id number] DEPRESSION 1 capsule DAILY 1 capsule DAILY (route: oral) Med Classific ation: Central Nervous System Agents gabapentin 100 mg capsule 2024-05 00:00: 00 Yes [id number] pain 1 capsule DAILY 1 capsule DAILY (route: oral) Med Classific ation: Central Nervous System Agents methocarbam ol 500 mg tablet 2024-05 00:00: 00 Yes [id number] muscle spasms 1 tablet 3 TIMES DAILY 1 tablet 3 TIMES DAILY (route: oral) Med Classific ation: Locomotor System trazodone 50 mg tablet 2024-05 00:00: 00 Yes [id number] sleep 1 tablet BEDTIME 1 tablet BEDTIME (route: oral) Med Classific ation: Central Nervous System Agents acetaminoph en 325 mg tablet 2024-05 00:00: 00 Yes [id number] pain 2 tablet EVERY 6 HOURS 2 tablet EVERY 6 HOURS (route: oral) Med Classific ation: Analgesic , Anti-infl ammatory or Antipyret ic valsartan 160 mg tablet 2024-05 00:00: 00 Yes [id number] blood pressure 2 tablet DAILY 2 tablet DAILY (route: oral) Med Classific ation: Cardiovas cular Therapy Agents Vital Signs Vital Name Observation Time Observation Value Commen ts Temperature 2025-03-11 09:43:00.000 98.6 [degF] Temperature 2025-03-10 22:06:00.000 97.4 [degF] Temperature 2025-02-28 12:54:00.000 97.6 [degF] Temperature 2025-02-27 09:46:00.000 98.2 [degF] Temperature 2025-02-25 09:59:00.000 98.8 [degF] BMI (%) 2025-02-25 09:59:00.000 32 kg/m2 Height 2025-02-25 09:59:00.000 63 [in_us] Pulse 2025-03-11 09:43:00.000 72 /min Pulse 2025-03-10 22:06:00.000 73 /min Pulse 2025-02-28 12:54:00.000 68 /min Pulse 2025-02-27 09:46:00.000 68 /min Pulse 2025-02-25 09:59:00.000 70 /min O2 Saturation (%) 2025-03-11 09:43:00.000 97 % O2 Saturation (%) 2025-03-10 22:06:00.000 99 % O2 Saturation (%) 2025-02-28 12:54:00.000 96 % O2 Saturation (%) 2025-02-27 09:46:00.000 98 % O2 Saturation (%) 2025-02-25 09:59:00.000 98 % Respirations 2025-03-11 09:43:00.000 18 /min Respirations 2025-03-10 22:06:00.000 18 /min Respirations 2025-02-28 12:54:00.000 18 /min Respirations 2025-02-27 09:46:00.000 18 /min Respirations 2025-02-25 09:59:00.000 18 /min Weight (lbs) 2025-02-25 09:59:00.000 186 [lb_av] Systolic Blood Pressure 2025-03-11 09:43:00.000 112 mm [Hg] Systolic Blood Pressure 2025-03-10 22:06:00.000 122 mm [Hg] Systolic Blood Pressure 2025-02-28 12:54:00.000 120 mm [Hg] Systolic Blood Pressure 2025-02-27 09:46:00.000 138 mm [Hg] Systolic Blood Pressure 2025-02-25 09:59:00.000 118 mm [Hg] Diastolic Blood Pressure 2025-03-11 09:43:00.000 60 mm [Hg] Diastolic Blood Pressure 2025-03-10 22:06:00.000 68 mm [Hg] Diastolic Blood Pressure 2025-02-28 12:54:00.000 70 mm [Hg] Diastolic Blood Pressure 2025-02-27 09:46:00.000 72 mm [Hg] Diastolic Blood Pressure 2025-02-25 09:59:00.000 64 mm [Hg] Plan of Treatment Planned Activity Planned Date Details Comments Future Scheduled Test AGENCY MAY PERFORM A RESUMPTION OF CARE VISIT FOLLOWING ANY HOSPITAL ADMISSION. PT TO EVALUATE, OBSERVE / ASSESS, AND MONITOR, INSTRUCTOR ADJUNCT PHARMACY TECHNICIAN TO OBSERVE AND MONITOR, PROVIDE SKILLED THERAPEUTIC INTERVENTION, ACTIVITY, EDUCATION, AND TRAINING TO ADDRESS; [code = AGENCY MAY PERFORM A RESUMPTION OF CARE VISIT FOLLOWING ANY HOSPITAL ADMISSION. PT TO EVALUATE, OBSERVE / ASSESS, AND MONITOR, INSTRUCTOR ADJUNCT PHARMACY TECHNICIAN TO OBSERVE AND MONITOR, PROVIDE SKILLED THERAPEUTIC INTERVENTION, ACTIVITY, EDUCATION, AND TRAINING TO ADDRESS;] Future Scheduled Test SIT TO/FRO M STAND TRANSFERS (PT/INSTRUCTOR ADJUNCT PHARMACY TECHNICIAN) [code = SIT TO/FROM STAND TRANSFERS (PT/INSTRUCTOR ADJUNCT PHARMACY TECHNICIAN)] Future Scheduled Test PT/INSTRUCTOR ADJUNCT PHARMACY TECHNICIAN TO PROVIDE GAIT TRAINING FOR IMPROVED MOBILITY AND /OR TO NORMALIZE GAIT PATTERN [code = PT/INSTRUCTOR ADJUNCT PHARMACY TECHNICIAN TO PROVIDE GAIT TRAINING FOR IMPROVED MOBILITY AND /OR TO NORMALIZE GAIT PATTERN] Future Scheduled Test PT/INSTRUCTOR ADJUNCT PHARMACY TECHNICIAN TO PROVIDE STAIR TRAINING [code = PT/INSTRUCTOR ADJUNCT PHARMACY TECHNICIAN TO PROVIDE STAIR TRAINING] Future Scheduled Test NEUROMUSCU LAR RE-EDUCATION / BALANCE / POSTURAL CONTROL (PT) [code = NEUROMUSCULAR RE-EDUCATION / BALANCE / POSTURAL CONTROL (PT)] Future Scheduled Test THERAPEUTI C EXERCISES AND ESTABLISHING A HOME EXERCISE PROGRAM (PT/INSTRUCTOR ADJUNCT PHARMACY TECHNICIAN) [code = THERAPEUTIC EXERCISES AND ESTABLISHING A HOME EXERCISE PROGRAM (PT/INSTRUCTOR ADJUNCT PHARMACY TECHNICIAN)] Future Scheduled Test PT/INSTRUCTOR ADJUNCT PHARMACY TECHNICIAN TO IDENTIFY FALL RISK FACTORS; EDUCATE THE PATIENT/CAREGIVER ON WAYS TO REDUCE FALL RISK FACTORS AND ESTABLISH HOME EXERCISE PROGRAM TO MINIMIZE FALL RISK. MAY TEACH THE PATIENT FLOOR RECOVERY WHEN CLINICALLY APPROPRIATE [code = PT/INSTRUCTOR ADJUNCT PHARMACY TECHNICIAN TO IDENTIFY FALL RISK FACTORS; EDUCATE THE PATIENT/CAREGIVER ON WAYS TO REDUCE FALL RISK FACTORS AND ESTABLISH HOME EXERCISE PROGRAM TO MINIMIZE FALL RISK. MAY TEACH THE PATIENT FLOOR RECOVERY WHEN CLINICALLY APPROPRIATE] Future Scheduled Test PT/INSTRUCTOR ADJUNCT PHARMACY TECHNICIAN TO TEACH KNEE REPLACEMENT SELF-MANAGEMENT [code = PT/INSTRUCTOR ADJUNCT PHARMACY TECHNICIAN TO TEACH KNEE REPLACEMENT SELF-MANAGEMENT] Future Scheduled Test PT / INSTRUCTOR ADJUNCT PHARMACY TECHNICIAN T O MONITOR AND EDUCATE ON OXYGEN SATURATION DURING ADLS/IADLS, NOTIFY PHYSICIAN AND/OR THE RN CLINICAL DETECTOR CAR OPERATOR FOR PHYSICIAN NOTIFICATION AND IF O2 SATS BELOW PHYSICIAN ORDERED PARAMETERS AFTER 10 MIN OF REST [code = PT / INSTRUCTOR ADJUNCT PHARMACY TECHNICIAN TO MONITOR AND EDUCATE ON OXYGEN SATURATION DURING ADLS/IADLS, NOTIFY PHYSICIAN AND/OR THE RN CLINICAL DETECTOR CAR OPERATOR FOR PHYSICIAN NOTIFICATION AND IF O2 SATS BELOW PHYSICIAN ORDERED PARAMETERS AFTER 10 MIN OF REST] Future Scheduled Test PT / INSTRUCTOR ADJUNCT PHARMACY TECHNICIAN T O OBSERVE WOUND/INCISION AND/OR INTACT DRESSING ON RIGHT KNEE AND REPORT EARLY SIGNS AND SYMPTOMS OF WOUND DETERIORATION, COMPLICATIONS, OR INFECTION TO PHYSICIAN AND/OR THE RN CLINICAL DETECTOR CAR OPERATOR FOR PHYSICIAN NOTIFICATION. [code = PT / INSTRUCTOR ADJUNCT PHARMACY TECHNICIAN TO OBSERVE WOUND/INCISION AND/OR INTACT DRESSING ON RIGHT KNEE AND REPORT EARLY SIGNS AND SYMPTOMS OF WOUND DETERIORATION, COMPLICATIONS, OR INFECTION TO PHYSICIAN AND/OR THE RN CLINICAL DETECTOR CAR OPERATOR FOR PHYSICIAN NOTIFICATION.] Future Scheduled Test OCCUPATION AL THERAPY EVALUATION PERFORMED. NO ADDITIONAL VISITS REQUIRED. PROVIDED SKILLED INTERVENTION INCLUDING SHOWER TRANSFER TRAINING. [code = OCCUPATIONAL THERAPY EVALUATION PERFORMED. NO ADDITIONAL VISITS REQUIRED. PROVIDED SKILLED INTERVENTION INCLUDING SHOWER TRANSFER TRAINING.] Goal 2025-03-19 Patient Goal - BE INDEPENDEN T Goal Provider Goal - Goal Provider Goal - PT STG: PATIENT WILL DEMONSTRATE IMPROVED ABILITY TO PERFORM SIT TO/FROM STAND TRANSFERS TO REDUCE THE RISK OF SKIN BREAKDOWN AND REDUCE FALL RISK FROM CGA TO INDEPENDENT WITHIN 2 WEEKS Goal Provider Goal - PT LTG: PATIENT WILL DEMONSTRATE REDUCED GAIT DEVIATIONS TO REDUCE THE RISK FOR FALLING AND MINIMIZE STRAIN ON KNEES/HIPS AND BACK EVIDENCED BY IMPROVED HEEL STRIKE, IMPROVED KNEE FLEXION/EXTENSION AND SYMMETRY DURING WALKING USING LRAD TO WALK INDEPENDENTLY IN HOME IN ORDER TO ACCESS [facility] OF HOME AND TRANSPORTATION WITHIN 2 WEEKS Goal Provider Goal - PT LTG: PATIENT WILL DEMONSTRATE IMPROVED ABILITY TO SAFELY NEGOTIATE STAIRS FROM GARAGE TO 1ST FLOOR INDEPENDENTLY USING RAILING(S) IN ORDER TO BEABLE TO LEAVE HOME FOR MEDICAL APPOINTMENTS WITHIN 2 WEEKS. Goal Provider Goal - PT LTG: PATIENT WILL DEMONSTRATE REDUCED FALL RISK EVIDENCED BY TUG TEST (CUT SCORE >11 SECONDS INDICATES INCREASED FALL RISK) IMPROVING FROM NOT TESTED TO 15 SECONDS WITHIN 2 WEEKS. Goal Provider Goal - PT LTG: PATIENT WILL DEMONSTRATE IMPROVED FUNCTIONAL STRENGTH EVIDENCED BY FIVE TIMES SIT TO STAND TEST (CUT SCORE >12 SECONDS INDICATES AN INCREASED FALL RISK) IMPROVING FROMNOT TESTED TO 18 SECONDS WITHIN 2 WEEKS. Goal Provider Goal - PT LTG: PATIENT/CAREGIVER WILL DEMONSTRATE ADHERENCE TO FALL REDUCTION SELF-MANAGEMENT AND REDUCING FALL RISK FACTORS TO MINIMIZE FALL RISK BY END OF EPISODE. Goal Provider Goal - PT GOAL: PATIENT WILL DEMONSTRATE OPTIMAL OUTCOMES, INCLUDING INCREASED ROM AND STRENGTH AND FUNCTIONAL MOBILITY FOLLOWING KNEE SURGERY BY END OF EPISODE. Goal Provider Goal - PT LTG: PATIENT WILL MAINTAIN OXYGEN SATURATION WITHIN PHYSICIAN ORDERED PARAMETERS THROUGHOUT EPISODE OF CARE. Goal Provider Goal - PT GOAL: THE PATIENT WILL NOT DEMONSTRATE ANY WOUND COMPLICATIONS DURING THE EPISODE OF CARE. Goal Provider Goal - PATIENT / CAREGIVER WITHIN 1 VISIT WILL BE ABLE TO VERBALIZE / DEMONSTRATE UNDERSTANDING OF SAFE AND APPROPRIATE SHOWER TRANSFER TECHNIQUE USING ADAPTIVE EQUIPMENT NEEDED TO IMPROVE PARTICIPATION IN SHOWER ROUTINE Reason for Visit INDEPENDENT IN THE HOME Encounters Start Date/Time End Date/Time Encounter Type Admission Type Attending [facility] Care Department Encounter ID Discharge Date Discharge Status Discharge Condition Discharge Reason Percent Goals Met 2025-02-25 00:00:00 2025-03-19 00:00:00 Outpatient NEW ADMISSION JADIEL [facility] [id number] 2025-03-19 00:00:00 DISCHARGE TO HOME OR SELF CARE INDEPENDEN T IN THE HOME HH - DISCHARGE TO OUTPATIENT REHAB 100.00
--- NOTE | 2025-03-21 09:10 | A.OFFVIS_ITS ---
Intake Visit Reasons: 6WKPO: R TKA w/ 02/11/25 Intake Note: Amalia is a 75 year old woman who presents with complaints of mild to moderate discomfort in her right knee after undergoing right total knee replacement surgery on 02/11/2025. She continues with her physical therapy exercises. She has been taking tramadol which gives her fairly good relief. She denies any fevers or chills. Allergies Sulfa (Sulfonamide Antibiotics) (SULFA(SULFONAMIDE ANTIBIOTICS)) Allergy (Un known, Verified 03/21/25 09:11) ? RXN - HAD CHILD lisinopril Allergy (Verified 03/21/25 09:11) Swelling Medication List - Last Reconciled 03/21/25 by Luis Felipe Armendariz MD acetaminophen 650 mg (2 x 325 mg) PO Q6H PRN 30 days amlodipine 5 mg PO DAILY aspirin 325 mg PO BID 42 days atorvastatin 1 tab PO BEDTIME buspirone 10 mg PO BEDTIME PRN docusate sodium 100 mg PO BID 7 days duloxetine 1 cap PO BEDTIME furosemide 20 mg PO BEDTIME PRN gabapentin 100 mg PO BEDTIME 7 days methocarbamol 500 mg PO TID 7 days oxycodone 5 mg PO Q4H PRN 7 days pantoprazole 1 tab PO BEDTIME trazodone 1 tab PO BEDTIME valsartan 1 tab PO BEDTIME walker Folding front wheeled walker [facility] Medical History Osteoarthritis GERD (gastroesophageal reflux disease) Hx of renal cell cancer Depression Anxiety Edema of both lower extremities FH: cholecystectomy Renal cancer Invasive ductal carcinoma of breast Renal mass FH: mastectomy Breast cancer HTN (hypertension) High cholesterol Surgical History History of arthroscopy of left shoulder (2023) Hx of partial nephrectomy History of cholecystectomy History of right breast implant (01/30/18) History of right mastectomy (02/02/17) History of breast biopsy (12/24/16) History of colonoscopy (03/06/14) H/O wrist surgery H/O hand surgery (2012) Family History Father Stroke Hypertension Mother COPD (chronic obstructive pulmonary disease) Hypertension Brother Stomach cancer Brother Liver transplant recipient Social History Household Members: Family Housing: House Are you a primary home health care coordinator to a significant other at home: No Do you presently have visiting nurse or other home services: No 75 years or older and lives alone: No Alcohol intake: current Alcohol intake frequency: holidays/special occasions only Patient Tobacco Use Status: Former Tobacco user Tobacco use type: Cigarette service: No Current occupational status: retired Physical Exam Extrem Other: Right knee examination shows that the surgical incision is healing well, no erythema, full active extension and flexion to 110 degrees, her patella tracks well Assessment & Plan Assessment & Plan (1) Right knee pain: Code(s): M25.561 - Pain in right knee Category: Medical Plan Ms. Stark is doing very well after undergoing right total knee replacement surgery on 02/11/2025. She will continue with her physical therapy exercises. She does know to take antibiotics before any dental work. She will contact me prior to her follow-up appointment in 2-3 months should any questions or concerns arise. Feel free to call me at any time should questions regarding her orthopedic management arise. Medications: New amoxicillin Take four caps (2,000 mg) one hour before any dental work 2,000 mg (4 x 500 mg) PO ONCE 20 caps 3RF Coding Level of Care Code Global (66315) Diagnoses Right knee pain M25.561
--- OUTSIDE RECORDS SUMMARY | 2025-03-21 10:11 | XMS_ITS | Encounter Summary ---
Author Organization [facility] Address [address] [place] [id number] Phone Care Team Providers Care Stand Grinder Name Role Phone Enoc Llanos MD Primary Care Provider [phone] Reason for Referral * MRI/CAT Scan - Closed Specialty Diagnoses / Procedures Referred By Contac t Referred To Contact Procedures NM PET Whole Body Outside (No Interpretation) System, Provider Not In, [facility] [place] [id number] Referral ID Status Reason Start Date Expiration Date Visits Re quested Visits Authorized [id number] Closed 03/24/2017 03/24/2018 1 1 Encounter Details Date Type Department Care Team (Late st Contact Info) Description 03/24/2017 Ancillary Orders [facility],Outside Imaging [address] [place] [address] System, Provider Not In, [facility] [address] [address] Social History Tobacco Use Types Packs/Day Years [...] on filedocumented in this encounter Care Teams Stand Grinder Relationship Specialty Start Date End Date Enoc Llanos MD [address] [place] [id number] PCP - General Internal Medicine 03/22/17 documented as of this encounter Additional Source Comments The information contained in this document represents components of the legal health record. It is not the complete legal health record.[facility]
--- OUTSIDE RECORDS SUMMARY | 2025-03-21 10:11 | XMS_ITS | Clinical Summary ---
Author Organization [facility] Address [address] [place] [id number] Care Team Providers Care Supervisor Computer Operations Name Role Phone Enoc Llanos MD Primary [...] age to complete this topic Care Teams Supervisor Computer Operations Relationship Specialty Start Date End Date Enoc Llanos MD PCP - General Internal Medicine 06/13/18
--- OUTSIDE RECORDS SUMMARY | 2025-03-21 10:11 | XMS_ITS | Encounter Summary ---
Author Organization [facility] Address [address] [place] [address] Phone Care Team Providers Care Purchasing Supervisor Name Role Phone Enoc Llanos MD Primary Care Provider [phone] Encounter Details Date Type Department Care Team (Latest Contact Info) Description 04/25/2019 Transcribe Orders [facility] [address] [place] [id number] Enoc Llanos MD [address] [place] [address] Encounter for general adult medical examination with [...] URINE MICROALBUMIN 1.4 0 - 2.3 mg/dL [facility] URINE CREATININE 115 mg/dL [facility] MICROALB/CRE RATIO 12.2 0 - 20 mg/g Cre [facility] Urine (Urine) 04/25/2019 10: 51 AM EST 04/25/2019 11:48 AM EST us Enoc Llanos MD URINE ORDERABLES Final Re sult Performing Organization Address City/[facility]/ZIP Co de Phone Number [address] [address] * (ABNORMAL) TSH with reflex (04/25/2019 8:03 AM EST) TSH 16.90(H) 0.27 - 4.20 uIU/mL [facility] Blood 04/25/2019 8:03 AM EST 04/25/2019 9:58 AM EST us Enoc Llanos MD LAB BLOOD ORDERABLES Le l Result Performing Organization Address [facility] Co de Phone Number [address] [address] * (ABNORMAL) Lipid panel (04/25/2019 8:03 AM EST) HDL 47 mg/dL [facility] Comment: Interpretation <40 mg/dL: Low HDL cholesterol (major risk factor for CHD) Greater than or equal to 60 mg/dL: High HDL cholesterol ( negative risk factor for CHD) HDL - cholesterol is affected by a number of factors, e.g. smoking, excerise, hormones, sex and age. CHOLESTEROL 211 0 - 240 mg/dL [facility] TRIGLYCERIDES 192(H) 30 - 160 mg/dL [facility] LDL 126 50 - 129 mg/dL [facility] Comment: LDL levels in terms of risk for coronary heart disease: <100 mg/dL: Optimal 100-129 mg/dL: Near or above optimal 130-159 mg/dL: Borderline high 160-189 mg/dL: High >190 mg/dL: Very High CARDIAC RISK RATIO 4.5(H) 3.3 - 4.4 C [facility] Blood 04/25/2019 8:03 AM EST 04/25/2019 9:58 AM EST us Enoc Llanos MD LAB BLOOD ORDERABLES Le l Result [address] [address] * (ABNORMAL) Comprehensive metabolic panel (04/25/2019 8:03 AM EST) SODIUM 141 133 - 146 mmol/L [facility] POTASSIUM 4.4 3.3 - 5.1 mmol/L [facility] CHLORIDE 101 96 - 108 mmol/L [facility] CO2 27 21 - 35 mmol/L [facility] BUN 24(H) 6 - 19 mg/dL [facility] CREATININE 1.20 0.5 - 1.5 mg/dL [facility] GLUCOSE 115(H) 70 - 99 mg/dL [facility] ALBUMIN 4.0 3.9 - 4.8 g/dL [facility] TOTAL PROTEIN 6.8 6.5 - 8.0 g/dL [facility] CALCIUM 9.3 8.4 - 10.3 mg/dL [facility] ALKALINE PHOSPHATASE 110 39 - 117 U/L [facility] TOTAL BILIRUBIN 0.3 0.0 - 1.2 mg/dL [facility] AST 16 0 - 37 U/L [facility] ALT 13 0 - 40 U/L [facility] GLOBULIN 2.8 1 - 4.8 g/dL [facility] EGFR 46(L) >59 mL/min/1.7 3m2 [facility] Comment:If patient is black, multiply result by 1.159. Estimated glomerular filtration rate calculated using the CKD-EPI equation. ANION GAP 17 10 - 20 mmol/L [facility] Blood 04/25/2019 8:03 AM EST 04/25/2019 9:58 AM EST us Enoc Llanos MD LAB BLOOD ORDERABLES Le l Result [address] [address] documented in this encounter Visit Diagnoses Diagnosis Encounter for general adult medical examination with abnormal findings- Primary Essential hypertension, malignant Fatigue, unspecified type documented in this encounter Care Teams Purchasing Supervisor Relationship Specialty Start Date End Date Enoc Llanos MD [address] [place] [address] PCP - General Internal Medicine 03/22/17 documented as of this encounter Additional Source Comments The information contained in this document represents components of the legal health record. It is not the complete legal health record.[facility]
--- OUTSIDE RECORDS SUMMARY | 2025-03-21 10:11 | XMS_ITS | Encounter Summary ---
Author Organization [facility] Address [address] [place] [address] Phone Care Team Providers Care Portrait Consultant Name Role Phone Enoc Llanos MD Primary Care Provider +1 [phone] Encounter Details Date Type Department Care Team (Latest Contact Info) Description 03/22/[address] [facility] [address] [place] [address] Enoc Llanos MD [address] [place] [address] Edema, unspecified type (Primary Dx) Social History [...] EDT) SODIUM 144 133 - 146 mmol/L [facility] CHLORIDE 100 96 - 108 mmol/L [facility] POTASSIUM 4.2 3.3 - 5.1 mmol/L [facility] CO2 29 21 - 35 mmol/L [facility] BUN 18 6 - 19 mg/dL [facility] CREATININE 0.80 0.5 - 1.5 mg/dL [facility] GLUCOSE 77 70 - 99 mg/dL [facility] CALCIUM 9.3 8.4 - 10.3 mg/dL [facility] EGFR 76 >59 mL/min/1.7 3m2 [facility] Comment:If patient is black, multiply result by 1.159. Estimated glomerular filtration rate calculated using the CKD-EPI equation. ANION GAP 19 10 - 20 mmol/L [facility] Blood 03/22/2018 11:1 2 AM EDT 03/22/2018 11:15 AM EDT us Enoc Llanos MD LAB BLOOD ORDERABLES Le humphries Result Performing Organization Address City/State/[facility] Co de Phone Number [address] [address] documented in this encounter Visit Diagnoses Diagnosis Edema, unspecified type- Primary documented in this encounter Care Teams Portrait Consultant Relationship Specialty Start Date End Date Enoc Llanos MD [address] [place] [address] PCP - General Internal Medicine 03/22/17 documented as of this encounter Additional Source Comments The information contained in this document represents components of the legal health record. It is not the complete legal health record.[facility]
--- OUTSIDE RECORDS SUMMARY | 2025-03-21 10:11 | XMS_ITS | Encounter Summary ---
Author Organization [facility] Address [facility] [employer] [facility] [address] [place] [address] Phone Care Team Providers Care Lathe Spotter Name Role Phone Enoc Llanos MD Primary Care Provider [phone] [phone] Encounter Details Date Type Department Care Team (Late st Contact Info) Description 04/06/2017 Procedure Pass [facility],Outside Imaging [address] [place] [address] Social History Tobacco Use Types Packs/Day Years [...] on filedocumented in this encounter Care Teams Lathe Spotter Relationship Specialty Start Date End Date Enoc Llanos MD [address] [place] [address] PCP - General Internal Medicine 03/22/17 documented as of this encounter Additional Source Comments The information contained in this document represents components of the legal health record. It is not the complete legal health record.[facility]
--- OUTSIDE RECORDS SUMMARY | 2025-03-21 10:12 | XMS_ITS | Data Portability ---
Author Organization [facility] Address [address] [place] [address] Care Team Providers Care [employer] Driver Name Role Phone LUCIEN RAMIREZ Referring Provider [phone] LUCIEN RAMIREZ Primary Care Provider Assessment Encounter [...] wishes to continue care with [facility] she is more than welcome to come [...] or more view 2022 023 [facility], [address], [address], [place], [address], 3 20:02:05 Medication Orders Kenalog 40 mg/mL suspension for injection 2023 024 [facility], [address] [place], [address], 4 14:30:01 lidocaine (PF) 100 mg/5 mL (2 %) injection syringe 2023 024 [facility], [address] [place] [address], [address], 4 14:30:01 Kenalog 40 mg/mL suspension for injection 2023 024 [facility], [address] [place] [address], [address], 4 14:30:01 lidocaine (PF) 100 mg/5 mL (2 %) injection syringe 2023 024 [employer] [facility], [address] [place] [address], [address], 4 14:30:01 Kenalog 40 mg/mL suspension for injection 2022 023 ries5 [facility], [address] [place] [address], [address], 4 14:00:45 lidocaine (PF) 10 mg/mL (1 %) injection solution 2022 023 [employer] [facility], [address] [place] [address], [address], 4 14:00:47 Kenalog 40 mg/mL suspension for injection 2022 023 [facility], [address] [place] [address], [address], 4 14:00:45 lidocaine (PF) 100 mg/5 mL (2 %) injection syringe 2022 023 [facility], [address] [place] [address], [address], 3 20:02:05 Kenalog 40 mg/mL suspension for injection 2022 023 [facility], [address] [place] [address], [address], 4 14:00:45 lidocaine (PF) 100 mg/5 mL (2 %) injection syringe 2022 023 [facility], [address] [place] [address], [address], 3 16:25:14 Kenalog 40 mg/mL suspension for injection 2022 023 [facility], [address] [place] [address], [address], 4 14:00:45 lidocaine (PF) 100 mg/5 mL (2 %) injection syringe 2022 023 [facility], [address] [place] [address], [address], 3 16:25:14 Kenalog 40 mg/mL suspension for injection 2022 023 [facility], [address] [place] [address], [address], 4 14:00:45 lidocaine (PF) 10 mg/mL (1 %) injection solution [address], [address] [place], [address], 4 14:00:47 Kenalog 40 mg/mL suspension for injection 2022 023 [address] [place], [address], 4 14:00:45 lidocaine (PF) 10 mg/mL (1 %) injection solution 2022 023 [address] [place], [address], 14:00:47 Patient TargetsNo targets recorded. Patient Instructions Encounter Date Encounter Id Patient Instructions Last Modified By Organization Details Last Modified Time 11/10/2022 [id number] You have been provided with a cortisone [...] hours following the injection. This is called willie castillo . To help minimize the chances of this, please see the post-injection instructions above. There is a less than 1% chance of an infection. If you notice any signs of infection (redness, warmth, drainage, fever greater than 100 degrees) please call our office or contact us through the portal [facility]. Not available 11/10/2022 15:25:31 05/05/2023 [id number] You have been provided with a cortisone [...] following the injection. This is called a monico castillo . To help minimize the chances of this, please see the post-injection instructions above. There is a less than 1% chance of an infection. If you notice any signs of infection (redness, warmth, drainage, fever greater than 100 degrees) please call our office or contact us through the portal [facility]. Not available 05/06/2023 07:56:23 Three-view x-ray of the right shoulder reveals overall well-maintained glenohumeral joint space, AC joint space narrowing and spurring, type II acromion without acute bony abnormality observed. Not available 05/06/2023 07:41:21 05/11/2023 [id number] You have been provided with a cortisone [...] following the injection. This is called a f lare . To help minimize the chances of this, please see the post-injection instructions above. There is a less than 1% chance of an infection. If you notice any signs of infection (redness, warmth, drainage, fever greater than 100 degrees) please call our office or contact us through the portal [employer]. Not available 05/11/2023 14:23:39 08/10/2023 [id number] You have been provided with a cortisone [...] following the injection. This is called a f lare . To help minimize the chances of this, please see the post-injection instructions above. There is a less than 1% chance of an infection. If you notice any signs of infection (redness, warmth, drainage, fever greater than 100 degrees) please call our office or contact us through the portal [employer]. Not available 08/10/2023 14:30:00 Reason for Referral None Reported. Problems Name Problem SNOMED Code Status Onset Date Resolution Date Notes Provider Name and Address Organization Details Recorded Time Primary gonarthro sis, bilateral 503764875 Active 2018 Primary osteoarth ritis of both knees [facility]ison osteoarth ritis of both knees Not Available [employer] 5 23:51:18 Arthritis of right knee joint 11776364027 05331 Active 2022 RK HARPER PA-C [address], [place], [place], [address] , [place] [facility], P 3 15:19:29 Arthritis of knee 079622491 Active 2022 RK HARPER PA-C [address], [place], [address] , [place] [facility], P 3 15:19:33 Impingeme nt syndrome of left shoulder region 64186668671 9104 Active 2022 RK HARPER PA-C [address], [place], [place], [address] , [place] [facility], P 3 11:00:20 Calcific tendiniti s of left shoulder 60290519491 9108 Active 2022 RK HARPER PA-C [address], [place], [address] , [place] [facility], P 3 11:00:26 Arthritis of acromiocl avicular joint 966385344 Active 2022 RK HARPER PA-C [address], [place], [address] , [place] [facility], P 3 11:00:46 Full thickness rotator cuff tear 543744312 Active 2022 RK HARPER PA-C [address], [place], [address] , [place] [facility], P 3 13:14:32 Osteoarth ritis of right knee joint 69449977696 9100 Active 2022 RK HARPER PA-C [address], [place], [place], [address] , [place] [facility], P 3 15:25:38 Osteoarth ritis of left knee joint 33401388473 9109 Active 2022 RK HARPER PA-C [address], [place], [address] , [place] [facility], P 3 15:25:46 Problem Notes None recorded. Procedures Surgical History Date Name Laterality Status Provider Name and Address Organization Details Recorded Time 08/10/19 24 Knee Joint/Bursa Asp & Inj completed RK HARPER PA-C [address], [place], [address], [place] [facility], P 08/10/2023 14:27:50 05/11/20 23 Shoulder Joint/Bursa Asp & Inj completed RK HARPER PA-C [address], [place], [address], [place] [facility], P 05/11/2023 14:24:35 05/05/20 23 Shoulder Joint/Bursa Asp & Inj completed RK HARPER PA-C [address], [place], [address], [place] [facility], P 05/06/2023 07:54:41 04/21/20 23 Knee Joint/Bursa Asp & Inj completed RK HARPER PA-C [address], [place], [address], [place] [facility], P 04/21/2023 14:52:05 11/11/19 23 Knee Joint/Bursa Asp & Inj completed RK HARPER PA-C [address], [place], [address], [place] [facility], P 11/10/2022 15:22:03 08/11/19 23 Knee Joint/Bursa Asp & Inj completed RK HARPER PA-C [address] [facility], [place], [address], [place] [facility], P 08/10/2022 15:18:45 simple mastectomy completed Cheyenne Martin [facility], P 08/02/2022 10:14:23 cholecystectomy completed Cheyenne Martin [place] [facility], P 08/02/2022 10:14:47 Imaging Results None recorded. [...] Not available Not available Not available 08/02/2022 [id number] SNOMED Cheyenne Martin [facility], [place] [facility], P 10:08:40 Medications Name Sig Start Date [...] Not Available Not Available No t Available tramadol 50 mg tablet tramadol 50 mg tablet active Not Available Not Available No t Available Kenalog 40 mg/mL suspension for injection Take 1 mL by injection route. 2023 active Not Available Not Available Not Avai lable pantoprazol e 40 mg tablet,braxton yed release TAKE 1 TABLET BY MOUTH EVERY DAY FOR 90 DAYS active Not Available Not Available No t Available methylpredn isolone acetate 40 mg/mL suspension for injection 06/30 completed Not Available Not Available Not Available buspirone 10 mg tablet TAKE 1 [...] Not Available Not Available Not Available furosemide 20 mg tablet Take 20 mg by mouth 2 (two) times a day. active Not Available Not Available No t Available clotrimazol e 1 % topical cream APPLY TO AFFECTED AREAS TWICE A DAY FOR 6 WEEKS active Not Available Not Available No t Available naproxen 500 mg tablet TAKE 1 TABLET WITH FOOD OR MILK ORAL TWICE A DAY 30 DAY(S) 05/05 completed Not Available Not Available Not Available oxycodone 5 mg tablet oxycodone 5 mg tablet active Not Available Not Available No t Available Ciprodex 0.3 %-0.1 % ear drops,suspe [...] completed Not Available Not Available Not Available amlodipine 5 mg-benazepr il 40 mg capsule Take 1 capsule by mouth daily. 2017 active Not Available Not Available Not Avai lable lidocaine (PF) 10 mg/mL (1 %) injection solution Take 2 mL by injection route. 08/09 completed Not Available Not Available Not Available cholecalcif kenneth (vitamin D3) 25 mcg (1,000 unit) tablet Take 1,000 Units by mouth daily. active Not Available Not Available No t Available GaviLyte-G 236 gram-22.74 gram-6.74 gram-5.86 gram [...] Diagnosis SNOMED-CT Code Diagnosis ICD10 Code Diagnosis IMO Codes Diagnosis Note 1406 MARTHA MAYBERRY [address] [facility] [address] [facility] [place] [address] 08/10/2022 14:19:35 08/10/2022 15:19:44 Arthritis of right knee joint 0351292526 639087 M13.861 Arthritis of knee 342890 002 M13.869 2385 MARTHA MAYBERRY [employer] [address] [facility] [address] [place] [address] 08/17/2022 10:28:21 08/17/2022 11:02:31 Pain of left shoulder joint 5321510152 9077699 M25.512 Impingemen t syndrome of left shoulder region 5919970403 14433 M75.42 Calcific t endinitis of left shoulder 3623130009 31940 M75.32 Arthritis of acromioclavicular joint 548305659 M13.819 6125 MARTHA MAYBERRY [facility] [address] [place] [address] 09/08/2022 12:48:06 09/08/2022 13:10:32 Full thickness rotator cuff tear 583766698 M75.122 14817 MARTHA MAYBERRY [facility] [address] [place] [address] 10/27/2022 14:46:43 10/27/2022 15:23:21 Pain of bilateral knee joints 3243585277 64454 M25.561 65215 MARTHA MAYBERRY [facility] [address] [place] [address] 11/10/2022 14:55:29 11/10/2022 15:19:02 Osteoarthritis of right knee joint 7252666842 37565 M17.11 Osteoarthr itis of left knee joint 1741564515 18473 M17.12 01230 MARTHA MAYBERRY [facility] [address] [place] [address] 04/21/2023 13:38:35 04/21/2023 14:14:49 Osteoarthritis of right knee joint 2880150094 29775 M17.11 Osteoarthr itis of left knee joint 1228259611 72527 M17.12 91159 MARTHA MAYBERRY [facility] [address] [place] [address] 05/05/2023 13:49:50 05/05/2023 14:31:09 Calcific tendinitis of left shoulder 9978514938 57867 M75.32 Impingemen t syndrome of left shoulder region 0851850915 88685 M75.42 Pain of ri ght shoulder joint 5976640225 4454654 M25.511 56313 MARTHA MAYBERRY [employer] [address] [facility] [address] [facility] [place] [address] 05/11/2023 13:39:04 05/11/2023 14:16:29 Impingement syndrome of left shoulder region 6915780867 04964 M75.42 91987 MARTHA MAYBERRY [address] [facility] [address] [facility] [address] 08/10/2023 13:55:56 08/10/2023 14:36:50 Osteoarthritis of right knee joint 3968882764 36679 M17.11 Osteoarthr itis of left knee joint 3030035962 81067 M17.12 Health Concerns Section Related Observation LastModified by Organization Detai ls LastModified Time None Recorded Concern Status LastModified by Organization Details LastModified Time None Recorded Advance Directives Directive None Recorded Payers Insurance Date Sequence Insurance Name Policy Number Policy Crane Covered Member ID Crane Member ID Guarantor Name 08/07/2023 1 [place] [employer] [place] [id number] [place] 08/10/2023 2 [place] [id number] October [place] [id number] October [place] 08/10/2023 2 [employer] (MEDICARE SUPPLEMENT) October [place] [id number] October [place] Notes Date Note Type Note Provider Name and Address Organization Details Recorded Time 11/10/2022 text/html Assessment & Plan: Date of visit 10/27/2022 This is a pleasant 72-year-old female with bilateral knee osteoarthritis who gets good relief with cortisone injections.Since her last visit she did suffer a fall we will hold off on cortisone injections we will reevaluate her in 2 weeks after she has dissipating of her bruising and mild swelling.In the meantime she can take [id number] pain medication for symptomatic relief as well as R.I.C.E.Patient agrees with the above-noted plan. HPI: Since patient's last visit she states her bruising is gone she has marked improvement. She is here for possible cortisone injections in both knees. Her last cortisone injections were performed on 08/10/2022. RK HARPER PA-C [address], [place], [address], [place] [facility], P 11/10/2022 15:27:16 04/21/2023 text/html Pleasant 73-year-old female history of bilateral knee arthritis. Had a cortisone injection back in October 2022 which is since worn off. She is complaining of bilateral knee pain at this time. She states she fell for which she tripped and landed on a pillow without any lasting injury. RK HARPER PA-C [address], [place], [address], [place] [facility], P 04/21/2023 14:55:21 05/05/2023 text/html Pleasant 73-year-old female history of chronic bilateral shoulder pain [...] and treatment. RK HARPER PA-C [address], [place], [address], [place] [facility], P 05/06/2023 07:57:01 05/11/2023 text/html 73-year-old female history of calcific tendinitis left shoulder and [...] is completely asymptomatic. RK HARPER PA-C [address], [place], [address], [place] [facility], P 05/11/2023 14:26:16 08/10/2023 text/html Pleasant 73-year-old female history of bilateral knee arthritis. Her last cortisone injections were on 04/21/2023 which have since worn off. She is complaining of bilateral knee pain at this time. She is requesting for bilateral cortisone injections of the knees. She denies any fevers, chills, flulike symptoms. Denies any warmth overlying the knees denies any RK HARPER PA-C [address] [place] [address], [place], [address], [place] [facility] 08/10/2023 14:30:32 OBGyn Episode No OBEpisode recorded.
--- OUTSIDE RECORDS SUMMARY | 2025-03-21 10:12 | XMS_ITS | Encounter Summary ---
Author Organization [facility] Address [address] [place] [address] Phone Care Team Providers Care Clinical Scientist Name Role Phone Enoc Llanos MD Primary Care Provider [phone] Reason for Referral * MRI/CAT Scan - Closed Specialty Diagnoses / Procedures Referred By Contac t Referred To Contact Procedures CT Chest Outside (No Interpretation) System, Provider [place] In, [place] [address] Referral ID Status Reason Start Date Expiration Date Visits Re quested Visits Authorized [id number] Closed 04/06/2017 04/06/2018 1 1 Encounter Details Date Type Department Care Team (Late st Contact Info) Description 04/06/2017 Ancillary Orders [facility],Outside Imaging [address] [place] [address] System, Provider Not In, [facility] [address] [address] Social History Tobacco Use Types Packs/Day Years [...] filedocumented in this encounter Care Teams Clinical Scientist Relationship Specialty Start Date End Date Enoc Llanos MD [address] [place] [address] PCP - General Internal Medicine 03/22/17 documented as of this encounter Additional Source Comments The information contained in this document represents components of the legal health record. It is not the complete legal health record.[facility]
--- OUTSIDE RECORDS SUMMARY | 2025-03-21 10:13 | XMS_ITS | Encounter Summary ---
Author Organization [facility] Address [address] [place] [address] Phone Care Team Providers Care Valve Inserter Name Role Phone Enoc Llanos MD Primary Care Provider [phone] Encounter Details Date Type Department Care Team (Latest Contact Info) Description 02/16/2018 Transcribe Orders [facility] [address] [place] [address] Enoc Llanos MD [address] [place] [address] Mixed hyperlipidemia (Primary Dx) Social History Tobacco [...] (02/16/2018 8:48 AM EDT) HDL 53 mg/dL [facility] Comment: Interpretation: Risk Level Females Decreased >55mg/dL Average 50-55 mg/dL Increased <50 mg/dL CHOLESTEROL 213 0 - 240 mg/dL [facility] TRIGLYCERIDES 209(H) 30 - 160 mg/dL [facility] LDL 118 50 - 129 mg/dL [facility] Comment: LDL levels in terms of risk for coronary heart disease: <100 mg/dL: Optimal 100-129 mg/dL: Near or above optimal 130-159 mg/dL: Borderline high 160-189 mg/dL: High >190 mg/dL: Very High CARDIAC RISK RATIO 4.0 3.3 - 4.4 [facility] Blood 02/16/2018 8:48 AM EDT 02/16/2018 8:52 AM EDT us Enoc Llanos MD LAB BLOOD ORDERABLES Le humphries Result [facility] [address] [place], [place] [id number] * (ABNORMAL) Comprehensive metabolic panel (02/16/2018 8:48 AM EDT) SODIUM 143 133 - 146 mmol/L [facility] POTASSIUM 4.6 3.3 - 5.1 mmol/L [facility] CHLORIDE 100 96 - 108 mmol/L [facility] CO2 28 21 - 35 mmol/L [facility] BUN 24(H) 6 - 19 mg/dL [facility] CREATININE 0.90 0.5 - 1.5 mg/dL [facility] GLUCOSE 111(H) 70 - 99 mg/dL [facility] ALBUMIN 4.3 3.9 - 4.8 g/dL [facility] TOTAL PROTEIN 6.8 6.5 - 8.0 g/dL [facility] CALCIUM 9.6 8.4 - 10.3 mg/dL [facility] ALKALINE PHOSPHATASE 139(H) 39 - 117 U/L [facility] TOTAL BILIRUBIN 0.3 0.0 - 1.2 mg/dL [facility] AST 17 0 - 37 U/L [facility] ALT 19 0 - 40 U/L [facility] GLOBULIN 2.5 1 - 4.8 g/dL [facility] EGFR 66 >59 mL/min/1.7 3m2 [facility] Comment:If patient is black, multiply result by 1.159. Estimated glomerular filtration rate calculated using the CKD-EPI equation. ANION GAP 20 10 - 20 mmol/L [facility] Blood 02/16/2018 8:48 AM EDT 02/16/2018 8:52 AM EDT us Enoc Llanos MD LAB BLOOD ORDERABLES Le humphries Result [facility] [address] [place] [address] documented in this encounter Visit Diagnoses Diagnosis Mixed hyperlipidemia- Primary documented in this encounter Care Teams Valve Inserter Relationship Specialty Start Date End Date Enoc Llanos MD [address] [place] [address] PCP - General Internal Medicine 03/22/17 documented as of this encounter Additional Source Comments The information contained in this document represents components of the legal health record. It is not the complete legal health record.[facility]
--- OUTSIDE RECORDS SUMMARY | 2025-03-21 10:13 | XMS_ITS | Clinical Summary ---
Author Organization [facility] Address [address] [place] [address] Phone Care Team Providers Care Veneer Jointer Operator Name Role Phone Enoc Llanos MD Primary Care Provider [phone] Allergies Active Allergy Reactions Criticality Noted Date [...] Elena Floyd MD, MS on 03/22/2017 Fatigue Encounters Date Type Department Care Team Description 03/01/2025 Transcribe Orders [facility] [address] [place] [address] Bouchra Dee PA Encounter for rehabilitation (Primary Dx) from Last 3 Months Immunizations Immunization Administration Dates Next Due COVID-19 [...] oz pur e alcohol) Niraj kirkpatrick black [facility] Education Answer Date Recorded Are you [...] EDT) SODIUM 140 133 - 146 mmol/L [facility] POTASSIUM 4.2 3.3 - 5.1 mmol/L [facility] CHLORIDE 100 96 - 108 mmol/L [facility] CO2 29 21 - 35 mmol/L [facility] BUN 19 6 - 19 mg/dL [facility] CREATININE 1.10 0.5 - 1.5 mg/dL [facility] GLUCOSE 100(H) 70 - 99 mg/dL [facility] ALBUMIN 4.1 3.9 - 4.8 g/dL [facility] TOTAL PROTEIN 7.1 6.5 - 8.0 g/dL [facility] CALCIUM 9.8 8.4 - 10.3 mg/dL [facility] ALKALINE PHOSPHATASE 115 39 - 117 U/L [facility] TOTAL BILIRUBIN 0.3 0.0 - 1.2 mg/dL [facility] AST 19 0 - 37 U/L [facility] ALT 11 0 - 40 U/L [facility] GLOBULIN 3.0 1 - 4.8 g/dL [facility] EGFR 53(L) >59 mL/min/1.7 3m2 [facility] Comment:Estimated glomerular filtration rate calculated using the CKD-EPI refit equation. ANION GAP 15 10 - 20 mmol/L [facility] Blood 09/12/2024 11:2 5 AM EDT 09/12/2024 11:28 AM EDT Enoc Llanos MD LAB BLOOD ORDERABLES Le humphries Result Performing Organization Address City/State/[facility] Co de Phone Number [address] [address] * Lipid panel (09/12/2024 11:25 AM EDT) HDL 56 mg/dL [facility] Comment: Interpretation <40 mg/dL: Low HDL cholesterol (major risk factor for CHD) Greater than or equal to 60 mg/dL: High HDL cholesterol ( negative risk factor for CHD) HDL - cholesterol is affected by a number of factors, e.g. smoking, excerise, hormones, sex and age. CHOLESTEROL 203 0 - 240 mg/dL [facility] TRIGLYCERIDES 140 30 - 160 mg/dL [facility] LDL 119 50 - 129 mg/dL [facility] Comment: LDL levels in terms of risk for coronary heart disease: <100 mg/dL: Optimal 100-129 mg/dL: Near or above optimal 130-159 mg/dL: Borderline high 160-189 mg/dL: High >190 mg/dL: Very High CARDIAC RISK RATIO 3.6 3.3 - 4.4 C [facility] Blood 09/12/2024 11:2 5 AM EDT 09/12/2024 11:28 AM EDT us Enoc Llanos MD LAB BLOOD ORDERABLES Le humphries Result [facility] [address] [place], [place] [phone] from Last 3 Months or Most Recently Relevant to Health Maintenance Insurance [place] [address] [employer] MEDICARE SUPPLEMENT MEDICARE PART A & B [employer] MEDICARE SUPPLEMENT MEDICARE PART A & B MEDICARE PART A & B Member Subscriber Plan / Payer ( fective 2015-Present) Name:LincolnAmalia Member ID:[id number] Relation to Subscriber:Self Name:StarkAmalia Subscriber ID:[id number] Payer ID:[id number] Group ID:Not on file Type:Medicare Address: [facility] [address] [place] [address] MEDICARE PART A & B Member Subscriber Plan / Payer ( fective 2015-Present) Name:Amalia Stark Member ID:[id number] Relation to Subscriber:Self Name:Amalia Stark Subscriber ID:[id number] Payer ID:[id number] Group ID:Not on file Type:Medicare Address: [facility] [address] [place] [address] HU[employer]NA MEDICARE SUPPLEMENT MEDICARE PART A & B Member Subscriber Plan / Payer ( fective 2015-Present) Name:Amalia Stark Member ID:[id number] Relation to Subscriber:Self Name:Amalia Stark Subscriber ID:[id number] Payer ID:[id number] Group ID:Not on file Type:Medicare Address: [facility] [address] [place], [place] [id number] MEDICARE PART A & B MEDICARE SUPPLEMENT MEDICARE PART A & B Member Subscriber Plan / Payer ( fective 2015-) Name:StarkAmalia parker Member ID:[id number] Relation to Subscriber:Self Name:StarkAmalia Subscriber ID:[id number] Payer ID:[id number] Group ID:Not on file Type:Medicare Address: [facility] [address] [place] [address] MEDICARE SUPPLEMENT MEDICARE PART A & B Member Subscriber Plan / Payer (Ef fective 2015-Present) Name:Amalia Stark Member ID:[id number] Relation to Subscriber:Self Name:Amalia Stark Subscriber ID:[id number] Payer ID:[id number] Group ID:Not on file Type:Medicare Address: [facility] [address] [place] [address] [employer] MEDICARE SUPPLEMENT Advance Directives For more information, please contact: [phone] (9AM - 5PM [facility], Tuesday-Tuesday) Documents on File Type Date Recorded Patient Dust Collector Expl anation Living Will 03/24/2017 4:25 PM Care Teams Veneer Jointer Operator Relationship Specialty Start Date End Date Enoc Llanos MD [address] [place] [address] PCP - General Internal Medicine 03/22/17 Additional Source Comments The information contained in this document represents components of the legal health record. It is not the complete legal health record.[facility]
--- OUTSIDE RECORDS SUMMARY | 2025-03-21 10:13 | XMS_ITS | Patient Health Record ---
Author Organization [facility] Address [address] [place] [address] Care Team Providers Care Mid Level Developer Name Role Phone Enoc Llanos MD Primary Care Provider Jose J Fitzpatrick Jr Unavailable [phone] Allergies Allergen (clinical drug ingredient) Drug/Non Drug [...] MG 1 capsule Orally Onc e a day; Duration: 30 day(s) Active Golytely 236 GM as directed before colonoscopy Orally every 15 minutes; Duration: 1 day(s) 02/21/2023 Active Dulcolax (colon prep) 5 MG take at 3:00 p.m and 7:00p.m. Orally two tablets twice a day for one day; Duration: 1 day 02/21/2023 Active Vitamin D3 125 MCG (5000 UT) 1 tablet Orally Once a day Active Pantoprazole Sodium 40 MG Oral; Duration: 90 Active Furosemide 20 MG 1 tablet Orally Once a day; Duration: 30 day(s) Active busPIRone HCl 10 MG TAKE 1 TABLET BY TWICE A DAY Oral; Duration: 30 Active amLODIPine Besylate 5 MG Oral; Duration: 90 Active traZODone HCl 50 MG Oral; Duration: 90 Active Naproxen 500 MG Oral; Duration: 30 Active MiraLax (colon prep) 8.3 ounce ((238) grams mixed with Gatorade or Crystal Light orally begin at 5:00 p.m. the day before the procedure; Duration: 1 day 02/21/2023 Active DULoxetine HCl 60 MG TAKE 1 CAPSULE BY M OUTH EVERY DAY Oral; Duration: 90 Active Atorvastatin Calcium 20 MG Oral; Duration: 90 Active Valsartan 320 MG Oral; Duration: 90 Active Immunizations Vaccine Route Administration Date Status Comme [...] Problem Status W/U Status Risk Notes Problem Colon cancer screening (749252123) Colon cancer screening (Z12.11) Active confirmed Problem Gastroesophageal reflux disease without esophagitis (897525102) Gastroesophageal reflux disease without esophagitis (K21.9) Active confirmed Problem Altered bowel function (08429283) Change in bowel function (R19.8) Active confirmed Plan Of Treatment Future Test Test Name Order Date COLONOSCOPY 03/17/2022 COLONOSCOPY 10/13/2022 Insurance Providers Payer Name Payer Address Payer Phone Subscriber Number Group Number Insured Name Patient Relationship to Insured Coverage Start Date Coverage End Date MEDICARE OF [place] [address] [place] [address] [id number] MONI ODEN Self - patient is the insured [employer] CLAIMS [address] [place] [address] [id number] MONI ODEN Self - patient is the insured Medical (General) History Medical History History ICD Code Hypertension Right breast cancer status p ost mastectomy, axillary node dissection, and chemoradiation Osteoporosis Stage I kidney cancer Elevated cholesterol Depression/anxiety Edema Surgical History Surgery Date(Month/Year) Right mastectomy 2017 Right partial nephrectomy 2018 Bilateral Dupuytren's contractures repai r 2020
--- OUTSIDE RECORDS SUMMARY | 2025-03-21 10:13 | XMS_ITS | Patient Health Record ---
Author Organization [facility] Address [address] [place], [place] [address] Care Team Providers Care Regional Vice President Life Sales Name Role Phone LUCIEN RAMIREZ Primary Care Provider [facility], NURSING Unavailable [phone] ALLERGIES Allergen (clinical drug ingredient) Drug/Non Drug Allergy documented on EMR Reaction Allergy Type Onset Date Status benazepril Benazepril Unknown Drug Allergy Activ e Substance with sulfonamide structure and antibacterial mechanism of action (substance) Sulfa Antibiotics Unknown Drug Allergy 08/20/2008 Active REASON FOR REFERRAL No Information MEDICATIONS Medication SIG (Take, Route, Frequency, Duration) Notes Start Date End Date Status traMADol HCl 50 MG TAKE 1-2 TABLETS NEEDED ORALLY TWICE A DAY 30 DAY(S) for 8 03/15/2025 Active traZODone HCl 50 MG TAKE 1-2 TABLETs BY MOUTH EVERYDAY AT BEDTIME Active Pantoprazole Sodium 40 MG 1 tablet 1/2 t o 1 hour before morning meal Orally Once a day Active Gabapentin 100 MG TAKE 1 CAPSULE BY MO [facility] AT BEDTIME for 30 Active Furosemide 20 MG 1 tablet Orally Once a day Active Naproxen 500 MG 1 tablet with food o r milk as needed Orally every 12 hrs Active Atorvastatin Calcium 20 MG 1 tablet Oral ly Once a day Active Aspirin 325 MG 1 tablet Orally Twic e a day Active Fluticasone Propionate 50 MCG/ACT 2 sprays (1 spray in each nostril) Nasal Twice a day 11/30/2021 Active amLODIPine Besylate 5 MG 1 tablet Oral Once a day 05/03/2022 Active busPIRone HCl 10 MG TAKE 1 TABLET BY RAMON TWICE A DAY for 90 Active oxyCODONE HCl 5 MG 1 tablet Orally at bedtime for 14 days 03/08/2025 Active Methocarbamol 500 MG TAKE 1 TABLET BY MO UTH THREE TIMES A DAY DIRECTED for 10 Active Valsartan 320 MG TAKE 1 TABLET BY RAMON TH EVERY DAY for 90 Active DULoxetine HCl 60 MG TAKE 1 CAPSULE BY M OUTH EVERY DAY for 90 Active IMMUNIZATIONS Vaccine Route Administration Date Status Comme nts Covid Unknown 03/16/2022 Administered Influenza, Fluzone HD 65+ IM Intramuscular 04/22/2023 Admi nistered Pfizer COVID-19,mRNA, LNP-S, PF, 30mcg/0.3mL dose Unknown 08/06/2020 Administered Pfizer COVID-19,mRNA, LNP-S, PF, 30mcg/0.3mL dose Unknown 08/27/2020 Administered Pneumococcal Prevnar 13 Unknown 01/21/2017 Administered Pneumococcal, PPV 23 IM Intramuscular 01/25/2018 Administe red [id number] IM Intramuscular 08/22/2024 Administered SARSCOV2 VAC BVL [...] years Section Notes: Patient quit smoking 1975 Patient quit smoking 1975 Patient quit smoking 1975 Patient quit smoking 1975 PROBLEMS Problem Type ICD Code Onset Dates Problem Status W/U Status Risk SNOMED Code Notes Problem Essential (primary) hypertension (I10) Active confirmed 30290678 Problem Generalized osteoarthritis (M15.9) Active confirmed 649715894 Problem Primary insomnia (F51.01) Active confirmed 4542033 Problem Other obesity due to excess calories (E66.09) Active confirmed 382194744 Problem Mixed hyperlipidemia (E78.2) Active confirmed 165927210 Problem Anxiety (F41.9) Active confirmed 285900 02 Problem Primary osteoarthritis of right knee (M17.11) Active confirmed 864290873236802 Problem Insomnia, unspecified type (G47.00) Active confirmed 776653048 Problem Chronic GERD (K21.9) Active confirmed 503495703 Problem Chronic venous insufficiency (I87.2) Active confirmed 04132652 Problem Personal history of breast cancer (Z85.3) Active confirmed 200815421 Problem Body mass index [BMI] 34.0-34.9, adult (Z68.34) Active confirmed 113596334 Problem Incomplete tear of left rotator cuff, unspecified whether traumatic (M75.112) Active confirmed VITAL SIGNS Blood pressure diastolic 60 mm Hg 03/06/2025 Height 62.125 in 03/06/2025 Blood pressure systolic 110 mm Hg 03/06/2025 Weight 188.8 lbs 03/06/2025 BMI 34.39 kg/m2 03/06/2025 Encounters Encounter Location Date Provider Diagnosis [address] [address] 07/16/[address] [address] 07/16/[address] [address] 08/02/[address] [address] 08/02/[address] [address] 08/22/2024 LUCIEN RAMIREZ Essential (primary) hypertension I10 ; Personal history of breast cancer Z85.3 ; Anxiety F41.9 ; Encntr for general adult medical exam w/o abnormal findings Z00.00 and Encounter for immunization Z23 [address] [address] 09/13/[address] [address] 09/27/[address] [address] 09/27/2024 LUCIEN RAMIREZ Pain, joint, shoulde r, right M25.[address] [address] 12/03/[address] [address] 12/17/2024 [facility] Preprocedural examination Z01.818 ; Primary osteoarthritis of right knee M17.11 ; Insomnia, unspecified type G47.00 ; Mixed hyperlipidemia E78.2 and Essential (primary) hypertension I10 [address] [address] 12/18/2024 [facility] Primary osteoarthrit is of right knee M17.[address] [address] 01/24/2025 [facility] Essential (primary) hypertension I10 ; Personal history [...] adult medical examination with abnormal findings Z00.[address] [address] 01/24/[address] [address] 01/24/2025 JOHN BEDFORD Medicare annual wellness visit, subsequent Z00.[address] [address] 01/31/[address] [address] 02/05/[address] [address] 02/14/[address] [address] 02/20/[address] [address] 02/22/[address] [address] 03/04/[address] [address] 03/06/2025 [facility] Primary osteoarthrit is of right knee M17.11 ; Essential (primary) hypertension I10 ; Chronic GERD K21.9 and Chronic venous insufficiency I87.2 [facility] [address] [place] [address] 03/08/2025 LUCIEN RAMIREZ Primary osteoarthrit is of right knee M17.11 ASSESSMENTS Encounter Date Diagnosis Assessment Notes Treatment Notes Treatment Clinical Notes Section Notes 03/08/2025 Primary osteoarthritis of right knee (ICD-10 - M17.11) 03/06/2025 Primary osteoarthritis of right knee (ICD-10 - M17.11) Hospital and rehab records from [facility] reviewed at length 1. Osteoarthritis of [...] - I10) Hospital and rehab records from [facility] reviewed at length 1. Osteoarthritis of [...] Stable with furosemide. Will continue to monitor 01/24/2025 Medicare annual wellness visit, subsequent (ICD-10 [...] of recurrence. Follows with Dr. Mcgowan at [place] 3. Hyperlipidemia: Will update profile on atorvastatin [...] of recurrence. Follows with Dr. Mcgowan at [place] 3. Hyperlipidemia: Will update profile on atorvastatin [...] labs including lipids. Prevnar 20 given today 03/06/2025 Chronic GERD (ICD-10 - K21.9) Hospital and rehab records from [facility] reviewed at length 1. Osteoarthritis of [...] Stable with furosemide. Will continue to monitor 12/17/2024 Insomnia, unspecified type (ICD-10 - G47.00) [...] of recurrence. Follows with Dr. Mcgowan at [place] 3. Hyperlipidemia: Will update profile on atorvastatin 4. Right knee osteoarthritis: Awaiting surgery with Dr. Armendariz. Using naproxen and tramadol cautiously 5. Obesity/BMI of 34: Will check A1c with laboratory studies. She is working at [employer] 6. GERD: Stable on pantoprazole. Will continue [...] labs including lipids. Prevnar 20 given today 08/22/2024 Anxiety (ICD-10 - F41.9) 1. Hypertension: [...] of recurrence. Follows with Dr. Mcgowan at [place] 3. Hyperlipidemia: Will update profile on atorvastatin [...] on present therapy. No changes made today 03/06/2025 Chronic venous insufficiency (ICD-10 - I87.2) Hospital and rehab records from [facility] reviewed at length 1. Osteoarthritis of [...] Stable with furosemide. Will continue to monitor 08/22/2024 Encntr for general adult medical exam [...] of recurrence. Follows with Dr. Mcgowan at [place] 3. Hyperlipidemia: Will update profile on atorvastatin [...] present therapy. No changes made today 01/24/2025 Chronic GERD (ICD-10 - K21.9) 1. Hypertension: Stable on present regimen. No changes made today 2. Personal history of breast cancer: No sign of recurrence. Follows with Dr. Mcgowan at [place] 3. Hyperlipidemia: Will update profile on atorvastatin 4. Right knee osteoarthritis: Awaiting surgery with Dr. Armendariz. Using naproxen and tramadol cautiously 5. Obesity/BMI of 34: Will check A1c with laboratory studies. She is working at [employer] 6. GERD: Stable on pantoprazole. Will continue [...] blood work. Flu shot given today 08/22/2024 Encounter for immunization (ICD-10 - [...] lipids. Prevnar 20 given today 01/24/2025 Primary insomnia (ICD-10 - F51.01) 1. Hypertension: Stable on present regimen. No changes made today 2. Personal history of breast cancer: No sign of recurrence. Follows with Dr. Roslyn najera [place] 3. Hyperlipidemia: Will update profile on atorvastatin [...] of recurrence. Follows with Dr. Roslyn najera [place] 3. Hyperlipidemia: Will update profile on atorvastatin [...] of recurrence. Follows with Dr. Roslyn najera [place] 3. Hyperlipidemia: Will update profile on atorvastatin [...] of recurrence. Follows with Dr. Mcgowan at [place] 3. Hyperlipidemia: Will update profile on atorvastatin [...] of recurrence. Follows with Dr. Mcgowan at [place] 3. Hyperlipidemia: Will update profile on atorvastatin [...] of recurrence. Follows with Dr. Mcgowan at [place] 3. Hyperlipidemia: Will update profile on atorvastatin [...] Date HEMOGLOBIN A1C 01/14/2023 CBC, Platelet, w/o Differential-[id number] 1 Lipid Panel-[id number] 03/15/2024 TSH Rfx on Abnormal to Free [id number] 10 / Comp. Metabolic Panel [id number] 2023 Next Appt Details Provider Name:LUCIEN RAMIREZ , 07/24/2025 01:00:00 PM, [address] [facility], [place], [address], Insurance Providers Payer Name Payer Address Payer Phone Subscriber Number Group Number Insured Name Patient Relationship to Insured Coverage Start Date Coverage End Date MEDICARE [employer] [address] [place] [address] [id number] ODENOctober Self - patient is the insured 7 [employer] CLAIMS [address] [address] [place] [id number] ODENOctober Self - patient is the insured [employer] [address] [place] [address] [phone] [id number] ODENOctober Self - patient is the insured 0 MEDICAL (GENERAL) HISTORY Medical History History ICD Code Disease : renal mass - Oncocytoma, Elevated lipids, hypertension, neoplastic, Disease : Cancer , Right breast, Dec 2016 mastectomy, reconstruction, chemo, XRT Problems: Insomnia, Problems: Peripheral venous insufficienc 09/25/2010:Active Surgical History Surgery Date(Month/Year) RIGHT KNEE total joint replacement Left shoulder arthroscopic surgery 2023 : R distal fibular Fracture, Sx_Procedur e : casting 2008 : L 5th Metatarsal Fraccture, Sx_Procedu re : casting Disease : Cholecystitis, Sx_Procedure : Cholecystectomy
== END 2025-03-21 09:35 | disposition home or self-care (01) ==
LOC: HO.HOS 09:05
PROVIDERS: PCP Internal Medicine; Visit Provider Orthopaedic Surgery
DX: M25.561 Pain in right knee (principal)
CPT/HCPCS: 99024

== ENCOUNTER → 2025-03-21 09:05 | Outpatient (BNVA) | payer MEDICARE, OTHER, SELFPAY | PROVIDERS: PCP Internal Medicine; Visit Provider Orthopaedic Surgery | DX: Z47.1 Aftercare following joint replacement surgery (principal); Z96.641 Presence of right artificial hip joint; M25.561 Pain in right knee | CPT/HCPCS: 99212 ==

== ENCOUNTER 2025-05-22 14:46 | Outpatient (REF) | payer MEDICARE, OTHER, SELFPAY ==
--- OUTSIDE RECORDS SUMMARY | 2024-07-16 10:45 | XMS_ITS ---
Author Organization [facility] Address [address] [place] [address] Care Team Providers Care Radiosonde Specialist Name Role Phone LUCIEN RAMIREZ Primary Care Provider REASON FOR VISIT 41 f/u Encounters Encounter Location Date Provider Diagnosis [address] [address] 07/16/2024 LUCIEN RAMIREZ Plan Of Treatment Next Appt Details Provider Name:LUCIEN RAMIREZ , 07/24/2025 01:00:00 PM, [address] [place], [address], Progress Notes * ODENMONI LDOB:1950 (75 yo F)Acc No.[id number]:07/16/2024 Progress Notes Patient: MONI GANT Provider: Holly RAMIREZ M.D. :1950 A ge:74 Y S ex:Female Date:07/16/2024 Address:[address] [place], [place] [phone] Subjective: * Chief Complaints: * 4 1 f/u Billing Information: * Procedure Codes: * Electronic signature of LUCIEN RAMIREZ MD on 05/22/2025 at 03:46 PM EST Sign off status: Pending * Provider: Holly RAIMREZ M.D. Date: 0 07/16/2024 Generated for Printi ng/Faxing/eTransmitting on: 1 03:46 PM EST
--- OUTSIDE RECORDS SUMMARY | 2024-08-02 09:45 | XMS_ITS ---
Author Organization [facility] Address [address] [place] [address] Care Team Providers Care Centrifugal Station Operator Name Role Phone LUCIEN RAMIREZ Primary Care Provider [phone] REASON FOR VISIT 41/f/u Encounters Encounter Location Date Provider Diagnosis [address] [address] 08/02/2024 LUCIEN RAMIREZ Plan Of Treatment Next Appt Details Provider Name:LUCIEN RAMIREZ , 07/24/2025 01:00:00 PM, [address] [place], [address], Progress Notes * MONI ODEN LDOB:1950 (75 yo F)Acc No.[id number]:08/02/2024 Progress Notes Patient: MONI GANT [place] Provider: Holly RAMIREZ M.D. :1950 A ge:74 Y S ex:Female Date:08/02/2024 Address:[address] [place], [place] [phone] Subjective: * Chief Complaints: * 4 1//u Billing Information: * Procedure Codes: * Electronic signature of LUCIEN RAMIREZ MD on 05/22/2025 at 03:46 PM EST Sign off status: Pending * Provider: Holly RAMIREZ M.D. Date: 0 08/02/2024 Generated for Printi ng/Faxing/eTransmitting on: 1 03:46 PM EST
--- OUTSIDE RECORDS SUMMARY | 2024-10-31 12:19 | XMS_ITS | Encounter Summary ---
Author Organization [facility] Address [address] [place] [address] [place] [address] Phone Care Team Providers Care Bookmobile Clerk Name Role Phone Enoc Llanos MD Primary Care Provider [phone] Encounter Details Date Type Department Care Team (Late st Contact Info) Description 10/31/2024 1:19 PM EDT Hospital Encounter [facility] [address] [place] [address] Zabrina Mistry PA-C [address] [facility], 3rd [place] [address] Social History Tobacco Use Types Packs/Day Years Used Date Smoking Tobacco: Former Cigarettes Q uit: 03/22/1976 Smokeless Tobacco: Never Alcohol Use Standard Drinks/Week Comments Yes 1 (1 standard drink = 0.6 oz pur e alcohol) Niraj crum [facility] Education Answer Date Recorded Are you interested in more education? Not on gabriel e 09/17/2022 Are you concerned about learning? Not on file 09/17/2022 No 09/17/2022 No 09/17/2022 Digital Access Answer Date Recorded No 10/18/2022 No 10/18/2022 Reliable internet access at home? Not on file 10/18/2022 Device with a working camera? Not on file Comments Unknown Sex and Gender Information Value Date Recorded Sex Assigned at Not on file Legal Sex Female 10:01 PM EDT Gender Identity Not on file Sexual Orientation Not on file documented as of this encounter Plan of Treatment Upcoming Encounters Date Type Department Care Team (Late st Contact Info) Description 05/28/2025 8:45 AM EST Office Visit [facility] [address] [place] [address] Bouchra Dee PA [address] [place] [address] [place] [address] Charleen Otero INTERLOCKING [employer] SIGNAL MECHANIC [address] [place] [address] 05/31/2025 2:15 PM EST Office Visit [facility] [address] [place] [address] Bouchra Dee PA [address] [place] [address] [place] [address] Key Hanks, PT [address] [place] [address] 06/05/2025 4:45 PM EST Office Visit [facility] [address] [address] Bouchra Dee PA [address] [place] [address] [place] [address] Key Hanks, PT [address] [place] [address] 06/07/2025 8:45 AM EST Office Visit [facility] [address] [place] [address] Bouchra Dee PA [address] [place] [address] [place] [address] Key Hanks, PT [address] [place] [address] 06/10/2025 1:45 PM EST Office Visit [facility] [address] [place] [address] Bouchra Dee PA [address] [place] [address] Key Hanks, PT [address] [place] [address] 06/12/2025 12:00 PM EST Office Visit [facility] [address] [place] [address] Bouchra Dee PA [address] [facility] [place] [address] Key Hanks, PT [address] [place] [address] 06/17/2025 1:45 PM EST Office Visit [facility] [address] [place] [address] Bouchra Dee PA [address] [place] [address] Key Hanks, PT [address] [place] [address] 06/19/2025 12:00 PM EST Office Visit [facility] [address] [address] Bouchra Dee PA [address] [place] [address] [place] [address] Key Hanks, PT [address] [place] [address] 06/24/2025 12:00 PM EST Office Visit [facility] [address] [place] [address] Bouchra Dee PA [address] [facility] [place] [address] Key Hanks, PT [address] [place] [address] documented as of this encounter Procedures Procedure Name Priority Date/Time Associated Diagnosis Comments XR KNEE 4 OR MORE VIEWS (RIGHT) Urgent/patient waiting 10/31/2024 1:26 PM EDT Sprain of right knee, unspecified ligament, initial encounter documented in this encounter Results * XR KNEE 4 OR MORE VIEWS (RIGHT) (10/31/2024 1:26 PM EDT) Anatomical Region Laterality Modality Knee Right Computed Radiogr aphy 10/31/2024 1:32 PM EDT Impressions 10/31/2024 1:57 PM EDT Severe tricompartmental osteoarthritis. Small joint effusion. No acute osseous abnormality. ATTESTATION: I, Julisa House as teaching physician, have reviewed the images for this case and if necessary edited the report originally created by Bhavin Paz MD. Narrative 10/31/2024 1:57 PM EDT XR KNEE 4 OR MORE VIEWS (RIGHT) Referring clinician's provided indication for this examination in Epic: Pain; S/P Fall COMPARISON: None. FINDINGS: Right Knee: No fracture. Severe narrowing of the lateral tibiofemoral compartment with abpo-yc-hrql contact. Moderate narrowing of the medial tibiofemoral compartment. Large tricompartmental osteophytes. Quadriceps and patellar enthesopathy. No effusion. Procedure Note Julisa House MD, PhD - 10/31/2024 XR KNEE 4 OR MORE VIEWS (RIGHT) Referring clinician's provided indication for this examination in Epic:Pain; S/P Fall COMPARISON: None. FINDINGS: Right Knee: No fracture. Severe narrowing of the lateral tibiofemoralcompartment with pkma-cv-yqcm contact. Moderate narrowing of the medialtibiofemoral compartment. Large tricompartmental osteophytes. Quadricepsand patellar enthesopathy. No effusion. IMPRESSION: Severe tricompartmental osteoarthritis. Small joint effusion. No acuteosseous abnormality. ATTESTATION: I, Julisa House as teaching physician, have reviewedthe images for this case and if necessary edited the report originallycreated by Bhavin Paz MD. Zabrina Mistry PA-C IMG XR LOWER EXTREMI TY Final Result documented in this encounter Visit Diagnoses Not on filedocumented in this encounter Care Teams Bookmobile Clerk Relationship Specialty Start Date End Date Enoc Llanos MD [address] [place] [address] PCP - General Internal Medicine 03/22/17 documented as of this encounter Additional Source Comments The information contained in this document represents components of the legal health record. It is not the complete legal health record.[facility]
--- OUTSIDE RECORDS SUMMARY | 2025-03-04 03:30 | XMS_ITS ---
Author Organization [facility] Address [address] [place] [address] Care Team Providers Care Fur Dry Cleaner Hand Name Role Phone LUCIEN RAMIREZ Primary Care Provider REASON FOR VISIT 41/ HFU Encounters Encounter Location Date Provider Diagnosis [facility] [address] [place] [phone] 03/04/2025 LUCIEN RAMIREZ Plan Of Treatment Next Appt Details Provider Name:LUCIEN RAMIREZ , 07/24/2025 01:00:00 PM, [address] [place], [address], Progress Notes * ODENMONI LDOB:1950 (75 yo F)Acc No.[id number]:03/04/2025 Progress Notes Patient: MONI GANT Provider: Holly RAMIREZ M.D. :1950 A ge:75 Y S ex:Female Date:03/04/2025 Address:[address] [place], [place] [address] Subjective: * Chief Complaints: * 4 1/ HFU * Electronic signature of LUCIEN RAMIREZ MD on 05/22/2025 at 03:46 PM EST Sign off status: Pending * Provider: Holly RAMIREZ M.D. Date: Generated for Printi ng/Faxing/eTransmitting on: 03:46 PM EST
--- OUTSIDE RECORDS SUMMARY | 2025-05-22 15:46 | XMS_ITS | Encounter Summary ---
Author Organization [facility] Address [address] [place] [address] Phone Care Team Providers Care Drive Thru Order Taker Name Role Phone Enoc Llanos MD Primary Care Provider [phone] Reason for Referral * MRI/CAT Scan - Closed Specialty Diagnoses / Procedures Referred By Contac t Referred To Contact Procedures NM PET Whole Body Outside (No Interpretation) System, Provider Not In, [facility] [address] [address] Referral ID Status Reason Start Date Expiration Date Visits Re quested Visits Authorized [id number] Closed 03/24/2017 03/24/2018 1 1 Encounter Details Date Type Department Care Team (Late Contact Info) Description 03/24/2017 Ancillary Orders [facility],Outside Imaging [address] [place] [address] System, Provider Not In, [facility] [address] [address] Social History Tobacco Use Types Packs/Day Years [...] Encounters Date Type Department Care Team (Late Contact Info) Description 05/28/2025 8:45 AM EST Office Visit [facility] [address] [place] [address] Bouchra Dee PA [address] [place] [address] Charleen Otero PTA [address] [place] [address] 05/31/2025 2:15 PM EST Office Visit [facility] [address] [place] [address] Bouchra Dee PA [address] [address] Key Hanks, PT [address] [place] [address] 06/05/2025 4:45 PM EST Office Visit [facility] [address] [address] Bouchra Dee PA [address] [place] [address] Key Hanks, PT [address] [place] [address] 06/07/2025 8:45 AM EST Office Visit [facility] [address] [address] Bouchra Dee PA [address] [place] [address] [place] [address] Key Hanks, PT [address] [place] [address] 06/10/2025 1:45 PM EST Office Visit [facility] [address] [place] [address] Bouchra Dee PA [address] [place] [address] [place] [address] Key Hanks, PT [address] [place] [address] 06/12/2025 12:00 PM EST Office Visit [facility] [address] [place] [address] Bouchra Dee PA [address] [place] [address] Key Hanks, PT [address] [place] [address] 06/17/2025 1:45 PM EST Office Visit [facility] [address] [place] [address] Bouchra Dee PA [address] [place] [address] Key Hanks, PT [address] [place] [address] 06/19/2025 12:00 PM EST Office Visit [facility] [address] [place] [address] Bouchra Dee PA [address] [place] [address] Key Hanks, PT [address] [place] [address] 06/24/2025 12:00 PM EST Office Visit [facility] [address] [place] [address] Bouchra Dee PA [address] [place] [address] Key Hanks, PT [address] [place] [address] [email or web address] documented as of this encounter Results * [...] on filedocumented in this encounter Care Teams Drive Thru Order Taker Relationship Specialty Start Date End Date Enoc Llanos MD [address] [place] [address] PCP - General Internal Medicine 03/22/17 documented as of this encounter Additional Source Comments The information contained in this document represents components of the legal health record. It is not the complete legal health record.[facility]
--- OUTSIDE RECORDS SUMMARY | 2025-05-22 15:46 | XMS_ITS | Encounter Summary ---
Author Organization [facility] Address [address] [place] [address] Care Team Providers Care Rn Neonatal Name Role Phone Xiomara Oleary Primary Care Provider [phone] Encounter Details Date Type Department Care Team (Late st Contact Info) Description 02/14/2025 Lab Requisition [facility] - Main Lab [address] [facility] [place] [address] Kurtis Webster PA [address] [address] Social History Tobacco Use Types [...] on filedocumented in this encounter Care Teams Rn Neonatal Relationship Specialty Start Date End Date Xiomara Oleary PA [address] [place] [address] PCP - General Physician Traffic Recorder 02/20/25 documented as of this encounter
--- OUTSIDE RECORDS SUMMARY | 2025-05-22 15:46 | XMS_ITS | Clinical Summary ---
Author Organization [facility] Prior to 10/20/[address] [place] [address] Care Team Providers Care International Student Advisor Name Role Phone Enoc Llanos MD Primary [...] age to complete this topic Care Teams International Student Advisor Relationship Specialty Start Date End Date Enoc Llanos MD PCP - General Internal Medicine 06/13/18
--- OUTSIDE RECORDS SUMMARY | 2025-05-22 15:46 | XMS_ITS | Encounter Summary ---
Author Organization [facility] Address [address] [place] [address] Phone Care Team Providers Care Community Development Planner Name Role Phone Enoc Llanos MD Primary Care Provider [phone] Encounter Details Date Type Department Care Team (Latest Contact Info) Description 04/25/2019 Transcribe Orders [address] [address] Enoc Llanos MD [address] [place] [address] Encounter for general adult medical examination with [...] Description 05/28/2025 8:45 AM EST Office Visit [facility] [address] [place] [address] Bouchra Dee PA [address] [place] [address] [place] [address] Charleen Otero, MEDICAL SALES ASSOCIATE [address] [place] [address] 05/31/2025 2:15 PM EST Office Visit [facility] [address] [place] [address] Bouchra Dee PA [address] [place] [address] Key Hanks, PT [address] [place] [address] [email or web address] 06/05/2025 4:45 PM EST Office Visit [facility] [address] [address] Bouchra Dee, KSENIA [address] [facility] [address] [place] [address] Key Hanks, PT [address] [place] [address] [email or web address] 06/07/2025 8:45 AM EST Office Visit [facility] [address] [address] Bouchra Dee PA [address] [facility] [address] [place] [address] Key Hanks, PT [address] [place] [address] 06/10/2025 1:45 PM EST Office Visit [facility] [address] [place] [address] Bouchra Dee PA [address] [place] [address] Key Hanks, PT 10 [place] [address] 06/12/2025 12:00 PM EST Office Visit [facility] [address] [address] Bouchra Dee PA [address] [facility] [address] [place] [address] Key Hanks, PT [address] [place] [address] 06/17/2025 1:45 PM EST Office Visit [facility] [address] [address] Bouchra Dee PA [address] [place] [address] [place] [address] Key Hanks, PT [address] [place] [address] 06/19/2025 12:00 PM EST Office Visit [facility] [address] [address] Bouchra Dee PA [address] [place] [address] [place] [address] Key Hanks, PT [address] [place] [address] 06/24/2025 12:00 PM EST Office Visit [facility] [address] [place] [address] Bouchra Dee PA [address] [place] [address] [place] [address] Key Hanks, PT [address] [place] [address] documented as of this encounter Results * Microalbumin/creatinine ratio, random urine (04/25/2019 10:51 AM EST) URINE MICROALBUMIN 1.4 0 - 2.3 mg/dL [facility] URINE CREATININE 115 mg/dL PRODUCT MANAGER MEDICAL DEVICE [facility] MICROALB/CRE RATIO 12.2 0 - 20 mg/g Cre [facility] Urine (Urine) 04/25/2019 10: 51 AM EST 04/25/2019 11:48 AM EST Enoc Llanos MD LAB URINE ORDERABLES Le l Result Performing Organization Address City/[facility]/ZIP Co de Phone Number [address] [address] * (ABNORMAL) TSH with reflex (04/25/2019 8:03 AM EST) Pathologist [facility] TSH 16.90(H) 0.27 - 4.20 uIU/mL [facility] Blood 04/25/2019 8:03 AM EST 04/25/2019 9:58 AM EST us Enoc Llanos MD LAB BLOOD BKR ORDERABLES Final Result Performing Organization Address [facility] Co de Phone Number [address] [address] * (ABNORMAL) Lipid panel (04/25/2019 8:03 AM EST) Pathologist [facility] HDL 47 mg/dL [facility] Comment: Interpretation <40 mg/dL: Low HDL cholesterol (major risk factor for CHD) Greater than or equal to 60 mg/dL: High HDL cholesterol ( negative risk factor for CHD) HDL - cholesterol is affected by a number of factors, e.g. smoking, excerise, hormones, sex and age. CHOLESTEROL 211 0 - 240 mg/dL [facility] TRIGLYCERIDES 192(H) 30 - 160 mg/dL [facility] LDL 126 50 - 129 mg/dL [facility] Comment: LDL levels in terms of risk for coronary heart disease: <100 mg/dL: Optimal 100-129 mg/dL: Near or above optimal 130-159 mg/dL: Borderline high 160-189 mg/dL: High >190 mg/dL: Very High CARDIAC RISK RATIO 4.5(H) 3.3 - 4.4 C [facility] Blood 04/25/2019 8:03 AM EST 04/25/2019 9:58 AM EST us Enoc Llanos MD LAB BLOOD BKR ORDERABLES Final Result [address] [address] * (ABNORMAL) Comprehensive metabolic panel (04/25/2019 8:03 AM EST) SODIUM 141 133 - 146 mmol/L [facility] POTASSIUM 4.4 3.3 - 5.1 mmol/L [facility] CHLORIDE 101 96 - 108 mmol/L [facility] CO2 27 21 - 35 mmol/L [facility] BUN 24(H) 6 - 19 mg/dL [facility] CREATININE 1.20 0.5 - 1.5 mg/dL [facility] GLUCOSE 115(H) 70 - 99 mg/dL [facility] ALBUMIN 4.0 3.9 - 4.8 g/dL [facility] TOTAL PROTEIN 6.8 6.5 - 8.0 g/dL [facility] CALCIUM 9.3 8.4 - 10.3 mg/dL [facility] ALKALINE PHOSPHATASE 110 39 - 117 U/L [facility] TOTAL BILIRUBIN 0.3 0.0 - 1.2 mg/dL [facility] AST 16 0 - 37 U/L [facility] ALT 13 0 - 40 U/L [facility] GLOBULIN 2.8 1 - 4.8 g/dL [facility] EGFR 46(L) >59 mL/min/1.7 3m2 [facility] Comment:If patient is black, multiply result by 1.159. Estimated glomerular filtration rate calculated using the CKD-EPI equation. ANION GAP 17 10 - 20 mmol/L [facility] Blood 04/25/2019 8:03 AM EST 04/25/2019 9:58 AM EST us Enoc Llanos MD LAB BLOOD BKR ORDERABLES Final Result [facility] [address] [place] [address] documented in this encounter Visit Diagnoses Diagnosis Encounter for general adult medical examination with abnormal findings- Primary Essential hypertension, malignant Fatigue, unspecified type documented in this encounter Care Teams Community Development Planner Relationship Specialty Start Date End Date Enoc Llanos MD [address] [place] [address] PCP - General Internal Medicine 03/22/17 documented as of this encounter Additional Source Comments The information contained in this document represents components of the legal health record. It is not the complete legal health record.[facility]
--- OUTSIDE RECORDS SUMMARY | 2025-05-22 15:46 | XMS_ITS | Encounter Summary ---
Author Organization [facility] Address [address] [place] [address] Care Team Providers Care Child Center Assistant Name Role Phone Xiomara Oleary Primary Care Provider Encounter Details Date Type Department Care Team (Late st Contact Info) Description 02/16/2025 Lab Requisition [facility] - Main Lab [address] [place] [address] Xiomara Oleary PA [address] [place] [address] Encounter for other general examination [...] LAB CHEMISTRY METHOD 02/16/2025 11:10 AM EDT [facility] Potassium 5.1 3.5 - 5.5 mmol/L LAB CHEMISTRY METHOD 02/16/2025 11:10 AM EDT [facility] Chloride 100 96 - 110 mmol/L LAB CHEMISTRY METHOD 02/16/2025 11:10 AM [facility] CO2 34(H) 21 - 32 mmol/L LAB CHEMISTRY METHOD 02/16/2025 11:10 AM [facility] Anion Gap 3 3 - 11 LAB CHEMISTRY METHOD 02/16/2025 11:10 AM [facility] Glucose 83 70 - 100 mg/dL LAB CHEMISTRY METHOD 02/16/2025 11:10 AM [facility] BUN 20 5 - 25 mg/dL LAB CHEMISTRY METHOD 02/16/2025 11:10 AM [facility] Creatinine 0.91 0.50 - 1.10 mg/dL LAB CHEMISTRY METHOD 02/16/2025 11:10 AM [facility] eGFR 66 >=60 mL/min/1. 73m2 LAB CHEMISTRY METHOD 02/16/2025 11:10 AM [facility] Comment:Calculation based on the Chronic Kidney Disease Epidemiology Collaboration (CKD-EPI) equation refit without adjustment for race. BUN/Creatinine Ratio 22.0 LAB CHEMISTRY METHOD 02/16/2025 11:10 AM [facility] Calcium 8.6 8.5 - 10.5 mg/dL LAB CHEMISTRY METHOD 02/16/2025 11:10 AM [facility] AST (SGOT) 24 10 - 42 unit/L LAB CHEMISTRY METHOD 02/16/2025 11:10 AM [facility] ALT (SGPT) 37 10 - 60 unit/L LAB CHEMISTRY METHOD 02/16/2025 11:10 AM [facility] Alkaline Phosphatase 129(H) 42 - 121 unit/L LAB CHEMISTRY METHOD 02/16/2025 11:10 AM [facility] Total Protein 5.1(L) 6.0 - 8.0 g/dL LAB CHEMISTRY METHOD 02/16/2025 11:10 AM [facility] Albumin 2.3(L) 3.2 - 5.0 g/dL LAB CHEMISTRY METHOD 02/16/2025 11:10 AM EDT [facility] Total Bilirubin 0.5 0.0 - 1.4 mg/dL LAB CHEMISTRY METHOD 02/16/2025 11:10 AM [facility] Blood Venous blood specimen / Unknown Venipuncture / Unknown 02/16/2025 5:38 AM EDT 02/16/2025 9:00 AM EDT us Xiomara MCCORMACK LAB BLOOD ORDERABLES Final Re sult [facility] [address] [place] [address], [place] [phone] * (ABNORMAL) Complete blood count (02/16/2025 5:38 AM EDT) WBC 7.9 4.8 - 10.8 K/mcL LAB HEMETOLOGY METHOD 02/16/2025 10:10 AM [facility] RBC 3.00(L) 3.80 - 4.80 M/mcL LAB HEMETOLOGY METHOD 02/16/2025 10:10 AM [facility] Hemoglobin 8.8(L) 11.5 - 16.0 g/dL LAB HEMETOLOGY METHOD 02/16/2025 10:10 AM [facility] Hematocrit 27.8(L) 35.0 - 47.0 % LAB HEMETOLOGY METHOD 02/16/2025 10:10 AM EDT [facility] MCV 92.1 79.0 - 98.0 FL LAB HEMETOLOGY METHOD 02/16/2025 10:10 AM [facility] MCH 29.1 27.0 - 32.0 pcg LAB HEMETOLOGY METHOD 02/16/2025 10:10 AM [facility] MCHC 31.7(L) 32.0 - 37.0 g/dL LAB HEMETOLOGY METHOD 02/16/2025 10:10 AM EDT [facility] RDW 13.5 11.0 - 15.0 % LAB HEMETOLOGY METHOD 02/16/2025 10:10 AM EDT [facility] Platelets 318 130 - 400 K/mcL LAB HEMETOLOGY METHOD 02/16/2025 10:10 AM EDT [facility] MPV 9.2 7.0 - 11.0 FL LAB HEMETOLOGY METHOD 02/16/2025 10:10 AM EDT [facility] NRBC 0.0 <1.0 % LAB HEMETOLOGY METHOD 02/16/2025 10:10 AM EDT [facility] NRBC Absolute 0.00 <0.10 K/mcL LAB HEMETOLOGY METHOD 02/16/2025 10:10 AM EDT [facility] Blood Venous blood specimen / Unknown Venipuncture / Unknown 02/16/2025 5:38 AM EDT 02/16/2025 9:00 AM EDT us Xiomara MCCORMACK LAB BLOOD ORDERABLES Final Re sult [facility] [address] [place] [address], documented in this encounter Visit Diagnoses Diagnosis Encounter for other general examination documented in this encounter Care Teams Child Center Assistant Relationship Specialty Start Date End Date Xiomara Oleary PA [address] [place] [address] PCP - General Physician Sound Recording Technician 02/20/25 documented as of this encounter
--- OUTSIDE RECORDS SUMMARY | 2025-05-22 15:46 | XMS_ITS | Encounter Summary ---
Author Organization [facility] Address [address] [place] [address] Care Team Providers Care Stone Cutter Name Role Phone Xiomara Oleary Primary Care Provider [phone] Encounter Details Date Type Department Care Team (Late st Contact Info) Description 02/14/[address] [facility] - Main Lab [address] [facility] [place] [address] Kurtis Webster PA [address] [address] Encounter for other general examination [...] K/mcL LAB HEMETOLOGY METHOD 02/14/2025 11:02 AM [facility] RBC 3.10(L) 3.80 - 4.80 M/mcL LAB HEMETOLOGY METHOD 02/14/2025 11:02 AM [facility] Hemoglobin 9.0(L) 11.5 - 16.0 g/dL LAB HEMETOLOGY METHOD 02/14/2025 11:02 AM [facility] Hematocrit 28.0(L) 35.0 - 47.0 % LAB HEMETOLOGY METHOD 02/14/2025 11:02 AM [facility] MCV 91.5 79.0 - 98.0 FL LAB HEMETOLOGY METHOD 02/14/2025 11:02 AM [facility] MCH 29.4 27.0 - 32.0 pcg LAB HEMETOLOGY METHOD 02/14/2025 11:02 AM [facility] MCHC 32.1 32.0 - 37.0 g/dL LAB HEMETOLOGY METHOD 02/14/2025 11:02 AM [facility] RDW 13.4 11.0 - 15.0 % LAB HEMETOLOGY METHOD 02/14/2025 11:02 AM [facility] Platelets 192 130 - 400 K/[facility] LAB HEMETOLOGY METHOD 02/14/2025 11:02 AM [facility] MPV 9.7 7.0 - 11.0 FL LAB HEMETOLOGY METHOD 02/14/2025 11:02 AM [facility] NRBC 0.0 <1.0 % LAB HEMETOLOGY METHOD 02/14/2025 11:02 AM [facility] NRBC Absolute 0.00 <0.10 K/mcL LAB HEMETOLOGY METHOD 02/14/2025 11:02 AM [facility] Neutrophils Relative 76.3 % LAB HEMETOLOGY METHOD 02/14/2025 11:02 AM [facility] Lymphocytes Relative 12.2 % LAB HEMETOLOGY METHOD 02/14/2025 11:02 AM [facility] Monocytes Relative 8.8 % LAB HEMETOLOGY METHOD 02/14/2025 11:02 AM [facility] Eosinophils Relative 1.5 % LAB HEMETOLOGY METHOD 02/14/2025 11:02 AM [facility] Basophils Relative 0.4 % LAB HEMETOLOGY METHOD 02/14/2025 11:02 AM [facility] Immature Granulocytes Relative 0.8 % LAB HEMETOLOGY METHOD 02/14/2025 11:02 AM [facility] Neutrophils Absolute 6.43 1.50 - 7.00 K/mcL LAB HEMETOLOGY METHOD 02/14/2025 11:02 AM [facility] Lymphocytes Absolute 1.03 1.00 - 5.00 K/mcL LAB HEMETOLOGY METHOD 02/14/2025 11:02 AM [facility] Monocytes Absolute 0.74 0.20 - 1.00 K/mcL LAB HEMETOLOGY METHOD 02/14/2025 11:02 AM [facility] Eosinophils Absolute 0.13 0.00 - 0.50 K/mcL LAB HEMETOLOGY METHOD 02/14/2025 11:02 AM [facility] Basophils Absolute 0.03 0.00 - 0.20 K/mcL LAB HEMETOLOGY METHOD 02/14/2025 11:02 AM [facility] Immature Granulocytes Absolute 0.07(H) 0.00 - 0.03 K/mcL LAB HEMETOLOGY METHOD 02/14/2025 11:02 AM [facility] Blood Venous blood specimen / Unknown Venipuncture / Unknown 02/14/2025 5:04 AM EDT 02/14/2025 10:14 AM EDT Kurtis MCCORMACK LAB BLOOD ORDERABLES Final R esult [facility] [address] [place] [address], [place] [phone] * (ABNORMAL) Magnesium (02/14/2025 5:04 AM EDT) Magnesium 1.8(L) 1.9 - 2.6 mg/dL LAB CHEMISTRY METHOD 02/14/2025 11:57 AM EDT [facility] Blood Venous blood specimen / Unknown Venipuncture / Unknown 02/14/2025 5:04 AM EDT 02/14/2025 10:14 AM EDT Kurtis MCCORMACK LAB BLOOD ORDERABLES Final R esult Performing Organization Address City/[facility]/ZIP Co de Phone Number [facility] [address] [place] [address], [place] [phone] * (ABNORMAL) Comprehensive metabolic panel (02/14/2025 5:04 AM EDT) Pathologist [facility] Sodium 137 133 - 145 mmol/L LAB CHEMISTRY METHOD 02/14/2025 11:57 AM EDT [facility] Potassium 4.0 3.5 - 5.5 mmol/L LAB CHEMISTRY METHOD 02/14/2025 11:57 AM EDT [facility] Chloride 100 96 - 110 mmol/L LAB CHEMISTRY METHOD 02/14/2025 11:57 AM EDT [facility] CO2 32 21 - 32 mmol/L LAB CHEMISTRY METHOD 02/14/2025 11:57 AM EDT [facility] Anion Gap 5 3 - 11 LAB CHEMISTRY METHOD 02/14/2025 11:57 AM EDT [facility] Glucose 77 70 - 100 mg/dL LAB CHEMISTRY METHOD 02/14/2025 11:57 AM [facility] BUN 15 5 - 25 mg/dL LAB CHEMISTRY METHOD 02/14/2025 11:57 AM [facility] Creatinine 0.87 0.50 - 1.10 mg/dL LAB CHEMISTRY METHOD 02/14/2025 11:57 AM [facility] eGFR 70 >=60 mL/min/1. 73m2 LAB CHEMISTRY METHOD 02/14/2025 11:57 AM [facility] Comment:Calculation based on the Chronic Kidney Disease Epidemiology Collaboration (CKD-EPI) equation refit without adjustment for race. BUN/Creatinine Ratio 17.2 LAB CHEMISTRY METHOD 02/14/2025 11:57 AM [facility] Calcium 8.4(L) 8.5 - 10.5 mg/dL LAB CHEMISTRY METHOD 02/14/2025 11:57 AM [facility] AST (SGOT) 55(H) 10 - 42 unit/L LAB CHEMISTRY METHOD 02/14/2025 11:57 AM [facility] ALT (SGPT) 63(H) 10 - 60 unit/L LAB CHEMISTRY METHOD 02/14/2025 11:57 AM [facility] Alkaline Phosphatase 170(H) 42 - 121 unit/L LAB CHEMISTRY METHOD 02/14/2025 11:57 AM [facility] Total Protein 4.7(L) 6.0 - 8.0 g/dL LAB CHEMISTRY METHOD 02/14/2025 11:57 AM [facility] Albumin 2.4(L) 3.2 - 5.0 g/dL LAB CHEMISTRY METHOD 02/14/2025 11:57 AM [facility] Total Bilirubin 0.6 0.0 - 1.4 mg/dL LAB CHEMISTRY METHOD 02/14/2025 11:57 AM [facility] Blood Venous blood specimen / Unknown Venipuncture / Unknown 02/14/2025 5:04 AM EDT 02/14/2025 10:14 AM EDT Kurtis MCCORMACK LAB BLOOD ORDERABLES Final R esult [facility] ([facility] [address] [place] [address], documented in this encounter Visit Diagnoses Diagnosis Encounter for other general examination documented in this encounter Care Teams Stone Cutter Relationship Specialty Start Date End Date Xiomara Oleary PA [address] [place] [id number] PCP - General Physician Garbage Stoker 02/20/25 documented as of this encounter
--- OUTSIDE RECORDS SUMMARY | 2025-05-22 15:46 | XMS_ITS | Encounter Summary ---
Author Organization [facility] Address [address] [place] [address] Care Team Providers Care Chainstitch Zipper Setter Name Role Phone Xiomara Oleary Primary Care Provider [phone] Encounter Details Date Type Department Care Team (Late st Contact Info) Description 02/14/2025 Lab Requisition [facility] - Main Lab [address] [facility] [place] [address] Kurtis Webster PA [address] [address] Social History Tobacco Use Types [...] on filedocumented in this encounter Care Teams Chainstitch Zipper Setter Relationship Specialty Start Date End Date Xiomara Oleary PA [address] [place] [address] PCP - General Physician Multimedia Journalist 02/20/25 documented as of this encounter
--- OUTSIDE RECORDS SUMMARY | 2025-05-22 15:46 | XMS_ITS | Encounter Summary ---
Author Organization [facility] Address [address] [place] [address] Care Team Providers Care Player Development Executive Name Role Phone Xiomara Oleary Primary Care Provider [phone] Encounter Details Date Type Department Care Team (Late st Contact Info) Description 02/20/2025 Lab Requisition [facility] - Main Lab [address] [place] [address] Xiomara Oleary PA [address] [place] [address] Encounter for other general examination [...] LAB CHEMISTRY METHOD 02/20/2025 11:33 AM EDT [facility] Potassium 5.1 3.5 - 5.5 mmol/L LAB CHEMISTRY METHOD 02/20/2025 11:33 AM EDT [facility] Chloride 101 96 - 110 mmol/L LAB CHEMISTRY METHOD 02/20/2025 11:[address] [facility] CO2 31 21 - 32 mmol/L LAB CHEMISTRY METHOD 02/20/2025 11:[address] [facility] Anion Gap 7 3 - 11 LAB CHEMISTRY METHOD 02/20/2025 11:[address] [facility] Glucose 80 70 - 100 mg/dL LAB CHEMISTRY METHOD 02/20/2025 11:[address] [facility] BUN 25 5 - 25 mg/dL LAB CHEMISTRY METHOD 02/20/2025 11:[address] [facility] Creatinine 1.00 0.50 - 1.10 mg/dL LAB CHEMISTRY METHOD 02/20/2025 11:[address] [facility] eGFR 59(L) >=60 mL/min/1. 73m2 LAB CHEMISTRY METHOD 02/20/2025 11:[address] [facility] Comment:Calculation based on the Chronic Kidney Disease Epidemiology Collaboration (CKD-EPI) equation refit without adjustment for race. BUN/Creatinine Ratio 25.0 LAB CHEMISTRY METHOD 02/20/2025 11:[address] [facility] Calcium 8.7 8.5 - 10.5 mg/dL LAB CHEMISTRY METHOD 02/20/2025 11:[address] [facility] AST (SGOT) 18 10 - 42 unit/L LAB CHEMISTRY METHOD 02/20/2025 11:[address] [facility] ALT (SGPT) 32 10 - 60 unit/L LAB CHEMISTRY METHOD 02/20/2025 11:[address] [facility] Alkaline Phosphatase 116 42 - 121 unit/L LAB CHEMISTRY METHOD 02/20/2025 11:[address] [facility] Total Protein 5.2(L) 6.0 - 8.0 g/dL LAB CHEMISTRY METHOD 02/20/2025 11:[address] [facility] Albumin 2.7(L) 3.2 - 5.0 g/dL LAB CHEMISTRY METHOD 02/20/2025 11:33 AM EDT [facility] Total Bilirubin 0.4 0.0 - 1.4 mg/dL LAB CHEMISTRY METHOD [facility] Blood Venous blood specimen / Unknown Venipuncture / Unknown 02/20/2025 5:00 AM EDT 02/20/2025 9:45 AM EDT us Xiomara MCCORMACK LAB BLOOD ORDERABLES Final Re sult [facility] [address] [place] [address], * (ABNORMAL) Complete blood count (02/20/2025 5:00 AM EDT) WBC 7.3 4.8 - 10.8 K/mcL LAB HEMETOLOGY METHOD 02/20/2025 10:[address] [facility] RBC 3.00(L) 3.80 - 4.80 M/mcL LAB HEMETOLOGY METHOD 02/20/2025 10:[address] [facility] Hemoglobin 8.7(L) 11.5 - 16.0 g/dL LAB HEMETOLOGY METHOD 02/20/2025 10:[address] [facility] Hematocrit 27.4(L) 35.0 - 47.0 % LAB HEMETOLOGY METHOD 02/20/2025 10:[address] [facility] MCV 91.6 79.0 - 98.0 FL LAB HEMETOLOGY METHOD 02/20/2025 10:[address] [facility] MCH 29.1 27.0 - 32.0 pcg LAB HEMETOLOGY METHOD 02/20/2025 10:[address] [facility] MCHC 31.8(L) 32.0 - 37.0 g/dL LAB HEMETOLOGY METHOD 02/20/2025 10:38 AM EDT [facility] RDW 13.4 11.0 - 15.0 % LAB HEMETOLOGY METHOD 02/20/2025 10:38 AM EDT [facility] Platelets 376 130 - 400 K/mcL LAB HEMETOLOGY METHOD 02/20/2025 10:38 AM EDT [facility] MPV 8.7 7.0 - 11.0 FL LAB HEMETOLOGY METHOD 02/20/2025 10:38 AM EDT [facility] NRBC 0.0 <1.0 % LAB HEMETOLOGY METHOD 02/20/2025 10:38 AM EDT [facility] NRBC Absolute 0.00 <0.10 K/mcL LAB HEMETOLOGY METHOD 02/20/2025 10:38 AM EDT [facility] Blood Venous blood specimen / Unknown Venipuncture / Unknown 02/20/2025 5:00 AM EDT 02/20/2025 9:45 AM EDT us Xiomara MCCORMACK LAB BLOOD ORDERABLES Final Re sult [facility] [address] [place] [address], documented in this encounter Visit Diagnoses Diagnosis Encounter for other general examination documented in this encounter Care Teams Player Development Executive Relationship Specialty Start Date End Date Xiomara Oleary PA [address] [place] [phone] PCP - General Physician Poison Information Specialist 02/20/25 documented as of this encounter
--- OUTSIDE RECORDS SUMMARY | 2025-05-22 15:46 | XMS_ITS | Encounter Summary ---
Author Organization [facility] Address [address] [place] [address] Care Team Providers Care Sports Cartoonist Name Role Phone Xiomara Oleary Primary Care Provider [phone] Encounter Details Date Type Department Care Team (Late st Contact Info) Description 02/16/2025 Lab Requisition [facility] - Main Lab [address] [place] [address] Xiomara Oleary PA [address] [place] [address] Encounter for other general examination [...] and culture (02/16/2025 12:09 AM EDT) Specific [place] Urine 1.017 1.003 - 1.030 LAB URINALYSIS - AUTOMATED METHOD 02/16/2025 10:[address] [facility] pH, Urine 7.0 5.0 - 8.0 pH LAB URINALYSIS - AUTOMATED METHOD 02/16/2025 10:[address] [facility] Leukocytes, Urine Negative Negative LAB URINALYSIS - AUTOMATED METHOD 02/16/2025 10:[address] [facility] Nitrite, Urine Negative Negative LAB URINALYSIS - AUTOMATED METHOD 02/16/2025 10:[address] [facility] Protein, Urine Negative <=Trace mg/dL LAB URINALYSIS - AUTOMATED METHOD 02/16/2025 10:[address] [facility] Glucose, Urine Negative Negative mg/dL LAB URINALYSIS - AUTOMATED METHOD 02/16/2025 10:[address] [facility] Ketones, Urine Negative Negative mg/dL LAB URINALYSIS - AUTOMATED METHOD 02/16/2025 10:[address] [facility] Urobilinogen, Urine 1.0 0.2 - 1.0 mg/dL LAB URINALYSIS - AUTOMATED METHOD 02/16/2025 10:[address] [facility] Bilirubin, Urine Negative Negative LAB URINALYSIS - AUTOMATED METHOD 02/16/2025 10:[address] [facility] Blood, Urine Negative Negative LAB URINALYSIS - AUTOMATED METHOD 02/16/2025 10:[address] [facility] Urine Urine specimen obtained by clean catch procedure / Unknown 02/16/2025 12:09 AM EDT 02/16/2025 9:42 AM EDT us Xiomara MCCORMACK LAB URINE ORDERABLES Final Re sult [facility] [address] [place] [address], * Hein urine culture tube (02/16/2025 12:09 AM EDT) Extra Tube Hold for add-ons. 02/16/2025 11:01 AM EDT [facility] Comment:Auto resulted. Urine Urine specimen obtained by clean catch procedure / Unknown 02/16/2025 12:09 AM EDT 02/16/2025 9:42 AM EDT us Xiomara MCCORMACK LAB URINE ORDERABLES Final Re sult [facility] [address] [place] [address], documented in this encounter Visit Diagnoses Diagnosis Encounter for other general examination documented in this encounter Care Teams Sports Cartoonist Relationship Specialty Start Date End Date Xiomara Oleary PA [address] [place] [address] PCP - General Physician Package Sorter 02/20/25 documented as of this encounter
--- OUTSIDE RECORDS SUMMARY | 2025-05-22 15:46 | XMS_ITS | Encounter Summary ---
Author Organization [facility] Address [address] [place] [address] Phone Care Team Providers Care Room Service Clerk Name Role Phone Enoc Llanos MD Primary Care Provider [phone] Encounter Details Date Type Department Care Team (Late st Contact Info) Description 04/06/2017 Procedure Pass [facility],Outside Imaging [address] [place] [address] Social History Tobacco Use Types Packs/Day Years [...] Description 05/28/2025 8:45 AM EST Office Visit [facility] [address] [place] [address] Bouchra Dee PA [address] [place] [address] [place] [address] Charleen Otero PTA [address] [place] [address] 05/31/2025 2:15 PM EST Office Visit [facility] [address] [place] [address] Bouchra Dee PA [address] [place] [address] [place] [address] Key Hanks, PT [address] [place] [address] 06/05/2025 4:45 PM EST Office Visit [facility] [address] [place] [address] Bouchra Dee PA [address] [place] [address] Key Hanks, PT [address] [place] [address] 06/07/2025 8:45 AM EST Office Visit [facility] [address] [place] [address] Bouchra Dee PA [address] [facility] [place] [address] Key Hanks, PT [address] [place] [address] 06/10/2025 1:45 PM EST Office Visit [facility] [address] [place] [address] Bouchra Dee PA [address] [facility] [place] [address] Key Hanks, PT [address] [place] [address] 06/12/2025 12:00 PM EST Office Visit [facility] [address] [place] [address] Bouchra Dee PA [address] [facility] [address] [place] [address] Key Hanks, PT [address] [place] [address] 06/17/2025 1:45 PM EST Office Visit [facility] [address] [place] [address] Bouchra Dee PA [address] [place] [address] [place] [address] Key Hanks, PT [address] [place] [address] 06/19/2025 12:00 PM EST Office Visit [facility] [address] [address] Bouchra Dee PA [address] [place] [address] [address] [place] [address] Key Hanks, PT [address] [place] [address] 06/24/2025 12:00 PM EST Office Visit [facility] [address] [place] [address] Bouchra Dee PA [address] [place] [address] [place] [address] Key Hanks, PT [address] [place] [address] documented as of this encounter Visit Diagnoses Not on filedocumented in this encounter Care Teams Room Service Clerk Relationship Specialty Start Date End Date Enoc Llanos MD [address] [place] [address] PCP - General Internal Medicine 03/22/17 documented as of this encounter Additional Source Comments The information contained in this document represents components of the legal health record. It is not the complete legal health record.[facility]
--- OUTSIDE RECORDS SUMMARY | 2025-05-22 15:46 | XMS_ITS | Encounter Summary ---
Author Organization [facility] Address [address] [place] [address] Care Team Providers Care Histology Teacher Name Role Phone Xiomara Oleary Primary Care Provider [phone] Encounter Details Date Type Department Care Team (Late st Contact Info) Description 02/14/2025 Lab Requisition [facility] - Main Lab [address] [facility] [place] [address] Kurtis Webster PA [address] [address] Social History Tobacco Use Types [...] on filedocumented in this encounter Care Teams Histology Teacher Relationship Specialty Start Date End Date Xiomara Oleary PA [address] [place] [address] PCP - General Physician Assisted Living Director 02/20/25 documented as of this encounter
--- OUTSIDE RECORDS SUMMARY | 2025-05-22 15:46 | XMS_ITS | Encounter Summary ---
Author Organization [facility] Address [address] [place] [address] Phone Care Team Providers Care Apprenticeship Consultant Name Role Phone Enoc Llanos MD Primary Care Provider [phone] Encounter Details Date Type Department Care Team (Latest Contact Info) Description 03/22/2018 Transcribe Orders [address] [address] Enoc Llanos MD [address] [place] [address] Edema, unspecified type (Primary Dx) Social History [...] Office Visit [facility] [address] [place] [address] Bouchra Dee PA [address] [place] [address] [place] [address] Charleen Otero PTA 10 [place] [address] 05/31/2025 2:15 PM EST Office Visit [facility] [address] [place] [address] Bouchra Dee PA [address] [place] [address] Key Hanks, PT [address] [place] [address] 06/05/2025 4:45 PM EST Office Visit [facility] [address] [place] [address] Bouchra Dee, KSENIA [address] [place] [address] [place] [address] Key Hanks, PT 10 [place] [address] 06/07/2025 8:45 AM EST Office Visit [facility] [address] [place] [address] Bouchra Dee PA [address] [place] [address] [place] [address] Key Hanks, PT [address] [place] [address] 06/10/2025 1:45 PM EST Office Visit [facility] [address] [place] [address] Bouchra Dee [place] [address] Key Hanks, PT 10 [place] [address] 06/12/2025 12:00 PM EST Office Visit [facility] [address] [place] [address] Bouchra Dee PA [address] [place] [id number] Key Hanks, PT [address] [place] [address] 06/17/2025 1:45 PM EST Office Visit [facility] Therapy [address] [address] Bouchra Dee PA [address] [place] [address] [place] [address] Key Hanks, PT 10 [place] [address] 06/19/2025 12:00 PM EST Office Visit [facility] Therapy [address] [address] Bouchra Dee PA [address] [place] [address] [place] [id number] Key Hanks, PT 10 [place] [address] 06/24/2025 12:00 PM EST Office Visit [facility] Therapy [address] [address] Bouchra Dee PA [address] [place] [id number] Key Hanks, PT 10 [place] [address] documented as of this encounter Results * Basic metabolic panel (03/22/2018 11:12 AM EDT) [facility] Signature SODIUM 144 133 - 146 mmol/L [facility] CHLORIDE 100 96 - 108 mmol/L [facility] POTASSIUM 4.2 3.3 - 5.1 mmol/L [facility] CO2 29 21 - 35 mmol/L [facility] BUN 18 6 - 19 mg/dL [facility] CREATININE 0.80 0.5 - 1.5 mg/dL [facility] GLUCOSE 77 70 - 99 mg/dL [facility] CALCIUM 9.3 8.4 - 10.3 mg/dL [facility] EGFR 76 >59 mL/min/1.7 3m2 [facility] Comment:If patient is black, multiply result by 1.159. Estimated glomerular filtration rate calculated using the CKD-EPI equation. ANION GAP 19 10 - 20 mmol/L [facility] Blood 03/22/2018 11:1 2 AM EDT 03/22/2018 11:15 AM EDT Enoc Llanos MD LAB BLOOD BKR ORDERABLES Final Result Performing Organization Address City/State/[facility] Co de Phone Number [address] [address] documented in this encounter Visit Diagnoses Diagnosis Edema, unspecified type- Primary documented in this encounter Care Teams Apprenticeship Consultant Relationship Specialty Start Date End Date Enoc Llanos MD [address] [place] [address] PCP - General Internal Medicine 03/22/17 documented as of this encounter Additional Source Comments The information contained in this document represents components of the legal health record. It is not the complete legal health record.[facility]
--- OUTSIDE RECORDS SUMMARY | 2025-05-22 15:46 | XMS_ITS | Encounter Summary ---
Author Organization [facility] Address [address] [place] [address] Care Team Providers Care Endodontics Dentist Name Role Phone Xiomara Oleary Primary Care Provider [phone] Encounter Details Date Type Department Care Team (Late st Contact Info) Description 02/14/2025 Lab Requisition [facility] - Main Lab [address] [facility] [place] [address] Kurtis Webster PA [address] [address] Social History Tobacco Use Types [...] on filedocumented in this encounter Care Teams Endodontics Dentist Relationship Specialty Start Date End Date Xiomara Oleary PA [address] [place] [address] PCP - General Physician Waiter Waitress 02/20/25 documented as of this encounter
--- OUTSIDE RECORDS SUMMARY | 2025-05-22 15:47 | XMS_ITS | Clinical Summary ---
Author Organization [facility] Address [address] [place] [address] Care Team Providers Care Network Director Name Role Phone Xiomara Oleary Primary Care Provider [phone] Encounters Date Type Department Care Team Description 02/20/2025 Lab Requisition [facility] - Main Lab 299 [facility] [place] [address] Xiomara Oleary PA Encounter for other general examination from Last 3 Months Surgical History Surgery [...] Complete blood count (02/20/2025 5:00 AM EDT) [facility] WBC 7.3 4.8 - 10.8 K/mcL LAB HEMETOLOGY METHOD 02/20/2025 10:38 AM [facility] RBC 3.00(L) 3.80 - 4.80 M/mcL LAB HEMETOLOGY METHOD 02/20/2025 10:38 AM [facility] Hemoglobin 8.7(L) 11.5 - 16.0 g/dL LAB HEMETOLOGY METHOD 02/20/2025 10:38 AM [facility] Hematocrit 27.4(L) 35.0 - 47.0 % LAB HEMETOLOGY METHOD 02/20/2025 10:38 AM [facility] MCV 91.6 79.0 - 98.0 FL LAB HEMETOLOGY METHOD 02/20/2025 10:38 AM [facility] MCH 29.1 27.0 - 32.0 pcg LAB HEMETOLOGY METHOD 02/20/2025 10:38 AM [facility] MCHC 31.8(L) 32.0 - 37.0 g/dL LAB HEMETOLOGY METHOD 02/20/2025 10:38 AM [facility] RDW 13.4 11.0 - 15.0 % LAB HEMETOLOGY METHOD 02/20/2025 10:38 AM [facility] Platelets 376 130 - 400 K/mcL LAB HEMETOLOGY METHOD 02/20/2025 10:38 AM [facility] MPV 8.7 7.0 - 11.0 FL LAB HEMETOLOGY METHOD 02/20/2025 10:38 AM [facility] NRBC 0.0 <1.0 % LAB HEMETOLOGY METHOD 02/20/2025 10:38 AM [facility] NRBC Absolute 0.00 <0.10 K/mcL LAB HEMETOLOGY METHOD 02/20/2025 10:38 AM EDT [facility] Blood Venous blood specimen / Unknown Venipuncture / Unknown 02/20/2025 5:00 AM EDT 02/20/2025 9:45 AM EDT us Xiomara MCCORMACK LAB BLOOD ORDERABLES Final Re sult [facility] [address] [place] [address], [place] [phone] * (ABNORMAL) Comprehensive metabolic panel (02/20/2025 5:00 AM EDT) Sodium 139 133 - 145 mmol/L LAB CHEMISTRY METHOD 02/20/2025 11:33 AM [facility] Potassium 5.1 3.5 - 5.5 mmol/L LAB CHEMISTRY METHOD 02/20/2025 11:33 AM [facility] Chloride 101 96 - 110 mmol/L LAB CHEMISTRY METHOD 02/20/2025 11:33 AM [facility] CO2 31 21 - 32 mmol/L LAB CHEMISTRY METHOD 02/20/2025 11:33 AM [facility] Anion Gap 7 3 - 11 LAB CHEMISTRY METHOD 02/20/2025 11:33 AM [facility] Glucose 80 70 - 100 mg/dL LAB CHEMISTRY METHOD 02/20/2025 11:33 AM [facility] BUN 25 5 - 25 mg/dL LAB CHEMISTRY METHOD 02/20/2025 11:33 AM [facility] Creatinine 1.00 0.50 - 1.10 mg/dL LAB CHEMISTRY METHOD 02/20/2025 11:33 AM [facility] eGFR 59(L) >=60 mL/min/1. 73m2 LAB CHEMISTRY METHOD 02/20/2025 11:33 AM [facility] Comment:Calculation based on the Chronic Kidney Disease Epidemiology Collaboration (CKD-EPI) equation refit without adjustment for race. BUN/Creatinine Ratio 25.0 LAB CHEMISTRY METHOD 02/20/2025 11:33 AM [facility] Calcium 8.7 8.5 - 10.5 mg/dL LAB CHEMISTRY METHOD 02/20/2025 11:33 AM [facility] AST (SGOT) 18 10 - 42 unit/L LAB CHEMISTRY METHOD 02/20/2025 11:33 AM [facility] ALT (SGPT) 32 10 - 60 unit/L LAB CHEMISTRY METHOD 02/20/2025 11:33 AM [facility] Alkaline Phosphatase 116 42 - 121 unit/L LAB CHEMISTRY METHOD 02/20/2025 11:33 AM [facility] Total Protein 5.2(L) 6.0 - 8.0 g/dL LAB CHEMISTRY METHOD 02/20/2025 11:33 AM [facility] Albumin 2.7(L) 3.2 - 5.0 g/dL LAB CHEMISTRY METHOD 02/20/2025 11:33 AM [facility] Total Bilirubin 0.4 0.0 - 1.4 mg/dL LAB CHEMISTRY METHOD 02/20/2025 11:33 AM [facility] Blood Venous blood specimen / Unknown Venipuncture / Unknown 02/20/2025 5:00 AM EDT 02/20/2025 9:45 AM EDT us Xiomara MCCORMACK LAB BLOOD ORDERABLES Final Re sult [facility] [address] [place] [address], from Last 3 Months Insurance [employer] MEDICARE Care Teams Network Director Relationship Specialty Start Date End Date Xiomara Oleary PA [address] [place] [phone] PCP - General Physician Deicer Repairer 02/20/25
--- OUTSIDE RECORDS SUMMARY | 2025-05-22 15:47 | XMS_ITS | Patient Health Record ---
Author Organization [facility] Address [address] [place] [address] Care Team Providers Care Chain Builder Name Role Phone Enoc Llanos MD Primary [...] End Date Status Clorazepate Dipotassium 7.5 MG Tablet 1 tablet Orally Once a day Active Cymbalta 60 MG Capsule Delayed Release Particles 1 capsule Orally Once a day; Duration: 30 day(s) Active Golytely 236 GM Solution Reconstituted as directed before colonoscopy Orally every 15 minutes; Duration: 1 day(s) 02/21/2023 Active Dulcolax (colon prep) 5 MG Tablet Delayed Release take at 3:00 p.m and 7:00p.m. Orally two tablets twice a day for one day; Duration: 1 day 02/21/2023 Active Vitamin D3 125 MCG (5000 UT) Tablet Disintegrating 1 tablet Orally Once a day Active Pantoprazole Sodium 40 MG Tablet Delayed Release Oral; Duration: 90 Active Furosemide 20 MG Tablet 1 tablet Orally Once a day; Duration: 30 day(s) Active busPIRone HCl 10 MG Tablet TAKE 1 TABLET BY MOUTH TWICE A DAY Oral; Duration: 30 Active amLODIPine Besylate 5 MG Tablet Oral; Duration: 90 Active traZODone HCl 50 MG Tablet Oral; Duration: 90 Active Naproxen 500 MG Tablet Oral; Duration: 30 Active MiraLax (colon prep) 8.3 ounce ((238) grams mixed with Gatorade or Crystal Light orally begin at 5:00 p.m. the day before the procedure; Duration: 1 day 02/21/2023 Active DULoxetine HCl 60 MG Capsule Delayed Release Particles TAKE 1 CAPSULE BY MOUTH EVERY DAY Oral; Duration: 90 Active Atorvastatin Calcium 20 MG Tablet Oral; Duration: 90 Active Valsartan 320 MG Tablet Oral; Duration: 90 Active Immunizations Vaccine Route Administration Date Status Comme nts Influenza Unknown 03/04/2021 Administered Influenza Unknown 03/09/2022 Administered Social History Tobacco Use: Social History Observation Description Date Details (start date - stop date) Never Smoker NA - NA Social History Drugs/Alcohol: Social Info Question Answer Notes Alcohol Screen Did you have a drink containing alcohol in the past year? Yes How often did you have a drink containing alcohol in the past year? 2 to 4 times a month (2 points) How many drinks did you have on a typical day when you were drinking in the past year? 1 or 2 drinks (0 point) How often did you have 6 or more drinks on one occasion in the past year? Never (0 point) Points 2 Interpretation Negative Tobacco Use: Social Info Question Answer Notes Tobacco Use/Smoking Patient is a nonsmoker Additional Details Category Social Info Options Details Miscellaneous: Marital status: Occupation: retired Problems Problem Type SNOMED Code ICD Code Onset Dates Problem Status W/U Status Risk Notes Problem Colon cancer screening (732542234) Colon cancer screening (Z12.11) Active confirmed Problem Gastroesophageal reflux disease without esophagitis (095871875) Gastroesophageal reflux disease without esophagitis (K21.9) Active confirmed Problem Altered bowel function (12727292) Change in bowel function (R19.8) Active confirmed Plan Of Treatment Future Test Test Name Order Date COLONOSCOPY 03/17/2022 COLONOSCOPY 10/13/2022 Insurance Providers Payer Name Payer Address Payer Phone Subscriber Number Group Number Insured Name Patient Relationship to Insured Coverage Start Date Coverage End Date MEDICARE OF [place] [address] [place] [address] [id number] MONI ODEN Self - patient is the insured [employer] ATT[employer] CLAIMS [address] [place] [address] [id number] MONI ODEN Self - patient is the insured Medical (General) History Medical History History ICD Code Hypertension Right breast cancer status p ost mastectomy, axillary node dissection, and chemoradiation Osteoporosis Stage I kidney cancer Elevated cholesterol Depression/anxiety Edema Surgical History Surgery Date(Month/Year) Right mastectomy 2017 Right partial nephrectomy 2018 Bilateral Dupuytren's contractures repai r 2020
--- OUTSIDE RECORDS SUMMARY | 2025-05-22 15:47 | XMS_ITS | Patient Health Record ---
Author Organization [facility] Address [address] [place] [address] Care Team Providers Care Custom Ski Maker Name Role Phone LUCIEN RAMIREZ Primary Care Provider [facility], NURSING Unavailable [phone] Allergies Allergen (clinical drug ingredient) Drug/Non Drug Allergy documented on EMR Reaction Allergy Type Onset Date Status benazepril Benazepril Unknown Drug Allergy Activ e Substance with sulfonamide structure and antibacterial mechanism of action (substance) Sulfa Antibiotics Unknown Drug Allergy 08/20/2008 Active Reason For Referral No Information Medications Medication SIG (Take, Route, Frequency, Duration) Notes Start Date End Date Status traMADol HCl 50 MG Tablet TAKE 1 TO 2 TA BLETS BY MOUTH TWICE DAILY NEEDED FOR 30 DAYS; Duration: 8 05/10/2025 Active traZODone HCl 50 MG Tablet TAKE 1-2 TABL ETs BY MOUTH EVERYDAY AT BEDTIME Active Pantoprazole Sodium 40 MG Tablet Delayed Release 1 tablet 1/2 to 1 hour before morning meal Orally Once a day Active Gabapentin 100 MG Capsule TAKE 1 CAPSULE BY MOUTH AT BEDTIME; Duration: 30 Active amLODIPine Besylate 5 MG Tablet TAKE 1 TABLET BY MOUTH EVERY DAY FOR 90 DAYS; Duration: 90 Active Furosemide 20 MG Tablet 1 tablet Orally Once a day Active Naproxen 500 MG Tablet 1 tablet with dyana d or milk as needed Orally every 12 hrs Active Atorvastatin Calcium 20 MG Tablet 1 tablet Orally Once a day Active Methocarbamol 500 MG Tablet TAKE 1 TABLE T BY MOUTH THREE TIMES A DAY DIRECTED; Duration: 10 Active Aspirin 325 MG Tablet 1 tablet Orally Tw ice a day Active Fluticasone Propionate 50 MCG/ACT Suspension 2 sprays (1 spray in each nostril) Nasal Twice a day 11/30/2021 Active busPIRone HCl 10 MG Tablet TAKE 1 TABLET BY MOUTH TWICE A DAY; Duration: 90 Active oxyCODONE HCl 5 MG Tablet 1 tablet Orall y at bedtime; Duration: 14 days 03/08/2025 Active Valsartan 320 MG Tablet TAKE 1 TABLET BY MOUTH EVERY DAY; Duration: 90 Active DULoxetine HCl 60 MG Capsule Delayed Release Particles TAKE 1 CAPSULE BY MOUTH EVERY DAY; Duration: 90 Active Immunizations Vaccine Route Administration Date Status Comme nts Covid Unknown 03/16/2022 Administered Influenza, Fluzone HD 65+ IM Intramuscular 04/22/2023 Admi nistered Pfizer COVID-19,mRNA, LNP-S, PF, 30mcg/0.3mL dose Unknown 08/06/2020 Administered Pfizer COVID-19,mRNA, LNP-S, PF, 30mcg/0.3mL dose Unknown 08/27/2020 Administered Pneumococcal Prevnar 13 Unknown 01/21/2017 Administered Pneumococcal, PPV 23 IM Intramuscular 01/25/2018 Administe red [id number] IM Intramuscular 08/22/2024 Administered SARSCOV2 VAC BVL 3MCG/0.2ML Pfizer Unknown 04/12/2021 Administered Td (Tetanus Diphtheria) Unknown 11/05/2008 Administered Zoster recombinant Unknown 12/03/2021 Administered Zoster recombinant Unknown 03/10/2022 Administered Social History Tobacco Use: Social History Observation Description Date Details (start date - stop date) Former Smoker NA - NA Social History Tobacco Use: Social Info Question Answer Notes Smoking Are you a: former smoker How long has it been since you last smoked? > 10 years Additional Details Category Social Info Options Details General Occupation: Retired asbestos exposure: no alcohol use: no drug use: no Coffee/Tea/Soda: yes 2 cups of coffe e daily Marital Status experience no Living with Son Daughter in Law, grandaughters Pets dog smokers in household yes 2 smokers- smoke outside Section Notes: Patient quit smoking 1975 Patient quit smoking 1975 Patient quit smoking 1975 Patient quit smoking 1975 Problems Problem Type SNOMED Code ICD Code Onset Dates Problem Status W/U Status Risk Notes Problem Gastro-esophageal reflux disease without esophagitis (047763805) Gastro-esophageal reflux disease without esophagitis (K21.9) Active confirmed Problem Essential hypertension (45085600) Essential (primary) hypertension (I10) Active confirmed Problem Generalized osteoarthritis (478885587) Generalized osteoarthritis (M15.9) Active confirmed Problem Insomnia (598901596) Insomnia, unspecified (G47.00) Active confirmed Problem Primary insomnia (0412695) Primary insomnia (F51.01) Active confirmed Problem Osteoarthritis (055867787) Unspecified osteoarthritis, unspecified site (M19.90) Active confirmed Problem Hyperlipidemia (56858165) Hyperlipidemia, unspecified (E78.5) Active confirmed Problem Leukocytosis (956915681) Elevated white blood cell count, unspecified (D72.829) Active confirmed Problem Obesity due to excess calories (968197428) Other obesity due to excess calories (E66.09) Active confirmed Problem Mixed hyperlipidemia (976865926) Mixed hyperlipidemia (E78.2) Active confirmed Problem Anxiety disorder (868122804) Anxiety disorder, unspecified (F41.9) Active confirmed Problem History of musculoskeletal operation (893216370) Aftercare following joint replacement surgery (Z47.1) Active confirmed Problem Artificial knee joint present (411805857866) Presence of right artificial knee joint (Z96.651) Active confirmed Problem Anxiety (74836449) Anxiety (F41.9) Active confi rmed Problem Osteoarthritis of knee (092735093) Primary osteoarthritis of right knee (M17.11) Active confirmed Problem Insomnia (956792092) Insomnia, unspecified type (G47.00) Active confirmed Problem Gastroesophageal reflux disease (disorder) (227696693) Chronic GERD (K21.9) Active confirmed Problem Chronic venous insufficiency (24136362) Chronic venous insufficiency (I87.2) Active confirmed Problem Personal history of primary malignant neoplasm of breast (548613313) Personal history of breast cancer (Z85.3) Active confirmed Problem Body mass index 30.00 to 34.99 (140046609273970) Body mass index [BMI] 34.0-34.9, adult (Z68.34) Active confirmed Problem Rupture of rotator cuff of shoulder (disorder) (006412679) Incomplete tear of left rotator cuff, unspecified whether traumatic (M75.112) Active confirmed Vital Signs Blood pressure diastolic 60 mm Hg 03/06/2025 Height 62.125 in 03/06/2025 Blood pressure systolic 110 mm Hg 03/06/2025 Weight 188.8 lbs 03/06/2025 BMI 34.39 kg/m2 03/06/2025 Encounters Encounter Location Date Provider Diagnosis [address] [address] 01/24/2025 LUCIEN BEDFORD Medicare annual wellness visit, subsequent Z00.[address] [address] 08/22/2024 [facility] Essential (primary) hypertension I10 ; Personal history of breast cancer Z85.3 ; Anxiety F41.9 ; Encntr for general adult medical exam w/o abnormal findings Z00.00 and Encounter for immunization Z23 [address] [address] 12/17/2024 [facility] Preprocedural examination Z01.818 ; Primary osteoarthritis of right knee M17.11 ; Insomnia, unspecified type G47.00 ; Mixed hyperlipidemia E78.2 and Essential (primary) hypertension I10 [address] [address] 01/24/2025 [facility] Essential (primary) hypertension I10 ; Personal [...] adult medical examination with abnormal findings Z00.[address] [address] 03/06/2025 [facility] Primary osteoarthrit is of right knee M17.11 ; Essential (primary) hypertension I10 ; Chronic GERD K21.9 and Chronic venous insufficiency I87.[address] [address] 09/27/2024 LUCIEN RANGER Pain, joint, shoulde r, right M25.[address] [address] 02/20/2025 LUCIEN [place] [id number] 02/14/2025 [facility] [address] [place] [address], [place] [address] 02/05/2025 [facility] [address] [place] [address], [place] [address] 12/03/2024 [facility] [address] [place] [address], [place] [address] 09/27/2024 [facility] [address] [place] [address], [place] [address] 09/13/2024 [facility] [address] [place] [address], [place] [address] 08/02/[address] [place] [address] 07/16/[address] [place] [address] 03/08/2025 [facility] Primary osteoarthrit is of right knee M17.[address] [place] [address] 01/31/[address] [place] [address] 12/18/2024 [facility] Primary osteoarthrit is of right knee M17.[address] [place] [address] 02/22/2025 [facility] Assessments Encounter Date Diagnosis (ICD Code) Assessment Notes Treatment Notes Treatment Clinical Notes Section Notes 09/27/2024 Pain, joint, shoulder, right (ICD-10 - [...] She will schedule follow-up in the office 08/22/2024 Essential (primary) hypertension (ICD-10 - I10) [...] labs including lipids. Prevnar 20 given today 12/17/2024 Preprocedural examination (ICD-10 - Z01.818) 1. [...] on present therapy. No changes made today 12/18/2024 Primary osteoarthritis of right knee (ICD-10 - M17.11) 01/24/2025 Essential (primary) hypertension (ICD-10 - I10) 1. Hypertension: Stable on present regimen. No changes made today 2. Personal history of breast cancer: No sign of recurrence. Follows with Dr. Mcgowan at [place] 3. Hyperlipidemia: Will update profile on atorvastatin 4. Right knee osteoarthritis: Awaiting surgery with Dr. Armendariz. Using naproxen and tramadol cautiously 5. Obesity/BMI of 34: Will check A1c with laboratory studies. She is working at [employer] 6. GERD: Stable on pantoprazole. Will continue [...] blood work. Flu shot given today 12/17/2024 Primary osteoarthritis of right knee [...] present therapy. No changes made today 01/24/2025 Medicare annual wellness visit, subsequent (ICD-10 - Z00.00) 03/06/2025 Essential (primary) hypertension (ICD-10 - I10) Hospital and rehab records from [facility] reviewed at length 1. Osteoarthritis of the [...] with furosemide. Will continue to monitor 03/06/2025 Primary osteoarthritis of right knee (ICD-10 - M17.11) Hospital and rehab records from [facility] reviewed at length 1. Osteoarthritis of the [...] Stable with furosemide. Will continue to monitor 03/08/2025 Primary osteoarthritis of right knee (ICD-10 - M17.11) 01/24/2025 Personal history of breast cancer (ICD-10 - Z85.3) 1. Hypertension: Stable on present regimen. No changes made today 2. Personal history of breast cancer: No sign of recurrence. Follows with Dr. Mcgowan at [place] 3. Hyperlipidemia: Will update profile on atorvastatin [...] - K21.9) Hospital and rehab records from [facility] reviewed at length 1. Osteoarthritis of the [...] of recurrence. Follows with Dr. Mcgowan at [place] 3. Hyperlipidemia: Will update profile on atorvastatin [...] fasting blood work. Flu shot given today 03/06/2025 Chronic venous insufficiency (ICD-10 - I87.2) Hospital and rehab records from [facility] reviewed at length 1. Osteoarthritis of the [...] with furosemide. Will continue to monitor 01/24/2025 Primary osteoarthritis of right knee (ICD-10 - M17.11) 1. Hypertension: Stable on present regimen. No changes made today 2. Personal history of breast cancer: No sign of recurrence. Follows with Dr. Roslyn najera [place] 3. Hyperlipidemia: Will update profile on atorvastatin [...] present therapy. No changes made today 08/22/2024 Anxiety (ICD-10 - F41.9) 1. [...] including lipids. Prevnar 20 given today 08/22/2024 Encntr for general adult medical [...] of recurrence. Follows with Dr. Mcgowan at [place] 3. Hyperlipidemia: Will update profile on atorvastatin [...] of recurrence. Follows with Dr. Mcgowan at [place] 3. Hyperlipidemia: Will update profile on atorvastatin [...] of recurrence. Follows with Dr. Mcgowan at [place] 3. Hyperlipidemia: Will update profile on atorvastatin [...] of recurrence. Follows with Dr. Roslyn najera [place] 3. Hyperlipidemia: Will update profile on atorvastatin [...] will rectify once she has cleared this frnak 9.: Chronic venous insufficiency: Stable with occasional [...] of recurrence. Follows with Dr. Roslyn najera [place] 3. Hyperlipidemia: Will update profile on atorvastatin [...] of recurrence. Follows with Dr. Roslyn najera [place] 3. Hyperlipidemia: Will update profile on atorvastatin [...] of recurrence. Follows with Dr. Roslyn najera [place] 3. Hyperlipidemia: Will update profile on atorvastatin [...] of recurrence. Follows with Dr. Mcgowan at [place] 3. Hyperlipidemia: Will update profile on atorvastatin [...] given today 01/24/2025 Other Complete exam recommended Plan Of Treatment Future Test Test Name Order Date HEMOGLOBIN A1C 01/14/2023 CBC, Platelet, w/o [id number] Lipid Panel-[id number] 03/15/2024 TSH Rfx on Abnormal to Free [id number] Comp. Metabolic Panel [id number] 2023 Next Appt Details Provider Name:LUCIEN RAMIREZ , 07/24/2025 01:00:00 PM, [address] [place], [address], Insurance Providers Payer Name Payer Address Payer Phone Subscriber Number Group Number Insured Name Patient Relationship to Insured Coverage Start Date Coverage End Date [employer] [address] [place] [address] [id number] MONI ODEN Self - patient is the insured 7 [employer] [address] [address] [place] [address] [phone] [id number] MONI ODEN Self - patient is the insured [employer] [address] [place] [address] [phone] [id number] MONI ODEN Self - patient is the insured 0 Medical (General) History Medical History History ICD Code Disease : renal mass - Oncocytoma, Elevated lipids, hypertension, neoplastic, Disease : Cancer , Right breast, Dec 2016 mastectomy, reconstruction, chemo, XRT Problems: Insomnia, Problems: Peripheral venous insufficienc 09/25/2010:Active Surgical History Surgery Date(Month/Year) Disease : Cholecystitis, Sx_Procedure : Cholecystectomy : L 5th Metatarsal Fraccture, Sx_Procedu re : casting : R distal fibular Fracture, Sx_Procedur e : casting 2008 Left shoulder arthroscopic surgery 2023 RIGHT KNEE total joint replacement
--- OUTSIDE RECORDS SUMMARY | 2025-05-22 15:47 | XMS_ITS | Encounter Summary ---
Author Organization [facility] Address [address] [place] [address] Phone Care Team Providers Care Dental Associate Name Role Phone Enoc Llanos MD Primary Care Provider [phone] Encounter Details Date Type Department Care Team (Latest Contact Info) Description 02/16/2018 Transcribe Orders [address] [address] Enoc Llanos MD [address] [place] [address] Mixed hyperlipidemia (Primary Dx) Social History Tobacco [...] Office Visit [facility] [address] [place] [address] Bouchra Dee PA [address] [place] [address] [place] [address] Charleen Otero PTA [address] [place] [address] 05/31/2025 2:15 PM EST Office Visit [facility] [address] [place] [address] Bouchra Dee PA [address] [place] [address] Key Hanks, PT [address] [place] [address] 06/05/2025 4:45 PM EST Office Visit [facility] [address] [place] [address] Bouchra Dee PA [address] [place] [address] [place] [address] Key Hanks, PT [address] [place] [address] 06/07/2025 8:45 AM EST Office Visit [facility] [address] [address] Bouchra Dee PA [address] [place] [address] [place] [address] Key Hanks, PT [address] [place] [address] 06/10/2025 1:45 PM EST Office Visit [facility] [address] [place] [address] Bouchra Dee PA [address] [place] [address] Key Hanks, PT [address] [place] [address] 06/12/2025 12:00 PM EST Office Visit [facility] [address] [place] [address] Bouchra Dee PA [address] [place] [address] Key Hanks, PT [address] [place] [address] 06/17/2025 1:45 PM EST Office Visit [facility] [address] [place] [address] Bouchra Dee PA [address] [place] [address] [place] [address] Key Hanks, PT [address] [place] [address] 06/19/2025 12:00 PM EST Office Visit [facility] [address] [address] Bouchra Dee PA [address] [place] [address] [place] [address] Key Hanks, PT [address] [place] [address] 06/24/2025 12:00 PM EST Office Visit [facility] [address] [address] Bouchra Dee PA [address] [place] [address] [place] [address] Key Hanks, PT [address] [place] [address] documented as of this encounter Results * (ABNORMAL) Lipid panel (02/16/2018 8:48 AM EDT) [facility] Signature HDL 53 mg/dL [facility] Comment: Interpretation: Risk Level Females Decreased >55mg/dL Average 50-55 mg/dL Increased <50 mg/dL CHOLESTEROL 213 0 - 240 mg/dL [facility] TRIGLYCERIDES 209(H) 30 - 160 mg/dL [facility] LDL 118 50 - 129 mg/dL [facility] Comment: LDL levels in terms of risk for coronary heart disease: <100 mg/dL: Optimal 100-129 mg/dL: Near or above optimal 130-159 mg/dL: Borderline high 160-189 mg/dL: High >190 mg/dL: Very High CARDIAC RISK RATIO 4.0 3.3 - 4.4 [facility] Blood 02/16/2018 8:48 AM EDT 02/16/2018 8:52 AM EDT us Enoc Llanos MD LAB BLOOD BKR ORDERABLES Final Result Performing Organization Address City/State/[facility] Co de Phone Number [facility] [address] [place] [address] * (ABNORMAL) Comprehensive metabolic panel (02/16/2018 8:48 AM EDT) SODIUM 143 133 - 146 mmol/L [facility] POTASSIUM 4.6 3.3 - 5.1 mmol/L [facility] CHLORIDE 100 96 - 108 mmol/L [facility] CO2 28 21 - 35 mmol/L [facility] BUN 24(H) 6 - 19 mg/dL [facility] CREATININE 0.90 0.5 - 1.5 mg/dL [facility] GLUCOSE 111(H) 70 - 99 mg/dL [facility] ALBUMIN 4.3 3.9 - 4.8 g/dL [facility] TOTAL PROTEIN 6.8 6.5 - 8.0 g/dL [facility] CALCIUM 9.6 8.4 - 10.3 mg/dL [facility] ALKALINE PHOSPHATASE 139(H) 39 - 117 U/L [facility] TOTAL BILIRUBIN 0.3 0.0 - 1.2 mg/dL [facility] AST 17 0 - 37 U/L [facility] ALT 19 0 - 40 U/L [facility] GLOBULIN 2.5 1 - 4.8 g/dL [facility] EGFR 66 >59 mL/min/1.7 3m2 [facility] Comment:If patient is black, multiply result by 1.159. Estimated glomerular filtration rate calculated using the CKD-EPI equation. ANION GAP 20 10 - 20 mmol/L [facility] Blood 02/16/2018 8:48 AM EDT 02/16/2018 8:52 AM EDT us Enoc Llanos MD LAB BLOOD BKR ORDERABLES Final Result Performing Organization Address City/State/[facility] Co de Phone Number [address] [address] documented in this encounter Visit Diagnoses Diagnosis Mixed hyperlipidemia- Primary documented in this encounter Care Teams Dental Associate Relationship Specialty Start Date End Date Enoc Llanos MD [address] [place] [address] PCP - General Internal Medicine 03/22/17 documented as of this encounter Additional Source Comments The information contained in this document represents components of the legal health record. It is not the complete legal health record.[facility]
--- OUTSIDE RECORDS SUMMARY | 2025-05-22 15:47 | XMS_ITS | Data Portability ---
Author Organization [place] [facility] [place] Address [address] [place] [address] Care Team Providers Care Railroad Firer/Fireman Name Role Phone LUCIEN RAMIREZ Referring Provider [phone] LUCIEN RAMIREZ Primary Care Provider Assessment Encounter [...] wishes to [facility] with [facility] she is more than welcome to come [...] or more view 2022 023 [facility], [address], [address], [place], [address], 3 20:02:05 Medication Orders Kenalog 40 mg/mL suspension for injection 2023 024 [facility], [address] [place], [address], 4 14:30:01 lidocaine (PF) 100 mg/5 mL (2 %) injection syringe 2023 024 [facility], [address] [place] [address], [address], 4 14:30:01 Kenalog 40 mg/mL suspension for injection 2023 024 [facility], [address] [place] [address], [address], 4 14:30:01 lidocaine (PF) 100 mg/5 mL (2 %) injection syringe 2023 024 [facility], [address] [place] [address], [address], 4 14:30:01 Kenalog 40 mg/mL suspension for injection 2022 023 ries5 [facility], [address] [place] [address], [address], 4 14:00:45 lidocaine (PF) 10 mg/mL (1 %) injection solution 2022 023 [facility], [address] [place] [address], [address], 4 14:00:47 Kenalog 40 mg/mL suspension for injection [address] [facility], [address] [place] [address], [address], 4 14:00:45 lidocaine (PF) 100 mg/5 mL (2 %) injection syringe 2022 023 [facility] [address] [place] [address], [address], 3 20:02:05 Kenalog 40 mg/mL suspension for injection [address] [facility], [address] [place] [address], [address], 4 14:00:45 lidocaine (PF) 100 mg/5 mL (2 %) injection syringe [address] [facility], [address] [place] [address], [address], 3 16:25:14 Kenalog 40 mg/mL suspension for injection [address] [facility], [address] [place] [address], [address], 4 14:00:45 lidocaine (PF) 100 mg/5 mL (2 %) injection syringe [address] [facility], [address] [place] [address], [address], 3 16:25:14 Kenalog 40 mg/mL suspension for injection [address] [facility], [address] [place] [address], [address], 4 14:00:45 lidocaine (PF) 10 mg/mL (1 %) injection solution [address]24, [address] [place], [address], 4 14:00:47 Kenalog 40 mg/mL suspension for injection 2022 023 [address] [place], [address], 4 14:00:45 lidocaine (PF) 10 mg/mL (1 %) injection solution 2022 023 [address] [place], [address], 14:00:47 Patient TargetsNo targets recorded. Patient Instructions Encounter Date Encounter Id Patient Instructions Last Modified By Organization Details Last Modified Time 11/10/2022 [id number] You have been provided with a cortisone [...] portal [facility]. Not available 11/10/2022 15:25:31 05/05/2023 [id number] You have been provided with a cortisone [...] office or contact us through the portal [facility]. Not available 05/06/2023 07:56:23 Three-view x-ray of the right shoulder reveals overall well-maintained glenohumeral joint space, AC joint space narrowing and spurring, type II acromion without acute bony abnormality observed. Not available 05/06/2023 07:41:21 05/11/2023 [id number] You have been provided with a cortisone [...] office or contact us through the portal [employer] Not available 05/11/2023 14:23:39 08/10/2023 [id number] You have been provided with a cortisone [...] office or contact us through the portal [employer] Not available 08/10/2023 14:30:00 Reason for Referral None Reported. Problems Name Problem SNOMED Code Status Onset Date Resolution Date Notes Provider Name and Address Organization Details Recorded Time Primary gonarthro sis, bilateral 997215852 Active 2018 Primary osteoarth ritis of both knees [facility] allison osteoarth ritis of both knees Not Available [employer] 5 23:51:18 Arthritis of right knee joint 06738885239 90593 Active 2022 RK HARPER PA-C [address], [place], [place], [address] , [place] [facility] 3 15:19:29 Arthritis of knee 952165310 Active 2022 RK HARPER PA-C [address], [place], [address] , [place] [facility] 3 15:19:33 Impingeme nt syndrome of left shoulder region 16792990758 9104 Active 2022 RK HARPER PA-C [address], [place], [place], [address] , [place] [facility] 3 11:00:20 Calcific tendiniti s of left shoulder 68105894878 9108 Active 2022 RK HARPER PA-C [address], [place], [address] , [place] [facility] 3 11:00:26 Arthritis of acromiocl avicular joint 207785968 Active 2022 RK HARPER PA-C [address], [place], [address] , [place] [facility] 3 11:00:46 Full thickness rotator cuff tear 161679869 Active 2022 RK HARPER PA-C [address], [place], [address] , [place] [facility] 3 13:14:32 Osteoarth ritis of right knee joint 19285940643 9100 Active 2022 RK HARPER PA-C [address], [place], [place], [address] , [place] [facility] 3 15:25:38 Osteoarth ritis of left knee joint 41481295285 9109 Active 2022 RK HARPER PA-C [address], [place], [address] , [place] [facility] 3 15:25:46 Problem Notes None recorded. Procedures Surgical History Date Name Laterality Status Provider Name and Address Organization Details Recorded Time 08/10/19 24 Knee Joint/Bursa Asp & Inj completed RK HARPER PA-C [address], [place], [address], [place] [facility] 08/10/2023 14:27:50 05/11/20 23 Shoulder Joint/Bursa Asp & Inj completed RK HARPER PA-C [address], [place], [address], [place] [facility] 05/11/2023 14:24:35 05/05/20 23 Shoulder Joint/Bursa Asp & Inj completed RK HARPER PA-C [address], [place], [address], [place] [facility] 05/06/2023 07:54:41 04/21/20 23 Knee Joint/Bursa Asp & Inj completed RK HARPER PA-C [address], [place], [address], [place] [facility] 04/21/2023 14:52:05 11/11/19 23 Knee Joint/Bursa Asp & Inj completed RK HARPER PA-C [address], [place], [address], [place] [facility] 11/10/2022 15:22:03 08/11/19 23 Knee Joint/Bursa Asp & Inj completed RK HARPER PA-C [address] [facility], [place], [address], [place] [facility] 08/10/2022 15:18:45 simple mastectomy completed Cheyenne Martin [facility] - [facility] 08/02/2022 10:14:23 cholecystectomy completed Cheyenne Martin [place] [facility] 08/02/2022 10:14:47 Imaging Results None recorded. [...] Not available Not available Not available 08/02/2022 [id number] SNOMED Cheyenne Martin [facility], [place] [facility] 10:08:40 Medications Name Sig Start Date [...] Codes Diagnosis Note [id number] MARTHA MAYBERRY [address] [facility] [address] [place] [address] 08/10/2022 14:19:35 08/10/2022 15:19:44 Arthritis of right knee joint [id number] 179836 M13.861 Arthritis of knee 734813 002 M13.869 2385 MARTHA MAYBERRY [place] [facility] [address] [place] [address] 08/17/2022 10:28:21 08/17/2022 11:02:31 Pain of left shoulder joint 6068286654 2714741 M25.512 Impingemen t syndrome of left shoulder region 1757565356 32214 M75.42 Calcific t endinitis of left shoulder 7567162002 16190 M75.32 Arthritis of acromioclavicular joint 107514370 M13.819 6125 MARTHA [facility]BERRY [facility] [address] [place] [address] 09/08/2022 12:48:06 09/08/2022 13:10:32 Full thickness rotator cuff tear 121876366 M75.122 [id number] MARTHA MAYBERRY [facility] [address] [place] [address] 10/27/2022 14:46:43 10/27/2022 15:23:21 Pain of bilateral knee joints 9820973310 46128 M25.561 [id number] MARTHA MAYBERRY [facility] [address] [place] [address] 11/10/2022 14:55:29 11/10/2022 15:19:02 Osteoarthritis of right knee joint 2536821662 82519 M17.11 Osteoarthr itis of left knee joint 0693563945 42861 M17.12 [id number] MARTHA MAYBERRY [facility] [address] [place] [address] 04/21/2023 13:38:35 04/21/2023 14:14:49 Osteoarthritis of right knee joint 4061518605 91084 M17.11 Osteoarthr itis of left knee joint 5618522179 01816 M17.12 [id number] MARTHA MAYBERRY [facility] [address] [place] [address] 05/05/2023 13:49:50 05/05/2023 14:31:09 Calcific tendinitis of left shoulder 5712939234 91695 M75.32 Impingemen t syndrome of left shoulder region 1003671432 86103 M75.42 Pain of ri ght shoulder joint 1633254565 4237913 M25.511 [id number] MARTHA MAYBERRY [address] [facility] [address] [facility] [place] [facility] [address] 05/11/2023 13:39:04 05/11/2023 14:16:29 Impingement syndrome of left shoulder region 8408828036 80664 M75.42 [id number] MARTHA MAYBERRY [address] [facility] [address] [facility] [address] 08/10/2023 13:55:56 08/10/2023 14:36:50 Osteoarthritis of right knee joint 1978150452 43769 M17.11 Osteoarthr itis of left knee joint 7742132026 65106 M17.12 Health Concerns Section Related Observation LastModified by Organization Detai ls LastModified Time None Recorded Concern Status LastModified by Organization Details LastModified Time None Recorded Advance Directives Directive None Recorded Payers Insurance Date Sequence Insurance Name Policy Number Policy Crane Covered Member ID Crane Member ID Guarantor Name 08/07/2023 1 [place] [employer] October [place] [id number] October [place] 08/10/2023 2 [place] [id number] October Lincoln [id number] October Cullom 08/10/2023 2 [employer] (MEDICARE SUPPLEMENT) October Lincoln [id number] October [place] Notes Date Note Type Note Provider Name [...] mild swelling.In the meantime she can take zwdx-gua-kztwfmc pain medication for symptomatic relief as well as R.I.C.E.Patient agrees with the above-noted plan. HPI: Since patient's last visit she states her bruising is gone she has marked improvement. She is here for possible cortisone injections in both knees. Her last cortisone injections were performed on 08/10/2022. RK HARPER PA-C [address], [place], [address], [place] [facility] 11/10/2022 15:27:16 04/21/2023 text/html Pleasant 73-year-old female history of bilateral knee arthritis. Had a cortisone injection back in October 2022 which is since worn off. She is complaining of bilateral knee pain at this time. She states she fell for which she tripped and landed on a pillow without any lasting injury. RK HARPER PA-C [address], [place], [address], [place] [facility] 04/21/2023 14:55:21 05/05/2023 text/html Pleasant 73-year-old [...] RK HARPER PA-C [address], [place], [address], [place] [facility] 05/06/2023 07:57:01 05/11/2023 text/html 73-year-old female [...] RK HARPER PA-C [address], [place], [address], [place] [facility] 05/11/2023 14:26:16 08/10/2023 text/html Pleasant 73-year-old female history of bilateral knee arthritis. Her last cortisone injections were on 04/21/2023 which have since worn off. She is complaining of bilateral knee pain at this time. She is requesting for bilateral cortisone injections of the knees. She denies any fevers, chills, flulike symptoms. Denies any warmth overlying the knees denies any RK HARPER PA-C [address] [place] [address], [place], [address], [place] [facility] 08/10/2023 14:30:32 OBGyn Episode No OBEpisode recorded.
--- OUTSIDE RECORDS SUMMARY | 2025-05-22 15:47 | XMS_ITS | Encounter Summary ---
Author Organization [facility] Address [address] [place] [address] Phone Care Team Providers Care Rib Sawyer Name Role Phone Enoc Llanos MD Primary Care Provider [phone] Reason for Referral * MRI/CAT Scan - Closed Specialty Diagnoses / Procedures Referred By Contac t Referred To Contact Procedures CT Chest Outside (No Interpretation) System, Provider Not In, [facility] [address] [address] Referral ID Status Reason Start Date Expiration Date Visits Re quested Visits Authorized [id number] Closed 04/06/2017 04/06/2018 1 1 Encounter Details Date Type Department Care Team (Late Contact Info) Description 04/06/2017 Ancillary Orders [facility],Outside Imaging [address] [place] [address] System, Provider Not In, [facility] [address] [address] Social History Tobacco Use Types Packs/Day Years [...] Description 05/28/2025 8:45 AM EST Office Visit [facility] [address] [place] [address] Bouchra Dee PA [address] [place] [address] Charleen Otero ASSOCIATE COUNSEL [address] [place] [address] 05/31/2025 2:15 PM EST Office Visit [facility] [address] [place] [address] Bouchra Dee PA [address] [facility] [place] [address] Key Hanks, PT [address] [place] [address] 06/05/2025 4:45 PM EST Office Visit [facility] [address] [address] Bouchra Dee PA [address] [place] [address] Key Hanks, PT [address] [place] [address] 06/07/2025 8:45 AM EST Office Visit [facility] [address] [address] Bouchra Dee PA [address] [place] [address] Key Hansk, PT [address] [place] [address] 06/10/2025 1:45 PM EST Office Visit [facility] [address] [place] [address] Bouchra Dee PA [address] [place] [address] Key Hanks, PT [address] [place] [address] 06/12/2025 12:00 PM EST Office Visit [facility] [address] [place] [address] Bouchra Dee PA [address] [facility] [place] [address] Key Hanks, PT [address] [place] [address] 06/17/2025 1:45 PM EST Office Visit [facility] [address] [place] [address] Bouchra Dee PA [address] [facility] [place] [address] Key Hanks, PT [address] [place] [address] 06/19/2025 12:00 PM EST Office Visit [facility] [address] [place] [address] Bouchra Dee PA [address] [facility] [place] [address] Key Hanks, PT [address] [place] [address] 06/24/2025 12:00 PM EST Office Visit [facility] [address] [place] [address] Bouchra Dee PA [address] [facility] [place] [address] Key Hanks, PT [address] [place] [address] [email or web address] documented as of this encounter [...] on filedocumented in this encounter Care Teams Rib Sawyer Relationship Specialty Start Date End Date Enoc Llanos MD [address] [place] [address] PCP - General Internal Medicine 03/22/17 documented as of this encounter Additional Source Comments The information contained in this document represents components of the legal health record. It is not the complete legal health record.[facility]
--- OUTSIDE RECORDS SUMMARY | 2025-05-22 15:47 | XMS_ITS | Clinical Summary ---
Author Organization [facility] Address [address] [place] [address] Phone Care Team Providers Care Beet Flumer Name Role Phone Enoc Llanos MD Primary Care Provider [phone] Allergies Active Allergy Reactions Criticality Noted Date [...] Encounters Date Type Department Care Team Description 05/06/2025 1:45 PM EST Office Visit [facility] [address] [place] [address] Bouchra Dee PA Casares, Sabrina, PT Presence of artificial knee joint, right (Primary Dx); Orthopedic aftercare; Right knee pain, unspecified chronicity; Generalized weakness 05/01/2025 3:15 PM EST Office Visit [facility] [address] [place] [address] Bouchra Dee PA Casares, Sabrina, PT Presence of artificial knee joint, right (Primary Dx); Orthopedic aftercare; Right knee pain, unspecified chronicity; Generalized weakness 05/01/2025 Plan of Care Documentation [facility] [address] [place] [address] 03/01/2025 Transcribe Orders [facility] Therapy [address] [address] Bouchra Dee PA Encounter for rehabilitation (Primary [...] 0.6 oz pur e alcohol) Niraj crum [facility] Education Answer Date Recorded Are you interested [...] 06/27/2017 2:55 PM EST Plan of Treatment Upcoming Encounters Date Type Department Care Team (Late st Contact Info) Description 05/28/2025 8:45 AM EST Office Visit [facility] [address] [place] [address] Bouchra Dee PA [address] [place] [address] [place] [address] Charleen Otero PEDIATRIC LICENSED PRACTICAL NURSE [address] [place] [address] 05/31/2025 2:15 PM EST Office Visit [facility] [address] [place] [address] Buochra Dee PA [address] [place] [address] [place] [address] Key Hanks, PT [address] [place] [address] 06/05/2025 4:45 PM EST Office Visit [facility] [address] [place] [address] Bocuhra Dee PA [address] [place] [address] [place] [address] Key Hanks, PT [address] [place] [address] 06/07/2025 8:45 AM EST Office Visit [facility] [address] [place] [address] Bouchra Dee PA [address] [place] [address] Key Hanks, PT [address] [place] [address] 06/10/2025 1:45 PM EST Office Visit [facility] [address] [place] [address] Bouchra Dee PA [address] [place] [address] [place] [address] Key Hanks, PT [address] [place] [address] 06/12/2025 12:00 PM EST Office Visit [facility] [address] [address] Bouchra Dee PA [address] [facility] [place] [address] Key Hanks, PT [address] [place] [address] 06/17/2025 1:45 PM EST Office Visit [facility] Therapy [address] [address] Bouchra Dee PA [address] [place] [address] [place] [address] Key Hanks, PT [address] [place] [address] 06/19/2025 12:00 PM EST Office Visit [facility] [address] [place] [address] Bouchra Dee PA [address] [place] [address] [place] [address] Key Hanks, PT [address] [place] [address] .[email or web address] 06/24/2025 12:00 PM EST Office Visit [facility] [address] [place] [address] Bouchra Dee PA [address] [place] [address] [place] [address] Key Hanks, PT [address] [place] [address] Health Maintenance Due Date Last Done Comments [...] EDT Routine [facility] Essential hypertension COMPREHENSIVE METABOLIC PANEL (CMP) Routine 09/12/2024 11:25 AM EDT Routine general medical examination at a [facility] Essential hypertension from Last 3 Months or Most Recently Relevant to Health Maintenance Results * (ABNORMAL) Comprehensive metabolic panel (09/12/2024 11:25 AM EDT) SODIUM 140 133 - 146 mmol/L [facility] POTASSIUM 4.2 3.3 - 5.1 mmol/L [facility] CHLORIDE 100 96 - 108 mmol/L [facility] CO2 29 21 - 35 mmol/L [facility] BUN 19 6 - 19 mg/dL [facility] CREATININE 1.10 0.5 - 1.5 mg/dL [facility] GLUCOSE 100(H) 70 - 99 mg/dL [facility] ALBUMIN 4.1 3.9 - 4.8 g/dL [facility] TOTAL PROTEIN 7.1 6.5 - 8.0 g/dL [facility] CALCIUM 9.8 8.4 - 10.3 mg/dL [facility] ALKALINE PHOSPHATASE 115 39 - 117 U/L [facility] TOTAL BILIRUBIN 0.3 0.0 - 1.2 mg/dL [facility] AST 19 0 - 37 U/L [facility] ALT 11 0 - 40 U/L [facility] GLOBULIN 3.0 1 - 4.8 g/dL [facility] EGFR 53(L) >59 mL/min/1.7 3m2 [facility] Comment:Estimated glomerular filtration rate calculated using the CKD-EPI refit equation. ANION GAP 15 10 - 20 mmol/L [facility] Blood 09/12/2024 11:2 5 AM EDT 09/12/2024 11:28 AM EDT us Enoc Llanos MD LAB BLOOD BKR ORDERABLES Final Result Performing Organization Address City/[facility] Co de Phone Number [facility] [address] [place] [address] * Lipid panel (09/12/2024 11:25 AM EDT) HDL 56 mg/dL [facility] Comment: Interpretation <40 mg/dL: Low HDL cholesterol (major risk factor for CHD) Greater than or equal to 60 mg/dL: High HDL cholesterol ( negative risk factor for CHD) HDL - cholesterol is affected by a number of factors, e.g. smoking, excerise, hormones, sex and age. CHOLESTEROL 203 0 - 240 mg/dL [facility] TRIGLYCERIDES 140 30 - 160 mg/dL [facility] LDL 119 50 - 129 mg/dL [facility] Comment: LDL levels in terms of risk for coronary heart disease: <100 mg/dL: Optimal 100-129 mg/dL: Near or above optimal 130-159 mg/dL: Borderline high 160-189 mg/dL: High >190 mg/dL: Very High CARDIAC RISK RATIO 3.6 3.3 - 4.4 C [facility] Blood 09/12/2024 11:2 5 AM EDT 09/12/2024 11:28 AM EDT us Enoc Llanos MD LAB BLOOD BKR ORDERABLES Final Result Performing Organization Address City/[facility]/ZIP Co de Phone Number [facility] [address] [place] [address] from Last 3 Months or Most Recently Relevant to Health Maintenance Insurance MEDICARE PART A & B [employer] MEDICARE SUPPLEMENT MEDICARE PART A & B [facility] MEDICARE SUPPLEMENT MEDICARE PART A & B MEDICARE PART A & B MEDICARE PART A & B [employer] MEDICARE SUPPLEMENT MEDICARE PART A & B MEDICARE PART A & B [employer] MEDICARE SUPPLEMENT MEDICARE PART A & B [employer] MED[employer]ARE SUPPLEMENT MEDICARE PART A & B [employer] MEDICARE SUPPLEMENT Advance Directives For more information, please contact: [phone] (9AM - 5PM [place], Tuesday-Tuesday) Documents on File Type Date Recorded Patient Technical Photographer Expl anation Living Will 03/24/2017 4:25 PM Care Teams Beet Flumer Relationship Specialty Start Date End Date Enoc Llanos MD [address] [place] [address] PCP - General Internal Medicine 03/22/17 Additional Source Comments The information contained in this document represents components of the legal health record. It is not the complete legal health record.[facility]
== END 2025-05-22 14:47 | disposition home or self-care (01) ==
LOC: HO.US 14:46
PROVIDERS: PCP Internal Medicine; Visit Provider Nurse Practitioner Family
DX: N26.1 Atrophy of kidney (terminal) (principal)
CPT/HCPCS: 76775

== ENCOUNTER → 2025-05-22 14:48 | Outpatient (BNV) | payer MEDICARE, OTHER, SELFPAY | PROVIDERS: PCP Internal Medicine; Visit Provider Radiology Diagnostic Radiology | DX: N26.1 Atrophy of kidney (terminal) (principal) | CPT/HCPCS: 76775 ==